=== PATIENT | male | born 1940 | race Caucasian/White ===

== ENCOUNTER 2016-12-15 16:25 | Emergency (ER) | payer BC ==
[~2016-12-15] VITALS: Ht 177.8 cm; Wt 95.1 kg
[~2016-12-15 16:25] MED LIST: CILO50TA9 PO; DYZ; OXYC-57 PO; PRLSR20 PO; TRAM-10 PO
[2016-12-15 16:32] VITALS: TEMP 37.7; Ht 177.8 cm; Wt 95.1 kg
--- NOTE | 2016-12-15 17:50 | EMERGENCY ROOM VISIT NOTE ---
History Report prepared by Debra: Halle Ewing Under the Supervision of: Dr. Liam Baxter M.D. First contact with patient: 17:28 Chief Complaint: UNABLE TO VOID Stated Complaint: URINARY PROBLEMS, FEVER, Nursing Triage Summary: Pt states unable to void, pain with urination, fever. Sx began yesterday, worse today. Denies previous problems with retention. History of Present Illness The patient is a 76 year old male who presents to the Emergency Room with complaints of worsening urinary symptoms for the past 2 days. The patient reports dysuria. He feels like he is unable to empty his bladder. He denies hematuria. Yesterday the patient developed a fever and was unable to void at all. He feels more tired than usual. The patient denies nausea, vomiting, diarrhea, abdominal pain, and back pain. He denies any personal history of UTIs or prostate problems. He called his PCP and was advised to come to the ED for further evaluation. Source of History: patient Onset: 2 days ago Position: other (bladder) Timing: worsening Modifying Factors (Worsening): urination Associated Symptoms: + fatigue, + fevers, No abdominal pain, No back pain, No diarrhea, No nausea, No vomiting Review of Systems See HPI for pertinent positives & negatives. A total of 10 systems reviewed and were otherwise negative. Past Medical & Surgical Medical Problems: (1) Athscl Heart Disease Of [place] Coronary Artery W/O Ang Pctrs (2) Athscl Heart Disease Of [place] Coronary Artery W/O Ang Pctrs (3) Emphysema, unspecified (4) Hypertension Family History Non-pertinent due to advanced age. Social History Smoking Status: Former Smoker Marital Status: Housing Status: lives with significant other Occupation Status: retired Current/Historical Medications Scheduled Acetaminophen (Tylenol), 2 TAB PO TID Amlodipine (Norvasc), 5 MG PO DAILY Atenolol (Tenormin), 25 MG PO BID Atorvastatin (Lipitor), 80 MG PO DAILY Cilostazol (Pletal), 100 MG PO DAILY Metformin HCl (Metformin HCl), 500 MG PO BIDM Nitroglycerin (Nitrostat), 0.4 MG SL DIRECTED Omeprazole (Prilosec), 20 MG PO DAILY Sulfa/Trimethoprim (Bactrim Ds 800MG/160MG), 1 TAB PO BID Tamsulosin Hcl (Flomax), 0.4 MG PO HS Tramadol Hcl (Tramadol Hcl Er), 200 MG PO DAILY Miscellaneous Medications Clopidogrel Bisulfate (Plavix), 1 TAB PO Isosorbide Mononitrate Ext Rel (Imdur Ext Rel), 1 TAB PO Triamterene/Hctz (Dyazide 37.5MG/25MG *) Allergies Coded Allergies: No Known Allergies (Verified , 12/15/16) Physical Exam Vital Signs Date Time Temp Pulse Resp B/P Pulse Ox O2 Delivery O2 Flow Rate FiO2 12/15/16 19:18 76 16 125/65 94 Room Air 12/15/16 18:55 94 Room Air 12/15/16 16:32 37.7 96 18 159/95 92 Room Air Physical Exam GENERAL: Patient is a healthy-appearing well-nourished 76 year old male. HEAD: Normocephalic atraumatic EYES: Ocular movements intact pupils equal and react to light OROPHARYNX mucous membranes are moist no exudates present no erythema or edema present NECK: Supple no nuchal rigidity CHEST: Good equal expansion LUNGS: Clear and equal to auscultation CARDIAC: Normal S1 and S2 ABDOMEN: Soft nontender no guarding BACK: No CVA tenderness EXTREMITIES: No pain upon palpation normal muscle strength in all groups no clubbing cyanosis or edema NEURO: Patient is following commands is answering questions appropriately. Alert and oriented x3 Cranial Nerves 2-12 grossly intact Medical Decision & Procedures ER Provider Diagnostic Interpretation: Radiology results as stated below per my review and radiologist interpretation: RENAL ULTRASOUND HISTORY: Right-sided abdominal pain. COMPARISON: Abdomen and pelvis CTA 09/17/2010. FINDINGS: Right kidney: 10.7 cm. No hydronephrosis. Normal corticomedullary differentiation. Mild cortical thinning. Left kidney: 11.3 cm. No hydronephrosis. Normal corticomedullary differentiation. Mild cortical thinning. Bladder: The bladder is decompressed by Verdin catheter. IMPRESSION: The bladder is decompressed by Verdin catheter. Otherwise, normal renal ultrasound for age. Electronically signed by: Mio Brand M.D. 12/15/2016 7:29 PM Dictated Date/Time: 12/15/2016 7:27 PM Laboratory Results 12/15/16 18:05 Red Blood Count 3.73, Mean Corpuscular Volume 94.4, Mean Corpuscular Hemoglobin 32.4, Mean Corpuscular Hemoglobin Concent 34.4, Mean Platelet Volume 10.5, Neutrophils (%) (Auto) 87.3, Lymphocytes (%) (Auto) 4.7, Monocytes (%) (Auto) 7.5, Eosinophils (%) (Auto) 0.1, Basophils (%) (Auto) 0.1, Neutrophils # (Auto) 13.58, Lymphocytes # (Auto) 0.73, Monocytes # (Auto) 1.17, Eosinophils # (Auto) 0.01, Basophils # (Auto) 0.02 12/15/16 18:05 Test 12/15/16 17:45 12/15/16 18:05 Urine Color YELLOW Urine Appearance CLEAR (CLEAR) Urine pH 5.5 (4.5-7.5) Urine Specific [place] 1.018 (1.000-1.030) Urine Protein TRACE (NEG) Urine Glucose (UA) NEG (NEG) Urine Ketones NEG (NEG) Urine Occult Blood TRACE (NEG) Urine Nitrite NEG (NEG) Urine Bilirubin NEG (NEG) Urine Urobilinogen NEG (NEG) Urine Leukocyte Esterase MODERATE (NEG) Urine WBC (Auto) 10-30 /hpf (0-5) Urine RBC (Auto) 0-4 /hpf (0-4) Urine Hyaline Casts (Auto) 5-10 /lpf (0-5) Urine Epithelial Cells (Auto) 0-5 /lpf (0-5) Urine Bacteria (Auto) 3+ (NEG) White Blood Count 15.55 K/uL (4.8-10.8) Red Blood Count 3.73 M/uL (4.7-6.1) Hemoglobin 12.1 g/dL (14.0-18.0) Hematocrit 35.2 % (42-52) Mean Corpuscular Volume 94.4 fL (80-100) Mean Corpuscular Hemoglobin 32.4 pg (25-34) Mean Corpuscular Hemoglobin Concent 34.4 g/dl (32-36) Platelet Count 190 K/uL (130-400) Mean Platelet Volume 10.5 fL (7.4-10.4) Neutrophils (%) (Auto) 87.3 % Lymphocytes (%) (Auto) 4.7 % Monocytes (%) (Auto) 7.5 % Eosinophils (%) (Auto) 0.1 % Basophils (%) (Auto) 0.1 % Neutrophils # (Auto) 13.58 K/uL (1.4-6.5) Lymphocytes # (Auto) 0.73 K/uL (1.2-3.4) Monocytes # (Auto) 1.17 K/uL (0.11-0.59) Eosinophils # (Auto) 0.01 K/uL (0-0.5) Basophils # (Auto) 0.02 K/uL (0-0.2) RDW Standard Deviation 47.1 fL (36.4-46.3) RDW Coefficient of Variation 13.6 % (11.5-14.5) Immature Granulocyte % (Auto) 0.3 % Immature Granulocyte # (Auto) 0.04 K/uL (0.00-0.02) Anion Gap 11.0 mmol/L (3-11) Est Creatinine Clear Calc Drug Dose 77.0 ml/min Estimated GFR () 91.5 Estimated GFR (Non- 78.9 BUN/Creatinine Ratio 18.3 (10-20) Calcium Level 8.1 mg/dl (8.5-10.1) Total Bilirubin 0.7 mg/dl (0.2-1) Direct Bilirubin 0.1 mg/dl (0-0.2) Aspartate Amino Transf (AST/SGOT) 16 U/L (15-37) Alanine Aminotransferase (ALT/SGPT) 22 U/L (12-78) Alkaline Phosphatase 64 U/L (45-117) Total Creatine Kinase 99 U/L (39-308) Creatine Kinase MB 0.7 ng/ml (0.5-3.6) Creatine Kinase MB Ratio 0.7 (0-3.0) Troponin I < 0.015 ng/ml (0-0.045) Total Protein 7.1 gm/dl (6.4-8.2) Albumin 3.4 gm/dl (3.4-5.0) Labs reviewed by ED physician. Medications Administered Medications (Trade) Dose Ordered Sig/Magdi Route Start Time Stop Time Status Last Admin Dose Admin Sodium Chloride (Nss 1000ml) 1,000 ml @ 999 mls/hr Q1H1M STAT IV 12/15/16 17:54 12/15/16 18:54 DC 12/15/16 18:37 999 MLS/HR Ketorolac Tromethamine (Toradol Inj) 30 mg NOW STAT IV 12/15/16 17:54 12/15/16 17:57 DC 12/15/16 18:38 30 MG Ceftriaxone Sodium (Rocephin Inj) 1 gm NOW STAT IV 12/15/16 17:54 12/15/16 17:57 DC 12/15/16 18:40 1 GM Trimethoprim/ Sulfamethoxazole (Septra Ds 800/ 160MG Tab) 1 tab NOW STAT PO 12/15/16 17:54 12/15/16 17:57 DC 12/15/16 18:38 1 TAB Tamsulosin HCl (Flomax Cap) 0.4 mg NOW ONCE PO 12/15/16 18:00 12/15/16 18:02 DC 12/15/16 18:38 0.4 MG Acetaminophen (Tylenol Tab) 1,000 mg NOW STAT PO 12/15/16 19:24 12/15/16 19:25 DC 12/15/16 19:47 1,000 MG ECG Indication: weakness Rate (beats per minute): 83 Rhythm: normal sinus Findings: no acute ischemic change, no ectopy Comparison ECG Date: no prior available ED Course 1728: Past medical records reviewed. The patient was evaluated in room C4. A complete history and physical examination was performed. 1754: Trimethoprim/Sulfamethoxazole 1 tab PO, Rocephin 1 gm IV, Toradol 30 mg IV , NSS 1000 ml @ 999 mls/hr IV 1800: Flomax 0.4 mg PO 4: Tylenol 1000 mg PO 1930: I reassessed the patient at this time. He is feeling better and resting comfortably. I discussed the results and treatment plan with the patient. I answered all pertaining questions that he had. He expressed understanding and verbalized agreement. The patient will be discharged home. Medical Decision Differential diagnosis: Etiologies such as renal colic, appendicitis, diverticulitis, mesenteric ischemia, aortic pathology, infections, inflammatory bowel disease, PUD, biliary pathology, UTI, as well as others were entertained. This is a 76-year-old male who presents emergency department complaining of chills and fevers along with urinary retention. Based on the patient's complaint a bladder scan was performed after Verdin catheter was inserted. The patient does have a large amount of white blood cells in his urine and does appear to have a urinary tract infection. An IV was established, the patient given normal saline bolus started on Rocephin, Bactrim as well as Flomax. He was also given Toradol and Tylenol for his symptoms. Repeat examination revealed improvement patient's symptoms. I strongly recommended that the patient be admitted to the hospital however he is adamantly refusing and wishes to go home. I strongly cautioned him to return if his weakness returns or his fevers or out of control. I will place him on a 28 day course of Bactrim for prostatitis. I stressed the need for follow-up with urology to have the Verdin removed. Patient was in agreement with the treatment plan. Impression Primary Impression: Urinary tract infection Scribe Attestation The scribe's documentation has been prepared under my direction and personally reviewed by me in its entirety. I confirm that the note above accurately reflects all work, treatment, procedures, and medical decision making performed by me. Departure Information Dispostion Home / Self-Care Prescriptions Tamsulosin Hcl (FLOMAX) 0.4 Mg Cap 0.4 MG PO HS for 14 Days, #14 CAP Prov: Liam Baxter MD 12/15/16 Sulfa/Trimethoprim (Bactrim Ds 800MG/160MG) Tab 1 TAB PO BID for 28 Days, #56 TAB Prov: Liam Baxter MD 12/15/16 Referrals Jae Hills M.D. (PCP) Jasson Colón M.D. Forms HOME CARE DOCUMENTATION FORM, IMPORTANT VISIT INFORMATION, WORK / SCHOOL INSTRUCTIONS Patient Instructions My [facility], Prostatitis Bacterial Additional Instructions Follow up with DR Colón's office this week Take 600 mg Ibuprofen every 6 hours Take 1000 mg TYlenol every 6 hours Culture results are usually available in approx 48 hours You have been examined and treated today on an emergency basis only. This is not a substitute for, or an effort to provide, complete comprehensive medical care. It is impossible to recognize and treat all injuries or illnesses in a single emergency department visit. It is therefore important that you follow up closely with Dr Hills. Call as soon as possible for an appointment. Thank you for your time and consideration. I look forward to speaking with you again soon. Please don't hesitate to call us if you have any questions. Problem Qualifiers Primary Impression: Urinary tract infection Urinary tract infection type: acute cystitis Hematuria presence: without hematuria Qualified Codes: N30.00 - Acute cystitis without hematuria
[2016-12-15] MEDS ORDERED: SODIUM CHLORIDE 0.9% 1000ML 1,000 ML IV STA (17:54)
[2016-12-15] MEDS ORDERED: SULFAMETHOXAZOLE/TRIMETHOPRIM DS 800/160MG TAB PO STA (17:54)
[2016-12-15] MEDS ORDERED: CEFTRIAXONE SOD INJ 1 GM ADDVIAL IV STA (17:54)
[2016-12-15] MEDS ORDERED: KETOROLAC TROMETHAMINE 30 MG/ML VIAL IV STA (17:54)
[2016-12-15] MEDS ORDERED: TAMSULOSIN HCL 0.4 MG CAP PO ONE (18:00)
[2016-12-15 18:24] LABS: URINE APPEARANCE CLEAR (CLEAR); URINE BILIRUBIN NEG (NEG); URINE COLOR YELLOW; URINE EPITHELIAL CELL AUTO 0-5 /lpf (0-5); URINE NITRITE NEG (NEG); URINE PH 5.5 (4.5-7.5); URINE SPECIFIC GRAVITY 1.018 (1.000-1.030); UROBILINOGEN NEG (NEG); ZZURINE CULT IF INDIC CATH YES
[2016-12-15 18:36] LABS: BASO % 0.1 %; BASO ABS # 0.02 K/uL (0-0.2); COMPLETE YES; EOS % 0.1 %; HEMATOCRIT 35.2 % (42-52); IG% 0.3 %; LYMPH % 4.7 %; LYMPH ABS # 0.73 K/uL (1.2-3.4); MEAN CELL VOLUME 94.4 fL (80-100); MEAN CORPUSCULAR HEMOGLOBIN 32.4 pg (25-34); MEAN CORPUSCULAR HGB CONC 34.4 g/dl (32-36); MEAN PLATELET VOLUME 10.5 fL (7.4-10.4); MONO % 7.5 %; NEUT % 87.3 %; PLATELET COUNT 190 K/uL (130-400); RED BLOOD COUNT 3.73 M/uL (4.7-6.1); WHITE BLOOD COUNT 15.55 K/uL (4.8-10.8)
[2016-12-15 18:36] LABS: MANUAL MICROSCOPIC REQUIRED? NO; REVIEW REQ? NO
[2016-12-15 18:55] VITALS: O2SAT 94
[2016-12-15 19:12] LABS: ALT/SGPT 22 U/L (12-78); AST/SGOT 16 U/L (15-37); BLOOD UREA NITROGEN 17 mg/dl (7-18); BUN/CREATININE RATIO 18.3 (10-20); CALCIUM 8.1 mg/dl (8.5-10.1); CARBON DIOXIDE 25 mmol/L (21-32); CHLORIDE 99 mmol/L (98-107); CREATININE 0.93 mg/dl (0.60-1.40); GLUCOSE 117 mg/dl (70-99); POTASSIUM 3.6 mmol/L (3.5-5.1); SODIUM 135 mmol/L (136-145)
[2016-12-15 19:18] VITALS: BP 125/65; PULSE 76; O2SAT 94
[2016-12-15 19:18] LABS: ALKALINE PHOSPHATASE 64 U/L (45-117); CKMB/CK RATIO 0.7 (0-3.0)
[2016-12-15] MEDS ORDERED: ACETAMINOPHEN 500 MG TAB PO STA (19:24)
--- NOTE | 2016-12-15 19:31 | DIAGNOSTIC IMAGING REPORT ---
RENAL ULTRASOUND HISTORY: Right-sided abdominal pain. COMPARISON: Abdomen and pelvis CTA 09/17/2010. FINDINGS: Right kidney: 10.7 cm. No hydronephrosis. Normal corticomedullary differentiation. Mild cortical thinning. Left kidney: 11.3 cm. No hydronephrosis. Normal corticomedullary differentiation. Mild cortical thinning. Bladder: The bladder is decompressed by Verdin catheter. IMPRESSION: The bladder is decompressed by Verdin catheter. Otherwise, normal renal ultrasound for age. Electronically signed by: Mio Brand M.D. 12/15/2016 7:29 PM Dictated Date/Time: 12/15/2016 7:27 PM
[2016-12-15] MEDS ORDERED: SULF800T23 PO (19:39)
[2016-12-15] MEDS ORDERED: TAMS0.4C38 PO (19:39)
--- NOTE | 2016-12-17 13:49 | Pharmacy Progress Note ---
ED Pharmacist Culture FollowUp Date of Service: Dec 17, 2016. Patient was sent home with a prescription for Bactrim, which should cover the Morganella morganii growing from the patient's urine culture.
[2017-04-29] MEDS ORDERED: AMLO-110 PO (11:21)
[2017-04-29] MEDS ORDERED: ATEN-173 PO (11:21)
[2017-04-29] MEDS ORDERED: PLAVIX75 PO (12:37)
[2017-04-29] MEDS ORDERED: ATOR-26 PO (12:37)
[2017-04-29] MEDS ORDERED: ISOS30TA35 PO (12:37)
[2017-04-29] MEDS ORDERED: GLC500 PO (12:44)
[2017-04-29] MEDS ORDERED: NTRGSLP4 SL (12:44)
[2017-04-29] MEDS ORDERED: ACET-1256 PO (12:44)
== END 2016-12-15 19:48 | disposition home or self-care (01) ==
LOC: C.EDB 16:27 → C.EDC 19:48
DX: N30.00 Acute cystitis without hematuria (principal); I10 Essential (primary) hypertension; I25.10 Atherosclerotic heart disease of native coronary artery without angina pectoris; J43.9 Emphysema, unspecified; Z87.891 Personal history of nicotine dependence; Z79.899 Other long term (current) drug therapy

== ENCOUNTER 2017-03-06 19:36 | Inpatient (IN) | payer BC, OTHER ==
[~2017-03-06] VITALS: Ht 177.8 cm; Wt 92.5 kg
[~2017-03-06 19:36] MED LIST changes: -OXYC-57 PO; -TRAM-10 PO
[2017-03-06] MEDS ORDERED: ONDANSETRON INJ 2 MG/ML 2 ML VIAL IV STA (19:51)
[2017-03-06] MEDS ORDERED: MoRPHine SULFATE 4 MG/ML 1 ML CARP\\VIAL IV STA (19:51)
[2017-03-06 20:15] LABS: BASO % 0.2 %; BASO ABS # 0.03 K/uL (0-0.2); COMPLETE YES; EOS % 0.4 %; HEMATOCRIT 40.9 % (42-52); IG% 0.3 %; LYMPH % 5.9 %; LYMPH ABS # 0.92 K/uL (1.2-3.4); MEAN CELL VOLUME 92.3 fL (80-100); MEAN CORPUSCULAR HEMOGLOBIN 32.1 pg (25-34); MEAN CORPUSCULAR HGB CONC 34.7 g/dl (32-36); MEAN PLATELET VOLUME 10.6 fL (7.4-10.4); MONO % 5.4 %; NEUT % 87.8 %; PLATELET COUNT 246 K/uL (130-400); RED BLOOD COUNT 4.43 M/uL (4.7-6.1); WHITE BLOOD COUNT 15.61 K/uL (4.8-10.8)
[2017-03-06] MEDS ORDERED: OPTIRAY 320 IV PRN (20:15)
[2017-03-06 20:32] LABS: BUN/CREATININE RATIO 14.8 (10-20); CREATININE 0.95 mg/dl (0.60-1.40)
[2017-03-06] MEDS ORDERED: TRIATAB3 PO (20:33)
--- NOTE | 2017-03-06 21:21 | DIAGNOSTIC IMAGING REPORT ---
ABDOMEN AND PELVIS CT WITH IV CONTRAST CT DOSE: 537.92 mGy.cm HISTORY: Generalized abdominal pain and vomiting. eval for obstruction TECHNIQUE: Multiaxial CT images of the abdomen and pelvis were performed following the use of intravenous contrast. COMPARISON STUDY: Abdomen and pelvis CTA 09/17/2010. FINDINGS: A 3 mm nodule within the right upper lobe on image 2. Groundglass densities within the lung bases posteriorly may be due to mild dependent change. No pneumoperitoneum. No pneumatosis. Bilateral L5 spondylolysis with associated spondylolisthesis. Coronary artery calcifications. Extensive calcified plaque within the aorta and iliac arteries. No change in the severe stenosis at the right proximal common iliac artery. 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 The largest on the right measures 2.4 cm. Mild aneurysmal dilatation of the abdominal aorta measuring 3.2 cm. 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 There may also be occlusion of the left common femoral artery. The prostate gland is mildly enlarged. The bladder is mildly distended. Colonic diverticulosis. The adrenal glands and kidneys are unremarkable. A 2.7 cm exophytic hypodense lesion within the spleen. This may represent a cyst. Multiple scattered hypodense lesions within the liver. The majorities are subcentimeter in size and too small to characterize. Dominant lesion within the inferior to the right hepatic lobe measures 1.8 cm. This is slightly increased in size from the 2009 study. These lesions are indeterminate but favor cysts. No retroperitoneal lymphadenopathy. Hypodense and bulbous appearance to the pancreatic tail which is concerning for a pancreatic tail mass. Small amount of ascites. Multiple scattered omental nodules consistent with peritoneal carcinomatosis. Dominant nodule within the right side of the omentum measures 2.7 cm. Soft tissue nodularity surrounding the bulbous pancreatic tail suggestive of metastatic disease. This abuts the greater curvature of the stomach. This appears to be narrowing of the distal splenic vein at the suspected pancreatic mass. Cluster of small bowel loops within the right lower quadrant on image 303. This results in the transition point of the small bowel obstruction. Multiple dilated mid to distal small bowel which are fluid-filled. These measure up to 3.8 cm in diameter. IMPRESSION: 1. Small bowel obstruction with the transition point at the mid ileum within the right lower quadrant. 2. Peritoneal carcinomatosis as described above. This likely accounts for the small bowel obstruction. 3. Bulbous appearance of the pancreatic tail which measures 2.8 cm in thickness. This is highly suspicious for a pancreatic mass. There is surrounding soft tissue nodularity consistent with spread of metastatic disease/peritoneal carcinomatosis. There is also narrowing of the distal splenic vein at this location. 4. No change in the chronic multifocal arterial disease as described above. Electronically signed by: Mio Brand M.D. 03/06/2017 9:19 PM Dictated Date/Time: 03/06/2017 9:04 PM
[2017-03-06] MEDS ORDERED: MoRPHine SULFATE 4 MG/ML 1 ML CARP\\VIAL IV PRN (22:30)
[2017-03-06] MEDS ORDERED: GLUCOSE 40% GEL 15 GM TUBE PO PRN (22:30)
[2017-03-06] MEDS ORDERED: GLUCAGON FOR INJ 1 MG VIAL SQ PRN (22:30)
[2017-03-06] MEDS ORDERED: DEXTROSE 50% 50 ML SYR IV PRN (22:30)
[2017-03-06] MEDS ORDERED: ACETAMINOPHEN IV 100 ML IV PRN (22:30)
[2017-03-06] MEDS ORDERED: NITROGLYCERIN 0.4 MG SL PER TAB CHARGE SL SCH (22:30)
[2017-03-06] MEDS ORDERED: ONDANSETRON INJ 2 MG/ML 2 ML VIAL IV PRN (22:30)
[2017-03-06] MEDS ORDERED: MoRPHine SULFATE 2 MG/ML CARP IV PRN (22:30)
[2017-03-06] MEDS ORDERED: GLUCOSE 10 TABS/TUBE PO PRN (22:30)
--- NOTE | 2017-03-06 22:36 | EMERGENCY ROOM VISIT NOTE ---
History Report prepared by Debra: Taryn Serrano Under the Supervision of: Dr. Deven Garcia M.D. First contact with patient: 19:45 Chief Complaint: ABDOMINAL PAIN Stated Complaint: BELLY PAIN,VOMITING History of Present Illness The patient is a 77 year old male who presents to the Emergency Room with complaints of worsening abdominal pain that started 8 hours ago, around 1200. The patient states that he is also experiencing nausea and vomiting. He states that he is also very "gassy." The patient tried to relieve his symptoms with Pepto Bismol, but he was unable to keep it down. The patient's adds that the patient's abdomen appears to be bigger than it usually is. The patient states that he is urinating normally and his last bowel movement, which was earlier today, was normal beside being somewhat darker than usual. The patient had a hernia repair surgery done years ago, but otherwise denies any abdominal surgeries. The patient still has his gallbladder and appendix. Source of History: patient, spouse/significant other () Onset: 8 hours ago, around 1200 Position: abdomen Quality: other (abdominal pain) Timing: worsening Associated Symptoms: + nausea, + vomiting Note: "gassy" Review of Systems See HPI for pertinent positives & negatives. A total of 10 systems reviewed and were otherwise negative. 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 (2) Athscl Heart Disease Of [place] Coronary Artery W/O Ang Pctrs (3) Carcinoma of tail of pancreas (4) Emphysema, unspecified (5) Hypertension (6) Peritoneal carcinomatosis Family History Heart disease Stroke Social History Smoking Status: Never Smoker Marital Status: Housing Status: lives with significant other Occupation Status: retired Current/Historical Medications Scheduled Acetaminophen (Tylenol), 2 TAB PO TID Amlodipine (Norvasc), 5 MG PO DAILY Aspirin (Aspir-81), 1 TAB PO DAILY Atenolol (Tenormin), 25 MG PO BID Atorvastatin (Lipitor), 80 MG PO DAILY Cilostazol (Cilostazol), 1 TAB PO DAILY Metformin HCl (Metformin HCl), 500 MG PO BIDM Nitroglycerin (Nitrostat), 0.4 MG SL DIRECTED Tramadol Hcl (Tramadol Hcl Er), 200 MG PO DAILY Triamterene/Hctz (Triamterene/Hctz 37.5-25MG), 1 TAB PO Q2D Miscellaneous Medications Clopidogrel Bisulfate (Plavix), 1 TAB PO Isosorbide Mononitrate Ext Rel (Imdur Ext Rel), 1 TAB PO Allergies Coded Allergies: No Known Allergies (Verified , 03/06/17) Physical Exam Vital Signs Date Time Temp Pulse Resp B/P Pulse Ox O2 Delivery O2 Flow Rate FiO2 03/06/17 21:45 80 16 147/94 97 Room Air 03/06/17 19:42 36.7 102 20 143/83 95 Room Air Physical Exam Constitutional: Vital signs reviewed. Eyes: Pupils are equal round reactive to light. Conjunctiva are noninjected. ENT: Pharynx is clear without erythema or exudate. Mucous membranes are moist. Neck supple without meningeal signs. Respiratory: Clear to auscultation bilaterally. Breath sounds are equal bilaterally. Cardiovascular: Regular rate and rhythm. No rubs or gallops. GI: Soft, slightly distended with lower abdominal tenderness. No guarding. Bowel sounds are present. Musculoskeletal: No peripheral edema. No lower extremity tenderness. Integumentary: No cyanosis. Neurological: The patient is awake and alert. No focal deficits. Psychiatric: Normal affect. Medical Decision & Procedures ER Provider Diagnostic Interpretation: CT results as stated below per my review and radiologist interpretation. ABDOMEN AND PELVIS CT WITH IV CONTRAST IMPRESSION: 1. Small bowel obstruction with the transition point at the mid ileum within the right lower quadrant. 2. Peritoneal carcinomatosis as described above. This likely accounts for the small bowel obstruction. 3. Bulbous appearance of the pancreatic tail which measures 2.8 cm in thickness. This is highly suspicious for a pancreatic mass. There is surrounding soft tissue nodularity consistent with spread of metastatic disease/peritoneal carcinomatosis. There is also narrowing of the distal splenic vein at this location. 4. No change in the chronic multifocal arterial disease as described above. Electronically signed by: Mio Brand M.D. 03/06/2017 9:19 PM Dictated Date/Time: 03/06/2017 9:04 PM Laboratory Results 03/06/17 20:00 Red Blood Count 4.43, Mean Corpuscular Volume 92.3, Mean Corpuscular Hemoglobin 32.1, Mean Corpuscular Hemoglobin Concent 34.7, Mean Platelet Volume 10.6, Neutrophils (%) (Auto) 87.8, Lymphocytes (%) (Auto) 5.9, Monocytes (%) (Auto) 5.4, Eosinophils (%) (Auto) 0.4, Basophils (%) (Auto) 0.2, Neutrophils # (Auto) 13.71, Lymphocytes # (Auto) 0.92, Monocytes # (Auto) 0.85, Eosinophils # (Auto) 0.06, Basophils # (Auto) 0.03 03/06/17 20:00 Test 03/06/17 20:00 White Blood Count 15.61 K/uL (4.8-10.8) Red Blood Count 4.43 M/uL (4.7-6.1) Hemoglobin 14.2 g/dL (14.0-18.0) Hematocrit 40.9 % (42-52) Mean Corpuscular Volume 92.3 fL (80-100) Mean Corpuscular Hemoglobin 32.1 pg (25-34) Mean Corpuscular Hemoglobin Concent 34.7 g/dl (32-36) Platelet Count 246 K/uL (130-400) Mean Platelet Volume 10.6 fL (7.4-10.4) Neutrophils (%) (Auto) 87.8 % Lymphocytes (%) (Auto) 5.9 % Monocytes (%) (Auto) 5.4 % Eosinophils (%) (Auto) 0.4 % Basophils (%) (Auto) 0.2 % Neutrophils # (Auto) 13.71 K/uL (1.4-6.5) Lymphocytes # (Auto) 0.92 K/uL (1.2-3.4) Monocytes # (Auto) 0.85 K/uL (0.11-0.59) Eosinophils # (Auto) 0.06 K/uL (0-0.5) Basophils # (Auto) 0.03 K/uL (0-0.2) RDW Standard Deviation 49.7 fL (36.4-46.3) RDW Coefficient of Variation 14.7 % (11.5-14.5) Immature Granulocyte % (Auto) 0.3 % Immature Granulocyte # (Auto) 0.04 K/uL (0.00-0.02) Anion Gap 10.0 mmol/L (3-11) Est Creatinine Clear Calc Drug Dose 73.1 ml/min Estimated GFR () 88.5 Estimated GFR (Non- 76.4 BUN/Creatinine Ratio 14.8 (10-20) Calcium Level 9.0 mg/dl (8.5-10.1) Total Bilirubin 0.5 mg/dl (0.2-1) Direct Bilirubin 0.1 mg/dl (0-0.2) Aspartate Amino Transf (AST/SGOT) 20 U/L (15-37) Alanine Aminotransferase (ALT/SGPT) 19 U/L (12-78) Alkaline Phosphatase 74 U/L (45-117) Total Protein 8.0 gm/dl (6.4-8.2) Albumin 4.0 gm/dl (3.4-5.0) Lipase 226 U/L (73-393) Laboratory results as reviewed by me. Medications Administered Medications (Trade) Dose Ordered Sig/Magdi Route Start Time Stop Time Status Last Admin Dose Admin Morphine Sulfate (MoRPHine SULFATE INJ) 4 mg ONE STAT IV 03/06/17 19:51 03/06/17 19:53 DC 03/06/17 20:12 4 MG Ondansetron HCl (Zofran Inj) 4 mg NOW STAT IV 03/06/17 19:51 03/06/17 19:53 DC 03/06/17 20:12 4 MG ED Course 1946: The patient was evaluated in room C10. A complete history and physical exam was performed. 1950: Ordered Zofran Inj 4 mg IV, Morphine Sulfate 4 mg IV 2124: Upon reevaluation, the patient appeared to be resting comfortably. I discussed tonight's findings with him. He verbalized agreement of the treatment plan. The patient will be evaluated for further management. 2129: I spoke with Dr. Rodney of General Surgery. We discussed the patient and his results. She is in agreement with the plan to admit the patient to medicine. She has agreed to consult. 2139: I spoke with Dr. Moran of [facility]. We discussed the patient and his results. The patient will be further evaluated by him. Medical Decision This is a 77-year-old male who presents with abdominal pain and vomiting. Differential diagnosis includes bowel obstruction, partial bowel obstruction, abdominal mass, appendicitis, mesenteric ischemia, colitis. I did perform a limited focused review of portions of the patient's old chart on the electronic medical record. The patient has had no recent pertinent visits to this hospital. I did evaluate the patient as noted above. IV access was established. I did treat the patient with IV morphine and Zofran. I did order and review the patient's blood work as noted in the electronic medical record. His white blood cell count is over 15,000. I did order a CT of the abdomen and pelvis. I did review the images myself as well as the radiology report as described above. He has a small bowel obstruction secondary to peritoneal carcinomatosis. He also has a pancreatic mass. I did discuss the test results with the patient and his . An NG tube was ordered. I did discuss the case with Dr. Rodney of surgery. I did discuss case with Dr. Melara for hospitalization. Consults Time Called: 2128 Consulting Physician: Dr. Rodney - General Surgery Returned Call: [address] Rodney of General Surgery. We discussed the patient and his results. She is in agreement with the plan to admit the patient to medicine. She has agreed to consult. Additional Consults: Time Called: 2128 Consulted Physician: Dr. Moran - [facility] [place] Returned Call: 2139 Additional Comments: I spoke with Dr. Moran of [facility]. We discussed the patient and his results. The patient will be further evaluated by him. Impression Primary Impression: Small bowel obstruction Additional Impressions: Peritoneal carcinomatosis Pancreatic mass Scribe Attestation The scribe's documentation has been prepared under my direct and personally reviewed by me in its entirety. I confirm that the note above accurately reflects all work, treatment, procedures, and medical decision making performed by me. Departure Information Dispostion Being Evaluated By Hospitalist Referrals Jae Hills M.D. (PCP) Patient Instructions My [facility] Problem Qualifiers
[2017-03-06] MEDS ORDERED: LORAZEPAM 2 MG/ML 1 ML VIAL IV STA (22:48)
--- NOTE | 2017-03-06 23:31 | History and Physical ---
History & Physical Date & Time of Service: Mar 06, 2017 at 23:31 Chief Complaint: Belly Pain,Vomiting Primary Care Physician: Jae Hills M.D. History of Present Illness Source: patient, spouse The patient is a 77-year-old male who presents to the emergency department with worsening abdominal pain that began about 8 hours prior to arrival. He has had intermittent issues with nausea and vomiting and being very gassy since almost a year ago. He has undergone an endoscopy by Dr. Hernández from gastroenterology, and was treated for Helicobacter pylori. He has not had any recent travel, sick exposures, change in his usual routine, or change in solid or liquid intake. He also reports frequent issues with loose stools after eating. Past Medical/Surgical History Medical Problems: (1) Emphysema, unspecified Status: Chronic (2) Hypertension Status: Chronic Family History Heart disease Stroke Social History Smoking Status: Never Smoker Smokeless Tobacco Use: No Alcohol Use: none Drug Use: none Marital Status: Housing status: lives with family Occupational Status: retired Immunizations History of Influenza Vaccine: Yes Influenza Vaccine Date: Aug 03, 2008 History of Tetanus Vaccine?: Yes History of Pneumococcal: Unknown History of Hepatitis B Vaccine: No Multi-Drug Resistant Organisms History of MDRO: No Allergies Coded Allergies: No Known Allergies (Verified , 03/06/17) Home Medications Scheduled Acetaminophen (Tylenol), 2 TAB PO TID Amlodipine (Norvasc), 5 MG PO DAILY Aspirin (Aspir-81), 1 TAB PO DAILY Atenolol (Tenormin), 25 MG PO BID Atorvastatin (Lipitor), 80 MG PO DAILY Cilostazol (Cilostazol), 1 TAB PO DAILY Metformin HCl (Metformin HCl), 500 MG PO BIDM Nitroglycerin (Nitrostat), 0.4 MG SL DIRECTED Tramadol Hcl (Tramadol Hcl Er), 200 MG PO DAILY Triamterene/Hctz (Triamterene/Hctz 37.5-25MG), 1 TAB PO Q2D Miscellaneous Medications Clopidogrel Bisulfate (Plavix), 1 TAB PO Isosorbide Mononitrate Ext Rel (Imdur Ext Rel), 1 TAB PO Review of Systems The patient denies chest pain, palpitations, shortness of breath, cough, lower extremity swelling, vision change, hearing change, sore throat, fevers, chills, sweats, blood in urine or stool, dysuria, urinary frequency or urgency, lightheadedness, dizziness, headache, memory loss, rash, abnormal bruising or bleeding, imbalance, focal weakness, numbness or tingling in arms or legs, arthralgias or myalgias, back or neck pain, night sweats, or allergy symptoms. The review of systems is otherwise negative other than for that already noted above, and at least 10 systems have been reviewed. Physical Exam Vital Signs Date Time Temp Pulse Resp B/P Pulse Ox O2 Delivery O2 Flow Rate FiO2 03/06/17 21:45 80 16 147/94 97 Room Air 03/06/17 19:42 36.7 102 20 143/83 95 Room Air The patient is awake, well-developed and adequately nourished, alert and oriented 3, normocephalic and atraumatic, lying in bed and in no acute distress. HEENT--PERRL, EOMI, mucous membranes and oropharynx dry. Neck--supple, no JVD or bruits, thyroid normal, trachea midline, no adenopathy. Heart--normal S1 and S2, no extra beats, no murmurs, rubs or gallops. Lungs--clear bilaterally with good air movement, no respiratory distress, no accessory muscle use. Abdomen--normal bowel sounds and soft, generally tender, mildly distended, no hernias or masses, no organomegaly. Extremities--no cyanosis, clubbing or edema. There are good distal pulses b/l. Dermatologic--normal skin turgor, normal color, warm and dry, no abnormal lymph nodes, no rash. Neurologic--cranial nerves II through XII grossly intact, motor and sensory examination normal. Rheumatologic--normal range of motion, nontender, muscles and joints. Psychiatric--normal affect. Diagnostics Laboratory Results Results Past 24 Hours Test 03/06/17 20:00 Range/Units White Blood Count 15.61 4.8-10.8 K/uL Red Blood Count 4.43 4.7-6.1 M/uL Hemoglobin 14.2 14.0-18.0 g/dL Hematocrit 40.9 42-52 % Mean Corpuscular Volume 92.3 80-100 fL Mean Corpuscular Hemoglobin 32.1 25-34 pg Mean Corpuscular Hemoglobin Concent 34.7 32-36 g/dl Platelet Count 246 130-400 K/uL Mean Platelet Volume 10.6 7.4-10.4 fL Neutrophils (%) (Auto) 87.8 % Lymphocytes (%) (Auto) 5.9 % Monocytes (%) (Auto) 5.4 % Eosinophils (%) (Auto) 0.4 % Basophils (%) (Auto) 0.2 % Neutrophils # (Auto) 13.71 1.4-6.5 K/uL Lymphocytes # (Auto) 0.92 1.2-3.4 K/uL Monocytes # (Auto) 0.85 0.11-0.59 K/uL Eosinophils # (Auto) 0.06 0-0.5 K/uL Basophils # (Auto) 0.03 0-0.2 K/uL RDW Standard Deviation 49.7 36.4-46.3 fL RDW Coefficient of Variation 14.7 11.5-14.5 % Immature Granulocyte % (Auto) 0.3 % Immature Granulocyte # (Auto) 0.04 0.00-0.02 K/uL Sodium Level 139 136-145 mmol/L Potassium Level 4.0 3.5-5.1 mmol/L Chloride Level 101 98-107 mmol/L Carbon Dioxide Level 28 21-32 mmol/L Anion Gap 10.0 3-11 mmol/L Blood Urea Nitrogen 14 7-18 mg/dl Creatinine 0.95 0.60-1.40 mg/dl Est Creatinine Clear Calc Drug Dose 73.1 ml/min Estimated GFR () 88.5 Estimated GFR (Non- 76.4 BUN/Creatinine Ratio 14.8 10-20 Random Glucose 136 70-99 mg/dl Calcium Level 9.0 8.5-10.1 mg/dl Total Bilirubin 0.5 0.2-1 mg/dl Direct Bilirubin 0.1 0-0.2 mg/dl Aspartate Amino Transf (AST/SGOT) 20 15-37 U/L Alanine Aminotransferase (ALT/SGPT) 19 12-78 U/L Alkaline Phosphatase 74 45-117 U/L Total Protein 8.0 6.4-8.2 gm/dl Albumin 4.0 3.4-5.0 gm/dl Lipase 226 73-393 U/L Diagnostic Radiology Patient Name: USMAN HERNANDEZ Unit Number: [id number] Dictated: 03/06/172103 Transcribed: 03/06/172103 [facility] Printed Date/Time: [~ rep prt dt]/[~ rep prt tm] [~ rep ct labl] - [~ rep ct ivnm] [facility] [place] [address] Dictated: 03/06/172103 Transcribed: 03/06/172103 [facility] Printed Date/Time: [~ rep prt dt]/[~ rep prt tm] [~ rep ct labl] - [~ rep ct ivnm] [~ rep ct add3]] ABDOMEN AND PELVIS CT WITH IV CONTRAST CT DOSE: 537.92 mGy.cm HISTORY: Generalized abdominal pain and vomiting. eval for obstruction TECHNIQUE: Multiaxial CT images of the abdomen and pelvis were performed following the use of intravenous contrast. COMPARISON STUDY: Abdomen and pelvis CTA 09/17/2010. FINDINGS: A 3 mm nodule within the right upper lobe on image 2. Groundglass densities within the lung bases posteriorly may be due to mild dependent change. No pneumoperitoneum. No pneumatosis. Bilateral L5 spondylolysis with associated spondylolisthesis. Coronary artery calcifications. Extensive calcified plaque within the aorta and iliac arteries. No change in the severe stenosis at the right proximal common iliac artery. 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 The largest on the right measures 2.4 cm. Mild aneurysmal dilatation of the abdominal aorta measuring 3.2 cm. 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 There may also be occlusion of the left common femoral artery. The prostate gland is mildly enlarged. The bladder is mildly distended. Colonic diverticulosis. The adrenal glands and kidneys are unremarkable. A 2.7 cm exophytic hypodense lesion within the spleen. This may represent a cyst. Multiple scattered hypodense lesions within the liver. The majorities are subcentimeter in size and too small to characterize. Dominant lesion within the inferior to the right hepatic lobe measures 1.8 cm. This is slightly increased in size from the 2009 study. These lesions are indeterminate but favor cysts. No retroperitoneal lymphadenopathy. Hypodense and bulbous appearance to the pancreatic tail which is concerning for a pancreatic tail mass. Small amount of ascites. Multiple scattered omental nodules consistent with peritoneal carcinomatosis. Dominant nodule within the right side of the omentum measures 2.7 cm. Soft tissue nodularity surrounding the bulbous pancreatic tail suggestive of metastatic disease. This abuts the greater curvature of the stomach. This appears to be narrowing of the distal splenic vein at the suspected pancreatic mass. Cluster of small bowel loops within the right lower quadrant on image 303. This results in the transition point of the small bowel obstruction. Multiple dilated mid to distal small bowel which are fluid-filled. These measure up to 3.8 cm in diameter. IMPRESSION: 1. Small bowel obstruction with the transition point at the mid ileum within the right lower quadrant. 2. Peritoneal carcinomatosis as described above. This likely accounts for the small bowel obstruction. 3. Bulbous appearance of the pancreatic tail which measures 2.8 cm in thickness. This is highly suspicious for a pancreatic mass. There is surrounding soft tissue nodularity consistent with spread of metastatic disease/peritoneal carcinomatosis. There is also narrowing of the distal splenic vein at this location. 4. No change in the chronic multifocal arterial disease as described above. Electronically signed by: Mio Brand M.D. 03/06/2017 9:19 PM Dictated Date/Time: 03/06/2017 9:04 PM The status of this report is Signed. Draft = Not yet reviewed or approved by Radiologist. Signed = Reviewed and approved by Radiologist. <AttendingPhy></AttendingPhy> <FamilyPhy>Jae Hills M.D.</FamilyPhy> < PrimaryPhy>Jae Hills M.D.</PrimaryPhy> <UnitNumber>[id number]</UnitNumber> <VisitNumber>[id number]</VisitNumber> <PatientName>USMAN HERNANDEZ</ PatientName> <DateOfBirth>1940</DateOfBirth> <Location>[facility]</Location> < ServiceDate>03/06/17</ServiceDate> <MNE>ESINDI</MNE> <OrderingPhy>Deven Garcia MD</OrderingPhy> <OrderingPhyMNE>f rep ord dr rodrigez</OrderingPhyMNE> < DictatingPhyMNE>f rep dict dr rodrigez</DictatingPhyMNE> <CCListMNE>f rep ct mne</ CCListMNE> <AdmittingPhyMNE>f pt admit dr rodrigez</AdmittingPhyMNE> <AttendingPhyMNE >f pt attend dr rodrigez</AttendingPhyMNE> <ConsultingPhyMNE>f pt consult dr rodrigez</ConsultingPhyMNE> <FamilyPhyMNE>f pt fam dr rodrigez</FamilyPhyMNE> <OtherPhyMNE>f pt other dr rodrigez</OtherPhyMNE> < PrimaryPhyMNE>f pt prim care dr rdorigez</PrimaryPhyMNE> <ReferringPhyMNE>f pt referring dr rodrigez</ReferringPhyMNE> Impression Assessment and Plan Pancreatic tail mass/peritoneal carcinomatosis/small bowel obstruction--patient will be admitted to the medical surgical floor and kept nothing by mouth status. NG tube to low intermittent suction is being placed by the emergency department. We'll order an MRCP to further assess, along with a CT of the chest with contrast. We'll consult oncologist Dr. Gabe Sapp. Depending upon his progress, a surgical consult may be made, but the patient and his have expressed a desire to go to [facility] if surgery is required. 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 on Nitropaste 1 inch to the anterior chest wall every 6 hours, and hydralazine 10 mg IV every 4 hours when necessary systolic blood pressure greater than 150. Place on normal saline with KCl 20 mEq at 100 ML's per hour. Diabetes mellitus--hold metformin 500 mg by mouth twice a day with meals, and place on Accu-Cheks before meals and at bedtime/4 times a day with NovoLog coverage per sliding scale. Hypercholesterolemia--hold atorvastatin 80 mg by mouth daily. BPH with mild bladder distention--monitored closely while on IV fluids. Level of Care Med/Surg Advanced Directives Existing Advance Directive: No Existing Living Will: No Existing Power of Roll Press Operator: No Resuscitation Status FULL RESUSCITATION VTE Prophylaxis VTE Risk Assessment Done? Y/N: Yes Risk Level: Moderate Given or contraindicated: SCD's Social Service Consult None Apply
[2017-03-06] MEDS ORDERED: CANNULA ONE ×2 (23:49)
[2017-03-07] VITALS (7 sets, daily range): BP systolic 112–160; BP diastolic 64–81; PULSE 55–90; TEMP 36.5–37; O2SAT 90–94; BMI 30.5; BMI 28.8
[2017-03-07] MEDS ORDERED: LORAZEPAM 2 MG/ML 1 ML VIAL ONE (01:37)
[2017-03-07] MEDS: NITROGLYCERIN OINT 2% 1GM PACKET EXT SCH ×4 (04:46→22:16)
[2017-03-07] MEDS: NSS + 20MEQ KCL 1000ML 1,000 ML IV SCH ×3 (04:47→22:18)
[2017-03-07 07:33] LABS: BASO % 0.2 %; BASO ABS # 0.02 K/uL (0-0.2); COMPLETE YES; EOS % 1.1 %; HEMATOCRIT 34.6 % (42-52); IG% 0.2 %; LYMPH % 11.9 %; LYMPH ABS # 1.22 K/uL (1.2-3.4); MEAN CELL VOLUME 93.5 fL (80-100); MEAN CORPUSCULAR HEMOGLOBIN 31.4 pg (25-34); MEAN CORPUSCULAR HGB CONC 33.5 g/dl (32-36); MEAN PLATELET VOLUME 10.7 fL (7.4-10.4); MONO % 6.5 %; NEUT % 80.1 %; PLATELET COUNT 201 K/uL (130-400); WHITE BLOOD COUNT 10.25 K/uL (4.8-10.8)
[2017-03-07 07:38] LABS: INR 1.1 (0.9-1.1); PROTHROMBIN TIME (PATIENT) 11.4 SECONDS (9.0-12.0)
--- NOTE | 2017-03-07 07:57 | DIAGNOSTIC IMAGING REPORT ---
MRCP CLINICAL HISTORY: Pancreatic carcinoma. Peritoneal carcinomatosis. Abnormal liver enzymes. COMPARISON STUDY: CT scan dated 03/06/2017 FINDINGS: A breath-hold MRCP was performed. There are dilated small bowel loops consistent with a small bowel obstruction. There is ascites. There is an 11 mm T2 bright hepatic lesion representing a cyst. There is a 2.6 cm T2 bright splenic mass, likely cystic. There is a 10 mm cystic lesion within the pancreatic neck. The pancreatic tail appears bulbous. There is infiltration the fat surrounding the pancreatic tail. There is no pancreatic ductal dilatation. The common bile duct is of normal caliber. There are no gallbladder filling defects. IMPRESSION: 1. Dilated small bowel loops, consistent with a small bowel obstruction 2. No evidence of pancreatic or biliary ductal dilatation 3. Ascites 4. T2 bright hepatic and splenic lesions, likely represent cysts 5. 10 mm cystic lesion within the pancreatic neck 6. Bulbous pancreatic tail. This could represent a mass. 7. Infiltration of the fat surrounding the pancreatic tail. 8. Omental nodularity Electronically signed by: Cristobal Angeles M.D. 03/07/2017 7:55 AM Dictated Date/Time: 03/07/2017 7:50 AM
[2017-03-07 08:00] LABS: ALT/SGPT 19 U/L (12-78); BLOOD UREA NITROGEN 12 mg/dl (7-18); BUN/CREATININE RATIO 13.6 (10-20); CARBON DIOXIDE 28 mmol/L (21-32); CHLORIDE 105 mmol/L (98-107); CREATININE 0.86 mg/dl (0.60-1.40); GLUCOSE 116 mg/dl (70-99); POTASSIUM 4.1 mmol/L (3.5-5.1); SODIUM 140 mmol/L (136-145)
[2017-03-07] MEDS ORDERED: ISOSORBIDE MONONITRATE 30 MG TABCR PO SCH (08:00)
[2017-03-07 08:09] LABS: ALKALINE PHOSPHATASE 60 U/L (45-117); AST/SGOT 14 U/L (15-37)
[2017-03-07] MEDS: INSULIN ASPART 100 UNITS/ML 3 ML PEN SC SCH ×4 (08:53→21:00)
[2017-03-07] MEDS: PANTOprazole INJ 40 MG in SYRINGE 0 ML IV SCH (10:23)
--- NOTE | 2017-03-07 13:24 | Oncology Consultation ---
Oncology/Heme Consultation Date of Consultation: Mar 07, 2017. Attending Physician: Byron Garnett D.O. 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 Dye is a 77 year old man with a history of CAD. He has had various GI complaints, including intermittent nausea and diarrhea, for much of the last year. He was seen by GI about 6 months ago and was found to have H. pylori, for which he was treated. He presented yesterday with acute onset abdominal pain and intractable nausea and vomiting. A CT of his abdomen/pelvis revealed a bowel obstruction and evidence of peritoneal carcinomatosis with a suspicious fullness in the tail of the pancreas. A subsequent MRCP did not further characterize this pancreatic tail lesion. He's lost about 10 lb over the last few months and has noticed a modest decline in his energy and appetite, but overall remains a fairly robust man. He goes to the gym multiple times per week and is totally independent. He is passing gas now, but has not had a bowel movement. Past Medical/Surgical History Medical Problems: (1) Finger pain, left Status: Acute (2) Pancreatic mass Status: Acute (3) Small bowel obstruction Status: Acute (4) Urinary tract infection Status: Acute Family History Heart disease Stroke grandson with testicular cancer Grandfather with some kind of cancer, unclear what type Social History Smoking Status: Former Smoker (Quit 15 years ago) Smokeless Tobacco Use: No Alcohol Use: none Drug Use: none Marital Status: Housing Status: lives with significant other Occupation Status: retired Allergies Coded Allergies: No Known Allergies (Verified , 03/06/17) Home Medications Scheduled Acetaminophen (Tylenol), 2 TAB PO TID Amlodipine (Norvasc), 5 MG PO DAILY Aspirin (Aspir-81), 1 TAB PO DAILY Atenolol (Tenormin), 25 MG PO BID Atorvastatin (Lipitor), 80 MG PO DAILY Cilostazol (Cilostazol), 1 TAB PO DAILY Metformin HCl (Metformin HCl), 500 MG PO BIDM Nitroglycerin (Nitrostat), 0.4 MG SL DIRECTED Tramadol Hcl (Tramadol Hcl Er), 200 MG PO DAILY Triamterene/Hctz (Triamterene/Hctz 37.5-25MG), 1 TAB PO Q2D Miscellaneous Medications Clopidogrel Bisulfate (Plavix), 1 TAB PO Isosorbide Mononitrate Ext Rel (Imdur Ext Rel), 1 TAB PO Current Inpatient Medications Current Inpatient Medications Medications (Trade) Dose Ordered Sig/Magdi Route Start Time Stop Time Status Last Admin Dose Admin Ioversol (Optiray 320) 100 ml UD PRN IV 03/06/17 20:15 03/10/17 20:14 Ondansetron HCl (Zofran Inj) 4 mg Q6H PRN IV 03/06/17 22:30 04/05/17 22:29 03/06/17 23:36 4 MG Insulin Aspart (novoLOG ASPART) SLIDING SCALE If C... ACHS SC 03/07/17 06:30 04/06/17 06:59 Glucose (Glucose 40% Gel) UD PRN PO 03/06/17 22:30 04/05/17 22:29 Glucose (Glucose Chew Tab) 1 tabs UD PRN PO 03/06/17 22:30 04/05/17 22:29 Dextrose (Dextrose 50% 50ML Syringe) 50 ml UD PRN IV 03/06/17 22:30 04/05/17 22:29 Glucagon 1 mg 1 mg UD PRN SQ 03/06/17 22:30 04/05/17 22:29 Potassium Chloride/Sodium Chloride 1,000 ml @ 100 mls/hr Q10H IV 03/07/17 03:00 04/06/17 02:59 03/07/17 13:09 100 MLS/HR Pantoprazole Sodium 40 mg/ Syringe 10 ml @ 5 mls/min DAILY@11 IV 03/07/17 11:00 04/06/17 10:59 03/07/17 10:23 5 MLS/MIN Acetaminophen (Ofirmev Iv) 100 ml @ 400 mls/hr Q8H PRN IV 03/06/17 22:30 04/05/17 22:29 Morphine Sulfate (MoRPHine SULFATE INJ) 2 mg Q2H PRN IV 03/06/17 22:30 03/20/17 22:29 Morphine Sulfate (MoRPHine SULFATE INJ) 4 mg Q2H PRN IV 03/06/17 22:30 03/20/17 22:29 Nitroglycerin (Nitrostat Tab) 0.4 mg UD SL 03/06/17 22:30 04/05/17 22:29 Nitroglycerin (Nitroglycerin 2% Oint) 1 inch Q6H EXT 03/07/17 04:00 04/06/17 03:59 03/07/17 10:27 1 INCH Hydralazine HCl (HydrALAZINE INJ) 10 mg Q4H PRN IV. 03/07/17 02:45 04/06/17 02:44 Review of Systems Constitutional: + fatigue, + weakness, + weight loss, No chills, No fever Eyes: No worsening of vision ENT: No trouble swallowing Respiratory: No cough, No shortness of breath Cardiovascular: No chest pain, No edema Abdomen: + constipation, + nausea, + pain, + vomiting Musculoskeletal: No joint pain, No muscle pain Genitourinary - Male: No dysuria Neurologic: No numbness/tingling, No weakness Hematologic / Lymphatic: No abnormal bleeding/bruising, No swollen lymph nodes Integumentary: No rash Physical Exam Date Time Temp Pulse Resp B/P Pulse Ox O2 Delivery O2 Flow Rate FiO2 03/07/17 12:47 37.0 66 16 147/74 90 03/07/17 08:30 Room Air 03/07/17 08:19 37.0 85 16 121/74 90 03/07/17 03:41 36.5 90 18 160/81 94 Room Air 03/07/17 03:32 36.5 90 18 160/81 03/07/17 01:48 81 16 146/78 98 03/07/17 00:38 84 20 138/82 97 Room Air 03/06/17 21:45 80 16 147/94 97 Room Air 03/06/17 19:42 36.7 102 20 143/83 95 Room Air General Appearance: WD/WN, no apparent distress Eyes: EOMI, sclerae normal (anicteric) ENT: + pertinent finding (NGT to suction with gastric contents in canister, non -bloody, non-bilious) Respiratory/Chest: lungs clear, no respiratory distress Cardiovascular: regular rate, rhythm, no murmur Abdomen/GI: non tender, soft, + abnormal bowel sounds (hypoactive), + distended (mildly) Extremities/Musculoskelatal: no pedal edema Neurologic/Psych: no motor/sensory deficits, alert, oriented x 3 Skin: no rash Lymphatic: no adenopathy Laboratory Results Last 24 Hours Test 03/06/17 20:00 03/07/17 07:16 03/07/17 08:07 03/07/17 11:42 White Blood Count 15.61 K/uL 10.25 K/uL Red Blood Count 4.43 M/uL 3.70 M/uL Hemoglobin 14.2 g/dL 11.6 g/dL Hematocrit 40.9 % 34.6 % Mean Corpuscular Volume 92.3 fL 93.5 fL Mean Corpuscular Hemoglobin 32.1 pg 31.4 pg Mean Corpuscular Hemoglobin Concent 34.7 g/dl 33.5 g/dl Platelet Count 246 K/uL 201 K/uL Mean Platelet Volume 10.6 fL 10.7 fL Neutrophils (%) (Auto) 87.8 % 80.1 % Lymphocytes (%) (Auto) 5.9 % 11.9 % Monocytes (%) (Auto) 5.4 % 6.5 % Eosinophils (%) (Auto) 0.4 % 1.1 % Basophils (%) (Auto) 0.2 % 0.2 % Neutrophils # (Auto) 13.71 K/uL 8.21 K/uL Lymphocytes # (Auto) 0.92 K/uL 1.22 K/uL Monocytes # (Auto) 0.85 K/uL 0.67 K/uL Eosinophils # (Auto) 0.06 K/uL 0.11 K/uL Basophils # (Auto) 0.03 K/uL 0.02 K/uL RDW Standard Deviation 49.7 fL 51.9 fL RDW Coefficient of Variation 14.7 % 15.1 % Immature Granulocyte % (Auto) 0.3 % 0.2 % Immature Granulocyte # (Auto) 0.04 K/uL 0.02 K/uL Sodium Level 139 mmol/L 140 mmol/L Potassium Level 4.0 mmol/L 4.1 mmol/L Chloride Level 101 mmol/L 105 mmol/L Carbon Dioxide Level 28 mmol/L 28 mmol/L Anion Gap 10.0 mmol/L 7.0 mmol/L Blood Urea Nitrogen 14 mg/dl 12 mg/dl Creatinine 0.95 mg/dl 0.86 mg/dl Est Creatinine Clear Calc Drug Dose 73.1 ml/min 80.3 ml/min Estimated GFR () 88.5 96.3 Estimated GFR (Non- 76.4 83.1 BUN/Creatinine Ratio 14.8 13.6 Random Glucose 136 mg/dl 116 mg/dl Calcium Level 9.0 mg/dl 8.0 mg/dl Total Bilirubin 0.5 mg/dl 0.5 mg/dl Direct Bilirubin 0.1 mg/dl < 0.1 mg/dl Aspartate Amino Transf (AST/SGOT) 20 U/L 14 U/L Alanine Aminotransferase (ALT/SGPT) 19 U/L 19 U/L Alkaline Phosphatase 74 U/L 60 U/L Total Protein 8.0 gm/dl 6.4 gm/dl Albumin 4.0 gm/dl 3.1 gm/dl Lipase 226 U/L Prothrombin Time 11.4 SECONDS Prothromb Time International Ratio 1.1 Activated Partial Thromboplast Time 25.9 SECONDS Partial Thromboplastin Ratio 1.0 Magnesium Level 2.0 mg/dl Bedside Glucose 113 mg/dl 110 mg/dl Test 03/07/17 12:45 Assessment & Plan Mr. Dye is an otherwise healthy gentleman who presents with a small bowel obstruction that appears to be related to peritoneal carcinomatosis. His CT and MRI both reveal a suspicious lesion in the tail of his pancreas, though they could not characterize it further. He will need an EUS with FNA (if feasible) for diagnosis, though I suspect he has a metastatic pancreatic cancer. I would check CEA and CA 19-9; while they are not diagnostic of a specific cancer, they might help provide supporting information. Otherwise, I would continue supportive care for his bowel obstruction. He does not have significant pain. I will continue to follow until we can establish a diagnosis and will see him in clinic to discuss treatment once he is ready for discharge.
--- NOTE | 2017-03-07 13:30 | Progress Note ---
Subjective Date of Service: Mar 07, 2017. Subjective Pt evaluation today including: conversation w/ patient, physical exam, chart review, lab review, review of studies, review of inpatient medication list Pt resting comfortably in bed No abd pain NGT placed No additional concerns Problem List Medical Problems: (1) Finger pain, left Status: Acute (2) Pancreatic mass Status: Acute (3) Small bowel obstruction Status: Acute (4) Urinary tract infection Status: Acute Review of Systems Constitutional: No chills, No fever Respiratory: No cough, No dyspnea on exertion, No shortness of breath, No sputum, No wheezing Cardiac: No chest pain, No orthopnea Abdomen: No nausea, No pain, No vomiting Musculoskeletal: No joint pain, No muscle pain Male : No dysuria, No urinary frequency Objective Vital Signs Date Time Temp Pulse Resp B/P Pulse Ox O2 Delivery O2 Flow Rate FiO2 03/07/17 12:47 37.0 66 16 147/74 90 03/07/17 08:30 Room Air 03/07/17 08:19 37.0 85 16 121/74 90 03/07/17 03:41 36.5 90 18 160/81 94 Room Air 03/07/17 03:32 36.5 90 18 160/81 03/07/17 01:48 81 16 146/78 98 03/07/17 00:38 84 20 138/82 97 Room Air 03/06/17 21:45 80 16 147/94 97 Room Air 03/06/17 19:42 36.7 102 20 143/83 95 Room Air Physical Exam General Appearance: WD/WN, no apparent distress Neck: supple, no adenopathy Respiratory/Chest: lungs clear, normal breath sounds Cardiovascular: no edema, no gallop Abdomen: normal bowel sounds, soft Neurologic/Psychiatric: alert, normal mood/affect Laboratory Results Last 24 Hours Test 03/06/17 20:00 03/07/17 07:16 03/07/17 08:07 03/07/17 11:42 White Blood Count 15.61 K/uL 10.25 K/uL Red Blood Count 4.43 M/uL 3.70 M/uL Hemoglobin 14.2 g/dL 11.6 g/dL Hematocrit 40.9 % 34.6 % Mean Corpuscular Volume 92.3 fL 93.5 fL Mean Corpuscular Hemoglobin 32.1 pg 31.4 pg Mean Corpuscular Hemoglobin Concent 34.7 g/dl 33.5 g/dl Platelet Count 246 K/uL 201 K/uL Mean Platelet Volume 10.6 fL 10.7 fL Neutrophils (%) (Auto) 87.8 % 80.1 % Lymphocytes (%) (Auto) 5.9 % 11.9 % Monocytes (%) (Auto) 5.4 % 6.5 % Eosinophils (%) (Auto) 0.4 % 1.1 % Basophils (%) (Auto) 0.2 % 0.2 % Neutrophils # (Auto) 13.71 K/uL 8.21 K/uL Lymphocytes # (Auto) 0.92 K/uL 1.22 K/uL Monocytes # (Auto) 0.85 K/uL 0.67 K/uL Eosinophils # (Auto) 0.06 K/uL 0.11 K/uL Basophils # (Auto) 0.03 K/uL 0.02 K/uL RDW Standard Deviation 49.7 fL 51.9 fL RDW Coefficient of Variation 14.7 % 15.1 % Immature Granulocyte % (Auto) 0.3 % 0.2 % Immature Granulocyte # (Auto) 0.04 K/uL 0.02 K/uL Sodium Level 139 mmol/L 140 mmol/L Potassium Level 4.0 mmol/L 4.1 mmol/L Chloride Level 101 mmol/L 105 mmol/L Carbon Dioxide Level 28 mmol/L 28 mmol/L Anion Gap 10.0 mmol/L 7.0 mmol/L Blood Urea Nitrogen 14 mg/dl 12 mg/dl Creatinine 0.95 mg/dl 0.86 mg/dl Est Creatinine Clear Calc Drug Dose 73.1 ml/min 80.3 ml/min Estimated GFR () 88.5 96.3 Estimated GFR (Non- 76.4 83.1 BUN/Creatinine Ratio 14.8 13.6 Random Glucose 136 mg/dl 116 mg/dl Calcium Level 9.0 mg/dl 8.0 mg/dl Total Bilirubin 0.5 mg/dl 0.5 mg/dl Direct Bilirubin 0.1 mg/dl < 0.1 mg/dl Aspartate Amino Transf (AST/SGOT) 20 U/L 14 U/L Alanine Aminotransferase (ALT/SGPT) 19 U/L 19 U/L Alkaline Phosphatase 74 U/L 60 U/L Total Protein 8.0 gm/dl 6.4 gm/dl Albumin 4.0 gm/dl 3.1 gm/dl Lipase 226 U/L Prothrombin Time 11.4 SECONDS Prothromb Time International Ratio 1.1 Activated Partial Thromboplast Time 25.9 SECONDS Partial Thromboplastin Ratio 1.0 Magnesium Level 2.0 mg/dl Bedside Glucose 113 mg/dl 110 mg/dl Test 03/07/17 12:45 Assessment and Plan Pancreatic tail mass/peritoneal carcinomatosis/small bowel obstruction--patient will be admitted to the medical surgical floor and kept nothing by mouth status. NG tube to low intermittent suction. We'll order an MRCP to further assess, along with a CT of the chest with contrast. We'll consult oncologist Dr. Gabe Sapp. Also consulted GI for likely EUS. Ordered CA 19-9 and CEA for suspicious pancreatic mass. 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 on Nitropaste 1 inch to the anterior chest wall every 6 hours, and hydralazine 10 mg IV every 4 hours when necessary systolic blood pressure greater than 150. Place on normal saline with KCl 20 mEq at 100 ML's per hour. Diabetes mellitus--hold metformin 500 mg by mouth twice a day with meals, and place on Accu-Cheks before meals and at bedtime/4 times a day with NovoLog coverage per sliding scale. Hypercholesterolemia--hold atorvastatin 80 mg by mouth daily. BPH with mild bladder distention--monitored closely while on IV fluids.
--- NOTE | 2017-03-07 19:06 | Medical Consult ---
Consultation Note Date of Service Mar 07, 2017. Consultation Note Progress Note Subjective Pt evaluation today including: conversation w/ patient, conversation w/ family (son, ), physical exam, chart review ([facility] EMR no GI reports, [facility] EMR EGD 08/21/15 EGD BI antoamty mild gastritis postiive for H.pylori treated per patient) Assessment and Plan GI consult dicatated job: [id number] SBO--clinically improved with 300 ml output NG from MN to now at 1849. Continue NG today and if limited output overnight can clamp tube. On the other hand, if worsens needs surgery consult. peritoneal carcinomatosis--metastatic disease from abdominal process either pancreas or otherwise. --CEA normal, CA 19-9 pending pancreas lesion--10 mm cyst in neck but probable mass in tail---Will speak with Dr Arora on Thursday regarding scheduling EUS provided the SBO resolves anemia--black stool as outpt but on peptobismol--no BMs yet sicne admit, follow <Electronically signed by Marcello Sullivan M.D.> Signed: 03/07/17 0972 Signed: The status of this report is Signed * If report status is Draft, the document has not been finalized by the responsible provider. Addendum: 03/07/17 1900 Addendum: Marcello Sullivan M.D. on 03/07/17 @ 19:00 Addendum Section He denies abdominal pain at present Above noted entered into a previous encounter indvertently do copied to this note.
[2017-03-08] VITALS (10 sets, daily range): BP systolic 140–184; BP diastolic 66–88; PULSE 56–91; TEMP 36.4–37; O2SAT 90–95; BMI 28.8
[2017-03-08] MEDS: NITROGLYCERIN OINT 2% 1GM PACKET EXT SCH ×4 (05:11→22:17)
[2017-03-08 06:10] LABS: BASO % 0.3 %; BASO ABS # 0.03 K/uL (0-0.2); COMPLETE YES; EOS % 2.3 %; HEMATOCRIT 35.2 % (42-52); IG% 0.1 %; LYMPH % 10.2 %; LYMPH ABS # 0.96 K/uL (1.2-3.4); MEAN CELL VOLUME 93.9 fL (80-100); MEAN CORPUSCULAR HEMOGLOBIN 31.2 pg (25-34); MEAN CORPUSCULAR HGB CONC 33.2 g/dl (32-36); MEAN PLATELET VOLUME 10.6 fL (7.4-10.4); MONO % 6.4 %; NEUT % 80.7 %; PLATELET COUNT 173 K/uL (130-400); RED BLOOD COUNT 3.75 M/uL (4.7-6.1); WHITE BLOOD COUNT 9.43 K/uL (4.8-10.8)
[2017-03-08 06:36] LABS: INR 1.1 (0.9-1.1); PARTIAL THROMBOPLASTIN RATIO 1.1
[2017-03-08 07:20] LABS: BUN/CREATININE RATIO 14.8 (10-20); CALCIUM 8.2 mg/dl (8.5-10.1); CREATININE 0.89 mg/dl (0.60-1.40); MAGNESIUM 2.1 mg/dl (1.8-2.4)
[2017-03-08 07:23] LABS: ALB/GLOB RATIO 0.9 (0.9-2)
[2017-03-08] MEDS: INSULIN ASPART 100 UNITS/ML 3 ML PEN SC SCH ×4 (08:17→21:00)
[2017-03-08] MEDS: NSS + 20MEQ KCL 1000ML 1,000 ML IV SCH ×2 (08:36→18:44)
[2017-03-08] MEDS: PANTOprazole INJ 40 MG in SYRINGE 0 ML IV SCH (11:16)
--- NOTE | 2017-03-08 12:27 | Hematology/Oncology Prog Note ---
Hematology/Onc Progress Note Date of Service Mar 08, 2017. Diagnoses Pancreatic mass with possible peritoneal carcinomatosis Small bowel obstruction Medications Medications Administered Medications (Trade) Dose Ordered Sig/Magdi Route Start Time Stop Time Status Last Admin Dose Admin Morphine Sulfate (MoRPHine SULFATE INJ) 4 mg ONE STAT IV 03/06/17 19:51 03/06/17 19:53 DC 03/06/17 20:12 4 MG Ondansetron HCl (Zofran Inj) 4 mg NOW STAT IV 03/06/17 19:51 03/06/17 19:53 DC 03/06/17 20:12 4 MG Ondansetron HCl 4 mg 4 mg Q6H PRN IV 03/06/17 22:30 04/05/17 22:29 03/06/17 23:36 4 MG Potassium Chloride/Sodium Chloride 1,000 ml @ 100 mls/hr Q10H IV 03/07/17 03:00 04/06/17 02:59 03/08/17 08:36 100 MLS/HR Pantoprazole Sodium/Syringe (Protonix Inj/ Syringe) 10 ml @ 5 mls/min DAILY@11 IV 03/07/17 11:00 04/06/17 10:59 03/08/17 11:16 5 MLS/MIN Atenolol (Tenormin Tab) 25 mg BID PO 03/07/17 08:00 03/07/17 09:00 DC 03/07/17 08:52 25 MG Isosorbide Mononitrate (Imdur Ext Rel Tab) 30 mg DAILY PO 03/07/17 08:00 03/07/17 09:00 DC 03/07/17 08:52 30 MG Lorazepam (Ativan Inj) 0.5 mg NOW STAT IV 03/06/17 22:48 03/06/17 22:56 DC 03/07/17 01:34 0.5 MG Nitroglycerin (Nitroglycerin 2% Oint) 1 inch Q6H EXT 03/07/17 04:00 04/06/17 03:59 03/08/17 11:19 1 INCH Subjective Mr. Dye is feeling better. He is more comfortable-looking and is sitting up. The plan is to clamp his NGT today and give him a trial of clears. He met with GI, who will plan an EGD/EUS provided his bowel obstruction resolves. He has no pain and no other new complaints. Review of Systems: Constitutional: No fever Eyes: No worsening of vision Respiratory: No cough, No shortness of breath Cardiovascular: No chest pain Abdomen: + constipation, No nausea, No pain, No vomiting Musculoskeletal: No joint pain, No muscle pain Neurologic: No numbness/tingling, No weakness Heme: No abnormal bleeding/bruising Vital Signs Vital Signs Past 12 Hours Date Time Temp Pulse Resp B/P Pulse Ox O2 Delivery O2 Flow Rate FiO2 03/08/17 12:00 36.5 67 16 95 03/08/17 11:20 184/86 03/08/17 08:40 Room Air 03/08/17 07:02 36.4 61 18 156/76 93 Room Air 03/08/17 04:02 36.5 68 20 165/78 91 Room Air 03/08/17 01:12 Room Air Physical Exam Constitutional: General Apperance: heathly-appearing Level of Distress: NAD Psychiatric: Mental Status: active & alert Orientation: oriented except where noted Lungs: Respiratory Effort: no dyspnea Auscuitation: CTA except as noted Cardiovascular: Heart Auscultation: RRR, no murmurs Abdomen: Inspection & Palpation: soft, no tenderness, guarding & rebound, distended Extremities: no edema Laboratory Last 24 Hours Test 03/07/17 14:06 03/07/17 16:42 03/07/17 20:31 03/08/17 05:49 Carcinoembryonic Antigen 1.6 ng/ml Bedside Glucose 108 mg/dl 97 mg/dl White Blood Count 9.43 K/uL Red Blood Count 3.75 M/uL Hemoglobin 11.7 g/dL Hematocrit 35.2 % Mean Corpuscular Volume 93.9 fL Mean Corpuscular Hemoglobin 31.2 pg Mean Corpuscular Hemoglobin Concent 33.2 g/dl Platelet Count 173 K/uL Mean Platelet Volume 10.6 fL Neutrophils (%) (Auto) 80.7 % Lymphocytes (%) (Auto) 10.2 % Monocytes (%) (Auto) 6.4 % Eosinophils (%) (Auto) 2.3 % Basophils (%) (Auto) 0.3 % Neutrophils # (Auto) 7.61 K/uL Lymphocytes # (Auto) 0.96 K/uL Monocytes # (Auto) 0.60 K/uL Eosinophils # (Auto) 0.22 K/uL Basophils # (Auto) 0.03 K/uL RDW Standard Deviation 51.7 fL RDW Coefficient of Variation 15.1 % Immature Granulocyte % (Auto) 0.1 % Immature Granulocyte # (Auto) 0.01 K/uL Prothrombin Time 12.0 SECONDS Prothromb Time International Ratio 1.1 Activated Partial Thromboplast Time 28.9 SECONDS Partial Thromboplastin Ratio 1.1 Sodium Level 144 mmol/L Potassium Level 4.0 mmol/L Chloride Level 106 mmol/L Carbon Dioxide Level 29 mmol/L Anion Gap 9.0 mmol/L Blood Urea Nitrogen 13 mg/dl Creatinine 0.89 mg/dl Est Creatinine Clear Calc Drug Dose 77.6 ml/min Estimated GFR () 94.9 Estimated GFR (Non- 81.9 BUN/Creatinine Ratio 14.8 Random Glucose 96 mg/dl Calcium Level 8.2 mg/dl Magnesium Level 2.1 mg/dl Total Bilirubin 0.6 mg/dl Direct Bilirubin 0.1 mg/dl Aspartate Amino Transf (AST/SGOT) 16 U/L Alanine Aminotransferase (ALT/SGPT) 18 U/L Alkaline Phosphatase 61 U/L Total Protein 6.7 gm/dl Albumin 3.1 gm/dl Globulin 3.6 gm/dl Albumin/Globulin Ratio 0.9 Test 03/08/17 07:51 03/08/17 11:38 Bedside Glucose 92 mg/dl 96 mg/dl Assessment & Plan Mr. Dye is slowly recovering from his bowel obstruction. His pain and nausea are gone and he looks much more comfortable. He will have a trial of clamping his NGT followed by slow advance of his diet. If he can tolerate removing his NGT, the plan will be for his EGD/EUS next week. We will continue to follow along for now, in case he may need a different diagnostic approach.
--- NOTE | 2017-03-08 12:29 | Progress Note ---
Subjective Date of Service: Mar 08, 2017. Subjective Pt evaluation today including: conversation w/ patient, conversation w/ family , physical exam, chart review, lab review, review of studies, review of inpatient medication list Resting comfortably in bed denies any nausea or vomiting no abd pain tolerating NGT Problem List Medical Problems: (1) Finger pain, left Status: Acute (2) Pancreatic mass Status: Acute (3) Small bowel obstruction Status: Acute (4) Urinary tract infection Status: Acute Review of Systems Constitutional: No chills, No fever Respiratory: No cough, No dyspnea on exertion, No shortness of breath, No sputum, No wheezing Cardiac: No chest pain, No orthopnea Abdomen: No diarrhea, No nausea, No pain, No vomiting Musculoskeletal: No joint pain, No muscle pain Male : No dysuria, No urinary frequency Objective Vital Signs Date Time Temp Pulse Resp B/P Pulse Ox O2 Delivery O2 Flow Rate FiO2 03/08/17 12:00 36.5 67 16 95 03/08/17 11:20 184/86 03/08/17 08:40 Room Air 03/08/17 07:02 36.4 61 18 156/76 93 Room Air 03/08/17 04:02 36.5 68 20 165/78 91 Room Air 03/08/17 01:12 Room Air 03/07/17 22:50 36.7 62 18 127/70 91 Room Air 03/07/17 16:45 36.6 55 16 112/64 94 03/07/17 16:25 123/65 03/07/17 16:00 Room Air 03/07/17 12:47 37.0 66 16 147/74 90 Physical Exam General Appearance: WD/WN, no apparent distress Neck: supple, no adenopathy Respiratory/Chest: lungs clear, normal breath sounds, no respiratory distress Cardiovascular: no edema, no gallop Abdomen: non tender, soft Neurologic/Psychiatric: alert, oriented x 3 Laboratory Results Last 24 Hours Test 03/07/17 14:06 03/07/17 16:42 03/07/17 20:31 03/08/17 05:49 Carcinoembryonic Antigen 1.6 ng/ml Bedside Glucose 108 mg/dl 97 mg/dl White Blood Count 9.43 K/uL Red Blood Count 3.75 M/uL Hemoglobin 11.7 g/dL Hematocrit 35.2 % Mean Corpuscular Volume 93.9 fL Mean Corpuscular Hemoglobin 31.2 pg Mean Corpuscular Hemoglobin Concent 33.2 g/dl Platelet Count 173 K/uL Mean Platelet Volume 10.6 fL Neutrophils (%) (Auto) 80.7 % Lymphocytes (%) (Auto) 10.2 % Monocytes (%) (Auto) 6.4 % Eosinophils (%) (Auto) 2.3 % Basophils (%) (Auto) 0.3 % Neutrophils # (Auto) 7.61 K/uL Lymphocytes # (Auto) 0.96 K/uL Monocytes # (Auto) 0.60 K/uL Eosinophils # (Auto) 0.22 K/uL Basophils # (Auto) 0.03 K/uL RDW Standard Deviation 51.7 fL RDW Coefficient of Variation 15.1 % Immature Granulocyte % (Auto) 0.1 % Immature Granulocyte # (Auto) 0.01 K/uL Prothrombin Time 12.0 SECONDS Prothromb Time International Ratio 1.1 Activated Partial Thromboplast Time 28.9 SECONDS Partial Thromboplastin Ratio 1.1 Sodium Level 144 mmol/L Potassium Level 4.0 mmol/L Chloride Level 106 mmol/L Carbon Dioxide Level 29 mmol/L Anion Gap 9.0 mmol/L Blood Urea Nitrogen 13 mg/dl Creatinine 0.89 mg/dl Est Creatinine Clear Calc Drug Dose 77.6 ml/min Estimated GFR () 94.9 Estimated GFR (Non- 81.9 BUN/Creatinine Ratio 14.8 Random Glucose 96 mg/dl Calcium Level 8.2 mg/dl Magnesium Level 2.1 mg/dl Total Bilirubin 0.6 mg/dl Direct Bilirubin 0.1 mg/dl Aspartate Amino Transf (AST/SGOT) 16 U/L Alanine Aminotransferase (ALT/SGPT) 18 U/L Alkaline Phosphatase 61 U/L Total Protein 6.7 gm/dl Albumin 3.1 gm/dl Globulin 3.6 gm/dl Albumin/Globulin Ratio 0.9 Test 03/08/17 07:51 03/08/17 11:38 Bedside Glucose 92 mg/dl 96 mg/dl Assessment and Plan Pancreatic tail mass/peritoneal carcinomatosis/small bowel obstruction--patient was admitted to the medical surgical floor and kept nothing by mouth status. NG tube to low intermittent suction. MRCP determined dilated small bowel loops, consistent with a small bowel obstruction, no evidence of pancreatic or biliary ductal dilatation, 10 mm cystic lesion within the pancreatic neck. No worsening pain leukocytosis or fevers. GI consulted for possible EUS, CEA neg and CA 19-9 pending. 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 on Nitropaste 1 inch to the anterior chest wall every 6 hours, and hydralazine 10 mg IV every 4 hours when necessary systolic blood pressure greater than 150. Place on normal saline with KCl 20 mEq at 100 ML's per hour. Diabetes mellitus--hold metformin 500 mg by mouth twice a day with meals, and place on Accu-Cheks before meals and at bedtime/4 times a day with NovoLog coverage per sliding scale. Hypercholesterolemia--hold atorvastatin 80 mg by mouth daily. BPH with mild bladder distention--monitored closely while on IV fluids. Pt is FULL CODE
--- NOTE | 2017-03-08 13:24 | Gastroenterology Progress Note ---
Progress Note Date of Service: Mar 08, 2017 Subjective Pt evaluation today including: conversation w/ patient, conversation w/ family (), physical exam, chart review, lab review, review of studies, review of inpatient medication list CC f/u SBO, pancreas mass HPI Per nurse about 200 ml NG output from 0600 to now at 1321. Pt is less distended, no abd pain. Does not feel like he passed gas today and no BM.. Review of Systems Respiratory: No shortness of breath Cardiac: No chest pain Medications Current Inpatient Medications Medications (Trade) Dose Ordered Sig/Magdi Route Start Time Stop Time Status Last Admin Dose Admin Ioversol (Optiray 320) 100 ml UD PRN IV 03/06/17 20:15 03/10/17 20:14 Ondansetron HCl (Zofran Inj) 4 mg Q6H PRN IV 03/06/17 22:30 04/05/17 22:29 03/06/17 23:36 4 MG Insulin Aspart (novoLOG ASPART) SLIDING SCALE If C... ACHS SC 03/07/17 06:30 04/06/17 06:59 Glucose (Glucose 40% Gel) UD PRN PO 03/06/17 22:30 04/05/17 22:29 Glucose (Glucose Chew Tab) 1 tabs UD PRN PO 03/06/17 22:30 04/05/17 22:29 Dextrose (Dextrose 50% 50ML Syringe) 50 ml UD PRN IV 03/06/17 22:30 04/05/17 22:29 Glucagon 1 mg 1 mg UD PRN SQ 03/06/17 22:30 04/05/17 22:29 Potassium Chloride/Sodium Chloride 1,000 ml @ 100 mls/hr Q10H IV 03/07/17 03:00 04/06/17 02:59 03/08/17 08:36 100 MLS/HR Pantoprazole Sodium 40 mg/ Syringe 10 ml @ 5 mls/min DAILY@11 IV 03/07/17 11:00 04/06/17 10:59 03/08/17 11:16 5 MLS/MIN Acetaminophen (Ofirmev Iv) 100 ml @ 400 mls/hr Q8H PRN IV 03/06/17 22:30 04/05/17 22:29 Morphine Sulfate (MoRPHine SULFATE INJ) 2 mg Q2H PRN IV 03/06/17 22:30 03/20/17 22:29 Morphine Sulfate (MoRPHine SULFATE INJ) 4 mg Q2H PRN IV 03/06/17 22:30 03/20/17 22:29 Nitroglycerin (Nitrostat Tab) 0.4 mg UD SL 03/06/17 22:30 04/05/17 22:29 Nitroglycerin (Nitroglycerin 2% Oint) 1 inch Q6H EXT 03/07/17 04:00 04/06/17 03:59 03/08/17 11:19 1 INCH Hydralazine HCl (HydrALAZINE INJ) 10 mg Q4H PRN IV. 03/07/17 02:45 04/06/17 02:44 Objective Vital Signs Date Time Temp Pulse Resp B/P Pulse Ox O2 Delivery O2 Flow Rate FiO2 03/08/17 12:00 36.5 67 16 95 03/08/17 11:20 184/86 03/08/17 08:40 Room Air 03/08/17 07:02 36.4 61 18 156/76 93 Room Air 03/08/17 04:02 36.5 68 20 165/78 91 Room Air 03/08/17 01:12 Room Air 03/07/17 22:50 36.7 62 18 127/70 91 Room Air 03/07/17 16:45 36.6 55 16 112/64 94 03/07/17 16:25 123/65 03/07/17 16:00 Room Air Physical Exam General Appearance: WD/WN, no apparent distress Respiratory/Chest: lungs clear, no respiratory distress Cardiovascular: no murmur Abdomen: normal bowel sounds, non tender, soft, no organomegaly, + pertinent finding (not distended) Neurologic/Psych: normal mood/affect, oriented x 3 Laboratory Results Last 24 Hours Test 03/07/17 14:06 03/07/17 16:42 03/07/17 20:31 03/08/17 05:49 Carcinoembryonic Antigen 1.6 ng/ml Bedside Glucose 108 mg/dl 97 mg/dl White Blood Count 9.43 K/uL Red Blood Count 3.75 M/uL Hemoglobin 11.7 g/dL Hematocrit 35.2 % Mean Corpuscular Volume 93.9 fL Mean Corpuscular Hemoglobin 31.2 pg Mean Corpuscular Hemoglobin Concent 33.2 g/dl Platelet Count 173 K/uL Mean Platelet Volume 10.6 fL Neutrophils (%) (Auto) 80.7 % Lymphocytes (%) (Auto) 10.2 % Monocytes (%) (Auto) 6.4 % Eosinophils (%) (Auto) 2.3 % Basophils (%) (Auto) 0.3 % Neutrophils # (Auto) 7.61 K/uL Lymphocytes # (Auto) 0.96 K/uL Monocytes # (Auto) 0.60 K/uL Eosinophils # (Auto) 0.22 K/uL Basophils # (Auto) 0.03 K/uL RDW Standard Deviation 51.7 fL RDW Coefficient of Variation 15.1 % Immature Granulocyte % (Auto) 0.1 % Immature Granulocyte # (Auto) 0.01 K/uL Prothrombin Time 12.0 SECONDS Prothromb Time International Ratio 1.1 Activated Partial Thromboplast Time 28.9 SECONDS Partial Thromboplastin Ratio 1.1 Sodium Level 144 mmol/L Potassium Level 4.0 mmol/L Chloride Level 106 mmol/L Carbon Dioxide Level 29 mmol/L Anion Gap 9.0 mmol/L Blood Urea Nitrogen 13 mg/dl Creatinine 0.89 mg/dl Est Creatinine Clear Calc Drug Dose 77.6 ml/min Estimated GFR () 94.9 Estimated GFR (Non- 81.9 BUN/Creatinine Ratio 14.8 Random Glucose 96 mg/dl Calcium Level 8.2 mg/dl Magnesium Level 2.1 mg/dl Total Bilirubin 0.6 mg/dl Direct Bilirubin 0.1 mg/dl Aspartate Amino Transf (AST/SGOT) 16 U/L Alanine Aminotransferase (ALT/SGPT) 18 U/L Alkaline Phosphatase 61 U/L Total Protein 6.7 gm/dl Albumin 3.1 gm/dl Globulin 3.6 gm/dl Albumin/Globulin Ratio 0.9 Test 03/08/17 07:51 03/08/17 11:38 Bedside Glucose 92 mg/dl 96 mg/dl Assessment and Plan SBO--limited output this am and not distended. 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 --CEA normal, CA 19-9 pending pancreas lesion--10 mm cyst in neck but probable mass in tail---Will speak with Dr Arora tomorrow regarding scheduling EUS provided the SBO resolves anemia--black stool as outpt but on peptobismol--no BMs yet sicne admit, stable
[2017-03-09] VITALS (7 sets, daily range): BP systolic 140–171; BP diastolic 76–92; PULSE 58–84; TEMP 36.4–36.6; O2SAT 92–96; BMI 28.7
[2017-03-09] MEDS: NSS + 20MEQ KCL 1000ML 1,000 ML IV SCH ×3 (04:50→23:47)
[2017-03-09] MEDS: NITROGLYCERIN OINT 2% 1GM PACKET EXT SCH ×4 (04:50→21:39)
--- NOTE | 2017-03-09 06:01 | GASTROINTESTINAL CONSULTATION ---
DATE OF CONSULTATION: 03/07/2017 REASON FOR CONSULTATION: Pancreas mass. CHIEF COMPLAINT: The patient has abdominal pain, nausea and vomiting. HISTORY OF PRESENT ILLNESS: The patient stated that he had nausea and vomiting, maybe for 6 months and had an EGD to work that up; however, in reviewing the old [facility] records, he had an EGD 08/21/[address] Hernández for nausea, showed him to be Billroth I anastomosis anatomy, some mild gastritis, positive for H. pylori. The patient stated that after H. pylori, he had improvement of his nausea and vomiting but maybe about once a month would have it. No abdominal pain. The patient does state he gets intermittent diarrhea. The patient had abrupt onset of abdominal pain pretty severe with nausea and vomiting about 8 hours prior to coming to the Emergency Room. A CAT scan of the abdomen showed a right upper lobe nodule, a lot of vascular disease with aneurysm, enlarged prostate, splenic cyst, indeterminate liver lesions and pancreas tail mass. Also with small bowel obstruction. The patient had an MRCP showing small bowel obstruction, normal bile duct, some ascites, pancreas tail mass, 10 mm cyst in the pancreas neck and omental studding. There was some omental studding also in the abdomen and pelvic CT scan. The patient has not had any bowel movements yet since admission. No dysphagia. Maybe up to 8-pound weight loss over several months. No fever. Nausea and vomiting has improved, but he is on NG suction. The NG, according to nurse since then has put out about 300 mL. He is passing lot of gas today. The patient had some dark stool prior to admission but was on Pepto-Bismol also, no bloody and no red blood. PAST MEDICAL HISTORY: ALLERGIES: None. MEDICATIONS ON ADMISSION: Tylenol, Norvasc, Plavix, Imdur, Tenormin, Lipitor, cilostazol, metformin, Nitrostat, tramadol, triamterene/hydrochlorothiazide. PROBLEMS AND SURGERY: COPD, coronary artery disease, hypertension. FAMILY HISTORY: Coronary artery disease. SOCIAL HISTORY: Tobacco: Never. REVIEW OF SYSTEMS: Ten systems reviewed and negative. PHYSICAL EXAMINATION: GENERAL: Male, appears stated age, in no acute distress. VITAL SIGNS: Most recent vital signs in the chart, temp 36.8, pulse 63, respirations 20, BP 181/86, O2 saturation 93% on room air. EYES: Conjunctivae and lids normal. ENT: Oropharynx clear. NECK: Without obvious mass or thyroid enlargement. RESPIRATORY: Normal effort, clear to anterior auscultation. CARDIOVASCULAR: Without obvious murmur. EXTREMITIES: Without edema. ABDOMEN: Positive bowel sounds, mildly distended and tympanitic, but not tense and per patient's , it is less distended today. RECTAL: Not done. LYMPH: No obvious neck or groin nodes. MUSCULOSKELETAL: Digits and nails normal. SKIN: Without obvious rash or induration. NEUROLOGIC: Cranial nerves intact. Sensation intact. PSYCHIATRIC: Recent and remote memory good. Insight and judgment good. DATA: CT scan and MRCP as above. PT, PTT were okay. CMP: Glucose 116, otherwise okay. CEA was normal. CA19-9 is pending. Hemoglobin on admission 14.1, normal today at 11.6. IMPRESSION AND PLAN: 1. Small bowel obstruction. Clinically improved. Continue NG suction. I limited output overnight, can clamp the tube. If worsens, needs a surgery consult. The etiology is not clear, could be adhesions, could be from the omental studding. 3. 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 4. Pancreas lesion. There is a 10 mm cyst in the neck but probable mass in the tail. I will speak with Dr. Arora who does EUS in our group, regarding scheduling that, provided the small bowel obstruction resolves. 5. Anemia, black stools as outpt The patient had been on Pepto-Bismol which could explain that. No bowel movement yet since admission. We will follow this. [facility]
--- NOTE | 2017-03-09 07:22 | DIAGNOSTIC IMAGING REPORT ---
CT OF THE CHEST WITH IV CONTRAST CLINICAL HISTORY: PANCREATIC CANCER, PERITONEAL CARCINOMATOSIS STAGING PROCEDURE COMPARISON STUDY: 01/04/2016 TECHNIQUE: Following the IV administration of 72 mL of Optiray-320, CT of the thorax was performed from the thoracic inlet to the lung bases. Images are reviewed in the axial, sagittal, and coronal planes. IV contrast was administered without complication. CT DOSE: 449.94 mGy.cm FINDINGS: Thyroid: Imaged portions of the thyroid gland are normal in appearance. Thoracic aorta: The thoracic aorta is normal in course and caliber, noting standard 3-vessel arch anatomy. No aneurysm or dissection is seen. There are extensive atheromatous calcifications present. Pulmonary vasculature: The pulmonary trunk is normal in caliber. There are no central filling defects identified to suggest pulmonary embolus. Note that this examination was not protocoled for the evaluation of pulmonary emboli. There is a 4 mm right upper lobe pulmonary nodule unchanged from the preceding study. There is a 4 mm right middle lobe nodule, unchanged the prior study. There is a 3 mm pleural-based right lower lobe pulmonary nodule, unchanged from the prior study. HEART: The heart is mildly enlarged. There are coronary artery calcifications present. Lungs and pleural spaces: There is pulmonary emphysema. There is no focal pulmonary consolidation. There are bibasal airspace opacities likely atelectatic. There is mild lower lobe bronchiectasis. Mediastinum: There is no mediastinal lymphadenopathy. Marivel: Clear. Axilla: Clear. Upper abdomen: There is ascites with a serrated appearance of the hepatic serosal surface. There is a 13 mm hypodensity within the right lobe of the liver. There is a 25 mm left adrenal nodule. There is a bulbous appearance of the pancreatic tail, possibly representing a mass. There is infiltration of the surrounding fat. Skeletal structures: There are no lytic or blastic osseous lesions. IMPRESSION: 1. No evidence of pathologic adenopathy 2. Stable subcentimeter pulmonary nodules 3. Emphysema with bibasilar atelectasis and mild bibasilar bronchiectasis 4. Ascites. Possible pancreatic tail mass. Infiltration of the fat surrounding the pancreatic tail with mesenteric nodularity 5. Enlarging 25 mm hypodense splenic lesion Electronically signed by: Cristobal Angeles M.D. 03/07/2017 6:42 AM Dictated Date/Time: 03/07/2017 6:34 AM
[2017-03-09 07:53] LABS: BASO % 0.1 %; BASO ABS # 0.01 K/uL (0-0.2); COMPLETE YES; EOS % 2.4 %; HEMATOCRIT 33.2 % (42-52); IG% 0.1 %; LYMPH % 11.7 %; LYMPH ABS # 0.84 K/uL (1.2-3.4); MEAN CELL VOLUME 94.1 fL (80-100); MEAN CORPUSCULAR HEMOGLOBIN 31.4 pg (25-34); MEAN CORPUSCULAR HGB CONC 33.4 g/dl (32-36); MONO % 8.2 %; NEUT % 77.5 %; PLATELET COUNT 146 K/uL (130-400); RED BLOOD COUNT 3.53 M/uL (4.7-6.1); WHITE BLOOD COUNT 7.18 K/uL (4.8-10.8)
[2017-03-09 08:03] LABS: INR 1.1 (0.9-1.1); PARTIAL THROMBOPLASTIN RATIO 1.1
[2017-03-09 08:21] LABS: BUN/CREATININE RATIO 13.2 (10-20); CALCIUM 7.8 mg/dl (8.5-10.1); CREATININE 0.74 mg/dl (0.60-1.40); MAGNESIUM 2.1 mg/dl (1.8-2.4)
[2017-03-09 08:24] LABS: ALB/GLOB RATIO 0.8 (0.9-2)
[2017-03-09] MEDS: INSULIN ASPART 100 UNITS/ML 3 ML PEN SC SCH ×4 (09:56→21:00)
[2017-03-09] MEDS: PANTOprazole INJ 40 MG in SYRINGE 0 ML IV SCH (09:58)
--- NOTE | 2017-03-09 10:14 | Hematology/Oncology Prog Note ---
Hematology/Onc Progress Note Date of Service Mar 09, 2017. 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 Medications Medications Administered Medications (Trade) Dose Ordered Sig/Magdi Route Start Time Stop Time Status Last Admin Dose Admin Morphine Sulfate (MoRPHine SULFATE INJ) 4 mg ONE STAT IV 03/06/17 19:51 03/06/17 19:53 DC 03/06/17 20:12 4 MG Ondansetron HCl (Zofran Inj) 4 mg NOW STAT IV 03/06/17 19:51 03/06/17 19:53 DC 03/06/17 20:12 4 MG Ondansetron HCl 4 mg 4 mg Q6H PRN IV 03/06/17 22:30 04/05/17 22:29 03/06/17 23:36 4 MG Potassium Chloride/Sodium Chloride 1,000 ml @ 100 mls/hr Q10H IV 03/07/17 03:00 04/06/17 02:59 03/09/17 04:50 100 MLS/HR Pantoprazole Sodium/Syringe (Protonix Inj/ Syringe) 10 ml @ 5 mls/min DAILY@11 IV 03/07/17 11:00 04/06/17 10:59 03/09/17 09:58 5 MLS/MIN Atenolol (Tenormin Tab) 25 mg BID PO 03/07/17 08:00 03/07/17 09:00 DC 03/07/17 08:52 25 MG Isosorbide Mononitrate (Imdur Ext Rel Tab) 30 mg DAILY PO 03/07/17 08:00 03/07/17 09:00 DC 03/07/17 08:52 30 MG Lorazepam (Ativan Inj) 0.5 mg NOW STAT IV 03/06/17 22:48 03/06/17 22:56 DC 03/07/17 01:34 0.5 MG Nitroglycerin (Nitroglycerin 2% Oint) 1 inch Q6H EXT 03/07/17 04:00 04/06/17 03:59 03/09/17 09:58 1 INCH Subjective Seems to be doing well. He states he is taking liquids without any problem. He is also having flatus Review of Systems: Constitutional: Negative for night sweats, or fever Eyes: Negative for event change of vision ENT: Negative for epistaxis, nasal discharge, sore throat, or deafness Cardiovascular: Negative for chest pain, palpitations, dizziness, diaphoresis Respiratory: Negative for new shortness of breath,hemoptysis, or purulent cough Gastrointestinal: Negative for diarrhea, hematemesis, melena, nausea, vomiting , or dyspepsia Integumentary (skin): Negative for rash or jaundice discoloration Genitourinary: Negative for urinary frequency, hematuria, or dysuria Neurological: Negative for weakness, seizure activity, headache, or dizziness Lymphatic/Hematologic: Negative for petechiae, bleeding or new adenopathy Musculoskeletal: Negative for new joint or back pain Allergic/Immunologic: Negative for unusual rash or pruritis. Vital Signs Vital Signs Past 12 Hours Date Time Temp Pulse Resp B/P Pulse Ox O2 Delivery O2 Flow Rate FiO2 03/09/17 09:59 36.6 66 20 157/83 92 Room Air 03/09/17 04:51 64 155/76 03/09/17 04:18 36.4 60 16 140/76 92 Room Air 03/09/17 00:00 93 Room Air 03/08/17 23:14 36.7 57 20 144/69 94 Room Air 03/08/17 22:15 36.4 56 16 140/66 93 Room Air Physical Exam Constitutional: vitals are stable. Eyes: Eyes are MARGE EOMI without conjuctival erythema or icterus. ENT: External examination was negative for masses. Neck: Negative for masses or palpable thyromegaly Respiratory: Lung sounds were generally clear bilaterally Cardiovascular: Heart was RRR without significant murmur, gallops aoe rubs Gastrointestinal: No palpable hepatic or splenomegaly. The abdomen was soft with normal bowel sounds. Lymphatic system: there was no palpable peripheral lymphadenopathy Musculoskeletal System: The musculoskeletal system seemed concordant with age. Skin: The skin was negative for jaundice. Neurologic exam: The exam was negative for any focal findings. Deep tendon reflexes were equal and symmetrical. Psychiatric exam: Was essentially negative with normal mood and effect. Extremities: Negative for significant edema Constitutional: General Apperance: heathly-appearing Level of Distress: NAD Psychiatric: Mental Status: active & alert Orientation: oriented except where noted Lungs: Respiratory Effort: no dyspnea Auscuitation: CTA except as noted Cardiovascular: Heart Auscultation: RRR, no murmurs Abdomen: Inspection & Palpation: soft, no tenderness, guarding & rebound, distended Extremities: no edema Laboratory Last 24 Hours Test 4/9/17 11:38 03/08/17 17:19 03/08/17 20:29 03/09/17 07:07 Bedside Glucose 96 mg/dl 92 mg/dl 99 mg/dl White Blood Count 7.18 K/uL Red Blood Count 3.53 M/uL Hemoglobin 11.1 g/dL Hematocrit 33.2 % Mean Corpuscular Volume 94.1 fL Mean Corpuscular Hemoglobin 31.4 pg Mean Corpuscular Hemoglobin Concent 33.4 g/dl Platelet Count 146 K/uL Mean Platelet Volume 11.0 fL Neutrophils (%) (Auto) 77.5 % Lymphocytes (%) (Auto) 11.7 % Monocytes (%) (Auto) 8.2 % Eosinophils (%) (Auto) 2.4 % Basophils (%) (Auto) 0.1 % Neutrophils # (Auto) 5.56 K/uL Lymphocytes # (Auto) 0.84 K/uL Monocytes # (Auto) 0.59 K/uL Eosinophils # (Auto) 0.17 K/uL Basophils # (Auto) 0.01 K/uL RDW Standard Deviation 50.8 fL RDW Coefficient of Variation 14.9 % Immature Granulocyte % (Auto) 0.1 % Immature Granulocyte # (Auto) 0.01 K/uL Prothrombin Time 12.0 SECONDS Prothromb Time International Ratio 1.1 Activated Partial Thromboplast Time 28.0 SECONDS Partial Thromboplastin Ratio 1.1 Sodium Level 141 mmol/L Potassium Level 4.0 mmol/L Chloride Level 106 mmol/L Carbon Dioxide Level 28 mmol/L Anion Gap 7.0 mmol/L Blood Urea Nitrogen 10 mg/dl Creatinine 0.74 mg/dl Est Creatinine Clear Calc Drug Dose 93.2 ml/min Estimated GFR () 102.4 Estimated GFR (Non- 88.3 BUN/Creatinine Ratio 13.2 Random Glucose 92 mg/dl Calcium Level 7.8 mg/dl Magnesium Level 2.1 mg/dl Total Bilirubin 0.6 mg/dl Direct Bilirubin 0.1 mg/dl Aspartate Amino Transf (AST/SGOT) 14 U/L Alanine Aminotransferase (ALT/SGPT) 15 U/L Alkaline Phosphatase 58 U/L Total Protein 6.2 gm/dl Albumin 2.8 gm/dl Globulin 3.4 gm/dl Albumin/Globulin Ratio 0.8 Test 03/09/17 08:07 Bedside Glucose 102 mg/dl Assessment & Plan His abdomen is soft. Bowel sounds are actually very quiet. EUS is being planned. We will await diagnostic procedure. He appears quite comfortable.
--- NOTE | 2017-03-09 13:16 | Progress Note ---
Subjective Date of Service: Mar 09, 2017. Subjective Pt evaluation today including: conversation w/ patient, physical exam, chart review, lab review, review of studies, review of inpatient medication list Pt resting comfortably in bed NGT removed No abd pain, fevers, nausea or diarrhea NPO for tentative procedure Problem List Medical Problems: (1) Finger pain, left Status: Acute (2) Pancreatic mass Status: Acute (3) Small bowel obstruction Status: Acute (4) Urinary tract infection Status: Acute Review of Systems Constitutional: No chills, No fever Respiratory: No cough, No dyspnea on exertion, No shortness of breath, No sputum, No wheezing Cardiac: No chest pain, No orthopnea Abdomen: No constipation, No diarrhea, No nausea, No pain, No vomiting Musculoskeletal: No joint pain, No muscle pain Male : No dysuria, No urinary frequency Neurologic: No memory loss, No paralysis Objective Vital Signs Date Time Temp Pulse Resp B/P Pulse Ox O2 Delivery O2 Flow Rate FiO2 03/09/17 11:36 36.6 58 18 164/85 93 Room Air 03/09/17 09:59 36.6 66 20 157/83 92 Room Air 03/09/17 04:51 64 155/76 03/09/17 04:18 36.4 60 16 140/76 92 Room Air 03/09/17 00:00 93 Room Air 03/08/17 23:14 36.7 57 20 144/69 94 Room Air 03/08/17 22:15 36.4 56 16 140/66 93 Room Air 03/08/17 20:00 93 Room Air 03/08/17 19:09 36.7 91 18 157/77 90 03/08/17 17:29 37.0 68 18 179/88 93 177/87 03/08/17 16:00 Room Air 03/08/17 13:39 60 164/77 Physical Exam General Appearance: WD/WN, no apparent distress Neck: supple, no adenopathy Respiratory/Chest: lungs clear, normal breath sounds Cardiovascular: no edema, no gallop Abdomen: non tender, soft Neurologic/Psychiatric: alert, oriented x 3 Laboratory Results Last 24 Hours Test 03/08/17 17:19 03/08/17 20:29 03/09/17 07:07 03/09/17 08:07 Bedside Glucose 92 mg/dl 99 mg/dl 102 mg/dl White Blood Count 7.18 K/uL Red Blood Count 3.53 M/uL Hemoglobin 11.1 g/dL Hematocrit 33.2 % Mean Corpuscular Volume 94.1 fL Mean Corpuscular Hemoglobin 31.4 pg Mean Corpuscular Hemoglobin Concent 33.4 g/dl Platelet Count 146 K/uL Mean Platelet Volume 11.0 fL Neutrophils (%) (Auto) 77.5 % Lymphocytes (%) (Auto) 11.7 % Monocytes (%) (Auto) 8.2 % Eosinophils (%) (Auto) 2.4 % Basophils (%) (Auto) 0.1 % Neutrophils # (Auto) 5.56 K/uL Lymphocytes # (Auto) 0.84 K/uL Monocytes # (Auto) 0.59 K/uL Eosinophils # (Auto) 0.17 K/uL Basophils # (Auto) 0.01 K/uL RDW Standard Deviation 50.8 fL RDW Coefficient of Variation 14.9 % Immature Granulocyte % (Auto) 0.1 % Immature Granulocyte # (Auto) 0.01 K/uL Prothrombin Time 12.0 SECONDS Prothromb Time International Ratio 1.1 Activated Partial Thromboplast Time 28.0 SECONDS Partial Thromboplastin Ratio 1.1 Sodium Level 141 mmol/L Potassium Level 4.0 mmol/L Chloride Level 106 mmol/L Carbon Dioxide Level 28 mmol/L Anion Gap 7.0 mmol/L Blood Urea Nitrogen 10 mg/dl Creatinine 0.74 mg/dl Est Creatinine Clear Calc Drug Dose 93.2 ml/min Estimated GFR () 102.4 Estimated GFR (Non- 88.3 BUN/Creatinine Ratio 13.2 Random Glucose 92 mg/dl Calcium Level 7.8 mg/dl Magnesium Level 2.1 mg/dl Total Bilirubin 0.6 mg/dl Direct Bilirubin 0.1 mg/dl Aspartate Amino Transf (AST/SGOT) 14 U/L Alanine Aminotransferase (ALT/SGPT) 15 U/L Alkaline Phosphatase 58 U/L Total Protein 6.2 gm/dl Albumin 2.8 gm/dl Globulin 3.4 gm/dl Albumin/Globulin Ratio 0.8 Test 03/09/17 11:37 Bedside Glucose 103 mg/dl Assessment and Plan Pancreatic tail mass/peritoneal carcinomatosis/small bowel obstruction--patient was admitted to the medical surgical floor and kept nothing by mouth status. NG tube to low intermittent suction and then DCed on 03/08. MRCP determined dilated small bowel loops, consistent with a small bowel obstruction, no evidence of pancreatic or biliary ductal dilatation, 10 mm cystic lesion within the pancreatic neck. No worsening pain leukocytosis or fevers. GI consulted for possible EUS, CEA neg and CA 19-9 pending. 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 on Nitropaste 1 inch to the anterior chest wall every 6 hours, and hydralazine 10 mg IV every 4 hours when necessary systolic blood pressure greater than 150. Place on normal saline with KCl 20 mEq at 100 ML's per hour. Diabetes mellitus--hold metformin 500 mg by mouth twice a day with meals, and place on Accu-Cheks before meals and at bedtime/4 times a day with NovoLog coverage per sliding scale. Hypercholesterolemia--hold atorvastatin 80 mg by mouth daily. BPH with mild bladder distention--monitored closely while on IV fluids. Pt is FULL CODE
--- NOTE | 2017-03-09 16:06 | DIAGNOSTIC IMAGING REPORT ---
KUB CLINICAL HISTORY: Follow-up small bowel obstruction. FINDINGS: 3 AP supine abdominal radiographs are correlated with abdominal CT dated 03/06/2017. There is no clear radiographic evidence of bowel obstruction. There is mild gaseous distention of the small bowel and colon. No evidence of intraperitoneal free air is seen on these supine images. Numerous phleboliths are noted in the pelvis. The skeletal structures are osteopenic. There is moderate to advanced lumbosacral spondylosis and scoliosis. The bony pelvis is intact as visualized. IMPRESSION: There is no clear radiographic evidence of bowel obstruction. Clinical correlation will be required. Electronically signed by: Jon Rios M.D. 03/09/2017 4:04 PM Dictated Date/Time: 03/09/2017 4:02 PM
--- NOTE | 2017-03-09 16:20 | PROGRESS NOTE ---
DATE: 03/09/2017 SUBJECTIVE: The patient is tolerating clear liquids and had a bowel movement today. The nasogastric tube is out and the small bowel obstruction appears to be improving. He does have a mass in the pancreas and possible omental studding on imaging studies. He is scheduled for an endoscopic ultrasound with a possible biopsy on Thursday, the at 2:[address] Arora. We will advance his diet to full liquids today and see how he tolerates those. If he tolerates that, he may be able to advance to a low fiber diet on Thursday and then be n.p.o. after midnight for his procedure on Thursday.
[2017-03-09] MEDS: HydrALAZINE HCL 20 MG/ML VIAL IV. PRN (23:47)
[2017-03-10] VITALS (11 sets, daily range): BP systolic 132–195; BP diastolic 64–97; PULSE 65–98; TEMP 36.5–36.8; O2SAT 93–96; BMI 28.9
[2017-03-10] MEDS: NITROGLYCERIN OINT 2% 1GM PACKET EXT SCH ×4 (04:27→22:18)
[2017-03-10] MEDS: HydrALAZINE HCL 20 MG/ML VIAL IV. PRN ×2 (08:10→16:03)
[2017-03-10] MEDS: INSULIN ASPART 100 UNITS/ML 3 ML PEN SC SCH ×4 (08:49→21:00)
[2017-03-10] MEDS: NSS + 20MEQ KCL 1000ML 1,000 ML IV SCH ×2 (09:48→20:04)
[2017-03-10] MEDS: PANTOprazole INJ 40 MG in SYRINGE 0 ML IV SCH (09:54)
--- NOTE | 2017-03-10 10:55 | Hematology/Oncology Prog Note ---
Hematology/Onc Progress Note Date of Service Mar 10, 2017. 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 ACHS SC 03/07/17 06:30 04/06/17 06:59 03/10/17 08:49 6 UNITS Potassium Chloride/Sodium Chloride 1,000 ml @ 100 mls/hr Q10H IV 03/07/17 03:00 04/06/17 02:59 03/10/17 09:48 100 MLS/HR Pantoprazole Sodium/Syringe (Protonix Inj/ Syringe) 10 ml @ 5 mls/min DAILY@11 IV 03/07/17 11:00 04/06/17 10:59 03/10/17 09:54 5 MLS/MIN Atenolol (Tenormin Tab) 25 mg BID PO 03/07/17 08:00 03/07/17 09:00 DC 03/07/17 08:52 25 MG Isosorbide Mononitrate (Imdur Ext Rel Tab) 30 mg DAILY PO 03/07/17 08:00 03/07/17 09:00 DC 03/07/17 08:52 30 MG Lorazepam (Ativan Inj) 0.5 mg NOW STAT IV 03/06/17 22:48 03/06/17 22:56 DC 03/07/17 01:34 0.5 MG Nitroglycerin (Nitroglycerin 2% Oint) 1 inch Q6H EXT 03/07/17 04:00 04/06/17 03:59 03/10/17 09:51 1 INCH Hydralazine HCl (HydrALAZINE INJ) 10 mg Q4H PRN IV. 03/07/17 02:45 04/06/17 02:44 03/10/17 08:10 10 MG Subjective Seems to be doing well. He appears quite comfortable. Review of Systems: Constitutional: Negative for night sweats, or fever Eyes: Negative for event change of vision ENT: Negative for epistaxis, nasal discharge, sore throat, or deafness Cardiovascular: Negative for chest pain, palpitations, dizziness, diaphoresis Respiratory: Negative for new shortness of breath,hemoptysis, or purulent cough Gastrointestinal: Negative for diarrhea, hematemesis, melena, nausea, vomiting , or dyspepsia Integumentary (skin): Negative for rash or jaundice discoloration Genitourinary: Negative for urinary frequency, hematuria, or dysuria Neurological: Negative for weakness, seizure activity, headache, or dizziness Lymphatic/Hematologic: Negative for petechiae, bleeding or new adenopathy Musculoskeletal: Negative for new joint or back pain Allergic/Immunologic: Negative for unusual rash or pruritis. Vital Signs Vital Signs Past 12 Hours Date Time Temp Pulse Resp B/P Pulse Ox O2 Delivery O2 Flow Rate FiO2 03/10/17 09:50 74 135/67 03/10/17 08:05 Room Air 03/10/17 07:57 36.8 66 18 161/74 93 Room Air 03/10/17 04:32 66 143/73 03/10/17 04:10 36.6 68 18 160/77 94 Room Air 03/10/17 00:32 65 132/64 03/10/17 00:01 36.5 73 18 195/97 93 Room Air 03/10/17 00:00 Room Air Physical Exam Constitutional: vitals are stable. Eyes: Eyes are MARGE EOMI without conjuctival erythema or icterus. ENT: External examination was negative for masses. Neck: Negative for masses or palpable thyromegaly Respiratory: Lung sounds were generally clear bilaterally Cardiovascular: Heart was RRR without significant murmur, gallops aoe rubs Gastrointestinal: No palpable hepatic or splenomegaly. The abdomen was soft with normal to slightly increased bowel sounds. Lymphatic system: there was no palpable peripheral lymphadenopathy Musculoskeletal System: The musculoskeletal system seemed concordant with age. Skin: The skin was negative for jaundice. Neurologic exam: The exam was negative for any focal findings. Deep tendon reflexes were equal and symmetrical. Psychiatric exam: Was essentially negative with normal mood and effect. Extremities: Negative for edema or erythema Constitutional: General Apperance: heathly-appearing Level of Distress: NAD Psychiatric: Mental Status: active & alert Orientation: oriented except where noted Lungs: Respiratory Effort: no dyspnea Auscuitation: CTA except as noted Cardiovascular: Heart Auscultation: RRR, no murmurs Abdomen: Inspection & Palpation: soft, no tenderness, guarding & rebound, distended Extremities: no edema Laboratory Last 24 Hours Test 03/09/17 11:37 03/09/17 16:44 03/09/17 20:01 03/10/17 08:01 Bedside Glucose 103 mg/dl 95 mg/dl 120 mg/dl 107 mg/dl Assessment & Plan His abdomen is soft. EUS and hopeful biopsy planned for tomorrow. I suspect discharge will occur soon after that provided that he is able to take orally . He will have a follow-up in our clinic shortly afterwards.
--- NOTE | 2017-03-10 14:56 | Anesthesiology Progress Note ---
Pre-OP Anesthesia Assessment Date of Note Mar 10, 2017. Notes 77y old male. Presents with worsening abdominal pain x3 days ago. Found to have pancreatic tail mass with SBO and peritoneal carcinomatosis. SBO now clinically resolved. History of DE (1994), CAD, HTN, DM 2, anemia, former smoker quit 25yrs ago. Consented for GETA with MD Arora EUS with biopsy. Accepts risks and questions answered. and daughters at BS. Pt stable and in no distress playing game with children in room.
[2017-03-10] MEDS ORDERED: AMLODIPINE BESYLATE 5 MG TAB PO ONE (18:18)
[2017-03-10] MEDS ORDERED: ATORVASTATIN 40 MG TAB PO ONE (18:18)
--- NOTE | 2017-03-10 18:49 | Hospitalist Progress Note ---
Hospitalist Progress Note Date of Service Mar 10, 2017. (Jon Guerrier PA-C) Subjective Pt evaluation today including: conversation w/ patient, conversation w/ family , physical exam, chart review, lab review, review of studies This is a 77-year-old male that presented with small bowel obstruction found to have incidental finding of pancreatic mass of 2.8 cm on the tail of pancreas with question of metastasis to the omentum. Patient had NG tube placed for decompression. Patient subsequently has had NG tube removed and currently is tolerating a full liquid diet without difficulty. He has no further abdominal pain, nausea, vomiting, diarrhea. He did have a bowel movement earlier today with absence of floating stool. He had no hematochezia or melena. No tenesmus with defecation. He denies fever or chills. He has no acute pain. He has no acute complaints other than irritation of the right eye with limited drainage Constitutional: No chills, No fever, No sweats Eyes: + redness (a right eye with no discharge), No diplopia ENT: No hearing loss, No sore throat, No tinnitus, No unusual epistaxis Respiratory: No cough, No shortness of breath, No sputum, No wheezing Cardiovascular: No chest pain Abdomen: No GI bleeding, No diarrhea, No nausea, No vomiting Male : No hematuria Neurologic: No numbness/tingling, No vertigo Psychiatric: No depression symptoms Skin: No rash All Other Systems: Reviewed and Negative (Jon Guerrier PA-C) Medications Current Inpatient Medications Medications (Trade) Dose Ordered Sig/Magdi Route Start Time Stop Time Status Last Admin Dose Admin Ioversol (Optiray 320) 100 ml UD PRN IV 03/06/17 20:15 03/10/17 20:14 Ondansetron HCl (Zofran Inj) 4 mg Q6H PRN IV 03/06/17 22:30 04/05/17 22:29 03/06/17 23:36 4 MG Insulin Aspart (novoLOG ASPART) SLIDING SCALE If C... ACHS SC 03/07/17 06:30 04/06/17 06:59 03/10/17 18:03 6 UNITS Glucose (Glucose 40% Gel) UD PRN PO 03/06/17 22:30 04/05/17 22:29 Glucose (Glucose Chew Tab) 1 tabs UD PRN PO 03/06/17 22:30 04/05/17 22:29 Dextrose (Dextrose 50% 50ML Syringe) 50 ml UD PRN IV 03/06/17 22:30 04/05/17 22:29 Glucagon 1 mg 1 mg UD PRN SQ 03/06/17 22:30 04/05/17 22:29 Potassium Chloride/Sodium Chloride 1,000 ml @ 100 mls/hr Q10H IV 03/07/17 03:00 04/06/17 02:59 03/10/17 09:48 100 MLS/HR Pantoprazole Sodium 40 mg/ Syringe 10 ml @ 5 mls/min DAILY@11 IV 03/07/17 11:00 04/06/17 10:59 03/10/17 09:54 5 MLS/MIN Acetaminophen (Ofirmev Iv) 100 ml @ 400 mls/hr Q8H PRN IV 03/06/17 22:30 04/05/17 22:29 Morphine Sulfate (MoRPHine SULFATE INJ) 2 mg Q2H PRN IV 03/06/17 22:30 03/20/17 22:29 Morphine Sulfate (MoRPHine SULFATE INJ) 4 mg Q2H PRN IV 03/06/17 22:30 03/20/17 22:29 Nitroglycerin (Nitrostat Tab) 0.4 mg UD SL 03/06/17 22:30 04/05/17 22:29 Nitroglycerin (Nitroglycerin 2% Oint) 1 inch Q6H EXT 03/07/17 04:00 04/06/17 03:59 03/10/17 16:02 1 INCH Hydralazine HCl (HydrALAZINE INJ) 10 mg Q4H PRN IV. 03/07/17 02:45 04/06/17 02:44 03/10/17 16:03 10 MG Amlodipine Besylate (Norvasc Tab) 5 mg DAILY PO 03/11/17 08:00 04/10/17 07:59 Atorvastatin Calcium (Lipitor Tab) 80 mg DAILY PO 03/11/17 08:00 04/10/17 07:59 (Jon Guerrier PA-C) Objective Vital Signs Date Time Temp Pulse Resp B/P Pulse Ox O2 Delivery O2 Flow Rate FiO2 03/10/17 15:49 36.5 82 20 191/92 96 03/10/17 13:45 145/79 03/10/17 11:39 36.7 79 20 169/84 95 Room Air 03/10/17 09:50 74 135/67 03/10/17 08:05 Room Air 03/10/17 07:57 36.8 66 18 161/74 93 Room Air 03/10/17 04:32 66 143/73 03/10/17 04:10 36.6 68 18 160/77 94 Room Air 03/10/17 00:32 65 132/64 03/10/17 00:01 36.5 73 18 195/97 93 Room Air 03/10/17 00:00 Room Air 03/09/17 20:46 36.4 84 18 171/80 95 Room Air 03/09/17 20:00 Room Air (Jon Guerrier PA-C) Physical Exam Notes: GENERAL : No acute distress EYES: No icterus, gaze conjugate NOSE: No evidence of epistaxis MOUTH: No lesions or candidiasis NECK: Supple LUNGS: CTA B/L, no wheezes, rales or rhonchi HEART: Regular, rate controlled ABDOMEN: Soft, NT, ND, BS Present. No rebound tenderness or guarding EXTREMITIES: No LE edema, pedal pulses intact NEURO: A&OX3 (Jon Guerrier PA-C) Laboratory Results Last 24 Hours Test 03/09/17 20:01 03/10/17 08:01 03/10/17 11:50 03/10/17 16:55 Bedside Glucose 120 mg/dl 107 mg/dl 99 mg/dl 102 mg/dl (Jon Guerrier PA-C) Diagnostic Results KUB CLINICAL HISTORY: Follow-up small bowel obstruction. FINDINGS: 3 AP supine abdominal radiographs are correlated with abdominal CT dated 03/06/2017. There is no clear radiographic evidence of bowel obstruction. There is mild gaseous distention of the small bowel and colon. No evidence of intraperitoneal free air is seen on these supine images. Numerous phleboliths are noted in the pelvis. The skeletal structures are osteopenic. There is moderate to advanced lumbosacral spondylosis and scoliosis. The bony pelvis is intact as visualized. IMPRESSION: There is no clear radiographic evidence of bowel obstruction. Clinical correlation will be required. Electronically signed by: Jon Rios M.D. 03/09/2017 4:04 PM Dictated Date/Time: 03/09/2017 4:02 PM ABDOMEN AND PELVIS CT WITH IV CONTRAST CT DOSE: 537.92 mGy.cm HISTORY: Generalized abdominal pain and vomiting. eval for obstruction TECHNIQUE: Multiaxial CT images of the abdomen and pelvis were performed following the use of intravenous contrast. COMPARISON STUDY: Abdomen and pelvis CTA 09/17/2010. FINDINGS: A 3 mm nodule within the right upper lobe on image 2. Groundglass densities within the lung bases posteriorly may be due to mild dependent change. No pneumoperitoneum. No pneumatosis. Bilateral L5 spondylolysis with associated spondylolisthesis. Coronary artery calcifications. Extensive calcified plaque within the aorta and iliac arteries. No change in the severe stenosis at the right proximal common iliac artery. 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 The largest on the right measures 2.4 cm. Mild aneurysmal dilatation of the abdominal aorta measuring 3.2 cm. 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 There may also be occlusion of the left common femoral artery. The prostate gland is mildly enlarged. The bladder is mildly distended. Colonic diverticulosis. The adrenal glands and kidneys are unremarkable. A 2.7 cm exophytic hypodense lesion within the spleen. This may represent a cyst. Multiple scattered hypodense lesions within the liver. The majorities are subcentimeter in size and too small to characterize. Dominant lesion within the inferior to the right hepatic lobe measures 1.8 cm. This is slightly increased in size from the 2009 study. These lesions are indeterminate but favor cysts. No retroperitoneal lymphadenopathy. Hypodense and bulbous appearance to the pancreatic tail which is concerning for a pancreatic tail mass. Small amount of ascites. Multiple scattered omental nodules consistent with peritoneal carcinomatosis. Dominant nodule within the right side of the omentum measures 2.7 cm. Soft tissue nodularity surrounding the bulbous pancreatic tail suggestive of metastatic disease. This abuts the greater curvature of the stomach. This appears to be narrowing of the distal splenic vein at the suspected pancreatic mass. Cluster of small bowel loops within the right lower quadrant on image 303. This results in the transition point of the small bowel obstruction. Multiple dilated mid to distal small bowel which are fluid-filled. These measure up to 3.8 cm in diameter. IMPRESSION: 1. Small bowel obstruction with the transition point at the mid ileum within the right lower quadrant. 2. Peritoneal carcinomatosis as described above. This likely accounts for the small bowel obstruction. 3. Bulbous appearance of the pancreatic tail which measures 2.8 cm in thickness. This is highly suspicious for a pancreatic mass. There is surrounding soft tissue nodularity consistent with spread of metastatic disease/peritoneal carcinomatosis. There is also narrowing of the distal splenic vein at this location. 4. No change in the chronic multifocal arterial disease as described above. Electronically signed by: Mio Brand M.D. 03/06/2017 9:19 PM Dictated Date/Time: 03/06/2017 9:04 PM MRCP CLINICAL HISTORY: Pancreatic carcinoma. Peritoneal carcinomatosis. Abnormal liver enzymes. COMPARISON STUDY: CT scan dated 03/06/2017 FINDINGS: A breath-hold MRCP was performed. There are dilated small bowel loops consistent with a small bowel obstruction. There is ascites. There is an 11 mm T2 bright hepatic lesion representing a cyst. There is a 2.6 cm T2 bright splenic mass, likely cystic. There is a 10 mm cystic lesion within the pancreatic neck. The pancreatic tail appears bulbous. There is infiltration the fat surrounding the pancreatic tail. There is no pancreatic ductal dilatation. The common bile duct is of normal caliber. There are no gallbladder filling defects. IMPRESSION: 1. Dilated small bowel loops, consistent with a small bowel obstruction 2. No evidence of pancreatic or biliary ductal dilatation 3. Ascites 4. T2 bright hepatic and splenic lesions, likely represent cysts 5. 10 mm cystic lesion within the pancreatic neck 6. Bulbous pancreatic tail. This could represent a mass. 7. Infiltration of the fat surrounding the pancreatic tail. 8. Omental nodularity Electronically signed by: Cristobal Angeles M.D. 03/07/2017 7:55 AM Dictated Date/Time: 03/07/2017 7:50 AM (Jon Guerrier PA-C) Assessment and Plan SMALL BOWEL OBSTRUCTION Status post removal of NG tube MRCP with dilated small bowel loops ET abdomen and pelvis with demonstrated transition point for small bowel obstruction Now tolerating full liquid diet PANCREATIC MASS 2.5 cm area of concern of the tail of the pancreas Question of omental studding/metastasis Scheduled for EUS with Dr. Arora 03/11/17 at 1400 Lipase normal No evidence of pancreatic or biliary ductal dilatation 10 mm cystic lesion within the pancreatic neck No fever or leukocytosis CEA negative CA 199 pending PERIPHERAL ARTERIAL DISEASE Patient reports history of vasculopathy with significant collateral circulation to lower extremities and to cardiac vessels Imaging with bilateral common iliac artery aneurysms/occluded right common femoral artery and possibly left Currently holding clopidogrel for invasive procedures Restart clopidogrel per GI and oncology No claudication or other complaints HYPERTENSION Home medications held Currently has Nitropaste on the left upper chest wall Hydralazine 10 mg IV when necessary systolic blood pressure is 150 Follow electrolytes DIABETES MELLITUS TYPE 2 Metformin held Continue BSG's before meals at bedtime Sliding scale insulin with NovoLog HISTORY OF BPH Continue to follow urine output No abdominal distention or discomfort CAD Continue Norvasc and atorvastatin Atenolol held Restart beta becca as tolerated DVT PROPHYLAXIS History of peripheral arterial disease Clopidogrel held for pending invasive procedure Continue ULISES chakraborty and SCDs Patient discussed with Dr. Joseph. Please refer to her addendum for further recommendations Continued [facility] stay due to: other (EUS scheduled tomorrow for pancreatic mass. NPO until this morning) Discharge planning: home (Jon Guerrier PA-C) History Physician Gift [employer] Clerk Supervision Note: I interviewed and examined the patient. Discussed with DERRICK Guerrier and agree with findings and plan as documented in the note. Any exceptions or clarifications are listed here: Patient has no complaints, no abdominal pain, he tolerated a low fiber diet today. He is passing stool and gas and there is no blood. No nausea or vomiting. His blood pressure is quite elevated as his home BP meds have been held. Vitals reviewed No acute distress, jovial, alert awake oriented 3 Regular rate and rhythm, no murmurs gallops rubs Lungs clear to auscultation bilaterally, breathing unlabored Abdomen positive bowel sounds, soft, nontender, nondistended Extremities no edema 77-year-old male with history of CAD, PAD, GERD, here with small bowel obstruction and new finding of possible metastatic pancreatic cancer with omental and peritoneal carcinomatosis. -Nothing by mouth after midnight for EUS tomorrow -Okay to restart all home by mouth blood pressure medications including atenolol 25 mg by mouth twice a day, amlodipine 5 mg by mouth daily, except will hold his Dyazide. Restart home atorvastatin -Likely discharge to home tomorrow after EUS with biopsy if procedure goes well and no complications -He will need oncology follow-up within 1 week Documented By: Bronwyn Joseph (Bronwyn Joseph MD)
--- NOTE | 2017-03-10 19:07 | Gastroenterology Progress Note ---
Progress Note Date of Service: Mar 10, 2017 Subjective Pt evaluation today including: conversation w/ patient, conversation w/ family , physical exam, chart review, lab review, review of studies, review of inpatient medication list CC f/u SBO HPI Pt states moved bowels yesterday and some today. Pt states green in color. No abd pain. Had solid diet for supper and did well. KUB 03/09/17 no evidence of bowel obstruction. Review of Systems Respiratory: No shortness of breath Cardiac: No chest pain Medications Current Inpatient Medications Medications (Trade) Dose Ordered Sig/Magdi Route Start Time Stop Time Status Last Admin Dose Admin Ioversol (Optiray 320) 100 ml UD PRN IV 03/06/17 20:15 03/10/17 20:14 Ondansetron HCl (Zofran Inj) 4 mg Q6H PRN IV 03/06/17 22:30 04/05/17 22:29 03/06/17 23:36 4 MG Insulin Aspart (novoLOG ASPART) SLIDING SCALE If C... ACHS SC 03/07/17 06:30 04/06/17 06:59 03/10/17 18:03 6 UNITS Glucose (Glucose 40% Gel) UD PRN PO 03/06/17 22:30 04/05/17 22:29 Glucose (Glucose Chew Tab) 1 tabs UD PRN PO 03/06/17 22:30 04/05/17 22:29 Dextrose (Dextrose 50% 50ML Syringe) 50 ml UD PRN IV 03/06/17 22:30 04/05/17 22:29 Glucagon 1 mg 1 mg UD PRN SQ 03/06/17 22:30 04/05/17 22:29 Potassium Chloride/Sodium Chloride 1,000 ml @ 100 mls/hr Q10H IV 03/07/17 03:00 04/06/17 02:59 03/10/17 09:48 100 MLS/HR Pantoprazole Sodium 40 mg/ Syringe 10 ml @ 5 mls/min DAILY@11 IV 03/07/17 11:00 04/06/17 10:59 03/10/17 09:54 5 MLS/MIN Acetaminophen (Ofirmev Iv) 100 ml @ 400 mls/hr Q8H PRN IV 03/06/17 22:30 04/05/17 22:29 Morphine Sulfate (MoRPHine SULFATE INJ) 2 mg Q2H PRN IV 03/06/17 22:30 03/20/17 22:29 Morphine Sulfate (MoRPHine SULFATE INJ) 4 mg Q2H PRN IV 03/06/17 22:30 03/20/17 22:29 Nitroglycerin (Nitrostat Tab) 0.4 mg UD SL 03/06/17 22:30 04/05/17 22:29 Nitroglycerin (Nitroglycerin 2% Oint) 1 inch Q6H EXT 03/07/17 04:00 04/06/17 03:59 03/10/17 16:02 1 INCH Hydralazine HCl (HydrALAZINE INJ) 10 mg Q4H PRN IV. 03/07/17 02:45 04/06/17 02:44 03/10/17 16:03 10 MG Amlodipine Besylate (Norvasc Tab) 5 mg DAILY PO 03/11/17 08:00 04/10/17 07:59 Atorvastatin Calcium (Lipitor Tab) 80 mg DAILY PO 03/11/17 08:00 04/10/17 07:59 Objective Vital Signs Date Time Temp Pulse Resp B/P Pulse Ox O2 Delivery O2 Flow Rate FiO2 03/10/17 15:49 36.5 82 20 191/92 96 03/10/17 13:45 145/79 03/10/17 11:39 36.7 79 20 169/84 95 Room Air 03/10/17 09:50 74 135/67 03/10/17 08:05 Room Air 03/10/17 07:57 36.8 66 18 161/74 93 Room Air 03/10/17 04:32 66 143/73 03/10/17 04:10 36.6 68 18 160/77 94 Room Air 03/10/17 00:32 65 132/64 03/10/17 00:01 36.5 73 18 195/97 93 Room Air 03/10/17 00:00 Room Air 03/09/17 20:46 36.4 84 18 171/80 95 Room Air 03/09/17 20:00 Room Air Physical Exam General Appearance: WD/WN, no apparent distress Respiratory/Chest: lungs clear, no respiratory distress Cardiovascular: regular rate, rhythm Abdomen: normal bowel sounds, non tender, soft Laboratory Results Last 24 Hours Test 03/09/17 20:01 03/10/17 08:01 03/10/17 11:50 03/10/17 16:55 Bedside Glucose 120 mg/dl 107 mg/dl 99 mg/dl 102 mg/dl Assessment and Plan SBO--resolved, peritoneal carcinomatosis--metastatic disease from abdominal process either pancreas or otherwise. --CEA normal, CA 19-9 pending pancreas lesion--10 mm cyst in neck but probable mass in tail---EUS tomorrow by Dr Arora and if no complications could be DCed tomorrow also. anemia--black stool as oupt but green as inpt so likely from Peptobismol--no CBC done today
[2017-03-11] VITALS (11 sets, daily range): BP systolic 131–187; BP diastolic 54–86; PULSE 54–81; TEMP 36.3–36.8; O2SAT 91–98
[2017-03-11] MEDS: NITROGLYCERIN OINT 2% 1GM PACKET EXT SCH ×4 (04:00→22:14)
[2017-03-11] MEDS: NSS + 20MEQ KCL 1000ML 1,000 ML IV SCH ×2 (05:41→17:48)
[2017-03-11 06:24] LABS: BASO % 0.3 %; BASO ABS # 0.02 K/uL (0-0.2); COMPLETE YES; EOS % 3.5 %; HEMATOCRIT 32.4 % (42-52); IG% 0.3 %; LYMPH % 11.6 %; LYMPH ABS # 0.88 K/uL (1.2-3.4); MEAN CELL VOLUME 93.9 fL (80-100); MEAN CORPUSCULAR HEMOGLOBIN 30.7 pg (25-34); MEAN CORPUSCULAR HGB CONC 32.7 g/dl (32-36); MEAN PLATELET VOLUME 10.6 fL (7.4-10.4); MONO % 9.3 %; PLATELET COUNT 175 K/uL (130-400); RED BLOOD COUNT 3.45 M/uL (4.7-6.1); WHITE BLOOD COUNT 7.61 K/uL (4.8-10.8)
[2017-03-11 06:41] LABS: BUN/CREATININE RATIO 9.9 (10-20); CALCIUM 8.2 mg/dl (8.5-10.1); CREATININE 0.8 mg/dl (0.60-1.40); POTASSIUM 4.1 mmol/L (3.5-5.1)
[2017-03-11 06:44] LABS: ALB/GLOB RATIO 0.9 (0.9-2)
[2017-03-11] MEDS ORDERED: NURSING DECISION MEDICATION ORDER SCH (07:15)
[2017-03-11] MEDS: INSULIN ASPART 100 UNITS/ML 3 ML PEN SC SCH ×3 (07:30→18:11)
[2017-03-11] MEDS: ATORVASTATIN 40 MG TAB PO SCH (08:40)
[2017-03-11] MEDS: AMLODIPINE BESYLATE 5 MG TAB PO SCH (08:41)
[2017-03-11] MEDS ORDERED: HYDROmorphone INJ 1 MG/ML SYR IV PRN ×2 (09:00→15:00)
[2017-03-11] MEDS ORDERED: MEPERIDINE HCL 25 MG/ML CARP IV PRN ×2 (09:00→15:00)
[2017-03-11] MEDS ORDERED: ATROPINE SULFATE 0.1 MG/ML 5ML SYR IV PRN ×2 (09:00→15:00)
[2017-03-11] MEDS ORDERED: LABETALOL HCL IV 5 MG/ML 20ML IV PRN ×2 (09:00→15:00)
[2017-03-11] MEDS ORDERED: ONDANSETRON INJ 2 MG/ML 2 ML VIAL IV PRN ×2 (09:00→15:00)
[2017-03-11] MEDS ORDERED: FENTANYL CITRATE INJ 50 MCG/1 ML 2 ML VIAL IV PRN ×2 (09:00→15:00)
[2017-03-11] MEDS ORDERED: EpHEDrine SULFATE INJ 50 MG/ML AMP IV PRN ×2 (09:00→15:00)
[2017-03-11] MEDS: PANTOprazole INJ 40 MG in SYRINGE 0 ML IV SCH (09:45)
[2017-03-11] MEDS ORDERED: MIDAZOLAM HCL 1 MG/ML 2ML VIAL ONE (14:30)
[2017-03-11] MEDS ORDERED: FENTANYL CITRATE INJ 50 MCG/1 ML 2 ML VIAL ONE ×2 (14:30→16:22)
--- NOTE | 2017-03-11 14:42 | History & Physical Bridge Note ---
H&P Re-Evaluation Bridge Note: I have examined the patient, reviewed the History & Physical and in the interval since the performance of the History & Physical I have noted the following changes of clinical significance: No changes EUS for FNA AAO x3 Nl s1s2 Lungs CTA Abd soft NT/ND + BS - CCE consent obtained/ risks benefits/alternatives d/w pt pt agreed to proceed 3% risk of pancreatitis discussed with pt noted
[2017-03-11] MEDS ORDERED: PROPOFOL IV EMULSION 10 MG/ML 20 ML VIAL IV ONE (15:21)
[2017-03-11] MEDS ORDERED: DEXAMETHASONE SOD INJ 4 MG/ML VIAL ONE (15:21)
[2017-03-11] MEDS ORDERED: NEOSTIGMINE METHYLSULFATE 5 MG/5 ML SYR ONE (15:21)
[2017-03-11] MEDS ORDERED: GLYCOPYRROLATE INJ 0.2 MG/ML VIAL ONE (15:21)
[2017-03-11] MEDS ORDERED: ONDANSETRON INJ 2 MG/ML 2 ML VIAL ONE (15:21)
[2017-03-11] MEDS ORDERED: LIDOCAINE HCL 2% 2 ML VIAL (20MG/ML) ONE (15:21)
[2017-03-11] MEDS ORDERED: ROCURONIUM BROMIDE 10 MG/ML 5 ML VIAL ONE (15:21)
--- NOTE | 2017-03-11 16:48 | GI REPORT ---
Procedure Date: 03/11/2017 2:41 PM Procedure: Upper EUS Indications: Suspected mass in pancreas on CT scan Medicines: Propofol per Anesthesia Complications: No immediate complications. Estimated blood loss: Minimal. Estimated Blood Loss: Estimated blood loss was minimal. Procedure: Pre-Anesthesia Assessment: - Prior to the procedure, a History and Physical was performed, and patient medications and allergies were reviewed. The patient's tolerance of previous anesthesia was also reviewed. The risks and benefits of the procedure and the sedation options and risks were discussed with the patient. All questions were answered, and informed consent was obtained. Prior Anticoagulants: The patient has taken no previous anticoagulant or antiplatelet agents. ASA Grade Assessment: III - A patient with severe systemic disease. After reviewing the risks and benefits, the patient was deemed in satisfactory condition to undergo the procedure. After obtaining informed consent, the endoscope was passed under direct vision. Throughout the procedure, the patient's blood pressure, pulse, and oxygen saturations were monitored continuously. The Endosonoscope was introduced through the mouth, and advanced to the second part of duodenum. The upper EUS was accomplished without difficulty. The patient tolerated the procedure well. Findings: Endoscopic Finding : The examined esophagus was normal. The entire examined stomach was normal. The examined duodenum was normal. The entire examined stomach was normal. Patulous pylorus Endosonographic Finding : The esophagus, stomach and duodenum and adjacent structures were visualized endosonographically. There was no sign of significant endosonographic abnormality in the esophagus. No pathologic lymphadenopathy was identified. There was no sign of significant endosonographic abnormality in the duodenal bulb and in the second portion of the duodenum. No pathologic lymphadenopathy was identified. There was no sign of significant endosonographic abnormality in the visualized portion of the liver. Homogeneous parenchyma, no focal pathology and no pathologic lymphadenopathy were identified. Pancreatic parenchymal abnormalities were noted in the pancreatic body and in the pancreatic tail. These consisted of hyperechoic foci and hypoechoic foci. Fine needle aspiration for cytology was performed. Color Doppler imaging was utilized prior to needle puncture to confirm a lack of significant vascular structures within the needle path. Five passes were made with the 22 gauge needle using a transgastric approach. Some passes were made with a stylet. A threading machine setter was present to evaluate the adequacy of the specimen. The cellularity of the specimen was adequate. Final cytology results are pending. Endosonographic imaging in the main pancreatic duct showed no abnormalities. One abnormal lymph node was visualized in the alesha hepatis region. It measured 8 mm in maximal cross-sectional diameter. The node was round, hypoechoic and had well defined margins. Fine needle aspiration for cytology was performed. Color Doppler imaging was utilized prior to needle puncture to confirm a lack of significant vascular structures within the needle path. Two passes were made with the 22 gauge needle using a transduodenal approach. A stylet was used. A threading machine setter was present to evaluate the adequacy of the specimen. The cellularity of the specimen was adequate. Final cytology results are pending. Impression: - Normal esophagus. - Normal stomach. - Normal examined duodenum. - There was no sign of significant pathology in the esophagus. - Normal stomach. - There was no sign of significant pathology in the duodenal bulb and in the second portion of the duodenum. - There was no evidence of significant pathology in the visualized portion of the liver. - Pancreatic parenchymal abnormalities consisting of hyperechoic foci and hypoechoic foci were noted in the pancreatic body and in the pancreatic tail. Fine needle aspiration performed. - One abnormal lymph node was visualized in the alesha hepatis region. Fine needle aspiration performed. Recommendation: - Return patient to [facility] for [facility] care. - Clear liquid diet today. - Await cytology results. MD Ren Perez MD 03/11/2017 4:47:12 PM This report has been signed electronically. Note Initiated On: 03/11/2017 2:41 PM I attest to the content of the Intraoperative Record and orders documented therein, exceptions below
--- NOTE | 2017-03-11 17:06 | Anesthesiology Progress Note ---
Anesthesia Post Op Note Date & Time Mar 11, 2017 at 17:06 Vital Signs Pain Intensity: 0 Vital Signs Past 12 Hours Date Time Temp Pulse Resp B/P Pulse Ox O2 Delivery O2 Flow Rate FiO2 03/11/17 17:00 36.1 53 12 180/83 95 Nasal Cannula 2 03/11/17 16:50 56 12 192/85 98 Mask 10 03/11/17 16:40 59 12 185/87 98 Mask 10 03/11/17 16:32 36.2 66 16 187/92 95 Mask 10 03/11/17 13:58 36.7 66 20 168/84 96 Room Air 03/11/17 11:26 36.7 63 18 161/80 95 03/11/17 10:24 81 18 146/79 98 Room Air 03/11/17 08:40 Room Air 03/11/17 08:00 36.7 64 20 145/72 95 Notes Mental Status: alert / awake / arousable, participated in evaluation Pt Amnestic to Procedure: Yes Nausea / Vomiting: adequately controlled Pain: adequately controlled Airway Patency, RR, SpO2: stable & adequate BP & HR: stable & adequate Hydration State: stable & adequate Anesthetic Complications: no major complications apparent
[2017-03-11] MEDS: HydrALAZINE HCL 20 MG/ML VIAL IV. PRN (18:05)
--- NOTE | 2017-03-11 19:59 | Hospitalist Progress Note ---
Hospitalist Progress Note Date of Service Mar 11, 2017. Subjective Pt evaluation today including: conversation w/ patient, conversation w/ family patient with no complaints Objective Vital Signs Date Time Temp Pulse Resp B/P Pulse Ox O2 Delivery O2 Flow Rate FiO2 03/11/17 19:10 36.3 79 18 154/71 91 Room Air 03/11/17 18:35 36.4 80 20 138/64 93 Room Air 03/11/17 17:59 36.3 54 18 184/80 93 Room Air 03/11/17 17:44 36.8 55 18 187/82 94 Room Air 03/11/17 17:30 Room Air 03/11/17 17:15 52 17 182/76 94 Nasal Cannula 2 03/11/17 17:00 36.1 53 12 180/83 95 Nasal Cannula 2 03/11/17 16:50 56 12 192/85 98 Mask 10 03/11/17 16:40 59 12 185/87 98 Mask 10 03/11/17 16:32 36.2 66 16 187/92 95 Mask 10 03/11/17 13:58 36.7 66 20 168/84 96 Room Air 03/11/17 11:26 36.7 63 18 161/80 95 03/11/17 10:24 81 18 146/79 98 Room Air 03/11/17 08:40 Room Air 03/11/17 08:00 36.7 64 20 145/72 95 03/11/17 02:40 36.7 76 20 157/86 95 Room Air 03/11/17 00:50 94 Room Air 03/11/17 00:04 36.6 67 20 148/73 94 Room Air 03/10/17 20:27 36.6 98 20 169/91 93 Room Air Physical Exam General Appearance: WD/WN, no apparent distress ENT: hearing grossly normal Neck: supple Respiratory/Chest: lungs clear Cardiovascular: regular rate, rhythm, no edema Abdomen: normal bowel sounds Laboratory Results Last 24 Hours Test 03/10/17 21:22 03/11/17 05:59 03/11/17 07:50 03/11/17 11:40 Bedside Glucose 88 mg/dl 91 mg/dl 91 mg/dl White Blood Count 7.61 K/uL Red Blood Count 3.45 M/uL Hemoglobin 10.6 g/dL Hematocrit 32.4 % Mean Corpuscular Volume 93.9 fL Mean Corpuscular Hemoglobin 30.7 pg Mean Corpuscular Hemoglobin Concent 32.7 g/dl Platelet Count 175 K/uL Mean Platelet Volume 10.6 fL Neutrophils (%) (Auto) 75.0 % Lymphocytes (%) (Auto) 11.6 % Monocytes (%) (Auto) 9.3 % Eosinophils (%) (Auto) 3.5 % Basophils (%) (Auto) 0.3 % Neutrophils # (Auto) 5.71 K/uL Lymphocytes # (Auto) 0.88 K/uL Monocytes # (Auto) 0.71 K/uL Eosinophils # (Auto) 0.27 K/uL Basophils # (Auto) 0.02 K/uL RDW Standard Deviation 50.9 fL RDW Coefficient of Variation 14.8 % Immature Granulocyte % (Auto) 0.3 % Immature Granulocyte # (Auto) 0.02 K/uL Sodium Level 141 mmol/L Potassium Level 4.1 mmol/L Chloride Level 108 mmol/L Carbon Dioxide Level 27 mmol/L Anion Gap 6.0 mmol/L Blood Urea Nitrogen 8 mg/dl Creatinine 0.80 mg/dl Est Creatinine Clear Calc Drug Dose 87.1 ml/min Estimated GFR () 99.2 Estimated GFR (Non- 85.6 BUN/Creatinine Ratio 9.9 Random Glucose 95 mg/dl Calcium Level 8.2 mg/dl Total Bilirubin 0.5 mg/dl Aspartate Amino Transf (AST/SGOT) 13 U/L Alanine Aminotransferase (ALT/SGPT) 16 U/L Alkaline Phosphatase 60 U/L Total Protein 6.3 gm/dl Albumin 2.9 gm/dl Globulin 3.4 gm/dl Albumin/Globulin Ratio 0.9 Test 03/11/17 16:44 Bedside Glucose 91 mg/dl Assessment and Plan (1) Pancreatic mass Assessment & Plan: awaiting bx results follow up as outpatient (2) Peritoneal carcinomatosis Assessment & Plan: poor prognosis (3) Hypertension Discharge planning: home
[2017-03-12 00:24] VITALS: BP 129/56; PULSE 58; TEMP 36.7; O2SAT 95
[2017-03-12] MEDS: INSULIN ASPART 100 UNITS/ML 3 ML PEN SC SCH (01:44)
[2017-03-12] MEDS: NSS + 20MEQ KCL 1000ML 1,000 ML IV SCH (03:44)
[2017-03-12] MEDS: NITROGLYCERIN OINT 2% 1GM PACKET EXT SCH ×2 (03:46→10:01)
[2017-03-12 04:43] VITALS: BP 135/54; PULSE 55; TEMP 36.8; O2SAT 95
[2017-03-12 06:27] VITALS: Ht 177.8 cm; Wt 92.5 kg
[2017-03-12] MEDS ORDERED: NURSING DECISION MEDICATION ORDER SCH (07:15)
[2017-03-12 07:33] VITALS: BP 127/55; PULSE 53; TEMP 36.8; O2SAT 94
[2017-03-12] MEDS: AMLODIPINE BESYLATE 5 MG TAB PO SCH (08:12)
[2017-03-12] MEDS: ATORVASTATIN 40 MG TAB PO SCH (08:12)
--- NOTE | 2017-03-12 08:28 | Gastroenterology Progress Note ---
Progress Note Date of Service: Mar 12, 2017 Subjective Pt evaluation today including: conversation w/ patient, physical exam, chart review, lab review, review of studies, review of inpatient medication list cc f/u pancreeas lesion, SBO HPI NO abd pain. Had EUS yesterday no defined mass in pancreas but FNA of pancreas in slightly abnl area done as well as of lymph node in alesha hepatis. States he moved bowels yesterday. Review of Systems Respiratory: No shortness of breath Cardiac: No chest pain Medications Current Inpatient Medications Medications (Trade) Dose Ordered Sig/Magdi Route Start Time Stop Time Status Last Admin Dose Admin Ondansetron HCl (Zofran Inj) 4 mg Q6H PRN IV 03/06/17 22:30 04/05/17 22:29 03/06/17 23:36 4 MG Glucose (Glucose 40% Gel) UD PRN PO 03/06/17 22:30 04/05/17 22:29 Glucose (Glucose Chew Tab) 1 tabs UD PRN PO 03/06/17 22:30 04/05/17 22:29 Dextrose (Dextrose 50% 50ML Syringe) 50 ml UD PRN IV 03/06/17 22:30 04/05/17 22:29 Glucagon 1 mg 1 mg UD PRN SQ 03/06/17 22:30 04/05/17 22:29 Potassium Chloride/Sodium Chloride 1,000 ml @ 100 mls/hr Q10H IV 03/07/17 03:00 04/06/17 02:59 03/12/17 03:44 100 MLS/HR Pantoprazole Sodium 40 mg/ Syringe 10 ml @ 5 mls/min DAILY@11 IV 03/07/17 11:00 04/06/17 10:59 03/11/17 09:45 5 MLS/MIN Acetaminophen (Ofirmev Iv) 100 ml @ 400 mls/hr Q8H PRN IV 03/06/17 22:30 04/05/17 22:29 Morphine Sulfate (MoRPHine SULFATE INJ) 2 mg Q2H PRN IV 03/06/17 22:30 03/20/17 22:29 Morphine Sulfate (MoRPHine SULFATE INJ) 4 mg Q2H PRN IV 03/06/17 22:30 03/20/17 22:29 Nitroglycerin (Nitrostat Tab) 0.4 mg UD SL 03/06/17 22:30 04/05/17 22:29 Nitroglycerin (Nitroglycerin 2% Oint) 1 inch Q6H EXT 03/07/17 04:00 04/06/17 03:59 03/12/17 03:46 1 INCH Hydralazine HCl (HydrALAZINE INJ) 10 mg Q4H PRN IV. 03/07/17 02:45 04/06/17 02:44 03/11/17 18:05 10 MG Amlodipine Besylate (Norvasc Tab) 5 mg DAILY PO 03/11/17 08:00 04/10/17 07:59 03/12/17 08:12 5 MG Atorvastatin Calcium (Lipitor Tab) 80 mg DAILY PO 03/11/17 08:00 04/10/17 07:59 03/12/17 08:12 80 MG Atenolol (Tenormin Tab) 25 mg BID PO 03/11/17 20:00 04/10/17 19:59 03/12/17 08:12 25 MG Insulin Aspart (novoLOG ASPART) SLIDING SCALE If C... ACHS SC 03/12/17 11:00 04/11/17 10:59 Objective Vital Signs Date Time Temp Pulse Resp B/P Pulse Ox O2 Delivery O2 Flow Rate FiO2 03/12/17 07:33 36.8 53 18 127/55 94 03/12/17 04:43 36.8 55 18 135/54 95 Room Air 03/12/17 00:24 36.7 58 18 129/56 95 Room Air 03/12/17 00:00 Room Air 03/11/17 20:23 36.6 62 18 131/54 93 Room Air 03/11/17 19:10 36.3 79 18 154/71 91 Room Air 03/11/17 18:35 36.4 80 20 138/64 93 Room Air 03/11/17 17:59 36.3 54 18 184/80 93 Room Air 03/11/17 17:44 36.8 55 18 187/82 94 Room Air 03/11/17 17:30 Room Air 03/11/17 17:15 52 17 182/76 94 Nasal Cannula 2 03/11/17 17:00 36.1 53 12 180/83 95 Nasal Cannula 2 03/11/17 16:50 56 12 192/85 98 Mask 10 03/11/17 16:40 59 12 185/87 98 Mask 10 03/11/17 16:32 36.2 66 16 187/92 95 Mask 10 03/11/17 13:58 36.7 66 20 168/84 96 Room Air 03/11/17 11:26 36.7 63 18 161/80 95 03/11/17 10:24 81 18 146/79 98 Room Air 03/11/17 08:40 Room Air Physical Exam General Appearance: WD/WN, no apparent distress Respiratory/Chest: lungs clear, no respiratory distress Cardiovascular: regular rate, rhythm Abdomen: normal bowel sounds, non tender, soft, no organomegaly Laboratory Results Last 24 Hours Test 03/11/17 11:40 03/11/17 16:44 03/11/17 21:05 03/12/17 07:55 Bedside Glucose 91 mg/dl 91 mg/dl 181 mg/dl 92 mg/dl Assessment and Plan SBO--resolved, peritoneal carcinomatosis--metastatic disease from abdominal process either pancreas or otherwise. --CEA normal, CA 19-9 45 only mildly elevated pancreas lesion--10 mm cyst in neck but probable mass in tail---EUS no defined mass but FNA of pancreas and alesha hepatis node pending Could be DCed today from GI standpoint with f/u by oncology. If cytology negative from EUS recommend laparsocopy with biopsy of omental studding.
--- NOTE | 2017-03-12 09:40 | Hematology/Oncology Prog Note ---
Hematology/Onc Progress Note Date of Service Mar 12, 2017. 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 ACHS SC 03/07/17 06:30 03/11/17 07:20 DC 03/10/17 18:03 6 UNITS Potassium Chloride/Sodium Chloride 1,000 ml @ 100 mls/hr Q10H IV 03/07/17 03:00 04/06/17 02:59 03/12/17 03:44 100 MLS/HR Pantoprazole Sodium/Syringe (Protonix Inj/ Syringe) 10 ml @ 5 mls/min DAILY@11 IV 03/07/17 11:00 04/06/17 10:59 03/11/17 09:45 5 MLS/MIN Atenolol (Tenormin Tab) 25 mg BID PO 03/07/17 08:00 03/07/17 09:00 DC 03/07/17 08:52 25 MG Isosorbide Mononitrate (Imdur Ext Rel Tab) 30 mg DAILY PO 03/07/17 08:00 03/07/17 09:00 DC 03/07/17 08:52 30 MG Lorazepam (Ativan Inj) 0.5 mg NOW STAT IV 03/06/17 22:48 03/06/17 22:56 DC 03/07/17 01:34 0.5 MG Nitroglycerin (Nitroglycerin 2% Oint) 1 inch Q6H EXT 03/07/17 04:00 04/06/17 03:59 03/12/17 03:46 1 INCH Hydralazine HCl (HydrALAZINE INJ) 10 mg Q4H PRN IV. 03/07/17 02:45 04/06/17 02:44 03/11/17 18:05 10 MG Amlodipine Besylate (Norvasc Tab) 5 mg DAILY PO 03/11/17 08:00 04/10/17 07:59 03/12/17 08:12 5 MG Atorvastatin Calcium (Lipitor Tab) 80 mg DAILY PO 03/11/17 08:00 04/10/17 07:59 03/12/17 08:12 80 MG Amlodipine Besylate (Norvasc Tab) 5 mg 1818 ONCE PO 03/10/17 18:18 03/10/17 18:25 DC 03/10/17 20:57 5 MG Atorvastatin Calcium (Lipitor Tab) 80 mg 1818 ONCE PO 03/10/17 18:18 03/10/17 18:25 DC 03/10/17 20:57 80 MG Atenolol (Tenormin Tab) 25 mg BID PO 03/11/17 20:00 04/10/17 19:59 03/12/17 08:12 25 MG Atenolol (Tenormin Tab) 25 mg 0000 ONCE PO 03/11/17 00:00 03/11/17 00:13 DC 03/11/17 00:23 25 MG Insulin Aspart (novoLOG ASPART) SLIDING SCALE If C... Q6 SC 03/11/17 07:30 03/12/17 07:19 DC 03/11/17 18:11 5 UNITS Subjective He had his endoscopy procedures just today. He is eating breakfast this morning and looks quite comfortable. He really doesn't offer any new complaints Review of Systems: Constitutional: Negative for night sweats, or fever Eyes: Negative for event change of vision ENT: Negative for epistaxis, nasal discharge, sore throat, or deafness Cardiovascular: Negative for chest pain, palpitations, dizziness, diaphoresis Respiratory: Negative for new shortness of breath,hemoptysis, or purulent cough Gastrointestinal: Negative for diarrhea, hematemesis, melena, nausea, vomiting , or dyspepsia Integumentary (skin): Negative for rash or jaundice discoloration Genitourinary: Negative for urinary frequency, hematuria, or dysuria Neurological: Negative for weakness, seizure activity, headache, or dizziness Lymphatic/Hematologic: Negative for petechiae, bleeding or new adenopathy Musculoskeletal: Negative for new joint or back pain Allergic/Immunologic: Negative for unusual rash or pruritis. Vital Signs Vital Signs Past 12 Hours Date Time Temp Pulse Resp B/P Pulse Ox O2 Delivery O2 Flow Rate FiO2 03/12/17 07:33 36.8 53 18 127/55 94 03/12/17 04:43 36.8 55 18 135/54 95 Room Air 03/12/17 00:24 36.7 58 18 129/56 95 Room Air 03/12/17 00:00 Room Air Physical Exam Constitutional: vitals are stable. Eyes: Eyes are MARGE EOMI without conjuctival erythema or icterus. ENT: External examination was negative for masses. Neck: Negative for masses or palpable thyromegaly Respiratory: Lung sounds were generally clear bilaterally Cardiovascular: Heart was RRR without significant murmur, gallops aoe rubs Gastrointestinal: No palpable hepatic or splenomegaly. The abdomen was soft with normal bowel sounds. Lymphatic system: there was no palpable peripheral lymphadenopathy Musculoskeletal System: The musculoskeletal system seemed concordant with age. Skin: The skin was negative for jaundice. Neurologic exam: The exam was negative for any focal findings. Deep tendon reflexes were equal and symmetrical. Psychiatric exam: Was essentially negative with normal mood and effect. Extremities: Negative for edema Constitutional: General Apperance: heathly-appearing Level of Distress: NAD Psychiatric: Mental Status: active & alert Orientation: oriented except where noted Lungs: Respiratory Effort: no dyspnea Auscuitation: CTA except as noted Cardiovascular: Heart Auscultation: RRR, no murmurs Abdomen: Inspection & Palpation: soft, no tenderness, guarding & rebound, distended Extremities: no edema Laboratory Last 24 Hours Test 03/11/17 11:40 03/11/17 16:44 03/11/17 21:05 03/12/17 07:55 Bedside Glucose 91 mg/dl 91 mg/dl 181 mg/dl 92 mg/dl Assessment & Plan His abdomen is soft. I suspect discharge will occur later this today. We will arrange for a follow-up in our clinic to occur early next week. We will sign off for now but please don't hesitate to reconsult us if necessary.
[2017-03-12] MEDS: PANTOprazole INJ 40 MG in SYRINGE 0 ML IV SCH (10:01)
[2017-03-12 10:05] VITALS: BP 125/74; PULSE 72
--- NOTE | 2017-03-12 10:37 | Anesthesiology Progress Note ---
Anesthesia Post Op Note Date & Time Mar 12, 2017 at 10:36 Vital Signs Pain Intensity: 0.0 Vital Signs Past 12 Hours Date Time Temp Pulse Resp B/P Pulse Ox O2 Delivery O2 Flow Rate FiO2 03/12/17 10:05 72 125/74 03/12/17 08:00 Room Air 03/12/17 07:33 36.8 53 18 127/55 94 03/12/17 04:43 36.8 55 18 135/54 95 Room Air 03/12/17 00:24 36.7 58 18 129/56 95 Room Air 03/12/17 00:00 Room Air Notes Mental Status: alert / awake / arousable, participated in evaluation Pt Amnestic to Procedure: Yes Nausea / Vomiting: adequately controlled Pain: adequately controlled Airway Patency, RR, SpO2: stable & adequate BP & HR: stable & adequate Hydration State: stable & adequate Anesthetic Complications: no major complications apparent
[2017-03-12] MEDS ORDERED: INSULIN ASPART 100 UNITS/ML 3 ML PEN SC SCH (11:00)
--- NOTE | 2017-03-12 11:09 | Discharge Instructions ---
Discharge Instructions Date of Service Mar 12, 2017. Admission Reason for Admission: Carcinoma Of Tail Of Pancreas, Discharge Discharge Diagnosis / Problem: Small bowel obstruction Discharge Goals Goal(s): Improve disease control Activity Recommendations Activity Limitations: per Instructions/Follow-up section . Current Hospital Diet Patient's current hospital diet: Diabetes Type 2 Diet Discharge Diet Recommended Diet: AHA Diet (Heart Healthy), Diabetes Type 1 Diet Procedures Procedures Performed: Endoscopic Ultrasonography with Fine Needle Aspiration Pancreas Pending Studies Studies pending at discharge: yes (biopsy results from eus of pancrease) List of pending studies: Pathology results of EUS Medical Emergencies . Who to Call and When: Medical Emergencies: If at any time you feel your situation is an emergency, please call 911 immediately. . Non-Emergent Contact Non-Emergency issues call your: Primary Care Provider . Past History Medical & Surgical History: (1) Pancreatic mass (2) Peritoneal carcinomatosis (3) Hypertension . "Provider Documentation" section prepared by Marcello Bradley. VTE Core Measure Inpt VTE Proph given/why not?: SCD's
[2017-03-12 11:47] VITALS: BP 125/74; PULSE 72; TEMP 36.8; O2SAT 94
--- NOTE | 2017-03-22 19:52 | DISCHARGE SUMMARY ---
Please see dictated H and P for full details of his presentation. HISTORY OF PRESENT ILLNESS: The patient is a 77-year-old who presented with worsening abdominal pain, 8 hours prior to arrival with nausea and vomiting. He had a white count of 15.[address] of the abdomen and pelvis showed small mild obstruction with transition point at the mid ileum in the right lower quadrant, peritoneal carcinomatosis which likely accounts for his small mild obstruction, volvulus appearance to the pancreatic tail which measures 2.8 cm in thickness highly suspicious for pancreatic mass and the patient was seen by gastroenterology. Dr. Marcello Sullivan saw him and recommended an endoscopic ultrasound to obtain tissue samples. The patient was seen by Dr. Gabe Sapp for hematology-oncology. He recommended an endoscopic ultrasound with fine needle aspiration for diagnosis, they suspected metastatic pancreatic cancer, recommended checking tumor markers, supportive care for his bowel obstruction. His symptoms of nausea and vomiting resolved and he underwent his upper endoscopic ultrasound with biopsy results taken. He tolerated this procedure without complications on 03/11/2017. He also had CT of the chest showed no evidence of pathologically adenopathy, stable sub centimeter pulmonary nodule, emphysema and bibasilar atelectasis, ascites, possible pancreatic tail mass, infiltration of the fat surrounding the pancreatic tail with mesentery nodularity, enlarging 25 mm hypodense splenic lesion. The patient was able to tolerate oral intake and was discharged to home in stable condition on 03/12/2017. DISCHARGE DIAGNOSES: 1. Small bowel obstruction. 2. Pancreatic mass status post biopsy. 3. Pulmonary nodules. 4. Tumor markers CA 19-9 and CEA levels are pending at the time of dictation. He will follow up with gastroenterology for the results of his biopsy and his primary care doctor in 1 week. Time spent reviewing the chart, discussion with the patient on the day of discharge was 31 minutes.
[2017-04-29] MEDS ORDERED: ATEN-173 PO (11:21)
[2017-04-29] MEDS ORDERED: AMLO-110 PO (11:21)
[2017-04-29] MEDS ORDERED: PLAVIX75 PO (12:37)
[2017-04-29] MEDS ORDERED: ATOR-26 PO (12:37)
[2017-04-29] MEDS ORDERED: ISOS30TA35 PO (12:37)
[2017-04-29] MEDS ORDERED: NTRGSLP4 SL (12:44)
[2017-04-29] MEDS ORDERED: GLC500 PO (12:44)
[2017-04-29] MEDS ORDERED: ACET-1256 PO (12:44)
[2017-09-10] MEDS ORDERED: DIPH25CA5 PO (15:09)
== END 2017-03-12 12:15 | disposition home or self-care (01) | DRG 389 ==
LOC: ENRESERVTM → ENRESERVDT → C.EDB 19:37 → C.4E 22:26
PROVIDERS: ADMIT Hospitalist; ATTEND Family Medicine
PROC: 0FBG4ZX Excision of Pancreas, Percutaneous Endoscopic Approach, Diagnostic (ICD-10-PCS; principal; 2017-03-11 14:00)
DX: K56.60 Unspecified intestinal obstruction (principal); C78.6 Secondary malignant neoplasm of retroperitoneum and peritoneum; R18.8 Other ascites; C78.89 Secondary malignant neoplasm of other digestive organs; M43.16 Spondylolisthesis, lumbar region; I10 Essential (primary) hypertension; I25.10 Atherosclerotic heart disease of native coronary artery without angina pectoris; I73.9 Peripheral vascular disease, unspecified; N40.0 Benign prostatic hyperplasia without lower urinary tract symptoms; E78.00 Pure hypercholesterolemia, unspecified; E11.9 Type 2 diabetes mellitus without complications; Z87.891 Personal history of nicotine dependence; Z82.3 Family history of stroke; Z80.43 Family history of malignant neoplasm of testis; Z82.49 Family history of ischemic heart disease and other diseases of the circulatory system; D64.9 Anemia, unspecified; K21.9 Gastro-esophageal reflux disease without esophagitis; M41.87 Other forms of scoliosis, lumbosacral region; K57.30 Diverticulosis of large intestine without perforation or abscess without bleeding; I71.4 Abdominal aortic aneurysm, without rupture

== ENCOUNTER → 2017-03-20 | Outpatient (CLI) | payer BC ==
[~2017-03-20] MED LIST changes: +ACET-1256 PO; +AMLO-110 PO; +AMOX875T PO; +ASPI-232 PO; +ATEN-173 PO; +ATOR-26 PO; -CILO50TA9 PO; +CZR25 PO; +DIPH25CA5 PO; -DYZ; +EPGI40M INJ; +FLM4 PO; +FURO-85 PO; +FURO40TA3 PO; +GLC500 PO; +ISOS30TA35 PO; +LORA-741 PO; +LOSA1TAB PO; +LSX40 PO; +METO50TA7 PO; +NTRGSLP4 SL; +ONDA4TAB46 PO; +ONDA8TAB62 SL; +PANT40TA PO; +PLAVIX75 PO; +PLT100 PO; +POTA20TA16 PO; +PRD20 PO; +PRED20TA PO; -PRLSR20 PO; +PROC25SU RE; +SPR25 PO; +TPRSR50 PO; +TRAM1TAB PO; +TRIA37.5 PO; +TUMS PO
[2017-03-20 14:54] LABS: BASO % 0.3 %; BASO ABS # 0.03 K/uL (0-0.2); COMPLETE YES; EOS % 2.4 %; HEMATOCRIT 33.3 % (42-52); IG% 0.3 %; LYMPH ABS # 1.23 K/uL (1.2-3.4); MEAN CELL VOLUME 95.1 fL (80-100); MEAN CORPUSCULAR HEMOGLOBIN 30.6 pg (25-34); MEAN CORPUSCULAR HGB CONC 32.1 g/dl (32-36); MEAN PLATELET VOLUME 10.5 fL (7.4-10.4); MONO % 5.8 %; NEUT % 78.2 %; PLATELET COUNT 268 K/uL (130-400); WHITE BLOOD COUNT 9.44 K/uL (4.8-10.8)
[2017-03-20 15:08] LABS: INR 1.1 (0.9-1.1); PARTIAL THROMBOPLASTIN RATIO 1.1; PROTHROMBIN TIME (PATIENT) 11.4 SECONDS (9.0-12.0)
== END | disposition home or self-care (01) ==
LOC: C.LAB 12:45
PROVIDERS: ATTEND Internal Medicine Hematology & Oncology
DX: D64.9 Anemia, unspecified (principal); R19.09 Other intra-abdominal and pelvic swelling, mass and lump

== ENCOUNTER 2017-03-23 08:57 | Day surgery (SDC) | payer BC ==
[~2017-03-23] VITALS: Ht 177.8 cm; Wt 90.0 kg
[2017-03-23 09:38] VITALS: PULSE 63; TEMP 36.7; Ht 177.8 cm; Wt 90.0 kg
[2017-03-23 13:37] VITALS: BP 140/64; PULSE 58; TEMP 36.8; O2SAT 96
--- NOTE | 2017-03-23 13:43 | DIAGNOSTIC IMAGING REPORT ---
CT GUIDED FNA HISTORY: Peritoneal mass. PROCEDURE: Written informed consent was obtained. The patient was placed supine on the CT table. Preliminary imaging was performed to determine a safe needle entry site. Initial pass with a 22-gauge needle was inferior to the lesion. Therefore, the patient was repositioned and a second pass with a 25-gauge needle was placed into the right upper quadrant peritoneal nodule. A fine-needle aspiration was performed. A 22-gauge needle was also placed within the lesion and a second fine-needle aspiration was performed. Specimens were given to the on-site pathologist who determined adequate tissue for diagnosis. Post procedure imaging shows no immediate complications. The patient was transported to the [facility] in stable condition. IMPRESSION: Successful CT guided fine-needle aspiration of a right upper quadrant peritoneal nodule with specimens sent to pathology. Electronically signed by: Mio Brand M.D. 03/23/2017 1:41 PM Dictated Date/Time: 03/23/2017 1:38 PM
--- NOTE | 2017-03-23 13:44 | Discharge Instructions ---
Discharge Instructions Procedure Procedure Date: Mar 23, 2017. Reason for visit: Peritoneal Mass/Nodule. Discharge Discharge Date: Mar 23, 2017. Discharge Diagnosis: same Instructions Activity Recommendations: No limitations Return to School/Work: no limitations Recommended Home Diet: Resume Previous Diet Provider Instructions: ACTIVITY RECOMMENDATIONS: * Rest today. * Resume regular activity in one day. MEDICATIONS: * May take Tylenol or Ibuprofen as needed for pain. DIET: * Resume previous diet. SPECIAL CARE INSTRUCTIONS: Call your doctor if: * Temperature above 101 degrees F. * Pain not relieved by pain medicine ordered. * Increased drainage or redness from incision. * Notify your doctor with any questions or concerns. Call your doctor or go to the nearest Emergency Department if you experience: * Increased chest pain or shortness of breath. FOLLOW UP VISIT: Follow-up with Referring Physician as scheduled. Allergies Coded Allergies: No Known Allergies (Verified , 03/23/17) Aundrea Thorne Recommendations: Call your doctor if: * Temperature above 101 degrees * Pain not relieved by pain medicine ordered * There is increased drainage or redness from any incision * You have any unanswered questions or concerns. Your Doctors Instructions noted above were prepared by provider Mio Brand. Patient Signature Section: Patient Instructions Signature Page Jasson Dye Patient (or Guardian) Signature/Date: I have read and understand the instructions given to me by my caregivers. Caregiver/RN/Doctor Signature/Date: The above-named patient and/or guardian has received patient instructions on this date. + Original Patient Signature Page (only) stays with chart. Please make copy for patient.
[2017-03-23 13:51] VITALS: BP 157/78; PULSE 61; O2SAT 94
[2017-03-23 14:11] VITALS: BP 137/59; PULSE 64; TEMP 36.6; O2SAT 94
[2017-04-29] MEDS ORDERED: AMLO-110 PO (11:21)
[2017-04-29] MEDS ORDERED: ATEN-173 PO (11:21)
[2017-04-29] MEDS ORDERED: ISOS30TA35 PO (12:37)
[2017-04-29] MEDS ORDERED: ATOR-26 PO (12:37)
[2017-04-29] MEDS ORDERED: PLAVIX75 PO (12:37)
[2017-04-29] MEDS ORDERED: NTRGSLP4 SL (12:44)
[2017-04-29] MEDS ORDERED: ACET-1256 PO (12:44)
[2017-04-29] MEDS ORDERED: GLC500 PO (12:44)
[2017-09-10] MEDS ORDERED: DIPH25CA5 PO (15:09)
== END 2017-03-23 14:17 | disposition home or self-care (01) ==
LOC: C.ACU 08:57
PROVIDERS: ATTEND Internal Medicine Hematology & Oncology
DX: C78.6 Secondary malignant neoplasm of retroperitoneum and peritoneum (principal); C80.1 Malignant (primary) neoplasm, unspecified

== ENCOUNTER 2017-04-29 17:14 | Inpatient (IN) | payer BC, OTHER ==
[~2017-04-29] VITALS: Ht 177.8 cm; Wt 85.7 kg
[~2017-04-29 17:14] MED LIST changes: -AMOX875T PO; -ASPI-232 PO; -CZR25 PO; -DIPH25CA5 PO; -EPGI40M INJ; -FLM4 PO; -FURO-85 PO; -FURO40TA3 PO; -LORA-741 PO; -LOSA1TAB PO; -LSX40 PO; -METO50TA7 PO; -ONDA4TAB46 PO; -ONDA8TAB62 SL; -PANT40TA PO; -PLT100 PO; -POTA20TA16 PO; -PRD20 PO; -PRED20TA PO; -PROC25SU RE; -SPR25 PO; -TPRSR50 PO; -TRAM1TAB PO; -TRIA37.5 PO; -TUMS PO
[2017-04-29] MEDS ORDERED: TRAM1TAB PO (17:28)
[2017-04-29 18:16] LABS: HEMATOCRIT 33.9 % (42-52); MEAN CORPUSCULAR HEMOGLOBIN 28.9 pg (25-34); MEAN CORPUSCULAR HGB CONC 32.4 g/dl (32-36); MEAN PLATELET VOLUME 9.7 fL (7.4-10.4); PLATELET COUNT 227 K/uL (130-400); RED BLOOD COUNT 3.81 M/uL (4.7-6.1); WHITE BLOOD COUNT 6.43 K/uL (4.8-10.8)
[2017-04-29] MEDS ORDERED: OPTIRAY 320 IV PRN (18:30)
[2017-04-29] MEDS ORDERED: PROC25SU RE (18:31)
[2017-04-29 18:38] LABS: BUN/CREATININE RATIO 10.3 (10-20); CREATININE 0.86 mg/dl (0.60-1.40); POTASSIUM 2.9 mmol/L (3.5-5.1)
[2017-04-29 18:54] LABS: COMPLETE YES; EOSINOPHIL % 0.9 %; LARGE PLATELETS 1+; LYMPH ABS # 0.67 K/uL (1.2-3.4); LYMPHOCYTE % 10.4 %; META ABS # 0.06 K/uL (0-0); METAMYELOCYTE % 0.9 %; NEUTROPHILS % 70.4 %; POLYCHROMASIA 1+
--- NOTE | 2017-04-29 19:24 | DIAGNOSTIC IMAGING REPORT ---
CT ABD/PELVIS IV CONTRAST ONLY CLINICAL HISTORY: Pancreatic cancer, periumbilical pain. Nausea, vomiting, diarrhea. History of recent small bowel obstruction. COMPARISON STUDY: 03/06/2017 TECHNIQUE: Following the IV administration of 117 mL of Optiray-320, CT scan of the abdomen and pelvis was performed from the lung bases to the proximal femurs. Images are reviewed in the axial, sagittal, and coronal planes. IV contrast was administered without complication. CT DOSE: 566.26 mGy.cm FINDINGS: Lower chest: Atheromatous changes are present within the descending thoracic aorta. There is pulmonary emphysema present. There are dependent atelectatic changes present. Liver: There is hepatic steatosis. There is mild perihepatic fluid present. There are stable hypodense hepatic lesions the largest of which is located within the right lobe inferiorly measuring 18 mm. These approach water attenuation and may represent cysts. Gallbladder: Unremarkable. Spleen: There is a stable 26 mm splenic hypodensity, possibly representing a cyst. Pancreas: There is enlargement of the pancreatic tail suspicious for a mass. This measures 33 mm and remains unchanged. Adrenal glands: Unremarkable. Kidneys: There is symmetric renal cortical enhancement. The kidneys are normal in size without hydronephrosis. Bowel: There are multiple fluid-filled small bowel loops with areas of minor small bowel wall thickening. The degree of dilatation has diminished when compared the prior study. A discrete transition zone is not visualized. The findings could indicate either an ileus, low-grade bowel obstruction, or the sequela of prior bowel obstruction. Peritoneum: There is a small amount of fluid marginating the liver as well as in the left paracolic gutter. There is interval enlargement of the right anterior abdominal peritoneal nodule currently measuring 37 mm. Multiple additional peritoneal nodules are visualized. The findings are viewed as suspicious for progressive abdominal carcinomatosis. Vasculature: There are advanced atheromatous changes present. 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 There is possible occlusion of the common femoral arteries Adenopathy: None. Pelvic viscera: The bladder, and pelvic viscera are unremarkable. Skeletal structures: There is bilateral L5 spondylolysis. There is grade 1-2 spondylolisthesis of L5 on S1. IMPRESSION: 1. Progressive peritoneal carcinomatosis 2. 33 mm pancreatic tail mass 3. No evidence of free intraperitoneal air 4. Interval decrease in the dilated fluid-filled small bowel loops. 5. Advanced chronic multifocal arterial disease. 6. Minimal ascites Electronically signed by: Cristobal Angeles M.D. 04/29/2017 7:22 PM Dictated Date/Time: 04/29/2017 7:12 PM
[2017-04-29] MEDS ORDERED: SODIUM CHLORIDE 0.9% 1000ML 2,000 ML IV STA (20:01)
[2017-04-29 20:02] LABS: MAGNESIUM 1.7 mg/dl (1.8-2.4)
[2017-04-29] MEDS ORDERED: POTASSIUM CHLORIDE 10 MEQ / 100ML WTR IV STA (20:03)
[2017-04-29] MEDS: POTASSIUM CHLORIDE 10 MEQ / 100ML WTR IV SCH ×3 (20:13→22:38)
[2017-04-29] MEDS ORDERED: POTASSIUM ACETATE INJ 10 MEQ in SODIUM CHLORIDE 0.9% 100ML 100 ML IV SCH (20:15)
[2017-04-29] MEDS ORDERED: PLT100 PO (20:33)
[2017-04-29] MEDS ORDERED: ASPI-232 PO (20:33)
[2017-04-29] MEDS ORDERED: MAGNESIUM SULFATE 1GM / D5W 1 GM in PREMIXED IN D5W 100 ML IV STA (21:18)
[2017-04-29] MEDS ORDERED: MAGNESIUM SULFATE 1GM / D5W 1 GM BAG ONE (21:26)
[2017-04-29] MEDS ORDERED: NITROGLYCERIN 0.4 MG SL PER TAB CHARGE SL PRN (21:30)
[2017-04-29] MEDS ORDERED: ACETAMINOPHEN 325 MG TAB PO PRN (21:30)
[2017-04-29] MEDS ORDERED: ONDANSETRON INJ 2 MG/ML 2 ML VIAL IV PRN (21:30)
[2017-04-29] MEDS ORDERED: POLYETHYLENE (MIRALAX) 17 GM PACK PO PRN (21:30)
[2017-04-29] MEDS ORDERED: ZOLPIDEM TARTRATE 5 MG TAB PO PRN (21:30)
[2017-04-29] MEDS ORDERED: ONDANSETRON INJ 2 MG/ML 2 ML VIAL ONE (21:31)
[2017-04-29 21:56] VITALS: O2SAT 94
[2017-04-29 23:01] VITALS: BP 132/72; PULSE 68; TEMP 36.8; BMI 27.0
--- NOTE | 2017-04-29 23:17 | EMERGENCY ROOM VISIT NOTE ---
History Report prepared by Debra: Ciera Hitchcock Under the Supervision of: Dr. Jluis Vaz D.O. First contact with patient: 17:44 Chief Complaint: ABDOMINAL PAIN Stated Complaint: BELLY PAIN HX OF PANCREATIC CA Nursing Triage Summary: Pt. reports nausea, vomiting and diarrhea for a few days and increasing weakness. He has pancreatic cancer and is receiving chemotherapy but did not have a treatment this week. States he was referred here by his doctor to be worked up for a possible obstruction. History of Present Illness The patient is a 77 year old male who presents to the Emergency Room with complaints of intermittent abdominal pain beginning yesterday. The patient states that he has pancreatic cancer and is being treated with chemotherapy. He reports that he has had 3 infusion and his last infusion was just over 1 week ago. He notes that usually after infusions he does not feel well shortly after but it resolves after a few days. After this infusion he states that he has had diarrhea and vomiting long after the infusion. He complains of vomiting that started 3 days ago and diarrhea that is now resolved. The patient notes that 2 nights ago he spent the night in the bathroom, unable to stop vomiting and having diarrhea. He states that he has a history of umbilical hernia and small bowel obstruction that he did not have surgery for. He reports that his symptoms today are not as severe as his previous bowel obstruction. He notes that he still has his gallbladder and appendix. The patient denies any fever and recent antibiotic use. Source of History: patient Onset: yesterday Position: abdomen Timing: constant Associated Symptoms: + nausea, + vomiting, No fevers Review of Systems See HPI for pertinent positives & negatives. A total of 10 systems reviewed and were otherwise negative. Past Medical & Surgical Medical Problems: (1) Athscl Heart Disease Of [place] Coronary Artery W/O Ang Pctrs (2) Athscl Heart Disease Of [place] Coronary Artery W/O Ang Pctrs (3) Carcinoma of tail of pancreas (4) Emphysema, unspecified (5) Hypertension (6) Peritoneal carcinomatosis Family History Heart disease Stroke Social History Smoking Status: Former Smoker Drug Use: none Marital Status: Housing Status: lives with significant other Occupation Status: retired Current/Historical Medications Scheduled Acetaminophen (Tylenol), 2 TAB PO TID Amlodipine (Norvasc), 5 MG PO DAILY Aspirin (Aspir-81), 1 TAB PO DAILY Atenolol (Tenormin), 25 MG PO BID Atorvastatin (Lipitor), 80 MG PO DAILY Cilostazol (Cilostazol), 1 TAB PO DAILY Metformin HCl (Metformin HCl), 500 MG PO BIDM Nitroglycerin (Nitrostat), 0.4 MG SL DIRECTED Prochlorperazine (Prochlorperazine), 25 MG RE PRN UD Tramadol Hcl (Tramadol Hcl Er), 200 MG PO DAILY Miscellaneous Medications Clopidogrel Bisulfate (Plavix), 1 TAB PO Isosorbide Mononitrate Ext Rel (Imdur Ext Rel), 1 TAB PO Allergies Coded Allergies: No Known Allergies (Verified , 03/23/17) Physical Exam Vital Signs Date Time Temp Pulse Resp B/P Pulse Ox O2 Delivery O2 Flow Rate FiO2 04/29/17 20:31 77 04/29/17 20:09 83 18 135/59 94 Room Air 04/29/17 18:52 84 16 129/79 94 Room Air 04/29/17 17:27 37.2 106 18 126/79 95 Room Air Physical Exam GENERAL: alert, sitting up in bed, disheveled, chronically ill appearing EYE EXAM: normal conjunctiva OROPHARYNX: no exudate, no erythema, lips, buccal mucosa, and tongue normal and mucous membranes are moist NECK: supple, no nuchal rigidity, no adenopathy, non-tender LUNGS: Clear to auscultation. Normal chest wall mechanics HEART: no murmurs, S1 normal and S2 normal ABDOMEN: abdomen soft, tender to palpation in the infraumbilical region, normo- active bowel sounds, no masses, no rebound or guarding. BACK: Back is symmetrical on inspection and there is no deformity, no midline tenderness, no CVA tenderness. SKIN: no rashes and no bruising UPPER EXTREMITIES: upper extremities are grossly normal. LOWER EXTREMITIES: No pitting edema. NEURO EXAM: Normal sensorium, cranial nerves II-XII grossly intact, normal speech, no gross weakness of arms, no gross weakness of legs. Medical Decision & Procedures ER Provider Diagnostic Interpretation: Radiology results as stated below per my review and the radiologist's interpretation: CT ABD/PELVIS IV CONTRAST ONLY FINDINGS: Lower chest: Atheromatous changes are present within the descending thoracic aorta. There is pulmonary emphysema present. There are dependent atelectatic changes present. Liver: There is hepatic steatosis. There is mild perihepatic fluid present. There are stable hypodense hepatic lesions the largest of which is located within the right lobe inferiorly measuring 18 mm. These approach water attenuation and may represent cysts. Gallbladder: Unremarkable. Spleen: There is a stable 26 mm splenic hypodensity, possibly representing a cyst. Pancreas: There is enlargement of the pancreatic tail suspicious for a mass. This measures 33 mm and remains unchanged. Adrenal glands: Unremarkable. Kidneys: There is symmetric renal cortical enhancement. The kidneys are normal in size without hydronephrosis. Bowel: There are multiple fluid-filled small bowel loops with areas of minor small bowel wall thickening. The degree of dilatation has diminished when compared the prior study. A discrete transition zone is not visualized. The findings could indicate either an ileus, low-grade bowel obstruction, or the sequela of prior bowel obstruction. Peritoneum: There is a small amount of fluid marginating the liver as well as in the left paracolic gutter. There is interval enlargement of the right anterior abdominal peritoneal nodule currently measuring 37 mm. Multiple additional peritoneal nodules are visualized. The findings are viewed as suspicious for progressive abdominal carcinomatosis. Vasculature: There are advanced atheromatous changes present. 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 There is possible occlusion of the common femoral arteries Adenopathy: None. Pelvic viscera: The bladder, and pelvic viscera are unremarkable. Skeletal structures: There is bilateral L5 spondylolysis. There is grade 1-2 spondylolisthesis of L5 on S1. IMPRESSION: 1. Progressive peritoneal carcinomatosis 2. 33 mm pancreatic tail mass 3. No evidence of free intraperitoneal air 4. Interval decrease in the dilated fluid-filled small bowel loops. 5. Advanced chronic multifocal arterial disease. 6. Minimal ascites Electronically signed by: Cristobal Angeles M.D. 04/29/2017 7:22 PM Dictated Date/Time: 04/29/2017 7:12 PM Laboratory Results 04/29/17 18:05 Red Blood Count 3.81, Mean Corpuscular Volume 89.0, Mean Corpuscular Hemoglobin 28.9, Mean Corpuscular Hemoglobin Concent 32.4, Mean Platelet Volume 9.7 04/29/17 18:05 Test 04/29/17 18:05 White Blood Count 6.43 K/uL (4.8-10.8) Red Blood Count 3.81 M/uL (4.7-6.1) Hemoglobin 11.0 g/dL (14.0-18.0) Hematocrit 33.9 % (42-52) Mean Corpuscular Volume 89.0 fL (80-100) Mean Corpuscular Hemoglobin 28.9 pg (25-34) Mean Corpuscular Hemoglobin Concent 32.4 g/dl (32-36) Platelet Count 227 K/uL (130-400) Mean Platelet Volume 9.7 fL (7.4-10.4) RDW Standard Deviation 48.1 fL (36.4-46.3) RDW Coefficient of Variation 15.0 % (11.5-14.5) Neutrophils % (Manual) 70.4 % Lymphocytes % (Manual) 10.4 % Monocytes % (Manual) 17.4 % Eosinophils % (Manual) 0.9 % Metamyelocytes % 0.9 % Neutrophils # (Manual) 4.53 K/uL (1.4-6.5) Total Absolute Neutrophils 4.53 K/uL (1.4-6.5) Lymphocytes # (Manual) 0.67 K/uL (1.2-3.4) Total Absolute Lymphocytes 0.67 K/uL (1.2-3.4) Monocytes # (Manual) 1.12 K/uL (0.11-0.59) Eosinophils # (Manual) 0.06 K/uL (0-0.5) Metamyelocytes # 0.06 K/uL (0-0) Large Platelets 1+ Polychromasia 1+ Anion Gap 9.0 mmol/L (3-11) Est Creatinine Clear Calc Drug Dose 73.1 ml/min Estimated GFR () 96.3 Estimated GFR (Non- 83.1 BUN/Creatinine Ratio 10.3 (10-20) Calcium Level 8.0 mg/dl (8.5-10.1) Phosphorus Level 3.2 mg/dl (2.5-4.9) Magnesium Level 1.7 mg/dl (1.8-2.4) Total Bilirubin 0.5 mg/dl (0.2-1) Direct Bilirubin 0.1 mg/dl (0-0.2) Aspartate Amino Transf (AST/SGOT) 19 U/L (15-37) Alanine Aminotransferase (ALT/SGPT) 41 U/L (12-78) Alkaline Phosphatase 69 U/L (45-117) Total Protein 6.9 gm/dl (6.4-8.2) Albumin 3.0 gm/dl (3.4-5.0) Lipase 86 U/L (73-393) Laboratory results per my review. Medications Administered Medications (Trade) Dose Ordered Sig/Magdi Route Start Time Stop Time Status Last Admin Dose Admin Sodium Chloride (Nss 1000ml) 2,000 ml @ 999 mls/hr Q2H1M STAT IV 04/29/17 20:01 04/29/17 22:01 04/29/17 20:18 999 MLS/HR Potassium Chloride (Kcl 10 Meq / Wtr) 10 meq Q1H IV 04/29/17 20:15 04/29/17 22:16 04/29/17 20:13 10 MEQ ED Course ED COURSE: Vital signs were reviewed and showed tachycardia The patients medical record was reviewed The above diagnostic studies were performed and reviewed. ED treatments and interventions as stated above. 1743: The patient was evaluated in room A10. A complete history and physical examination was performed. 2001: Sodium Chloride 2000 ml @ 999 mls/hr IV. 2015: Potassium Chloride 10meq protocol IV 3 doses. 2000: I reviewed the patient's case with Dr. Vergara - [facility] resident. He will evaluate the patient for further management. 2022: Upon reevaluation, the patient is doing well.I discussed my findings with the patient and he understands and agrees with the treatment plan. Based on the patients age, coexisting illnesses, exam and lab findings the decision to treat as an inpatient was made. The patient remained stable while under my care. The patient will be evaluated for further management. Medical Decision Differential diagnoses includes but is not limited to gastritis, peptic ulcer disease, GERD, gallbladder disease, pancreatitis, small bowel obstruction, acute coronary syndrome, pericarditis, ischemic bowel, irritable bowel disease, irritable bowel syndrome, appendicitis, diverticulitis, malignancy, hernia, urinary tract infection, torsion, perforation, trauma, infectious. Medication Reconciliation: I attest that I have personally reviewed the patient' s current medication list. Patient is a 77-year-old male with a history of pancreatic cancer who presents the ER with persistent nausea vomiting diarrhea. Last chemotherapy was 10 days ago. He does complain of abdominal pain. Previously admitted for small bowel obstruction. CBC is unremarkable. Potassium was 2.9. LFTs along with bilirubin and lipase is normal. Potassium was repleted IV. He is given 2 L normal saline. He is given IV Zofran. CT of his abdomen pelvis shows a questionable early small bowel obstruction versus a resolving small bowel obstruction versus ileus. With his poor oral intake, chemotherapy and CT I felt it was reasonable to observe him overnight. I did discuss case with internal medicine. Consults Time Called: 1955 Consulting Physician: Dr. Jai BROWN Returned Call: 2000 I reviewed the patient's case with Dr. Vergara - [facility] resident. Dr. Vergara will evaluate the patient for further management. Impression Primary Impression: Vomiting Additional Impressions: Diarrhea Hypokalemia ? SBO Scribe Attestation The scribe's documentation has been prepared under my direction and personally reviewed by me in its entirety. I confirm that the note above accurately reflects all work, treatment, procedures, and medical decision making performed by me. Departure Information Dispostion Being Evaluated By Hospitalist Referrals Jae Hills M.D. (PCP) Patient Instructions My [facility] Problem Qualifiers Primary Impression: Vomiting Vomiting type: unspecified Vomiting Intractability: unspecified Nausea presence: with nausea Qualified Codes: R11.2 - Nausea with vomiting, unspecified Additional Impressions: Diarrhea Diarrhea type: unspecified type Qualified Codes: R19.7 - Diarrhea, unspecified
[2017-04-30 00:03] VITALS: BP 132/72; PULSE 68; TEMP 36.8; BMI 27.0
--- NOTE | 2017-04-30 00:42 | History and Physical ---
History & Physical Date & Time of Service: Apr 30, 2017 at 00:25 Chief Complaint: Hypokalemia, Intractable Vomiting Primary Care Physician: Jae Hills M.D. 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 The last dose of chemo (round 3) the patient had was approx a week and a half ago. The patient started to suffer from intermittent diffuse abdominal pain starting yesterday. It is a dull/ sharp nature and can be ranked up to a 6/10. With the pain there is diarrhea and N&V accompanying it. He has been unable to eat properly over the last 24 hours. They did try compazine with minimal relief. He does have a history of SBO in February 2017 which was when he was originally diagnosed with the pancreatic cancer so after discussing with their PCP they decided to come in for evaluation. Fortunately the CT actually revealed ongoing improvement in the SBO. As the patient has had intractable N&V, hypokalemia and inability to tolerate orals it was decided the patient would be admitted for further evaluation. Aside from the pancreatic cancer the patient has a history of CAD, PAD, DM and hypercholesterolemia. Past Medical/Surgical History Medical Problems: (1) Emphysema, unspecified Status: Chronic (2) Hypertension Status: Chronic Family History Heart disease Stroke Social History Smoking Status: Former Smoker Smokeless Tobacco Use: No Alcohol Use: occasionally Drug Use: none Marital Status: Housing status: lives with family Occupational Status: retired Immunizations History of Influenza Vaccine: Yes Influenza Vaccine Date: Aug 03, 2008 History of Tetanus Vaccine?: Yes History of Pneumococcal: Unknown History of Hepatitis B Vaccine: No Multi-Drug Resistant Organisms History of MDRO: No Allergies Coded Allergies: No Known Allergies (Verified , 03/23/17) Home Medications Scheduled Acetaminophen (Tylenol), 2 TAB PO TID Amlodipine (Norvasc), 5 MG PO DAILY Aspirin (Aspir-81), 1 TAB PO DAILY Atenolol (Tenormin), 25 MG PO BID Atorvastatin (Lipitor), 80 MG PO DAILY Cilostazol (Cilostazol), 1 TAB PO DAILY Metformin HCl (Metformin HCl), 500 MG PO BIDM Nitroglycerin (Nitrostat), 0.4 MG SL DIRECTED Prochlorperazine (Prochlorperazine), 25 MG RE PRN UD Tramadol Hcl (Tramadol Hcl Er), 200 MG PO DAILY Scheduled PRN Ondansetron Odt (Zofran Odt), 8 MG SL Q6H PRN for Nausea Miscellaneous Medications Clopidogrel Bisulfate (Plavix), 1 TAB PO Isosorbide Mononitrate Ext Rel (Imdur Ext Rel), 1 TAB PO Review of Systems Constitutional: No fever, No chills Physical Exam Vital Signs Date Time Temp Pulse Resp B/P Pulse Ox O2 Delivery O2 Flow Rate FiO2 04/29/17 23:01 36.8 68 18 132/72 04/29/17 21:56 74 18 124/55 94 04/29/17 20:31 77 04/29/17 20:09 83 18 135/59 94 Room Air 04/29/17 18:52 84 16 129/79 94 Room Air 04/29/17 17:27 37.2 106 18 126/79 95 Room Air General Appearance: no apparent distress Head: normocephalic, atraumatic Eyes: normal inspection ENT: normal ENT inspection Neck: supple Respiratory/Chest: normal breath sounds, no respiratory distress, no accessory muscle use Cardiovascular: regular rate, rhythm, no murmur Abdomen/GI: normal bowel sounds, non tender, soft, + distended Back: normal inspection Extremities/Musculoskelatal: no calf tenderness, no pedal edema Neurologic/Psych: alert, normal mood/affect, oriented x 3 Skin: normal color, warm/dry, no rash Lymphatic: no adenopathy Diagnostics Laboratory Results Results Past 24 Hours Test 04/29/17 18:05 Range/Units White Blood Count 6.43 4.8-10.8 K/uL Red Blood Count 3.81 4.7-6.1 M/uL Hemoglobin 11.0 14.0-18.0 g/dL Hematocrit 33.9 42-52 % Mean Corpuscular Volume 89.0 80-100 fL Mean Corpuscular Hemoglobin 28.9 25-34 pg Mean Corpuscular Hemoglobin Concent 32.4 32-36 g/dl Platelet Count 227 130-400 K/uL Mean Platelet Volume 9.7 7.4-10.4 fL RDW Standard Deviation 48.1 36.4-46.3 fL RDW Coefficient of Variation 15.0 11.5-14.5 % Neutrophils % (Manual) 70.4 % Lymphocytes % (Manual) 10.4 % Monocytes % (Manual) 17.4 % Eosinophils % (Manual) 0.9 % Metamyelocytes % 0.9 % Neutrophils # (Manual) 4.53 1.4-6.5 K/uL Total Absolute Neutrophils 4.53 1.4-6.5 K/uL Lymphocytes # (Manual) 0.67 1.2-3.4 K/uL Total Absolute Lymphocytes 0.67 1.2-3.4 K/uL Monocytes # (Manual) 1.12 0.11-0.59 K/uL Eosinophils # (Manual) 0.06 0-0.5 K/uL Metamyelocytes # 0.06 0-0 K/uL Large Platelets 1+ Polychromasia 1+ Sodium Level 139 136-145 mmol/L Potassium Level 2.9 3.5-5.1 mmol/L Chloride Level 104 98-107 mmol/L Carbon Dioxide Level 26 21-32 mmol/L Anion Gap 9.0 3-11 mmol/L Blood Urea Nitrogen 9 7-18 mg/dl Creatinine 0.86 0.60-1.40 mg/dl Est Creatinine Clear Calc Drug Dose 73.1 ml/min Estimated GFR () 96.3 Estimated GFR (Non- 83.1 BUN/Creatinine Ratio 10.3 10-20 Random Glucose 129 70-99 mg/dl Calcium Level 8.0 8.5-10.1 mg/dl Phosphorus Level 3.2 2.5-4.9 mg/dl Magnesium Level 1.7 1.8-2.4 mg/dl Total Bilirubin 0.5 0.2-1 mg/dl Direct Bilirubin 0.1 0-0.2 mg/dl Aspartate Amino Transf (AST/SGOT) 19 15-37 U/L Alanine Aminotransferase (ALT/SGPT) 41 12-78 U/L Alkaline Phosphatase 69 45-117 U/L Total Protein 6.9 6.4-8.2 gm/dl Albumin 3.0 3.4-5.0 gm/dl Lipase 86 73-393 U/L Diagnostic Radiology CT ABD/PELVIS IV CONTRAST ONLY CLINICAL HISTORY: Pancreatic cancer, periumbilical pain. Nausea, vomiting, diarrhea. History of recent small bowel obstruction. COMPARISON STUDY: 03/06/2017 TECHNIQUE: Following the IV administration of 117 mL of Optiray-320, CT scan of the abdomen and pelvis was performed from the lung bases to the proximal femurs. Images are reviewed in the axial, sagittal, and coronal planes. IV contrast was administered without complication. CT DOSE: 566.26 mGy.cm FINDINGS: Lower chest: Atheromatous changes are present within the descending thoracic aorta. There is pulmonary emphysema present. There are dependent atelectatic changes present. Liver: There is hepatic steatosis. There is mild perihepatic fluid present. There are stable hypodense hepatic lesions the largest of which is located within the right lobe inferiorly measuring 18 mm. These approach water attenuation and may represent cysts. Gallbladder: Unremarkable. Spleen: There is a stable 26 mm splenic hypodensity, possibly representing a cyst. Pancreas: There is enlargement of the pancreatic tail suspicious for a mass. This measures 33 mm and remains unchanged. Adrenal glands: Unremarkable. Kidneys: There is symmetric renal cortical enhancement. The kidneys are normal in size without hydronephrosis. Bowel: There are multiple fluid-filled small bowel loops with areas of minor small bowel wall thickening. The degree of dilatation has diminished when compared the prior study. A discrete transition zone is not visualized. The findings could indicate either an ileus, low-grade bowel obstruction, or the sequela of prior bowel obstruction. Peritoneum: There is a small amount of fluid marginating the liver as well as in the left paracolic gutter. There is interval enlargement of the right anterior abdominal peritoneal nodule currently measuring 37 mm. Multiple additional peritoneal nodules are visualized. The findings are viewed as suspicious for progressive abdominal carcinomatosis. Vasculature: There are advanced atheromatous changes present. 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 There is possible occlusion of the common femoral arteries Adenopathy: None. Pelvic viscera: The bladder, and pelvic viscera are unremarkable. Skeletal structures: There is bilateral L5 spondylolysis. There is grade 1-2 spondylolisthesis of L5 on S1. IMPRESSION: 1. Progressive peritoneal carcinomatosis 2. 33 mm pancreatic tail mass 3. No evidence of free intraperitoneal air 4. Interval decrease in the dilated fluid-filled small bowel loops. 5. Advanced chronic multifocal arterial disease. 6. Minimal ascites Impression Assessment and Plan This is a 77 yo m with carcinoma of the pancreatic tail, peritoneal carcinomatosis and intractable N&V/ abdominal pain after finishing his third round of chemo Hypokalemia/ Hypomagnesemia secondary to N&V and diarrhea - replete K and Mg accordingly - received supplementation in ED so recheck in am - Zofran for nausea - C diff was ordered - NSS @ 100cc/h - advance diet as tolerated Cancer of the pancreatic tail with peritoneal carcinomatosis - hem onc consult CAD - continue asa, plavix, atenolol hyperlipidemia - continue atorvastatin PAD - cilostazol is unavailable while in hospital so will hold DMII - meformin held and insulin ISS started DVT prophylaxis Lovenox considering malignancy Level of Care Med/Surg VTE Prophylaxis VTE Risk Assessment Done? Y/N: Yes Risk Level: Moderate Given or contraindicated: Enoxaparin (Lovenox)SQ Social Service Consult Cancer Patient Under [place] Note Total Time: Critical Care 30 - 74 minutes Additional Copies To Jae Hills M.D. Assessment and Plan Attending Addendum: I have physically seen and examined this patient, have directed their medical care, have supervised the medical residents activities, and agree with the H&P as noted above, with the following changes: NONE
[2017-04-30] MEDS ORDERED: SODIUM CHLORIDE 0.9% 1000ML 1,000 ML IV SCH (00:45)
[2017-04-30 04:24] VITALS: BP 159/64; PULSE 74; TEMP 37.2; O2SAT 96
[2017-04-30 05:54] LABS: HEMATOCRIT 30.5 % (42-52); MEAN CELL VOLUME 89.7 fL (80-100); MEAN CORPUSCULAR HEMOGLOBIN 29.7 pg (25-34); MEAN CORPUSCULAR HGB CONC 33.1 g/dl (32-36); MEAN PLATELET VOLUME 9.8 fL (7.4-10.4); PLATELET COUNT 164 K/uL (130-400); WHITE BLOOD COUNT 5.57 K/uL (4.8-10.8)
[2017-04-30 06:10] LABS: INR 1.2 (0.9-1.1); PROTHROMBIN TIME (PATIENT) 12.9 SECONDS (9.0-12.0)
[2017-04-30 06:27] VITALS: Ht 177.8 cm; Wt 85.7 kg
[2017-04-30 06:33] LABS: BUN/CREATININE RATIO 13.2 (10-20); CALCIUM 7.2 mg/dl (8.5-10.1); CREATININE 0.63 mg/dl (0.60-1.40); POTASSIUM 3.2 mmol/L (3.5-5.1)
[2017-04-30 06:57] LABS: ALB/GLOB RATIO 0.8 (0.9-2); PHOSPHORUS 2.8 mg/dl (2.5-4.9)
[2017-04-30] MEDS ORDERED: INSULIN ASPART 100 UNITS/ML 3 ML PEN SC SCH (07:00)
[2017-04-30] MEDS: POTASSIUM CHLR 10 MEQ / WTR 10 MEQ in PREMIXED WATER 100 ML IV SCH ×4 (07:43→10:47)
[2017-04-30 07:48] VITALS: BP 124/57; PULSE 72; TEMP 37; O2SAT 92
[2017-04-30] MEDS ORDERED: CLOPIDOGREL BISULFATE 75 MG TAB PO SCH (08:00)
[2017-04-30] MEDS ORDERED: TRAMADOL HCL 200 MG PO SCH (08:00)
[2017-04-30] MEDS ORDERED: ATORVASTATIN 40 MG TAB PO SCH (08:00)
[2017-04-30] MEDS ORDERED: ENOXAPARIN 40 MG/0.4 ML SYR SQ SCH (08:00)
[2017-04-30] MEDS ORDERED: ISOSORBIDE MONONITRATE 30 MG TABCR PO SCH (08:00)
[2017-04-30] MEDS ORDERED: AMLODIPINE BESYLATE 5 MG TAB PO SCH (08:00)
[2017-04-30] MEDS ORDERED: CILOSTAZOL 100 MG TAB PO SCH (08:00)
[2017-04-30] MEDS ORDERED: ASPIRIN 81 MG ECTAB PO SCH (08:00)
--- NOTE | 2017-04-30 09:02 | ONCOLOGY CONSULTATION ---
DATE OF CONSULTATION: 04/30/2017 DATE OF CONSULTATION: 04/30/2017. REASON FOR CONSULTATION: A 77-year-old gentleman with metastatic pancreatic cancer, intractable vomiting and hypokalemia. HISTORY OF PRESENT ILLNESS: Mr. Dye is a very pleasant 77-year-old gentleman well known to [facility], currently under the care of Dr. Fantasma Jalloh for metastatic pancreatic cancer. Mr. Dye was diagnosed earlier this spring with metastatic pancreatic cancer manifested by a 2.[address] guided biopsy of the peritoneal lesion was confirmed to be metastatic disease. He was recommended and received his first cycle of Abraxane and gemcitabine starting in early March and completed cycle #1 on the . The patient also suffered small-bowel obstruction earlier in the course of his disease, specifically February of 2017. Over the past week or so developed intractable nausea to the point where he was unable to eat much. He was utilizing both Zofran and Compazine to no avail. Apparently Mr. Dye called the office late yesterday afternoon and was advised to go to the Emergency Room. CT scan of the abdomen and pelvis performed showed resolving small-bowel obstruction; however confirmed progressive peritoneal carcinomatosis. He was admitted to the oncology floor and has been provided IV hydration, antiemetics and supplemental potassium. Clinically, doing much better this morning. I suspect his nausea is due in part to chemotherapeutic effect. PAST MEDICAL HISTORY: Significant for metastatic pancreatic cancer, emphysema and hypertension. MEDICATIONS: Prior to admission include Norvasc 5 mg p.o. every day, aspirin 81 mg p.o. daily, atenolol 25 mg p.o. b.i.d., atorvastatin 80 mg p.o. every day, cilostazol 1 tablet p.o. every day, metformin 500 mg p.o. b.i.d., nitroglycerin 0.4 mg subQ p.r.n., tramadol 200 mg p.o. every day, Compazine 25 mg p.o. q. 6 p.r.n. and Zofran p.r.n. ALLERGIES: No known drug allergies. FAMILY HISTORY: Positive for heart disease and stroke. SOCIAL HISTORY: The patient is , lives with his family, retired. He is a reformed smoker. Occasional social alcohol use. REVIEW OF SYSTEMS: As per HPI most notably for intractable nausea and vomiting and occasional diarrhea: GENERAL: He denies fevers, chills or sweats. He has been mildly anorexic, but this is not readily losing weight. SKIN: No rashes or lesions. No history of dermatoses. HEAD, EYES, EARS, NOSE, AND THROAT: Negative for headaches, lightheadedness or dizziness. No sinus symptoms, sore throat or dysphagia. LYMPH: No history of lymphoproliferative disease. CARDIAC: Positive history of coronary artery disease. No current angina or palpitations. PULMONARY: Positive history of emphysema. He is not short of breath, dyspneic or orthopneic. GASTROINTESTINAL: As per HPI. GENITOURINARY: Negative for prostate disease. No hematuria, dysuria, urinary incontinence. PSYCHIATRIC: Negative for anxiety, depression or psychoses. ENDOCRINE: Positive for type 2 diabetes mellitus. NEUROLOGIC: Negative for seizure, stroke, or migraine headache. HEMATOLOGIC: Positive for normocytic normochromic anemia. PHYSICAL EXAMINATION: GENERAL: A very pleasant 77-year-old gentleman lying supine in bed in no acute distress. VITAL SIGNS: Temperature 37, pulse 72, respirations 20, blood pressure 124/57. SKIN: Warm, dry, noncyanotic without petechia, rash or ecchymosis. HEAD, EYES, EARS, NOSE, AND THROAT: Atraumatic, normocephalic. EYES: PERRLA, EOMI. Sclerae nonicteric. Nares patent without rhinorrhea or discharge. Throat is clear. Tongue midline. Mucous membranes are moist. No buccal lesions or ulcerations. NECK: Supple without JVD. LYMPH: No cervical, supraclavicular, axillary palpable nodes. HEART: Regular rate and rhythm. No clicks, rubs, murmurs or gallops. LUNGS: Clear to auscultation bilaterally. ABDOMEN: Soft, nontender, nondistended. Bowel sounds are hypoactive. No rigidity or guarding. No palpable hepatosplenomegaly. EXTREMITIES: Musculoskeletal strength and pulses are equal. No clubbing, cyanosis or edema. NEUROLOGICALLY: He is awake, alert and oriented x3. Cranial nerves II-XII are intact. LABORATORY DATA: WBC count 5570, hemoglobin 10.1, platelet count 164,000. Sodium 142, potassium 3.2, chloride 108, carbon dioxide 25, BUN 8, creatinine 0.63. Albumin decreased 2.5. IMPRESSION: 1. Intractable nausea and vomiting attributable to chemotherapeutic effect. 2. Metastatic pancreatic cancer. 3. Hypokalemia. 4. Diarrhea, again attributable to chemotherapeutic effect. PLAN: Mr. Dye is a very pleasant 77-year-old gentleman well known to [facility], currently under the care of Fantasma Jalloh D.O. for metastatic pancreatic cancer. Mr. Dye recently received his first cycle of weekly Abraxane and gemcitabine. Last dose was administered on 04/20/2017. Over the past several days developed intractable nausea in which he admits utilizing Zofran and Compazine as directed. Unfortunately, got to the point where nausea was no longer controlled and he called the office for assistance. He was advised to come to the Emergency Room and was admitted with intractable nausea. Clinically, he is doing much better after receiving IV hydration and antiemetics. He received his breakfast tray today and will see how well he tolerates it. He is due to begin his next cycle of chemotherapy I believe on 05/04/2017. Agree with current management and see no reason why he cannot be discharged within the next 24 hours as long as he tolerates diet. I have nothing further to add at this juncture. I will advise Dr. Jalloh of the patient's admission and progress. Thank you for assisting us in the care of this very pleasant patient.
[2017-04-30] MEDS ORDERED: NURSING VERBAL MED ORDER ONE (10:15)
[2017-04-30] MEDS ORDERED: ONDA8TAB62 SL (10:30)
--- NOTE | 2017-04-30 10:35 | Discharge Instructions ---
Discharge Instructions Date of Service Apr 30, 2017. Admission Reason for Admission: Hypokalemia, Intractable Vomiting Discharge Discharge Diagnosis / Problem: Post-Chemotharapy, Nausea/Vomiting Discharge Goals Goal(s): Decrease discomfort Activity Recommendations Activity Limitations: resume your previous activity . Instructions / Follow-Up Instructions / Follow-Up You were admitted for nausea and vomiting after chemotherapy. You were treated with IV fluids and anti-nausea medications. Your potassium with slightly low on admission but we repleted your potassium levels by the time you were discharged. You were able to tolerate a diet, you had no difficulty being up and out of bed and you were feeling much better so we felt we could discharge you back home We have not made any medications changes. We have added Zofran that dissolves under the tongue for nausea. We will help you make arrangements to follow-up with Dr. Jalloh to discuss your plan forward with chemotherapy. If your symptoms fail to improve, acutely worsen, please seek medical attention immediately by either calling your primary care provider or going to your nearest emergency department. Otherwise, please see your primary care provider in 3-5 days to ensure that your symptoms continue to improve. It was a pleasure being involved in your care and we wish you all the best. Current Hospital Diet Patient's current hospital diet: AHA Diet (Heart Healthy), Low Sodium Diet (2gm Na), Diabetes Type 2 Diet Discharge Diet Recommended Diet: Diabetes Type 2 Diet Pending Studies Studies pending at discharge: no Medical Emergencies . Who to Call and When: Medical Emergencies: If at any time you feel your situation is an emergency, please call 911 immediately. . Non-Emergent Contact Non-Emergency issues call your: Primary Care Provider, Oncologist Call Non-Emergent contact if: you have a fever, your pain is not controlled, your pain is worsening . . "Provider Documentation" section prepared by Prudencio Isabel. . VTE Core Measure Inpt VTE Proph given/why not?: Enoxaparin (Lovenox)SQ
[2017-04-30 11:01] VITALS: BP 103/62; PULSE 77; TEMP 37.1; O2SAT 93
[2017-04-30 13:45] LABS: BUN/CREATININE RATIO 13.8 (10-20); CREATININE 0.76 mg/dl (0.60-1.40); POTASSIUM 3.6 mmol/L (3.5-5.1)
[2017-04-30 14:52] VITALS: BP 103/62; PULSE 77; TEMP 37.1; O2SAT 93
[2017-04-30 14:58] LABS: CALCIUM 7.6 mg/dl (8.5-10.1)
--- NOTE | 2017-04-30 17:56 | Discharge Summary ---
Discharge Summary Date of Service Apr 30, 2017. (Prudencio Isabel MD) Discharge Summary Admission Date: April 29, 2017 at 21:23 Discharge Date: Apr 30, 2017 Discharge Disposition: Home Principal Diagnosis: Nausea/Vomiting Problems/Secondary Diagnoses: Pancreatic Carcinomatosis Immunizations: Have You Had Influenza Vaccine: Yes Influenza Vaccine Date: Aug 03, 2008 History of Tetanus Vaccine?: Yes History of Pneumococcal: Unknown History of Hepatitis B Vaccine: No Procedures: CT ABD/PELVIS IV CONTRAST ONLY CLINICAL HISTORY: Pancreatic cancer, periumbilical pain. Nausea, vomiting, diarrhea. History of recent small bowel obstruction. COMPARISON STUDY: 03/06/2017 TECHNIQUE: Following the IV administration of 117 mL of Optiray-320, CT scan of the abdomen and pelvis was performed from the lung bases to the proximal femurs. Images are reviewed in the axial, sagittal, and coronal planes. IV contrast was administered without complication. CT DOSE: 566.26 mGy.cm FINDINGS: Lower chest: Atheromatous changes are present within the descending thoracic aorta. There is pulmonary emphysema present. There are dependent atelectatic changes present. Liver: There is hepatic steatosis. There is mild perihepatic fluid present. There are stable hypodense hepatic lesions the largest of which is located within the right lobe inferiorly measuring 18 mm. These approach water attenuation and may represent cysts. Gallbladder: Unremarkable. Spleen: There is a stable 26 mm splenic hypodensity, possibly representing a cyst. Pancreas: There is enlargement of the pancreatic tail suspicious for a mass. This measures 33 mm and remains unchanged. Adrenal glands: Unremarkable. Kidneys: There is symmetric renal cortical enhancement. The kidneys are normal in size without hydronephrosis. Bowel: There are multiple fluid-filled small bowel loops with areas of minor small bowel wall thickening. The degree of dilatation has diminished when compared the prior study. A discrete transition zone is not visualized. The findings could indicate either an ileus, low-grade bowel obstruction, or the sequela of prior bowel obstruction. Peritoneum: There is a small amount of fluid marginating the liver as well as in the left paracolic gutter. There is interval enlargement of the right anterior abdominal peritoneal nodule currently measuring 37 mm. Multiple additional peritoneal nodules are visualized. The findings are viewed as suspicious for progressive abdominal carcinomatosis. Vasculature: There are advanced atheromatous changes present. 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 There is possible occlusion of the common femoral arteries Adenopathy: None. Pelvic viscera: The bladder, and pelvic viscera are unremarkable. Skeletal structures: There is bilateral L5 spondylolysis. There is grade 1-2 spondylolisthesis of L5 on S1. IMPRESSION: 1. Progressive peritoneal carcinomatosis 2. 33 mm pancreatic tail mass 3. No evidence of free intraperitoneal air 4. Interval decrease in the dilated fluid-filled small bowel loops. 5. Advanced chronic multifocal arterial disease. 6. Minimal ascites Electronically signed by: Cristobal Angeles M.D. 04/29/2017 7:22 PM Dictated Date/Time: 04/29/2017 7:12 PM (Prudencio Isabel MD) Medication Reconciliation New Medications: Ondansetron Odt (Zofran Odt) 8 Mg Soltab 8 MG SL Q6H PRN for Nausea for 30 Days, #120 TAB Continued Medications: Acetaminophen (Tylenol) 500 Mg Tab 2 TAB PO TID for 2 Days, #20 TAB 3 Refills Amlodipine (Norvasc) 5 Mg Tab 5 MG PO DAILY, 0 Refills Aspirin (Aspir-81) 81 Mg Tab 1 TAB PO DAILY, TAB Atenolol (Tenormin) 25 Mg Tab 25 MG PO BID Atorvastatin (Lipitor) 80 Mg Tab 80 MG PO DAILY, TAB Cilostazol (Cilostazol) 100 Mg Tab 1 TAB PO DAILY, #60 Clopidogrel Bisulfate (Plavix) 75 Mg Tab 1 TAB PO for 90 Days, #90 TAB 1 Refill TAKES EVERY OTHER DAY Isosorbide Mononitrate Ext Rel (Imdur Ext Rel) 30 Mg Tabcr 1 TAB PO, TAB every other day Metformin HCl (Metformin HCl) 500 Mg Tab 500 MG PO BIDM Nitroglycerin (Nitrostat) 0.4 Mg/1 Tab Subl 0.4 MG SL DIRECTED Prochlorperazine (Prochlorperazine) 25 Mg Sup 25 MG RE PRN UD, #30 Tramadol Hcl (Tramadol Hcl Er) 200 Mg Tab 200 MG PO DAILY, #90 Discharge Exam A 10 point review of systems was negative unless in the hospital course Physical Exam: General Appearance: WD/WN, no apparent distress Eyes: normal inspection, EOMI ENT: hearing grossly normal, pharynx normal Neck: supple, no adenopathy, no JVD Respiratory/Chest: lungs clear, no respiratory distress Cardiovascular: regular rate, rhythm, no gallop, no murmur Abdomen / GI: normal bowel sounds, non tender, soft Extremities: no calf tenderness, no pedal edema Neurologic/Psychiatric: alert, normal mood/affect, oriented x 3 Skin: normal color, warm/dry, no rash Lymphatic: no adenopathy (Prudencio Isabel MD) Review of Systems: Constitutional: No fever Respiratory: No shortness of breath Cardiovascular: No chest pain Abdomen: No pain, No nausea, No vomiting Physical Exam: General Appearance: no apparent distress Respiratory/Chest: lungs clear, no respiratory distress Cardiovascular: regular rate, rhythm Abdomen / GI: normal bowel sounds, non tender, soft Neurologic/Psychiatric: alert, oriented x 3 Skin: warm/dry (Ewa Briones M.D.) Hospital Course Pleasant 77 year old male with pancreatic carcinomatosis who present with delayed post-chemotherapy related nausea and vomiting. He had his most recent course of chemotherapy 10 days prior to admission. He was treated with IV rehydration and supportive anti-nausea medications. He was hypokalemic on arrival at 2.9 but was discharged at 3.6 after being repleted with IV KCl. At the time of discharge, the patient was tolerating PO and was ambulating without difficulty. He was discharged with Zofran ODT at his request. The patient was discharged in stable condition. Total Time Spent: Less than 30 minutes This includes examination of the patient, discharge planning, medication reconciliation, and communication with other providers. (Prudencio Isabel MD) I have reviewed the medical record and performed a history and physical examination of this patient today. I have discussed the case with Dr Isabel. The above note reflects my findings, conclusions, and recommendations. Total Time Spent: Greater than 30 minutes (35) (Ewa Briones M.D.) Discharge Instructions Please refer to the electronic Patient Visit Report (Discharge Instructions) for additional information. (Prudencio Isabel MD) Follow-Up PCP in 1 week Oncology follow-up with Dr. Jalloh (Prudencio Isabel MD) Additional Copies To Fantasma Jalloh D.O.; Jae Hills M.D.
[2017-09-10] MEDS ORDERED: DIPH25CA5 PO (15:09)
== END 2017-04-30 15:15 | disposition home or self-care (01) | DRG 392 ==
LOC: ENRESERVDT → ENRESERVTM → C.EDB 17:15 → UNDOADMIN 21:23 → C.4E 21:23 → CMPBEDREQ 22:23
PROVIDERS: ADMIT Hospitalist; ATTEND Family Medicine
DX: R11.2 Nausea with vomiting, unspecified (principal); C25.2 Malignant neoplasm of tail of pancreas; C78.6 Secondary malignant neoplasm of retroperitoneum and peritoneum; R19.7 Diarrhea, unspecified; T45.1X5A Adverse effect of antineoplastic and immunosuppressive drugs, initial encounter; E87.6 Hypokalemia; E83.41 Hypermagnesemia; I73.9 Peripheral vascular disease, unspecified; I25.10 Atherosclerotic heart disease of native coronary artery without angina pectoris; J43.9 Emphysema, unspecified; I10 Essential (primary) hypertension; E78.00 Pure hypercholesterolemia, unspecified; E11.9 Type 2 diabetes mellitus without complications; Z87.891 Personal history of nicotine dependence; Z79.82 Long term (current) use of aspirin; Z79.84 Long term (current) use of oral hypoglycemic drugs; Z79.891 Long term (current) use of opiate analgesic; Z79.899 Other long term (current) drug therapy; Z79.02 Long term (current) use of antithrombotics/antiplatelets

== ENCOUNTER → 2017-06-10 | Outpatient (CLI) | payer BC ==
[~2017-06-10] MED LIST changes: +AMOX875T PO; +ASPI-232 PO; +BND25 PO; +CZR25 PO; +EPGI40M INJ; +FLM4 PO; +FURO-85 PO; +FURO40TA3 PO; +LORA-741 PO; +LOSA1TAB PO; +LSX40 PO; +METO50TA7 PO; +ONDA4TAB46 PO; +PANT40TA PO; +PLT100 PO; +POTA20TA16 PO; +PRD20 PO; +PRED20TA PO; +PROC25SU RE; +SPR25 PO; +TPRSR50 PO; +TRAM1TAB PO; +TRIA37.5 PO; +TUMS PO
--- NOTE | 2017-06-10 14:56 | DIAGNOSTIC IMAGING REPORT ---
(CHEST) THORAX WITHOUT CT DOSE: 1224.32 mGycm HISTORY: 77-year-old male with history of a cancer presents for a follow-up exam. TECHNIQUE: Multiaxial CT images of the chest were performed without contrast. COMPARISON: CT abdomen and pelvis of same day, CT chest 03/06/2017, CTA 12/29/2013. FINDINGS: No focal thyroid nodule seen. No pathologic adenopathy of the chest identified. Extensive coronary arterial calcifications are seen in a three-vessel distribution. Additionally, there is extensive atherosclerosis of the thoracic aorta. Moderate upper lobe predominant centrilobular emphysema is seen with hyperinflation. There is mild subsegmental bibasilar atelectasis and/or pleural parenchymal scarring. 4 mm noncalcified pulmonary nodule is present within the right lower lobe with additional somewhat linear 4 mm pleural-based nodule of the right lower lobe suggesting area of adjacent pleural parenchymal scarring. This nodule was not definitively seen on comparison. 4 mm noncalcified pulmonary nodule seen within the medial basal segment right middle lobe, both of these are unchanged from 12/29/2013 compatible with benign etiology. No additional suspicious pulmonary nodules are identified. Low attenuating lesions are again seen within the spleen measuring up to 2.8 cm. Additionally, low attenuating lesions are seen scattered throughout the hepatic parenchyma. There is persistent stranding surrounding the bulbous pancreatic tail. No suspicious lytic or blastic bony lesions are seen. IMPRESSION: 1. No acute cardiopulmonary process. No evidence of metastatic disease or pathologic-appearing adenopathy within the chest. 2. A few scattered noncalcified pulmonary nodules of the chest are seen, stable dating back to 12/29/2013. No new or suspicious pulmonary nodules are identified. 3. Moderate upper lobe predominant centrilobular emphysema. 4. Please see CT abdomen and pelvis study of same day for further discussion of the abdominal findings. Electronically signed by: Renaldo Busby M.D. 06/10/2017 2:55 PM Dictated Date/Time: 06/10/2017 2:45 PM
--- NOTE | 2017-06-10 14:58 | DIAGNOSTIC IMAGING REPORT ---
CT SCAN OF THE ABDOMEN AND PELVIS WITHOUT IV CONTRAST CLINICAL HISTORY: Pancreatic cancer. COMPARISON STUDY: Abdominal CT dated 04/29/2017. TECHNIQUE: CT scan of the abdomen and pelvis is performed from the lung bases to the proximal femora. Images are reviewed in the axial, sagittal, and coronal planes. IV contrast was not administered for this examination as per the referring clinician. Note that the examination is significantly suboptimal without IV contrast. Oral contrast was utilized. Automated dose control exposure was utilized. FINDINGS: Lung bases: The heart is top normal in size and there is a small pericardial effusion. The coronary arteries are densely calcified. A tiny hiatal hernia is observed. Emphysema is noted at the lung bases. There is bibasilar scarring versus atelectasis. A calcified granuloma is seen in the right lower lobe. No airspace consolidation or pleural effusion is seen. Liver: The unenhanced liver is normal in size, contour, and attenuation. There is no intrahepatic biliary ductal dilatation. 1.7 cm cyst is again seen in the right hepatic lobe. Additional subcentimeter hepatic hypodensities also likely represent cysts but are too small for definitive characterization. These have not significantly changed from 04/29/2017. Gallbladder: Unremarkable. Spleen: Normal in size and attenuation. A 2.6 cm cyst is unchanged. Pancreas: The unenhanced pancreas is atrophic. The pancreatic tail lesion is not well-visualized on this unenhanced examination. Adrenal glands: Unremarkable. Kidneys: The unenhanced kidneys demonstrate cortical atrophy and are without hydronephrosis. There are no renal calculi identified. There is no evidence of contour deforming renal mass lesion. Abdominal vasculature: There is advanced atherosclerotic calcification and ectasia of the abdominal aorta. 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 Bowel: Mildly distended loops of bowel in the pelvis are similar to previous. These measure up to 3.3 cm in diameter. Enteric contrast reaches the cecum, and there is no evidence of bowel obstruction. There is moderate colonic fecal retention. The appendix is not identified. Peritoneum: There is trace perisplenic fluid. No intraperitoneal free air is seen. Again seen are peritoneal implants consistent with carcinomatosis. This appears improved from 04/29/2017. Implants in the right upper quadrant measures up to 2.4 cm (previously measured 3.7 cm). Additional foci of nodularity in the left upper quadrant have also decreased in size and are barely perceptible. Lymphadenopathy: None. Pelvic viscera: The prostate gland is enlarged and heterogeneous, measuring 5 cm in transverse diameter. The bladder wall is thickened and trabeculated, likely related to chronic outlet obstruction. Skeletal structures: The skeletal structures are osteopenic. There are bilateral pars defects at L5 with 1.4 cm of anterolisthesis at L5-S1. Moderate to advanced lumbosacral spondylosis is observed. No lytic or blastic lesions are seen. IMPRESSION: 1. Suboptimal examination without IV contrast. 2. Overall positive response to treatment. There has been a significant decrease in size of peritoneal lesions when compared to the 04/29/2017 examination. 3. The patient's pancreatic tail lesion is not well-visualized on this unenhanced examination. 4. Trace perisplenic fluid is identified. 5. There are mildly distended loops of small bowel with no evidence of obstruction. Enteric contrast reaches the cecum. This may represent ileus or possibly dysmotility secondary to peritoneal carcinomatosis. 6. Emphysema and advanced atherosclerotic disease. 7. Additional findings as discussed above. Electronically signed by: Jon Rios M.D. 06/10/2017 2:56 PM Dictated Date/Time: 06/10/2017 2:44 PM
== END | disposition home or self-care (01) ==
LOC: C.CTS 12:02
PROVIDERS: ATTEND Internal Medicine Hematology & Oncology
DX: C25.9 Malignant neoplasm of pancreas, unspecified (principal); J43.2 Centrilobular emphysema; I70.90 Unspecified atherosclerosis; R91.8 Other nonspecific abnormal finding of lung field

== ENCOUNTER 2017-06-22 19:59 | Emergency (ER) | payer BC ==
[~2017-06-22] VITALS: Ht 152.4 cm; Wt 85.3 kg
[~2017-06-22 19:59] MED LIST changes: -AMOX875T PO; -BND25 PO; -CZR25 PO; -EPGI40M INJ; -FLM4 PO; -FURO-85 PO; -FURO40TA3 PO; -LORA-741 PO; -LOSA1TAB PO; -LSX40 PO; -METO50TA7 PO; -ONDA4TAB46 PO; -PANT40TA PO; -POTA20TA16 PO; -PRD20 PO; -PRED20TA PO; -SPR25 PO; -TPRSR50 PO; -TRIA37.5 PO; -TUMS PO
[2017-06-22 20:04] VITALS: TEMP 36.7; Ht 152.4 cm; Wt 85.3 kg
[2017-06-22] MEDS ORDERED: TRIA37.5 PO (20:12)
[2017-06-22] MEDS ORDERED: LIDOCAINE/EPINEPHRINE 1% 20 ML VIAL INFIL ONE (20:30)
--- NOTE | 2017-06-22 20:58 | DIAGNOSTIC IMAGING REPORT ---
CT SCAN OF THE BRAIN WITHOUT IV CONTRAST CLINICAL HISTORY: Head injury. COMPARISON STUDY: No priors. TECHNIQUE: Unenhanced axial CT scan of the brain is performed from the vertex to the skull base. CT DOSE: 729.78 mGycm FINDINGS: Brain parenchyma: There are age-related involutional changes noting minimal subcortical and periventricular microangiopathic change. There is no hemorrhage, mass effect, or evidence of acute territorial ischemia by CT criteria. Nascimento-white matter is preserved. No extra-axial fluid collection is seen. Ventricles, sulci, cisterns: Prominent secondary to involutional change. Intracranial vasculature: There is atherosclerotic calcification of the cavernous carotid and vertebral arteries. Calvarium: The skeletal structures are osteopenic. No depressed calvarial fracture is seen. Sinuses and mastoids: Trace mucosal thickening is seen in the right maxillary antrum. The remaining visualized paranasal sinuses are clear. The mastoid air cells are well pneumatized. Orbits: The bony orbits are grossly intact. There are bilateral ocular lens implants. Soft tissues: There is a high right posterior parietal scalp contusion. Soft tissue calcification is present in both ears. IMPRESSION: 1. There is no hemorrhage, mass effect, or evidence of acute territorial ischemia by CT criteria. 2. Right posterior parietal scalp injury. No depressed calvarial fracture is seen. Electronically signed by: Jon Rios M.D. 06/22/2017 8:56 PM Dictated Date/Time: 06/22/2017 8:53 PM
[2017-06-22 21:07] LABS: BASO % 0.1 %; BASO ABS # 0.01 K/uL (0-0.2); EOS % 1.8 %; HEMATOCRIT 26.2 % (42-52); IG% 0.9 %; LYMPH % 7.3 %; LYMPH ABS # 0.49 K/uL (1.2-3.4); MEAN CELL VOLUME 92.9 fL (80-100); MEAN CORPUSCULAR HEMOGLOBIN 28.7 pg (25-34); MEAN CORPUSCULAR HGB CONC 30.9 g/dl (32-36); MONO % 11.1 %; NEUT % 78.8 %; PLATELET COUNT 153 K/uL (130-400); RED BLOOD COUNT 2.82 M/uL (4.7-6.1); WHITE BLOOD COUNT 6.69 K/uL (4.8-10.8)
[2017-06-22 21:15] LABS: INR 1.1 (0.9-1.1); PARTIAL THROMBOPLASTIN RATIO 1.1; PROTHROMBIN TIME (PATIENT) 11.9 SECONDS (9.0-12.0)
[2017-06-22 21:23] LABS: CALCIUM 8.3 mg/dl (8.5-10.1); CREATININE 0.81 mg/dl (0.60-1.40)
[2017-06-22 21:28] LABS: ANISOCYTOSIS PRESENT; COMPLETE YES; POLYCHROMASIA 1+
--- NOTE | 2017-06-22 21:56 | EMERGENCY ROOM VISIT NOTE ---
ED Visit Note First contact with patient: 20:08 This Patient was discussed with the physician Commercial Account Officer, Naynaa Castillo PA-C. The pertinent historical and physical exam findings were confirmed. I agree with the studies ordered and with the interpretations of these studies. I agree with the disposition and care plan.
--- NOTE | 2017-06-22 22:03 | EMERGENCY ROOM VISIT NOTE ---
History First contact with patient: 20:08 Chief Complaint: LACERATION/CUT (SUT/DERMABOND) Stated Complaint: FALL, HEAD LAC Nursing Triage Summary: "bent over to picl up some joao and fell backward, hit my head on door" denies LOC. 4 inch lac right occiput, bleeding controlled. denies h/a. pupils unequal- normal for pt History of Present Illness The patient is a 77 year old male who presents to the Emergency Room with complaints of a fall and head injury. 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 He denies loss of consciousness. He denies headache, nausea, vomiting, numbness/weakness, blurred vision or slurred speech. The patient has pancreatic cancer and is currently receiving chemotherapy. He states that he is frequently dizzy/lightheaded and this is not abnormal for him, as his blood counts are usually low. His tetanus shot is up-to-date. Review of Systems A complete 10 point review of systems was reviewed with the patient with pertinent positives and negatives as per history of present illness. All else were negative. Past Medical/Surgical History Medical Problems: (1) Athscl Heart Disease Of [place] Coronary Artery W/O Ang Pctrs (2) Athscl Heart Disease Of [place] Coronary Artery W/O Ang Pctrs (3) Carcinoma of tail of pancreas (4) Emphysema, unspecified (5) Hypertension (6) Hypokalemia (7) Intractable vomiting (8) Peritoneal carcinomatosis Family History Heart disease Stroke Social History Smoking Status: Former Smoker Drug Use: none Marital Status: Housing Status: lives with significant other Occupation Status: retired Current/Historical Medications Scheduled Acetaminophen (Tylenol), 2 TAB PO TID Amlodipine (Norvasc), 5 MG PO DAILY Aspirin (Aspir-81), 1 TAB PO DAILY Atenolol (Tenormin), 25 MG PO BID Atorvastatin (Lipitor), 80 MG PO DAILY Cilostazol (Cilostazol), 1 TAB PO DAILY Metformin HCl (Metformin HCl), 500 MG PO BIDM Nitroglycerin (Nitrostat), 0.4 MG SL DIRECTED Prochlorperazine (Prochlorperazine), 25 MG RE PRN UD Tramadol Hcl (Tramadol Hcl Er), 200 MG PO DAILY Triamterene/Hctz (Dyazide 37.5MG/25MG), 1 TAB PO Q2D Miscellaneous Medications Clopidogrel Bisulfate (Plavix), 1 TAB PO Isosorbide Mononitrate Ext Rel (Imdur Ext Rel), 1 TAB PO Physical Exam Vital Signs Date Time Temp Pulse Resp B/P (MAP) Pulse Ox O2 Delivery O2 Flow Rate FiO2 06/22/17 22:28 74 16 132/75 92 Room Air 06/22/17 20:04 36.7 76 20 152/82 95 Room Air Physical Exam VITALS: Vitals are noted on the nurse's note and reviewed by myself. Vital signs stable. GENERAL: This is a 69-year-old male, in no acute distress, nondiaphoretic, well- developed well-nourished. SKIN: There is a 9 cm laceration to the posterior aspect of the scalp. HEAD: Normocephalic atraumatic. EARS: External auditory canals clear, tympanic membranes pearly harris without erythema or effusion bilaterally. No hemotympanum. EYES: Right pupil is slightly smaller than the left pupil. Both are reactive to light and accommodation. Conjunctivae without injection, sclerae without icterus. Extraocular movements intact. MOUTH: Mucous membranes moist. NECK: Supple without nuchal rigidity. Cervical spine is nontender. HEART: Regular rate and rhythm without murmurs gallops or rubs. LUNGS: Clear to auscultation bilaterally without wheezes, rales or rhonchi. MUSCULOSKELETAL: Full range of motion, strength 5/5 throughout. NEURO: Patient was alert and oriented to person place and time. Normal sensation to light and sharp touch. No focal neurological deficits. Medical Decision & Procedures ER Provider Diagnostic Interpretation: CT SCAN OF THE BRAIN WITHOUT IV CONTRAST IMPRESSION: 1. There is no hemorrhage, mass effect, or evidence of acute territorial ischemia by CT criteria. 2. Right posterior parietal scalp injury. No depressed calvarial fracture is seen. Laboratory Results 06/22/17 21:00 Red Blood Count 2.82, Mean Corpuscular Volume 92.9, Mean Corpuscular Hemoglobin 28.7, Mean Corpuscular Hemoglobin Concent 30.9, Mean Platelet Volume 10.0, Neutrophils (%) (Auto) 78.8, Lymphocytes (%) (Auto) 7.3, Monocytes (%) (Auto) 11.1, Eosinophils (%) (Auto) 1.8, Basophils (%) (Auto) 0.1, Neutrophils # (Auto ) 5.27, Lymphocytes # (Auto) 0.49, Monocytes # (Auto) 0.74, Eosinophils # (Auto ) 0.12, Basophils # (Auto) 0.01 06/22/17 21:00 Test 06/22/17 21:00 White Blood Count 6.69 K/uL (4.8-10.8) Red Blood Count 2.82 M/uL (4.7-6.1) Hemoglobin 8.1 g/dL (14.0-18.0) Hematocrit 26.2 % (42-52) Mean Corpuscular Volume 92.9 fL (80-100) Mean Corpuscular Hemoglobin 28.7 pg (25-34) Mean Corpuscular Hemoglobin Concent 30.9 g/dl (32-36) Platelet Count 153 K/uL (130-400) Mean Platelet Volume 10.0 fL (7.4-10.4) Neutrophils (%) (Auto) 78.8 % Lymphocytes (%) (Auto) 7.3 % Monocytes (%) (Auto) 11.1 % Eosinophils (%) (Auto) 1.8 % Basophils (%) (Auto) 0.1 % Neutrophils # (Auto) 5.27 K/uL (1.4-6.5) Lymphocytes # (Auto) 0.49 K/uL (1.2-3.4) Monocytes # (Auto) 0.74 K/uL (0.11-0.59) Eosinophils # (Auto) 0.12 K/uL (0-0.5) Basophils # (Auto) 0.01 K/uL (0-0.2) RDW Standard Deviation 68.9 fL (36.4-46.3) RDW Coefficient of Variation 21.4 % (11.5-14.5) Immature Granulocyte % (Auto) 0.9 % Immature Granulocyte # (Auto) 0.06 K/uL (0.00-0.02) Nucleated RBC Absolute Count (auto) 0.03 K/uL (0-0) Nucleated Red Blood Cells % 0.4 % Polychromasia 1+ Anisocytosis PRESENT Prothrombin Time 11.9 SECONDS (9.0-12.0) Prothromb Time International Ratio 1.1 (0.9-1.1) Activated Partial Thromboplast Time 28.9 SECONDS (21.0-31.0) Partial Thromboplastin Ratio 1.1 Anion Gap 8.0 mmol/L (3-11) Est Creatinine Clear Calc Drug Dose 68.2 ml/min Estimated GFR () 98.7 Estimated GFR (Non- 85.1 BUN/Creatinine Ratio 20.0 (10-20) Calcium Level 8.3 mg/dl (8.5-10.1) Procedure Verbal consent was obtained to perform the procedure. Using sterile technique the wound was cleaned with Betadine. The area was sterilely draped. 6 ml of 1 % buffered lidocaine with epinephrine was used to anesthetize the patient's scalp. Once the patient was numb, the wound was copiously irrigated under pressure with sterile saline. The wound was explored and there were no deep structures present. The laceration was repaired using 12 joelle with the wound edges being well approximated. The patient tolerated the procedure well. The bleeding stopped. The area was cleaned with sterile saline and dressed with bacitracin ointment and a bandage. Medical Decision Differential diagnosis includes scalp laceration, calvarial fracture, intracranial bleed, concussion, among others. The patient is a 77-year-old male who presents today via BLS for evaluation of a head injury. CT of the head showed no intracranial bleeds or skull fractures. Hemoglobin was found to be 8.1 which is slightly decreased from previous, but consistent with patient's current chemotherapy. He was instructed to follow-up with Dr. Jalloh. Scalp laceration repair was performed as noted above. The patient was independently evaluated by Dr. Win, ED attending physician, who agreed with my assessment and treatment plan. Based on the patient's presentation and work up, I feel the patient is stable for outpatient treatment. The patient was educated to return to the emergency department for any worsening of their current condition or new/concerning symptoms. He will follow up with his PCP and oncologist. Medication Reconcilliation Current Medication List: was personally reviewed by me Blood Pressure Screening Patient's blood pressure: Normal blood pressure Impression Primary Impression: Laceration of scalp Departure Information Dispostion Home / Self-Care Condition GOOD Referrals Jae Hills M.D. (PCP) Balaban, Edward P., D.O. Patient Instructions [facility] Additional Instructions You have received 12 joelle on your head. These joelle are NOT dissolvable and WILL need to be removed by a health care provider in 10-12 days. You can return to the Emergency Department or contact your Primary Care Provider to have these joelle removed. Proper wound care is essential for adequate wound healing and infection prevention. You can shower and clean the wound with soap and water. Do not scour over the wound, pat dry with a towel. Do not submerse the wound until the joelle have been removed. You can use an antibiotic ointment with a dressing over the wound for the next 3-4 days. After this time you may leave the wound dry and open to the air. If crust develops over the wound you can use a Q-tip to apply a 1:1 peroxide:water solution to clean the wound. Look for signs of infection of the wound including: increased pain, swelling, foul discharge, streaking, or increased temperature. If any of these are noticed you should return to the Emergency Department for further assessment and treatment. As with any laceration you may have received nerve damage to the surrounding tissues. This damage may or may not be permanent. For pain control, you can use the following [id number] medicines (if >12 yo): - Regular strength (325mg/tab) Tylenol (acetaminophen) 2 tabs every 4-6 hours as needed. Do not exceed 12 tablets in a 24 hour period. Avoid taking more than 4 grams (4000 mg) of Tylenol per day. This includes any other sources of acetaminophen you may take on a regular basis. Follow-up with your primary care provider and Dr. Jalloh. Call them tomorrow to let them know you were in the emergency department. Return to the emergency department if your symptoms worsen despite treatment course outlined above. Problem Qualifiers Primary Impression: Laceration of scalp Encounter type: initial encounter Qualified Codes: S01.01XA - Laceration without foreign body of scalp, initial encounter
[2017-06-22 22:28] VITALS: BP 132/75; PULSE 74; O2SAT 92
== END 2017-06-22 22:30 | disposition home or self-care (01) ==
LOC: EDBD 19:59 → C.EDA 19:59
DX: S01.01XA Laceration without foreign body of scalp, initial encounter (principal); W19.XXXA Unspecified fall, initial encounter; W22.09XA Striking against other stationary object, initial encounter; C25.2 Malignant neoplasm of tail of pancreas; J43.9 Emphysema, unspecified; I10 Essential (primary) hypertension; C78.6 Secondary malignant neoplasm of retroperitoneum and peritoneum; Z82.3 Family history of stroke; Z87.891 Personal history of nicotine dependence; Z79.82 Long term (current) use of aspirin; Z79.899 Other long term (current) drug therapy

== ENCOUNTER 2017-07-02 15:12 | Emergency (ER) | payer BC ==
[~2017-07-02] VITALS: Ht 177.8 cm; Wt 85.8 kg
[~2017-07-02 15:12] MED LIST changes: +TRIA37.5 PO
[2017-07-02 15:14] VITALS: BP 118/68; PULSE 87; TEMP 36.7; O2SAT 91; Ht 177.8 cm; Wt 85.8 kg
[2017-07-02] MEDS ORDERED: EPGI40M INJ (15:20)
--- NOTE | 2017-07-02 15:31 | EMERGENCY ROOM VISIT NOTE ---
ED Visit Note First contact with patient: 15:17 CHIEF COMPLAINT: Staple removal HISTORY OF PRESENT ILLNESS: This 77 patient returns to the ED today for removal of sutures that were placed about 10 days ago. There has been no swelling, redness, or drainage from the wound. The patient feels like the laceration is healing well. REVIEW OF SYSTEMS: A 6 system review of systems was completed with positives and pertinent negatives listed in the HPI. PMH: Unchanged from previous visit. ALLERGIES: NKDA PHYSICAL EXAM: Vital Signs: Reviewed Nurse's notes, vital signs stable. GENERAL : White male, in no acute distress. SKIN: There is a sutured wound on the posterior scalp with no signs of infection. There is no erythema, swelling, or tenderness. EMERGENCY DEPARTMENT COURSE: 12 joelle were removed without any difficulty and there was no separation of the wound edges. The patient was discharged home in good condition. Problem List Medical Problems: (1) Emphysema, unspecified Status: Chronic (2) Hypertension Status: Chronic Current/Historical Medications Scheduled Acetaminophen (Tylenol), 2 TAB PO TID Amlodipine (Norvasc), 5 MG PO DAILY Aspirin (Aspir-81), 1 TAB PO DAILY Atenolol (Tenormin), 25 MG PO BID Atorvastatin (Lipitor), 80 MG PO DAILY Cilostazol (Cilostazol), 1 TAB PO DAILY Epoetin Mariano (Procrit), 1 DOSE INJ UD Metformin HCl (Metformin HCl), 500 MG PO BIDM Nitroglycerin (Nitrostat), 0.4 MG SL DIRECTED Prochlorperazine (Prochlorperazine), 25 MG RE PRN UD Tramadol Hcl (Tramadol Hcl Er), 200 MG PO DAILY Triamterene/Hctz (Dyazide 37.5MG/25MG), 1 TAB PO Q2D Miscellaneous Medications Clopidogrel Bisulfate (Plavix), 1 TAB PO Isosorbide Mononitrate Ext Rel (Imdur Ext Rel), 1 TAB PO Allergies Coded Allergies: No Known Allergies (Verified , 07/02/17) Vital Signs Date Time Temp Pulse Resp B/P (MAP) Pulse Ox O2 Delivery O2 Flow Rate FiO2 07/02/17 15:14 36.7 87 18 118/68 91 Room Air Departure Information Impression Primary Impression: Encounter for removal of joelle Dispostion Home / Self-Care Condition GOOD Referrals Jae Hills M.D. (PCP) Forms HOME CARE DOCUMENTATION FORM, IMPORTANT VISIT INFORMATION Patient Instructions [facility], ED Scar Tips to Minimize Additional Instructions Gently wash off any remaining debris and return to activity as normal.
== END 2017-07-02 15:31 | disposition home or self-care (01) ==
LOC: C.EDB 15:15 → C.EDD 15:31
DX: Z48.02 Encounter for removal of sutures (principal); I10 Essential (primary) hypertension; J43.9 Emphysema, unspecified; Z79.82 Long term (current) use of aspirin; Z79.84 Long term (current) use of oral hypoglycemic drugs; Z79.899 Other long term (current) drug therapy

== ENCOUNTER 2017-07-13 14:15 | Inpatient (IN) | payer BC, OTHER ==
[~2017-07-13] VITALS: Ht 177.8 cm; Wt 85.5 kg
[~2017-07-13 14:15] MED LIST changes: -AMOX875T PO; -BND25 PO; -CZR25 PO; -FLM4 PO; -FURO-85 PO; -FURO40TA3 PO; -LORA-741 PO; -LOSA1TAB PO; -LSX40 PO; -METO50TA7 PO; -ONDA4TAB46 PO; -OPTIRAY 320 IV PRN; -PANT40TA PO; -POTA20TA16 PO; -PRD20 PO; -PRED20TA PO; -SPR25 PO; -TPRSR50 PO; -TUMS PO
[2017-07-13 15:58] VITALS: BP 135/68; PULSE 70; TEMP 36.9; O2SAT 91
[2017-07-13 16:00] VITALS: BP 135/68; PULSE 70; TEMP 36.9; O2SAT 91; Ht 177.8 cm; Wt 85.5 kg
[2017-07-13] MEDS ORDERED: NITROGLYCERIN 0.4 MG SL PER TAB CHARGE SL PRN (16:30)
[2017-07-13] MEDS ORDERED: ACETAMINOPHEN 325 MG TAB PO PRN (16:30)
[2017-07-13] MEDS ORDERED: ONDANSETRON INJ 2 MG/ML 2 ML VIAL IV PRN (16:30)
--- NOTE | 2017-07-13 16:48 | DIAGNOSTIC IMAGING REPORT ---
CHEST ONE VIEW PORTABLE HISTORY: increasing shortness of breath COMPARISON: Chest CTA 07/13/2017. Chest 12/15/2012. FINDINGS: No pneumothorax. Patchy right lung airspace opacities and a small right pleural effusion persist. There or a few small patchy airspace opacities within the left lung base. The heart is stable in size. IMPRESSION: No change in the bilateral airspace opacities, right greater than left, and a small right pleural effusion. Electronically signed by: Mio Brand M.D. 07/13/2017 4:47 PM Dictated Date/Time: 07/13/2017 4:45 PM
[2017-07-13 16:57] LABS: BASO % 0.2 %; BASO ABS # 0.01 K/uL (0-0.2); EOS % 0.2 %; HEMATOCRIT 26.7 % (42-52); IG% 0.6 %; LYMPH % 15.3 %; LYMPH ABS # 0.83 K/uL (1.2-3.4); MEAN CELL VOLUME 93.7 fL (80-100); MEAN CORPUSCULAR HEMOGLOBIN 29.1 pg (25-34); MEAN PLATELET VOLUME 10.2 fL (7.4-10.4); MONO % 11.9 %; NEUT % 71.8 %; PLATELET COUNT 159 K/uL (130-400); RED BLOOD COUNT 2.85 M/uL (4.7-6.1); WHITE BLOOD COUNT 5.44 K/uL (4.8-10.8)
[2017-07-13 17:01] LABS: MEAN CORPUSCULAR HGB CONC 31.1 g/dl (32-36)
[2017-07-13] MEDS ORDERED: FUROSEMIDE 40 MG/4 ML VIAL IV STA (17:10)
[2017-07-13 17:28] LABS: ALB/GLOB RATIO 0.5 (0.9-2); BUN/CREATININE RATIO 26.4 (10-20); CALCIUM 7.9 mg/dl (8.5-10.1); CREATININE 0.58 mg/dl (0.60-1.40); MAGNESIUM 2.2 mg/dl (1.8-2.4); POTASSIUM 4.1 mmol/L (3.5-5.1)
[2017-07-13 17:30] LABS: COMPLETE YES; ECHINOCYTES 1+; GIANT PLATELETS 1+; OVALOCYTES 1+; POLYCHROMASIA 1+; TEAR DROP CELLS 1+
[2017-07-13] MEDS ORDERED: FUROSEMIDE INJ 40 MG in SYRINGE 0 ML IV ONE (17:30)
--- NOTE | 2017-07-13 17:30 | Medical Student: [facility] ---
Med Student History & Physical Date & Time of Service: Jul 13, 2017 at 17:25 Chief Complaint: New Onset Chf Primary Care Physician: Jae Hills M.D. History of Present Illness Source: patient, hospital records Jasson Dye is a 77 male, with pancreatic cancer currently undergoing chemotherapy treatment x 2-3 months, with PMHx of HTN and CAD (AZ 25 years ago) , who was a direct admit from Dr. Jalloh his pill packer/oncologist. Patient presented for his third round of chemotherapy today complaining of shortness of breath for the past 3 days, worsening today. Patient did not receive chemotherapy treatment today, but instead had a CT scan of chest and was directly admitted to [facility]. Patient reports symptoms started while lying in bed 3 nights ago, denies being woken up from sleep secondary to shortness of breath , but notes trouble falling asleep secondary to shortness of breath. Starting 2 days ago, he states shortness of breath with exertion during the day, noting a pulse oxygenation reading of 78% at home. Patient denies using oxygen at home. He states associated symptoms of dry cough for 3 days and bilateral leg swelling "for a while," which has been worsening over the last 3 days. 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 He notes with increased swelling of his legs, his balance has been worse, as well as some cramping pain in his lower legs with exertion. He also reports symptoms of constipation and fatigue from his chemotherapy treatment. Of noteworthy recent history, patient had a unwitnessed ground level fall 2 weeks ago, when he was leaning over to pick something up and fell backwards hitting his head. He denies loss of consciousness. His found him on the ground, called EMS; he was seen at [facility] and had a negative CT scan of his head. He denies chest pain, palpitations, any pain, nausea/vomiting/diarrhea, fever/ chills, night sweats, any HENT symptoms, and rash. Past Medical/Surgical History Medical Problems: - Pancreatic cancer, currently undergoing chemotherapy treatment x 2-3 months, unknown regime. 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 - HTN - CAD, with AZ x25 years, no stents/surgery - Peripheral artery disease Surgical History: - Cataract surgery (bilateral) ~2014 - Abdominal hernia repair ~2014 - Knee replacement (~2012, ~2010) Family History Mother lived to 100, no medical problems known Father of stroke 2 grandfathers: 1 had heart disease, 1 had cancer No known chronic medical conditions in siblings or 4 children. 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[employer]) Immunizations History of Influenza Vaccine: Yes Influenza Vaccine Date: Aug 03, 2008 History of Tetanus Vaccine?: Yes History of Pneumococcal: Unknown History of Hepatitis B Vaccine: No Allergies Coded Allergies: No Known Allergies (Verified , 07/02/17) Medications Acetaminophen (Tylenol), 2 TAB PO TID Amlodipine (Norvasc), 5 MG PO DAILY Aspirin (Aspir-81), 1 TAB PO DAILY Atenolol (Tenormin), 25 MG PO BID Atorvastatin (Lipitor), 80 MG PO DAILY Cilostazol (Cilostazol), 1 TAB PO DAILY Clopidogrel Bisulfate (Plavix), 1 TAB PO Epoetin Mariano (Procrit), 1 DOSE INJ UD Isosorbide Mononitrate Ext Rel (Imdur Ext Rel), 1 TAB PO Metformin HCl (Metformin HCl), 500 MG PO BIDM Nitroglycerin (Nitrostat), 0.4 MG SL DIRECTED Prochlorperazine (Prochlorperazine), 25 MG RE PRN UD Tramadol Hcl (Tramadol Hcl Er), 200 MG PO DAILY Triamterene/Hctz (Dyazide 37.5MG/25MG), 1 TAB PO Q2D Review of Systems Constitutional: No fever, No chills, No sweats, No fatigue Eyes: No worsening of vision, No eye pain, No redness ENT: No hearing loss, No nasal symptoms, No sore throat Respiratory: + cough (dry), + shortness of breath, + dyspnea on exertion, + dyspnea at rest, No sputum, No hemoptysis Cardiovascular: + edema, + claudication, No chest pain, No orthopnea, No palpitations Abdomen: + constipation, No pain, No nausea, No vomiting, No diarrhea Musculoskeletal: + swelling, + problem reported (right foot drop for last few months), No joint pain, No muscle pain Genitourinary - Male: No hematuria, No dysuria, No urinary frequency, No urinary urgency Neurologic: + numbness/tingling (hands, lower extremities/feet), + balance problems, No memory loss, No paralysis, No vertigo Psychiatric: + anxiety Endocrine: + fatigue, No excessive urination Hematologic / Lymphatic: No abnormal bleeding/bruising, No night sweats Integumentary: No rash, No itch Physical Exam Vital Signs (24 Hours) Date Time Temp Pulse Resp B/P (MAP) Pulse Ox O2 Delivery O2 Flow Rate FiO2 07/13/17 16:00 36.9 70 20 135/68 91 Nasal Cannula 4.0 07/13/17 15:58 36.9 70 20 135/68 (90) 91 Nasal Cannula 4.0 General Appearance: WD/WN, no apparent distress Head: normocephalic, atraumatic Eyes: PERRL, EOMI, sclerae normal, + pertinent finding (right pupil smaller than left (patient states he was told this "recently" by another medical professional)) ENT: normal ENT inspection, hearing grossly normal Neck: supple, no adenopathy Respiratory/Chest: chest non-tender, + decreased breath sounds, + crackles ( bilateral up to mid-thorax) Cardiovascular: regular rate, rhythm, no murmur, normal peripheral pulses, + pertinent finding (3+ pitting edema) Abdomen/GI: normal bowel sounds, non tender, soft Back: normal inspection, no muscle spasm, normal range of motion Extremities/Musculoskelatal: normal inspection, no calf tenderness, normal range of motion, + pedal edema, + swelling Neurologic/Psych: alert, normal mood/affect, oriented x 3, + pertinent finding (right pupil is smaller than left, both are round and reactive to light, decreased sensation of lower extremities below knees bilaterally) Skin: normal color, warm/dry, no rash Lymphatic: no adenopathy Diagnostics Laboratory Results Results Past 24 Hours Test 07/13/17 16:32 07/13/17 16:42 Range/Units White Blood Count 5.44 4.8-10.8 K/uL Red Blood Count 2.85 4.7-6.1 M/uL Hemoglobin 8.3 14.0-18.0 g/dL Hematocrit 26.7 42-52 % Mean Corpuscular Volume 93.7 80-100 fL Mean Corpuscular Hemoglobin 29.1 25-34 pg Mean Corpuscular Hemoglobin Concent 31.1 32-36 g/dl Platelet Count 159 130-400 K/uL Mean Platelet Volume 10.2 7.4-10.4 fL Neutrophils (%) (Auto) 71.8 % Lymphocytes (%) (Auto) 15.3 % Monocytes (%) (Auto) 11.9 % Eosinophils (%) (Auto) 0.2 % Basophils (%) (Auto) 0.2 % Neutrophils # (Auto) 3.91 1.4-6.5 K/uL Lymphocytes # (Auto) 0.83 1.2-3.4 K/uL Monocytes # (Auto) 0.65 0.11-0.59 K/uL Eosinophils # (Auto) 0.01 0-0.5 K/uL Basophils # (Auto) 0.01 0-0.2 K/uL RDW Standard Deviation 75.2 36.4-46.3 fL RDW Coefficient of Variation 22.9 11.5-14.5 % Immature Granulocyte % (Auto) 0.6 % Immature Granulocyte # (Auto) 0.03 0.00-0.02 K/uL Nucleated RBC Absolute Count (auto) 0.02 0-0 K/uL Nucleated Red Blood Cells % 0.4 % Diagnostic Radiology CHEST ONE VIEW PORTABLE HISTORY: increasing shortness of breath COMPARISON: Chest CTA 07/13/2017. Chest 12/15/2012. FINDINGS: No pneumothorax. Patchy right lung airspace opacities and a small right pleural effusion persist. There or a few small patchy airspace opacities within the left lung base. The heart is stable in size. IMPRESSION: No change in the bilateral airspace opacities, right greater than left, and a small right pleural effusion. EKG Sinus rhythm with occasional , and consecutive Premature ventricular complexes ST & T wave abnormality, consider lateral ischemia Abnormal ECG When compared with ECG of 15-DEC-2016 18:04, Premature ventricular complexes are now Present T wave inversion now evident in Anterolateral leads Confirmed by JAVI BALLARD MD ([id number]) on 07/13/2017 5:53:46 PM Impression Assessment and Plan Jasson Dye is an 77 yo male currently treated for prostate cancer, who was directly admitted today from Dr. Jalloh's office complaining of shortness of breath worsening for 3 days. Patient has associated symptoms of bilateral pitting edema to knees and dry cough. Patient was admitted to telemetry, with working diagnosis of heart failure. Differential diagnosis included heart failure, pulmonary embolism, COPD, pulmonary edema, and acute AZ. Heart failure, acute - CXR findings:No change in the bilateral airspace opacities, right greater than left, and a small right pleural effusion. - EKG findings: Sinus rhythm with occasional , and consecutive Premature ventricular complexes, ST & T wave abnormality, consider lateral ischemia, Abnormal ECG, When compared with ECG of 15-DEC-2016 18:04, Premature ventricular complexes are now Present, T wave inversion now evident in Anterolateral leads. - Consult cardiology (Patient followed by Dr. Greco) - Start Furosemide (40 mg/Syringe) for edema/fluid on lungs - Oxygen treatment (4.0L nasal canula) - Continue home medications of Tenormin (Atenolol) 25 Mg Tab 25 Mg PO BID and Lipitor (Atorvastatin Calcium) 80 Mg Tab 80 Mg PO DAILY - Start spironolactone and ACEi - Echocardiogram to look for structural abnormalities of the heart, see if patient is candidate for ICD - Monitor I&Os, pulse oximetry, and daily weights while in-patient - CBC with differential, magnesium, CMP, troponin for underlying heart muscle/ rhythm problem or infection. - EKG PRN if chest pain symptom occurs Pancreatic cancer - Consult Dr. Jalloh, verify chemotherapy medication regime - Continue home medications (Prochlorperazine 25 Mg Sup 25 Mg RE PRN UD, Tramadol Hcl Er (Tramadol Hcl) 200 Mg Tab 200 Mg PO DAILY, Procrit (Epoetin Mariano ) 40,000 Units Inj 1 Dose INJ UD) CAD, chronic - Continue home medications (Metformin HCl 500 Mg Tab 500 Mg PO BID, Lipitor ( Atorvastatin Calcium) 80 Mg Tab 80 Mg PO DAILY, Aspir-81 (Aspirin) 81 Mg Tab 1 Tab PO DAILY, Nitrostat (Nitroglycerin) 0.4 Mg/1 Tab Subl 0.4 Mg SL DIRECTED , Norvasc (Amlodipine Besylate) 5 Mg Tab 5 Mg PO DAILY, Plavix (Clopidogrel Bisulfate) 75 Mg Tab 1 Tab PO 90 Days TAKES EVERY OTHER DAY, Tenormin (Atenolol ) 25 Mg Tab 25 Mg PO BID, Imdur Ext Rel (Isosorbide Mononitrate) 30 Mg Tabcr 1 Tab PO every other day) Peripheral artery disease, chronic - Continue home medications (Cilostazol 100 Mg Tab 1 Tab PO DAILY) HTN, chronic - Monitor BPs while in-patient (/) - Continue home medications (Dyazide 37.5MG/25MG (Triamterene/HCTZ) Cap 1 Tab PO Q2D) DVT prophylaxis - Heparin (5000 units SQ Q8 hours), Brayan chakraborty, and SCDs Level of Care Telemetry Advanced Directives Existing Living Will: Yes Existing Power of Jewelry Setter: Yes Resuscitation Status DO NOT RESUSCITATE DVT Prophylaxis unfractionated heparin SQ
--- NOTE | 2017-07-13 18:16 | History and Physical ---
History & Physical Date & Time of Service: Jul 13, 2017 at 18:15 Chief Complaint: New Onset Chf Primary Care Physician: Jae Hills M.D. History of Present Illness Source: patient Mr. Dye is a 77 year old male, with pancreatic cancer currently undergoing chemotherapy (gemcitabine/Abraxane) treatment for 2-3 months who presents as a direct admission from oncology with hypoxia and increasing shortness of breath. Plan was third cycle of chemotherapy today but he was noted to be hypoxic in oncology clinic. He notes slowly increasing shortness of breath, dry cough and leg edema for the past 3 days. There was no sudden event when this started and he denies any chest pain, nausea, syncope or presyncope. He also notes claudication and is under Dr Gallagher for this. It has been getting worse while on chemotherapy no no sudden worsening in the past 3 days. Past Medical/Surgical History Medical Problems: (1) Emphysema, unspecified (2) Hypertension (3) Metastatic pancreatic cancer (4) Type 2 diabetes (5) BPH - currently off medications, secondary to previous prostatitis (6) Carotid artery disease - 60-69% stenosis of left ICA (7) Coronary artery disease - s/p NSTEMI 25 years previously (8) Dyslipidemia (9) Peripheral artery disease (10) Chronic anemia Family History Heart disease Stroke Social History Smoking Status: Former Smoker (Smoked 30 years 2ppd, quit 15 years ago) Smokeless Tobacco Use: No Alcohol Use: socially (1 mixed drink (1 shot of vodka) every/every other day) Drug Use: none Marital Status: Housing status: lives with family 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[employer]) Immunizations History of Influenza Vaccine: Yes Influenza Vaccine Date: Aug 03, 2008 History of Tetanus Vaccine?: Yes History of Pneumococcal: Unknown History of Hepatitis B Vaccine: No Multi-Drug Resistant Organisms History of MDRO: No Allergies Coded Allergies: No Known Allergies (Verified , 07/02/17) Home Medications Scheduled Acetaminophen (Tylenol), 2 TAB PO TID Amlodipine (Norvasc), 5 MG PO DAILY Aspirin (Aspir-81), 1 TAB PO DAILY Atenolol (Tenormin), 25 MG PO BID Atorvastatin (Lipitor), 80 MG PO DAILY Cilostazol (Cilostazol), 1 TAB PO DAILY Epoetin Mariano (Procrit), 1 DOSE INJ UD Metformin HCl (Metformin HCl), 500 MG PO BIDM Nitroglycerin (Nitrostat), 0.4 MG SL DIRECTED Prochlorperazine (Prochlorperazine), 25 MG RE PRN UD Tramadol Hcl (Tramadol Hcl Er), 200 MG PO DAILY Triamterene/Hctz (Dyazide 37.5MG/25MG), 1 TAB PO Q2D Miscellaneous Medications Clopidogrel Bisulfate (Plavix), 1 TAB PO Isosorbide Mononitrate Ext Rel (Imdur Ext Rel), 1 TAB PO Review of Systems Constitutional: No fever, No chills Respiratory: + cough, + shortness of breath, + dyspnea on exertion, + dyspnea at rest, No sputum, No wheezing Cardiovascular: + orthopnea, + PND, + edema, + claudication, No chest pain, No palpitations Abdomen: + constipation, No pain, No nausea, No vomiting, No diarrhea, No GI bleeding Musculoskeletal: No joint pain, No muscle pain Genitourinary - Male: No hematuria, No dysuria, No urinary frequency, No urinary urgency Endocrine: + fatigue Hematologic / Lymphatic: No abnormal bleeding/bruising Integumentary: No rash, No itch Physical Exam Vital Signs Date Time Temp Pulse Resp B/P (MAP) Pulse Ox O2 Delivery O2 Flow Rate FiO2 07/13/17 16:00 36.9 70 20 135/68 91 Nasal Cannula 4.0 07/13/17 15:58 36.9 70 20 135/68 (90) 91 Nasal Cannula 4.0 General Appearance: WD/WN, no apparent distress Head: normocephalic, atraumatic Eyes: EOMI, + pertinent finding (constricted left pupil) Neck: supple, no JVD, trachea midline Respiratory/Chest: no respiratory distress, no accessory muscle use, + crackles (fine crackles up to mid zone) Cardiovascular: regular rate, rhythm (quiet HS), no murmur Abdomen/GI: normal bowel sounds, non tender, soft Extremities/Musculoskelatal: no calf tenderness, normal capillary refill, + pedal edema (3+ up to knees, equal b/l) Neurologic/Psych: alert, oriented x 3, + abnormal produce runner II-XII (no facial droop, no diplopia, EOMI, pupils unequal as above but b/l reactive to light), + motor weakness (right sided foot drop, non acute), + sensory deficit (peripheral neuropathy up to knees b/l) Skin: normal color, warm/dry, no rash Diagnostics Laboratory Results Results Past 24 Hours Test 07/13/17 16:32 07/13/17 16:42 Range/Units White Blood Count 5.44 4.8-10.8 K/uL Red Blood Count 2.85 4.7-6.1 M/uL Hemoglobin 8.3 14.0-18.0 g/dL Hematocrit 26.7 42-52 % Mean Corpuscular Volume 93.7 80-100 fL Mean Corpuscular Hemoglobin 29.1 25-34 pg Mean Corpuscular Hemoglobin Concent 31.1 32-36 g/dl Platelet Count 159 130-400 K/uL Mean Platelet Volume 10.2 7.4-10.4 fL Neutrophils (%) (Auto) 71.8 % Lymphocytes (%) (Auto) 15.3 % Monocytes (%) (Auto) 11.9 % Eosinophils (%) (Auto) 0.2 % Basophils (%) (Auto) 0.2 % Neutrophils # (Auto) 3.91 1.4-6.5 K/uL Lymphocytes # (Auto) 0.83 1.2-3.4 K/uL Monocytes # (Auto) 0.65 0.11-0.59 K/uL Eosinophils # (Auto) 0.01 0-0.5 K/uL Basophils # (Auto) 0.01 0-0.2 K/uL RDW Standard Deviation 75.2 36.4-46.3 fL RDW Coefficient of Variation 22.9 11.5-14.5 % Immature Granulocyte % (Auto) 0.6 % Immature Granulocyte # (Auto) 0.03 0.00-0.02 K/uL Nucleated RBC Absolute Count (auto) 0.02 0-0 K/uL Nucleated Red Blood Cells % 0.4 % Giant Platelets 1+ Polychromasia 1+ Tear Drop Cells 1+ Ovalocytes 1+ Echinocytes 1+ Sodium Level 134 136-145 mmol/L Potassium Level 4.1 3.5-5.1 mmol/L Chloride Level 99 98-107 mmol/L Carbon Dioxide Level 29 21-32 mmol/L Anion Gap 6.0 3-11 mmol/L Blood Urea Nitrogen 15 7-18 mg/dl Creatinine 0.58 0.60-1.40 mg/dl Est Creatinine Clear Calc Drug Dose 117.2 ml/min Estimated GFR () 113.2 Estimated GFR (Non- 97.7 BUN/Creatinine Ratio 26.4 10-20 Random Glucose 95 70-99 mg/dl Calcium Level 7.9 8.5-10.1 mg/dl Magnesium Level 2.2 1.8-2.4 mg/dl Total Bilirubin 0.4 0.2-1 mg/dl Aspartate Amino Transf (AST/SGOT) 9 15-37 U/L Alanine Aminotransferase (ALT/SGPT) 14 12-78 U/L Alkaline Phosphatase 58 45-117 U/L Troponin I 0.040 0-0.045 ng/ml Total Protein 5.7 6.4-8.2 gm/dl Albumin 2.0 3.4-5.0 gm/dl Globulin 3.7 2.5-4.0 gm/dl Albumin/Globulin Ratio 0.5 0.9-2 Diagnostic Radiology CHEST ONE VIEW PORTABLE HISTORY: increasing shortness of breath COMPARISON: Chest CTA 07/13/2017. Chest 12/15/2012. FINDINGS: No pneumothorax. Patchy right lung airspace opacities and a small right pleural effusion persist. There or a few small patchy airspace opacities within the left lung base. The heart is stable in size. IMPRESSION: No change in the bilateral airspace opacities, right greater than left, and a small right pleural effusion. Electronically signed by: Mio Brand M.D. 07/13/2017 4:47 PM Dictated Date/Time: 07/13/2017 4:45 PM (CHEST FOR PE) ANGIO WITH CLINICAL HISTORY: 77 years-old Male presenting with R/O PE PER MANUELA NIXON AT DR. SALINAS'S OFFICE (). TECHNIQUE: Multidetector CT angiography of the chest was performed after administration of intravenous contrast. 3-D volumetric and maximum intensity projection (MIP) images were subsequently reconstructed for review. IV contrast: 117 mL of Optiray 320. A dose lowering technique was used consistent with the principles of ALARA (as low as reasonably achievable). COMPARISON: 06/10/2017. CT DOSE (mGy.cm): The estimated cumulative dose is 456.04 mGy.cm. 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 Pulmonary vasculature: The study is adequate for assessment of the pulmonary vascular tree. No filling defect within the pulmonary arteries to suggest embolus. Main pulmonary artery not enlarged. No flattening of the interventricular septum. No intracardiac filling defect. Remaining chest: On soft tissue windows, normal thyroid and thoracic inlet. Subcentimeter prominent mediastinal lymph nodes in the precarinal region measuring up to 8 mm in short axis, possibly reactive. Calcified and noncalcified atherosclerotic plaque along the aortic arch prominently involving the proximal descending aorta and origin of the left subclavian artery. Mild multichamber enlargement of the heart. Coronary artery calcification. Aortic valve calcification. Interval development of a moderate right pleural effusion and trace left pleural effusion. Upper abdomen normal. On lung windows, interval development of diffuse nodular and groundglass predominantly peribronchovascular consolidation in the right lung and to a lesser extent in the left lower lobe. Underlying emphysema is evident. Fluid noted within the major fissure. Airways patent. On bone windows, degenerative changes of the thoracic spine. IMPRESSION: 1. Diffuse nodular groundglass peribronchial vascular consolidation primarily involving the right lung and to a lesser extent the left lower lobe. This is most concerning for multifocal pneumonia. Moderate right and trace left parapneumonic effusions. 2. Underlying emphysema. 3. No evidence of pulmonary embolus. Electronically signed by: Jae Escobar M.D. 07/13/2017 1:15 PM Dictated Date/Time: 07/13/2017 1:07 PM EKG Sinus rhythm with Premature ventricular complexes ST & T wave abnormality, consider lateral ischemia When compared with ECG of 15-DEC-2016 18:04, T wave inversion now evident in Anterolateral leads Impression Assessment and Plan 77 year old with metastatic pancreatic ca. admission for hypoxia Abnormal EKG - no current chest pain, slow progressively worse shortness of breath goes against acute NSTEMI - TWI new in lateral leads from November, initial troponin negative - already on ASA, plavix, statin and BB - current symptoms present for the past 3 days therefore will hold on heparin drip - nitro s/l for chest pain and repeat EKG - consult cardiology + echo - NPO except meds after midnight for possible need for cardiac cath Hypoxic respiratory failure - secondary to pulmonary edema below - O2 sats maintain above 92%, emphysema also noted on CT chest - no PE on CT chest done prior to admission Pulmonary and peripheral edema with orthopnea and PND - heart/liver/renal failure vs. chemotherapy induced (gemcitabine side effect of edema, abraxane side effect of exacerbating myocardial dysfunction) vs. hypoalbuminemia from pancreatic ca. - LFTs and BMP pending (Cr previously normal) - echocardiogram and consult cardiology given he is under Dr Greco for his coronary artery diseas. - Rx with lasix 40 mg IV now, reassess in morning - I&Os, daily weight Coronary/carotid artery disease - s/p NSTEMI 25 years ago - ASA, Plavix - BB, not on ACEi - continue statin Peripheral artery disease - worsening claudication - appears to be subacute issue. Outpatient follow up as required - follows with Dr Gallagher - continue cilostazol, ASA, Plavix, atorvastatin Right sided foot drop and unequal pupils - peripheral neuropathy vs. central process. Normal tone. - CT head to rule out hemorrhagic stroke. He thinks these symptoms have been present for longer than when he underwent a CT head back in [facility] for a fall although on the ER exam at that time no focal neurological deficit was noted. T2DM - diet T2DM, heart healthy, low sodium - hold metformin - insulin sliding scale Hypertension - hold amlodipine, triamterene/HCZT as possibly will start ACEi/entresto in morning pending echo and cardiology consult - continue atenolol VTE prophylaxis - heparin [address] head Code - DNR as per the patient wishes. Disposition - admit to telemetry. If responds well to Lasix consider step down tomorrow. Level of Care Telemetry Advanced Directives Existing Living Will: Yes Existing Power of Aircraft Charter Dispatcher: Yes Resuscitation Status DO NOT RESUSCITATE VTE Prophylaxis VTE Risk Assessment Done? Y/N: Yes Risk Level: Moderate Given or contraindicated: Unfractionated heparin SQ Note Resident Physician Supervision Note: I interviewed and examined the patient on the date of admission, 07/13/17, shortly after the patient was seen by Dr. Hernandez and the medical student I discussed the history, physical exam findings, and treatment plan with Dr. Hernandez and agree with findings and plan as documented in the note. Documented By: Gurdeep Adamson Additional Copies To Jae Hills M.D. Resident Tracking Resident Involvement: Resident Care Provided Care Provided: Adult [facility]
[2017-07-13 19:52] VITALS: BP 131/56; PULSE 85; TEMP 36.4; O2SAT 94
[2017-07-13 20:05] VITALS: O2SAT 94
[2017-07-13 20:09] VITALS: O2SAT 94
[2017-07-13] MEDS: HEPARIN SOD 5000 UNIT/0.5 ML CARP SQ SCH (20:35)
[2017-07-13] MEDS: ZOLPIDEM TARTRATE 5 MG TAB PO PRN (21:27)
[2017-07-13] MEDS ORDERED: GLUCOSE 10 TABS/TUBE PO PRN (21:30)
[2017-07-13] MEDS ORDERED: GLUCOSE 40% GEL 15 GM TUBE PO PRN (21:30)
[2017-07-13] MEDS ORDERED: GLUCAGON FOR INJ 1 MG VIAL SQ PRN (21:30)
[2017-07-13] MEDS ORDERED: DEXTROSE 50% 50 ML SYR IV PRN (21:30)
--- NOTE | 2017-07-13 22:34 | DIAGNOSTIC IMAGING REPORT ---
CT HEAD WITHOUT CONTRAST (CT) CLINICAL HISTORY: ] Constricted pupil. Right-sided foot drop. Possible stroke. COMPARISON STUDY: 06/22/2017 TECHNIQUE: Axial CT of the brain is performed from the vertex to the skull base. IV contrast was not administered for this examination. A dose lowering technique was utilized adhering to the principles of ALARA. CT DOSE: 614.27 mGy.cm FINDINGS: No intra or extra-axial mass lesions are visualized. There is no CT evidence of acute cortical infarction. There is no evidence of midline shift. There is no acute hemorrhage. No calvarial fractures are visualized. There are minor white matter hypodensities likely on a small vessel basis. There is no evidence of pathologic ventricular dilatation. There is no evidence of acute sinusitis IMPRESSION: No acute intracranial findings Electronically signed by: Cristobal Angeles M.D. 07/13/2017 10:33 PM Dictated Date/Time: 07/13/2017 10:31 PM
[2017-07-14] VITALS (9 sets, daily range): BP systolic 108–128; BP diastolic 47–72; PULSE 73–88; TEMP 36.7–37.3; O2SAT 90–94
[2017-07-14 01:39] LABS: URINE APPEARANCE CLEAR (CLEAR); URINE BILIRUBIN NEG (NEG); URINE COLOR YELLOW; URINE EPITHELIAL CELL AUTO 0-5 /lpf (0-5); URINE NITRITE NEG (NEG); URINE SPECIFIC GRAVITY 1.024 (1.000-1.030); UROBILINOGEN NEG (NEG)
[2017-07-14 01:47] LABS: REVIEW REQ? NO
[2017-07-14 01:48] LABS: MANUAL MICROSCOPIC REQUIRED? NO
[2017-07-14] MEDS: INSULIN ASPART 100 UNITS/ML 3 ML PEN SC SCH ×5 (06:00→21:06)
[2017-07-14 06:34] LABS: BASO % 0.1 %; BASO ABS # 0.01 K/uL (0-0.2); EOS % 0.7 %; HEMATOCRIT 27.2 % (42-52); IG% 0.4 %; LYMPH % 8.4 %; MEAN CELL VOLUME 94.4 fL (80-100); MEAN CORPUSCULAR HEMOGLOBIN 28.8 pg (25-34); MEAN CORPUSCULAR HGB CONC 30.5 g/dl (32-36); MEAN PLATELET VOLUME 10.4 fL (7.4-10.4); MONO % 13.6 %; NEUT % 76.8 %; PLATELET COUNT 171 K/uL (130-400); RED BLOOD COUNT 2.88 M/uL (4.7-6.1); WHITE BLOOD COUNT 7.11 K/uL (4.8-10.8)
[2017-07-14 06:56] LABS: ESTIMATED AVERAGE GLUCOSE 126 mg/dl; HA1C FLAG Normal (Normal)
[2017-07-14 07:18] LABS: BUN/CREATININE RATIO 20.3 (10-20); CALCIUM 7.9 mg/dl (8.5-10.1); CREATININE 0.71 mg/dl (0.60-1.40); POTASSIUM 3.5 mmol/L (3.5-5.1)
[2017-07-14 07:56] LABS: ANISOCYTOSIS PRESENT; COMPLETE YES; HYPERSEGMENTED POLYS 1+; POIKILOCYTOSIS PRESENT; POLYCHROMASIA 1+
--- NOTE | 2017-07-14 08:56 | Oncology Consultation ---
Oncology/Heme Consultation Date of Consultation: Jul 14, 2017. Attending Physician: Gurdeep Adamson D.O. Reason for Consultation: Metastatic pancreatic cancer Shortness of breath History of Present Illness Mr. Dye is a 77 year old man with metastatic pancreatic cancer. He has been receiving palliative chemotherapy with Gemcitabine and Abraxane. He presented for the final dose of his fourth cycle yesterday but was found to be increasingly short of breath. That shortness of breath was associated with a dry cough and pedal edema, but no fevers or purulent sputum. A CTA revealed diffuse nodular groundglass peribronchial vascular consolidation primarily involving the right lung and to a lesser extent the left lower lobe, most concerning for multifocal pneumonia. Also noted were bilateral effusions. An EKG also revealed lateral T-wave inversions that are new, though serial troponins so far have been normal. He was given IV Lasix yesterday and has so far put out nearly 3L of urine. Today, his breathing is more comfortable and he feels better. Past Medical/Surgical History Medical Problems: (1) Diarrhea Status: Acute (2) Encounter for removal of joelle Status: Acute (3) Finger pain, left Status: Acute (4) Pancreatic mass Status: Acute (5) Small bowel obstruction Status: Acute (6) Urinary tract infection Status: Acute (7) Vomiting Status: Acute Family History Heart disease Stroke Social History Smoking Status: Former Smoker (Smoked 30 years 2ppd, quit 15 years ago) Smokeless Tobacco Use: No Alcohol Use: socially (1 mixed drink (1 shot of vodka) every/every other day) Drug Use: none Marital Status: Housing Status: lives with significant other 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[employer]) Allergies Coded Allergies: No Known Allergies (Verified , 07/02/17) Home Medications Scheduled Acetaminophen (Tylenol), 2 TAB PO TID Amlodipine (Norvasc), 5 MG PO DAILY Aspirin (Aspir-81), 1 TAB PO DAILY Atenolol (Tenormin), 25 MG PO BID Atorvastatin (Lipitor), 80 MG PO DAILY Cilostazol (Cilostazol), 1 TAB PO DAILY Epoetin Mariano (Procrit), 1 DOSE INJ UD Metformin HCl (Metformin HCl), 500 MG PO BIDM Nitroglycerin (Nitrostat), 0.4 MG SL DIRECTED Prochlorperazine (Prochlorperazine), 25 MG RE PRN UD Tramadol Hcl (Tramadol Hcl Er), 200 MG PO DAILY Triamterene/Hctz (Dyazide 37.5MG/25MG), 1 TAB PO Q2D Miscellaneous Medications Clopidogrel Bisulfate (Plavix), 1 TAB PO Isosorbide Mononitrate Ext Rel (Imdur Ext Rel), 1 TAB PO Current Inpatient Medications Current Inpatient Medications Medications (Trade) Dose Ordered Sig/Magdi Route Start Time Stop Time Status Last Admin Dose Admin Heparin Sodium (Porcine) (Heparin Sq 5000 Unit/0.5ml) 5,000 unit Q8 SQ 07/13/17 22:00 08/12/17 21:59 Future Hold 07/13/17 20:35 5,000 UNIT Acetaminophen (Tylenol Tab) 650 mg Q4H PRN PO 07/13/17 16:30 08/12/17 16:29 Ondansetron HCl (Zofran Inj) 4 mg Q6H PRN IV 07/13/17 16:30 08/12/17 16:29 Nitroglycerin (Nitrostat Tab) 0.4 mg UD PRN SL 07/13/17 16:30 08/12/17 16:29 Aspirin (Ecotrin Tab) 81 mg DAILY PO 07/14/17 09:00 08/13/17 08:59 Atenolol (Tenormin Tab) 25 mg BID PO 07/13/17 21:00 08/12/17 20:59 07/13/17 20:29 25 MG Atorvastatin Calcium (Lipitor Tab) 80 mg DAILY PO 07/14/17 09:00 08/13/17 08:59 Cilostazol (Pletal Tab) 100 mg DAILY PO 07/14/17 09:00 08/13/17 08:59 Clopidogrel Bisulfate (plAVix TAB) 75 mg DAILY PO 07/14/17 09:00 08/13/17 08:59 Isosorbide Mononitrate (Imdur Ext Rel Tab) 30 mg DAILY PO 07/14/17 09:00 08/13/17 08:59 Zolpidem Tartrate (Ambien Tab) 5 mg HS PRN PO 07/13/17 21:15 08/12/17 21:14 07/13/17 21:27 5 MG Insulin Aspart (novoLOG ASPART) SLIDING SCALE If C... Q6 SC 07/14/17 00:00 08/13/17 00:00 Glucose (Glucose 40% Gel) 15-30 GRAMS 15 GRAMS... UD PRN PO 07/13/17 21:30 08/12/17 21:29 Glucose (Glucose Chew Tab) 4-8 Tablets 4 Tabl... UD PRN PO 07/13/17 21:30 08/12/17 21:29 Dextrose (Dextrose 50% 50ML Syringe) 25-50ML OF 50% DW IV FOR... UD PRN IV 07/13/17 21:30 08/12/17 21:29 Glucagon (Glucagon Inj) 1 mg UD PRN SQ 07/13/17 21:30 08/12/17 21:29 Review of Systems Constitutional: + fatigue, No fever, No chills ENT: No nasal symptoms, No sore throat Respiratory: + cough (non-productive), + shortness of breath (improved), No hemoptysis Cardiovascular: + edema, No chest pain Abdomen: No pain, No nausea Genitourinary - Male: No hematuria, No dysuria Neurologic: + numbness/tingling (ongoing peripheral neuropathy) Hematologic / Lymphatic: No abnormal bleeding/bruising Integumentary: No rash Physical Exam Date Time Temp Pulse Resp B/P (MAP) Pulse Ox O2 Delivery O2 Flow Rate FiO2 07/14/17 07:40 37.3 75 20 128/72 (90) 94 Nasal Cannula 2.0 07/14/17 04:00 36.8 73 20 125/68 (87) 92 2.0 07/14/17 04:00 Nasal Cannula 2.5 07/14/17 00:18 36.7 73 20 124/70 (88) 91 2.0 07/14/17 00:00 Nasal Cannula 2.5 07/13/17 20:09 94 Nasal Cannula 2.5 07/13/17 20:05 94 Nasal Cannula 2.5 07/13/17 19:52 36.4 85 20 131/56 (81) 94 Nasal Cannula 2.5 07/13/17 16:00 36.9 70 20 135/68 91 Nasal Cannula 4.0 07/13/17 15:58 36.9 70 20 135/68 (90) 91 Nasal Cannula 4.0 General Appearance: no apparent distress, + pertinent finding (chronically ill- appearing) Eyes: EOMI, sclerae normal ENT: pharynx normal Respiratory/Chest: + rales (bilaterally in lower gaming) Cardiovascular: regular rate, rhythm Abdomen/GI: non tender, soft Extremities/Musculoskelatal: no pedal edema Neurologic/Psych: alert, oriented x 3 Skin: warm/dry, no rash Laboratory Results Last 24 Hours Test 07/13/17 16:42 07/13/17 19:00 07/14/17 00:07 07/14/17 06:23 White Blood Count 5.44 K/uL 7.11 K/uL Red Blood Count 2.85 M/uL 2.88 M/uL Hemoglobin 8.3 g/dL 8.3 g/dL Hematocrit 26.7 % 27.2 % Mean Corpuscular Volume 93.7 fL 94.4 fL Mean Corpuscular Hemoglobin 29.1 pg 28.8 pg Mean Corpuscular Hemoglobin Concent 31.1 g/dl 30.5 g/dl Platelet Count 159 K/uL 171 K/uL Mean Platelet Volume 10.2 fL 10.4 fL Neutrophils (%) (Auto) 71.8 % 76.8 % Lymphocytes (%) (Auto) 15.3 % 8.4 % Monocytes (%) (Auto) 11.9 % 13.6 % Eosinophils (%) (Auto) 0.2 % 0.7 % Basophils (%) (Auto) 0.2 % 0.1 % Neutrophils # (Auto) 3.91 K/uL 5.45 K/uL Lymphocytes # (Auto) 0.83 K/uL 0.60 K/uL Monocytes # (Auto) 0.65 K/uL 0.97 K/uL Eosinophils # (Auto) 0.01 K/uL 0.05 K/uL Basophils # (Auto) 0.01 K/uL 0.01 K/uL RDW Standard Deviation 75.2 fL 76.8 fL RDW Coefficient of Variation 22.9 % 23.2 % Immature Granulocyte % (Auto) 0.6 % 0.4 % Immature Granulocyte # (Auto) 0.03 K/uL 0.03 K/uL Nucleated RBC Absolute Count (auto) 0.02 K/uL Nucleated Red Blood Cells % 0.4 % Giant Platelets 1+ Polychromasia 1+ 1+ Tear Drop Cells 1+ Ovalocytes 1+ Echinocytes 1+ Sodium Level 134 mmol/L 139 mmol/L Potassium Level 4.1 mmol/L 3.5 mmol/L Chloride Level 99 mmol/L 101 mmol/L Carbon Dioxide Level 29 mmol/L 32 mmol/L Anion Gap 6.0 mmol/L 6.0 mmol/L Blood Urea Nitrogen 15 mg/dl 14 mg/dl Creatinine 0.58 mg/dl 0.71 mg/dl Est Creatinine Clear Calc Drug Dose 117.2 ml/min 88.5 ml/min Estimated GFR () 113.2 104.2 Estimated GFR (Non- 97.7 89.9 BUN/Creatinine Ratio 26.4 20.3 Random Glucose 95 mg/dl 91 mg/dl Calcium Level 7.9 mg/dl 7.9 mg/dl Magnesium Level 2.2 mg/dl Total Bilirubin 0.4 mg/dl Aspartate Amino Transf (AST/SGOT) 9 U/L Alanine Aminotransferase (ALT/SGPT) 14 U/L Alkaline Phosphatase 58 U/L Troponin I 0.040 ng/ml 0.032 ng/ml Total Protein 5.7 gm/dl Albumin 2.0 gm/dl Globulin 3.7 gm/dl Albumin/Globulin Ratio 0.5 Urine Color YELLOW Urine Appearance CLEAR Urine pH 7.0 Urine Specific [place] 1.024 Urine Protein NEG Urine Glucose (UA) NEG Urine Ketones NEG Urine Occult Blood NEG Urine Nitrite NEG Urine Bilirubin NEG Urine Urobilinogen NEG Urine Leukocyte Esterase NEG Urine WBC (Auto) 0 /hpf Urine RBC (Auto) 0-4 /hpf Urine Hyaline Casts (Auto) 0 /lpf Urine Epithelial Cells (Auto) 0-5 /lpf Urine Bacteria (Auto) NEG Bedside Glucose 96 mg/dl Hypersegmented Polys 1+ Poikilocytosis PRESENT Anisocytosis PRESENT Estimated Average Glucose 126 mg/dl Hemoglobin A1c 6.0 % Assessment & Plan Mr. Dye presented yesterday with acute-onset shortness of breath and edema. His CT revealed findings consistent with pulmonary edema versus inflammation versus infectious consolidation. Given his response to diuresis, I suspect his symptoms were related to volume overload. Gemcitabine can cause edema uncommonly , but he also has a cardiac history and I agree that a cardiology consultation is marc, particularly with his new EKG changes. Gemcitabine can also rarely (1-2 % of cases) cause an inflammatory pneumonitis, particularly when administered along with Taxanes (like Abraxane). If he does not continue to improve, we could consider a course of empiric high-dose steroids. We will put his treatment on hold for now until his acute issues are resolved.
[2017-07-14] MEDS ORDERED: AMLODIPINE BESYLATE 5 MG TAB PO SCH (09:00)
[2017-07-14] MEDS: CILOSTAZOL 100 MG TAB PO SCH (09:03)
[2017-07-14] MEDS: ATORVASTATIN 40 MG TAB PO SCH (09:04)
[2017-07-14] MEDS: CLOPIDOGREL BISULFATE 75 MG TAB PO SCH (09:04)
[2017-07-14] MEDS: ASPIRIN 81 MG ECTAB PO SCH (09:05)
[2017-07-14] MEDS: ISOSORBIDE MONONITRATE 30 MG TABCR PO SCH (09:05)
--- NOTE | 2017-07-14 09:51 | Clinical Documentation Query ---
CLINICAL DOCUMENTATION QUERY 77 year old male, with pancreatic cancer currently undergoing chemotherapy (gemcitabine/Abraxane) treatment for 2-3 months who presents as a direct admission from oncology with hypoxia and increasing shortness of breath. Query #1/2 In your clinical opinion is this patient being managed for: ( ) Acute diastolic (preserved EF) CHF (X) Acute systolic (reduced EF) CHF ( ) Other explanation of clinical findings (Please Explain) ( ) Unable to determine (Please Define) ( ) Need to Discuss ( ) Not Agree Awaiting echocardiogram. Clinically suspect fluid overload secondary to malignancy and side effects of chemotherapy. The medical record reflects the following clinical findings, treatment, and risk factors. Clinical Indicators: As above. PE reveals fine crackles detention up lung gaming. CXR shows patchy right lung airspace opacities and a small right pleural effusion persist. There or a few small patchy airspace opacities within the left lung base. Echo from 05/23/04 showed normal biventricular systolic function, EF 60-65%, mild RV dilatation and Mild mitral annular calcifications. 2.8L of urine output since admission and administration of diuretic. Oncology stating, "Given his response to diuresis, I suspect his symptoms were related to volume overload. " Treatment: IV Lasix, daily weights, O/I's, Echo, Cardiology consult, Risk Factors: Age, Chemotherapy, CAD, HTN, Query #2/2 The medical record states this patient as presenting hypoxic respiratory failure. Respiratory failure is being targeted by RAC audit for denial purposes. The RAC are stating lack of clinical evidence and or treatment as the reason for the denial. This patient required 4L of O2 via NC to maintain sats. The patient has no documentation of tachycardia, tachypnea, respiratory distress, or inability of to speak full sentences. Please provide more clinical evidence of respiratory failure or capture of this diagnosis may be lost or denied. In your clinical opinion is this patient being managed for: Volume overload without hypoxic respiratory failure ( ) Hypoxic respiratory failure evidenced by (please provide) (X) Hypoxia ( ) Ruled out Please clarify and document your clinical opinion in the progress notes and discharge summary. Terms such as "probable", "suspected", "likely", "questionable", "possible", or "still to be ruled out" are acceptable. IF IN AGREEMENT, YOU MUST DOCUMENT ABOVE DIAGNOSTIC STATEMENT IN DAILY PROGRESS NOTES AND DISCHARGE SUMMARY. This document is not part of the patient's record. Thank You, Alonso Stephenson, MANUELA [phone]
--- NOTE | 2017-07-14 10:27 | Medical Student: [facility] ---
Med Student Progress Note Date of Service Jul 14, 2017. Subjective Pt evaluation today including: conversation w/ patient, physical exam Pain: patient denies PO Intake: was NPO since midnight for echo, continue normal diet after echo Voiding: no voiding problems Jasson Dye is a 77 yo male, currently treated for pancreatic cancer, who was directly admitted yesterday for shortness of breath, cough, and bilateral lower extremity edema. He states he is feeling well now and has no complaints. He specifically denies any pain, chest pain, shortness of breath, and cough. He denies any balance problems, feeling lightheaded, and vertigo when sitting up in bed with feet dangling, but notes he has not ambulated for the last day. Patient was NPO since midnight for his troponin, and wants to know when he can have breakfast. Review of Systems Constitutional: No fever, No chills, No sweats, No fatigue Eyes: No worsening of vision, No eye pain, No redness ENT: No hearing loss, No nasal symptoms, No sore throat Respiratory: No cough, No wheezing, No shortness of breath (but has not ambulated) Cardiac: + edema (bilateral legs), No chest pain, No claudication Abdomen: No pain, No nausea, No vomiting, No diarrhea, No constipation Musculoskeletal: No joint pain, No muscle pain Male : + urinary frequency (increased from Lasix treatment), No dysuria, No incontinence Neurologic: No memory loss, No numbness/tingling (at baseline), No vertigo, No balance problems Heme: No swollen lymph nodes, No night sweats Endo: No fatigue, No excessive thirst Skin: No rash, No itch, No new/changing skin lesions Objective Vital Signs Date Time Temp Pulse Resp B/P (MAP) Pulse Ox O2 Delivery O2 Flow Rate FiO2 07/14/17 07:40 37.3 75 20 128/72 (90) 94 Nasal Cannula 2.0 07/14/17 04:00 36.8 73 20 125/68 (87) 92 2.0 07/14/17 04:00 Nasal Cannula 2.5 07/14/17 00:18 36.7 73 20 124/70 (88) 91 2.0 07/14/17 00:00 Nasal Cannula 2.5 07/13/17 20:09 94 Nasal Cannula 2.5 07/13/17 20:05 94 Nasal Cannula 2.5 07/13/17 19:52 36.4 85 20 131/56 (81) 94 Nasal Cannula 2.5 07/13/17 16:00 36.9 70 20 135/68 91 Nasal Cannula 4.0 07/13/17 15:58 36.9 70 20 135/68 (90) 91 Nasal Cannula 4.0 Physical Exam General Appearance: WD/WN, no apparent distress Eyes: bilateral eyes normal inspection, bilateral eyes PERRL ENT: normal ENT inspection, hearing grossly normal, pharynx normal, + pertinent finding (dry lips) Neck: supple, no adenopathy Respiratory/Chest: chest non-tender, normal breath sounds, no respiratory distress, no accessory muscle use, + crackles (improved since yesterday, few crackles only at bases noted) Cardiovascular: regular rate, rhythm, no murmur, + pertinent finding ( bilateral lower leg edema) Abdomen: normal bowel sounds, non tender, soft Extremities: normal range of motion, non-tender, normal inspection, no calf tenderness (caudication at baseline), + pedal edema (2+ pitting edema, improving since yesterday, noted only 3/4 way up shins from up to knees yesterday) Neurologic/Psychiatric: alert, normal mood/affect, oriented x 3, + pertinent finding (right foot drop and peripheral neuropathy (secondary to chemotherapy) at baseline) Skin: normal color, warm/dry, no rash Lymphatic: no adenopathy Laboratory Results Last 24 Hours Test 07/13/17 16:42 07/13/17 19:00 07/14/17 00:07 07/14/17 06:23 White Blood Count 5.44 K/uL 7.11 K/uL Red Blood Count 2.85 M/uL 2.88 M/uL Hemoglobin 8.3 g/dL 8.3 g/dL Hematocrit 26.7 % 27.2 % Mean Corpuscular Volume 93.7 fL 94.4 fL Mean Corpuscular Hemoglobin 29.1 pg 28.8 pg Mean Corpuscular Hemoglobin Concent 31.1 g/dl 30.5 g/dl Platelet Count 159 K/uL 171 K/uL Mean Platelet Volume 10.2 fL 10.4 fL Neutrophils (%) (Auto) 71.8 % 76.8 % Lymphocytes (%) (Auto) 15.3 % 8.4 % Monocytes (%) (Auto) 11.9 % 13.6 % Eosinophils (%) (Auto) 0.2 % 0.7 % Basophils (%) (Auto) 0.2 % 0.1 % Neutrophils # (Auto) 3.91 K/uL 5.45 K/uL Lymphocytes # (Auto) 0.83 K/uL 0.60 K/uL Monocytes # (Auto) 0.65 K/uL 0.97 K/uL Eosinophils # (Auto) 0.01 K/uL 0.05 K/uL Basophils # (Auto) 0.01 K/uL 0.01 K/uL RDW Standard Deviation 75.2 fL 76.8 fL RDW Coefficient of Variation 22.9 % 23.2 % Immature Granulocyte % (Auto) 0.6 % 0.4 % Immature Granulocyte # (Auto) 0.03 K/uL 0.03 K/uL Nucleated RBC Absolute Count (auto) 0.02 K/uL Nucleated Red Blood Cells % 0.4 % Giant Platelets 1+ Polychromasia 1+ 1+ Tear Drop Cells 1+ Ovalocytes 1+ Echinocytes 1+ Sodium Level 134 mmol/L 139 mmol/L Potassium Level 4.1 mmol/L 3.5 mmol/L Chloride Level 99 mmol/L 101 mmol/L Carbon Dioxide Level 29 mmol/L 32 mmol/L Anion Gap 6.0 mmol/L 6.0 mmol/L Blood Urea Nitrogen 15 mg/dl 14 mg/dl Creatinine 0.58 mg/dl 0.71 mg/dl Est Creatinine Clear Calc Drug Dose 117.2 ml/min 88.5 ml/min Estimated GFR () 113.2 104.2 Estimated GFR (Non- 97.7 89.9 BUN/Creatinine Ratio 26.4 20.3 Random Glucose 95 mg/dl 91 mg/dl Calcium Level 7.9 mg/dl 7.9 mg/dl Magnesium Level 2.2 mg/dl Total Bilirubin 0.4 mg/dl Aspartate Amino Transf (AST/SGOT) 9 U/L Alanine Aminotransferase (ALT/SGPT) 14 U/L Alkaline Phosphatase 58 U/L Troponin I 0.040 ng/ml 0.032 ng/ml Total Protein 5.7 gm/dl Albumin 2.0 gm/dl Globulin 3.7 gm/dl Albumin/Globulin Ratio 0.5 Urine Color YELLOW Urine Appearance CLEAR Urine pH 7.0 Urine Specific [place] 1.024 Urine Protein NEG Urine Glucose (UA) NEG Urine Ketones NEG Urine Occult Blood NEG Urine Nitrite NEG Urine Bilirubin NEG Urine Urobilinogen NEG Urine Leukocyte Esterase NEG Urine WBC (Auto) 0 /hpf Urine RBC (Auto) 0-4 /hpf Urine Hyaline Casts (Auto) 0 /lpf Urine Epithelial Cells (Auto) 0-5 /lpf Urine Bacteria (Auto) NEG Bedside Glucose 96 mg/dl Hypersegmented Polys 1+ Poikilocytosis PRESENT Anisocytosis PRESENT Estimated Average Glucose 126 mg/dl Hemoglobin A1c 6.0 % Test 07/14/17 10:15 Medications Medications Administered Medications (Trade) Dose Ordered Sig/Magdi Route Start Time Stop Time Status Last Admin Dose Admin Heparin Sodium (Porcine) (Heparin Sq 5000 Unit/0.5ml) 5,000 unit Q8 SQ 07/13/17 22:00 08/12/17 21:59 Future Hold 07/13/17 20:35 5,000 UNIT Aspirin (Ecotrin Tab) 81 mg DAILY PO 07/14/17 09:00 08/13/17 08:59 07/14/17 09:05 81 MG Atenolol (Tenormin Tab) 25 mg BID PO 07/13/17 21:00 08/12/17 20:59 07/14/17 09:04 25 MG Atorvastatin Calcium (Lipitor Tab) 80 mg DAILY PO 07/14/17 09:00 08/13/17 08:59 07/14/17 09:04 80 MG Cilostazol (Pletal Tab) 100 mg DAILY PO 07/14/17 09:00 08/13/17 08:59 07/14/17 09:03 100 MG Clopidogrel Bisulfate (plAVix TAB) 75 mg DAILY PO 07/14/17 09:00 08/13/17 08:59 07/14/17 09:04 75 MG Isosorbide Mononitrate (Imdur Ext Rel Tab) 30 mg DAILY PO 07/14/17 09:00 08/13/17 08:59 07/14/17 09:05 30 MG Furosemide 40 mg/ Syringe 4 ml @ 4 mls/min NOW ONCE IV 07/13/17 17:30 07/13/17 17:31 DC 07/13/17 17:29 4 MLS/MIN Zolpidem Tartrate (Ambien Tab) 5 mg HS PRN PO 07/13/17 21:15 08/12/17 21:14 07/13/17 21:27 5 MG Insulin Aspart (novoLOG ASPART) SLIDING SCALE If C... Q6 SC 07/14/17 00:00 08/13/17 00:00 07/14/17 13:00 4 UNITS Assessment and Plan Assessment and Plan: Jasson Dye is an 77 yo male currently treated for prostate cancer, who was directly admitted yesterday from Dr. Jalloh's office complaining of shortness of breath worsening for 3 days. Patient has associated symptoms of bilateral pitting edema to knees and dry cough. Patient was admitted to telemetry, with working diagnosis of heart failure. With Lasix treatment patient has improved, with increased breath sounds, crackles only heard at bases today instead of long-term up lung gaimng. Pedal edema has improved (3+ to 2+, was to knees and now 3/4th way to knees). Echocardiogram showed 35% EF, cardiology consult added spironolactone, metoprolol and KCl to patient's medication list. Heart failure, acute - CXR findings:No change in the bilateral airspace opacities, right greater than left, and a small right pleural effusion. - EKG findings: Sinus rhythm with occasional , and consecutive Premature ventricular complexes, ST & T wave abnormality, consider lateral ischemia, Abnormal ECG, When compared with ECG of 15-DEC-2016 18:04, Premature ventricular complexes are now Present, T wave inversion now evident in Anterolateral leads. - Consult cardiology (Patient followed by Dr. Greco). Dr. Schofield consulted and started patient on Spironolactone, Metoprolol, and KCl - Prescribe 25 mg Spironolactone (Aldactone Tab), 25 mg Metoprolol Succinate ( Toprol Xl Tab), and 40 mg Potassium Chloride (Klor-Con M10) - 07/13: Furosemide (40 mg/Syringe) for edema/fluid on lungs. 07/14: Patient tolerated furosemide well, urinary output to 2500mL since admission, continue today with 20 mg IV of furosemide. - Oxygen treatment (4.0L nasal canula) - Echocardiogram pertinent findings: "The left ventricle is normal in size. There is no thrombus. There is mild concentric left ventricular hypertrophy. Left ventricular systolic function is moderately reduced. A full diastolic examination was done with clinical findings of Class I diastolic dysfunction. Ejection Fraction = 35-40%. There is apical akinesis. There is moderate inferior wall hypokinesis. There is moderate posterior wall hypokinesis." - Monitor I&Os, pulse oximetry, and daily weights while in-patient - CBC with differential, magnesium, CMP, troponin, BNP, urine culture for underlying heart muscle/rhythm problem or infection. 07/14 results: RBC's 2.88, Hgb 8.3, Hct 27.2, elevated monocytes at 0.97, decreased lymphocytes 0.60, troponin 0.032, BNP 5311, urine negative) - Discontinue home medications of Tenormin (Atenolol) 25 Mg Tab 25 Mg PO BID - Continue home medications of Lipitor (Atorvastatin Calcium) 80 Mg Tab 80 Mg PO DAILY - EKG PRN if chest pain symptom occurs Pancreatic cancer - Consult Dr. Jalloh, verify chemotherapy medication regime - Continue home medications (Prochlorperazine 25 Mg Sup 25 Mg RE PRN UD, Tramadol Hcl Er (Tramadol Hcl) 200 Mg Tab 200 Mg PO DAILY, Procrit (Epoetin Mariano ) 40,000 Units Inj 1 Dose INJ UD) CAD, chronic - Discontinue home medication of Norvasc (Amlodipine Besylate) 5 Mg Tab 5 Mg PO DAILY, Tenormin (Atenolol) 25 Mg Tab 25 Mg PO BID - Continue home medications (Metformin HCl 500 Mg Tab 500 Mg PO BID, Lipitor ( Atorvastatin Calcium) 80 Mg Tab 80 Mg PO DAILY, Aspir-81 (Aspirin) 81 Mg Tab 1 Tab PO DAILY, Nitrostat (Nitroglycerin) 0.4 Mg/1 Tab Subl 0.4 Mg SL DIRECTED , Plavix (Clopidogrel Bisulfate) 75 Mg Tab 1 Tab PO 90 Days TAKES EVERY OTHER DAY, Imdur Ext Rel (Isosorbide Mononitrate) 30 Mg Tabcr 1 Tab PO every other day ) - Monitor hemoglobin A1c (6.0) and dietary consult Peripheral artery disease, chronic - Continue home medications (Cilostazol 100 Mg Tab 1 Tab PO DAILY) HTN, chronic - Monitor BPs while in-patient (136/68) - Discontinue home medication (Dyazide 37.5MG/25MG (Triamterene/HCTZ) Cap 1 Tab PO Q2D) DVT prophylaxis - Heparin (5000 units SQ Q8 hours), Brayan hose, and SCDs
--- NOTE | 2017-07-14 10:57 | ECHOCARDIOGRAM REPORT ---
*NOTICE TO RECEIVING LIBERTARIAN AGENCY This information is strictly Confidential and protected under [place] law. [place] law prohibits you from making any further disclosure of this information unless further disclosure is expressly permitted by the written consent of the person to whom it pertains or is authorized by law. A general authorization for the release of medical or other information is not sufficient for this purpose. Hospital accepts no responsibility if the information is made available to any other person, INCLUDING THE PATIENT. Interpretation Summary * Name: USMAN HERNANDEZ Study Date: 07/14/2017 06:48 AM BP: 125/68 mmHg * Patient Location: .[facility]\S\N282\S\2 HR: 77 * : 1940 (M/d/yyyy) Gender: Male Height: 70 in * Age: 77 yrs Ethnicity: CA Weight: 193 lb * Ordering Physician: Tobias Hernandez * Referring Physician: Fantasma Jalloh D.O. * Performed By: Annette Stallworth RDCS * * Reason For Study: CHF * BSA: 2.1 m2 * Moderate left ventricular systolic dysfunction. * Anteroseptal and apical akinesis. * Inferior,posterior,lateral hypokinesis. * Mild concentric left ventricular hypertrophy. * Left ventricular diastolic dysfunction. * Mild left atrial dilatation. * Mild mitral regurgitation. * Trace pulmonic and tricuspid regurgitation. * Normal estimated right ventricular systolic pressure. * Normal estimated central venous pressure. * Possible patent foramen ovale. * -- Conclusions -- * Aortic valve sclerosis mild, without significant aortic valvular stenosis. Procedure Details * A complete two-dimensional transthoracic echocardiogram was performed (2D, M-mode, Doppler and color flow Doppler). Left Ventricle * The left ventricle is normal in size. * There is no thrombus. * There is mild concentric left ventricular hypertrophy. * Left ventricular systolic function is moderately reduced. * A full diastolic examination was done with clinical findings of Class I diastolic dysfunction. * Ejection Fraction = 35-40%. * There is apical akinesis. * There is moderate inferior wall hypokinesis. * There is moderate posterior wall hypokinesis. * Anteroseptal akinesis. Right Ventricle * The right ventricle is normal in size and function. * The right ventricular systolic function is normal as assessed by tricuspid annular plane systolic excursion (TAPSE) (normal >1.5 cm). Atria * The left atrium is mildly dilated. * Right atrial size is normal. * A patent foramen ovale is suspected. Mitral Valve * There is mild mitral annular calcification. * There is no mitral valve stenosis. * There is mild mitral regurgitation. Tricuspid Valve * The tricuspid valve is normal. * There is no tricuspid stenosis. * There is trace tricuspid regurgitation. * Right ventricular systolic pressure is normal. Aortic Valve * The aortic valve is trileaflet. * The aortic valve opens well. * Aortic valve sclerosis mild, without significant aortic valvular stenosis. * Aortic stenosis is absent. * No aortic regurgitation is present. Pulmonic Valve * The pulmonic valve is not well visualized. * The pulmonary valve is inadequately visualized, but the Doppler data is adequate for interpretation. * There is no pulmonic valvular stenosis. * Trace pulmonic valvular regurgitation. Pericardium/Pleural * There is no pericardial effusion. Great Vessels * Normal inferior vena cava diameter and respiratory variation suggests normal central venous pressure. MMode 2D Measurements and Calculations IVSd 1.4 cm IVSs 2.1 cm LVIDd 5.0 cm LVIDs 3.9 cm LVPWd 1.4 cm LVPWs 2.0 cm IVS/LVPW 0.99 FS 23.2 % EDV(Teich) 120.0 ml ESV(Teich) 64.4 ml EF(Teich) 46.3 % EDV(cubed) 127.4 ml ESV(cubed) 57.6 ml EF(cubed) 54.8 % % IVS thick 50.9 % % LVPW thick 41.3 % LV mass(C)d 289.3 grams LV mass(C)dI 140.7 grams/m\S\2 LV mass(C)s 363.3 grams LV mass(C)sI 176.7 grams/m\S\2 SV(Teich) 55.6 ml SI(Teich) 27.0 ml/m\S\2 SV(cubed) 69.8 ml SI(cubed) 34.0 ml/m\S\2 Ao root diam 3.7 cm Ao root area 10.8 cm\S\2 LA dimension 4.2 cm LA/Ao 1.1 LVAd ap4 35.6 cm\S\2 LVLd ap4 9.4 cm EDV(MOD-sp4) 117.2 ml EDV(sp4-el) 115.0 ml LVAs ap4 26.6 cm\S\2 LVLs ap4 9.5 cm ESV(MOD-sp4) 67.7 ml ESV(sp4-el) 63.5 ml EF(MOD-sp4) 42.3 % EF(sp4-el) 44.8 % LVAd ap2 37.6 cm\S\2 LVLd ap2 9.3 cm EDV(MOD-sp2) 131.6 ml EDV(sp2-el) 129.1 ml LVAs ap2 27.3 cm\S\2 LVLs ap2 8.8 cm ESV(MOD-sp2) 72.4 ml ESV(sp2-el) 71.7 ml EF(MOD-sp2) 44.9 % EF(sp2-el) 44.5 % LVLd %diff -0.88 % EDV(MOD-bp) 124.0 ml LVLs %diff -7.65 % ESV(MOD-bp) 71.7 ml EF(MOD-bp) 42.2 % SV(MOD-sp4) 49.6 ml SI(MOD-sp4) 24.1 ml/m\S\2 SV(MOD-sp2) 59.1 ml SI(MOD-sp2) 28.8 ml/m\S\2 SV(MOD-bp) 52.3 ml SI(MOD-bp) 25.4 ml/m\S\2 SV(sp4-el) 51.5 ml SI(sp4-el) 25.0 ml/m\S\2 SV(sp2-el) 57.5 ml SI(sp2-el) 28.0 ml/m\S\2 Doppler Measurements and Calculations MV E max faraz 67.9 cm/sec MV A max faraz 98.0 cm/sec MV E/A 0.69 MV dec time 0.24 sec Ao V2 max 107.4 cm/sec Ao max PG 4.6 mmHg Ao max PG (full) 0.62 mmHg LV V1 max PG 4.0 mmHg LV V1 max 99.9 cm/sec TR max faraz 44.6 cm/sec
[2017-07-14] MEDS ORDERED: SPIRONOLACTONE 25 MG TAB PO ONE (14:00)
[2017-07-14] MEDS ORDERED: POTASSIUM CHLORIDE 10 MEQ TABCR PO ONE (14:00)
[2017-07-14] MEDS ORDERED: FUROSEMIDE INJ 40 MG in SYRINGE 0 ML IV SCH (14:00)
[2017-07-14] MEDS ORDERED: METOPROLOL SUCC 25MG EXT REL TAB PO ONE (14:00)
--- NOTE | 2017-07-14 15:37 | CARDIOLOGY CONSULTATION ---
DATE OF CONSULTATION: 07/14/2017 PRIMARY PHYSICIAN: Jae Hills MD ATTENDING AND REFERRING PHYSICIAN: Jeet Adamson DO PRIMARY MATERIALS PLANNER/PRODUCTION PLANNER: Klaus Greco MD PRIMARY ONCOLOGIST: Fantasma Jalloh DO CONSULTATION: Saul Schofiedl, HISTORY OF PRESENT ILLNESS: The patient is a 77-year-old male with a longstanding history of coronary artery disease, dyslipidemia, hypertension, and diabetes mellitus. He was diagnosed with metastatic pancreatic cancer in February 2017. At that time, he presented with a small bowel obstruction. He has carcinomatosis. He has received palliative chemotherapy with gemcitabine and Abraxane. He has received 3 cycles of this. It was planned for him to receive a total of 4 cycles. The patient has no prior history of congestive heart failure. He underwent cardiac catheterization in 1998 at [facility]. 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 He has [id number] and [id number] collaterals. The coronary arteries were heavily calcified. LV exam at that time reported inferior hypokinesis. LV ejection fraction 55%. The patient had a transthoracic echocardiogram performed at [facility] in 2003, which revealed mild concentric LVH. Normal LV wall motion reported at that time. LV ejection fraction 60%-65%. No significant valvular abnormalities. The patient states that prior to his diagnosis of pancreatic disease, he was in stable condition. He is able to exercise for up to 40 minutes on a treadmill without any limiting cardiac complaints. He does have bilateral calf claudication, walking approximately 1/2 mile. He has a known history of cerebrovascular disease and peripheral arterial disease. He normally can sleep with 2 pillows. He normally has no dyspnea on exertion. Over the past 4-6 weeks, he has developed increasing orthopnea. He was recently sleeping with 3 pillows. He developed a nocturnal nonproductive cough over the past few weeks. He has also noted increased edema of his lower legs, ankles, and feet over the past several weeks. In the past several days, he developed worsening dyspnea on exertion. He went to the cancer center yesterday to receive his fourth cycle of chemotherapy. He was noted to the dyspneic. The patient states that his resting oxygen saturation was in the 80% range. With exertion, it dropped into the 70s. He was subsequently referred for a CT angiogram of his chest. This revealed no evidence of pulmonary embolus. There were diffuse nodular ground-glass peribronchovascular consolidations, primarily involving the right lung and to a lesser extent left lower lobe. Moderate right and trace left pleural effusions. His chest x-ray on July 13 revealed patchy right lung airspace opacities and a right pleural effusion. A few small patchy airspace opacities at the left lung base. The patient was subsequently admitted to the medical/telemetry floor with a diagnosis of acute congestive heart failure. He was given 1 dose of 40-mg intravenous furosemide. With this, he has had a significant diuresis. He states that his orthopnea has improved. He does not have any dyspnea at rest today. No dyspnea moving about his bed. However, he is wearing supplemental nasal cannula oxygen since admission. Current flow rate 3.5 liters per minute. He has had a decrease in his peripheral edema since admission. Over the past several weeks, he has also noted increased abdominal girth. Over the past few weeks, he has had at least a 5-pound weight gain. This is despite having a decreased appetite. He denies any chest pain or other anginal type pains. No palpitations. No lightheadedness or syncope. He denies any increased nocturia. He usually has nocturia no more than 1 time per night. Some night, he does not have any nocturia. He denies any fevers or chills. No sputum production. He does have diffuse weakness. This has been progressively worsening over the past several weeks. He denies any penile or scrotal edema. No bleeding complaints. No SURGICAL NURSE PRACTITIONER type complaints. He does have paresthesias in his legs, right greater than left. He also has paresthesias in his right arm. He states that these are chronic symptoms. PAST MEDICAL HISTORY: 1. Coronary artery disease as above. 2. Type 2 diabetes mellitus. 3. Cerebrovascular disease. Carotid ultrasound in September 2016 with moderate left internal carotid artery stenosis. Mild right internal carotid artery stenosis. He also had less than 50% left subclavian stenosis noted at that time. The left internal carotid artery stenosis was reported to be 60%-69%. Right internal carotid artery stenosis is less than 50%. 4. Peripheral arterial disease. Prior CT angiograms of his legs have shown extensive lower extremity disease with extensive collateralization. This has been treated with medical management. 5. Hypertension. 6. Dyslipidemia. 7. Lumbar radiculopathy. 8. Osteoarthritis. 9. History of benign prostatic hypertrophy with symptoms of urinary obstruction. 10. History of anemia. 11. History of renal artery stenosis. 12. Prior history of myocardial infarction. PAST SURGICAL HISTORY: 1. Status post hernia repair. 2. Status post knee replacement. FAMILY HISTORY: Positive for coronary artery disease. SOCIAL HISTORY: The patient is and lives with his . This is he and his second marriage. They were both . They have been for 24 years. Occasional use of alcohol. Former cigarette smoker. Approximately [id number] smoking history. He stopped smoking cigarettes 15 years ago. 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 REVIEW OF SYSTEMS: 1. As above. 2. No myalgias. 3. No current or recent urinary complaints. 4. No symptoms of bleeding. 5. No abdominal pain or nausea. 6. Decreased appetite. 7. His thinks that his right eyelid is weaker for the past few months than usual. MEDICATIONS: At time of admission were amlodipine 5 mg daily, aspirin 81 mg daily, atenolol 25 mg b.i.d., atorvastatin 80 mg daily, metformin 500 mg b.i.d., tramadol 200 mg daily, triamterene/HCTZ 37.5/25 one tab every 2 days, clopidogrel 75 mg daily, isosorbide mononitrate 30 mg daily, and cilostazol 100 mg daily. CURRENT MEDICATIONS: Atenolol 25 mg b.i.d., aspirin 81 mg daily, clopidogrel 75 mg daily, atorvastatin 80 mg daily, cilostazol 100 mg daily, isosorbide mononitrate 30 mg daily, and several p.r.n. medications. ALLERGIES AND ADVERSE DRUG REACTIONS: None. Intake and output yesterday reported to be 350/1825. Today, no intake reported. Output 1000 mL. Yesterday's weight 87.8 kg. Today's weight 84.5 kg. PHYSICAL EXAMINATION: VITAL SIGNS: Most recent vital signs show oral temperature of 36.9, pulse 81, blood pressure 108/47, and pulse oximetry on 3.5 liters per minute 91%. GENERAL APPEARANCE: Shows him to be sitting in his bedside. No distress. HEAD: Normal. EYES: Slight drooping of right eyelid. Anicteric. Conjunctivae normal. NECK: Jugular venous pressure 8-9 cm. Carotids 2/2 bilaterally. Right bruit. No palpable masses or adenopathy. LUNGS: Normal respiratory effort. Decreased breath sounds at both bases, right greater than left. Rales at both bases. HEART: Regular rate and rhythm. S1 and S2 normal. No S3 or S4. 1/6 systolic murmur at the second intercostal space. 2/6 systolic murmur at the left lower sternal border and apex. No diastolic murmur or rub. ABDOMEN: Soft. Nontender. No palpable masses or organomegaly. No bruits. Normal bowel sounds. EXTREMITIES: 2+ pretibial, ankle, and pedal edema. This is pitting edema. NEUROLOGIC: Alert and oriented x3. Motor grossly intact. PSYCHIATRIC: Affect is normal. DATA: Echocardiogram performed today and reviewed by me showed moderate left ventricular systolic dysfunction. LV ejection fraction 35%-40%. Mild concentric LVH. Type 1 LV diastolic dysfunction. Anteroseptal and apical akinesis. Inferior, posterior, and lateral hypokinesis. Mild mitral regurgitation. Trace pulmonic and tricuspid regurgitation. Normal estimated right ventricular systolic pressure. Normal estimated central venous pressure. Electrocardiogram performed yesterday and reviewed by me showed sinus rhythm with occasional premature ventricular beats. Anterolateral ST and T wave abnormalities consistent with ischemia. Chest x-ray as reported above. Reviewed by me. CT scan as reported above. LABORATORY DATA: Today with WBC 7.11, hemoglobin 8.3, hematocrit 27.2, and platelet count 171. Metabolic profile today was sodium 139, potassium 3.5, chloride 101, carbon dioxide 32, BUN 14, creatinine 0.71, and random glucose 91. Troponin I is 0.040 and 0.032. BUN and creatinine yesterday were 15 and 0.58. Potassium yesterday was 4.1. AST 9. ALT 14. Albumin 2.0. ProB natriuretic peptide ordered by me late this morning was 5311. Urinalysis yesterday normal. ASSESSMENT: 1. Based on the patient's symptoms, echocardiogram, physical exam at the time of admission and today, chest x-ray, and CT scan, he has acute congestive heart failure. Based on the echocardiographic findings, this would be acute combined systolic and diastolic heart failure. His ProBNP is consistent with congestive heart failure. He has had an improvement in his symptoms with diuresis since admission. Today's lung exam compared to that reported yesterday has improved. The rales yesterday were reported to be up to his mid lung gaming. His symptoms over the past several weeks are consistent with developing heart failure and fluid retention. 2. Coronary artery disease. No anginal type pains. Electrocardiogram with anterolateral ischemic ST and T wave abnormalities. Cardiac enzymes negative for acute myocardial injury. 3. Cerebrovascular disease. No current cerebrovascular type complaints. 4. Peripheral arterial disease. Stable claudication type complaints. His activities have recently been limited because of his weakness and fatigue. With his current activity level, he has no claudication type pains. 5. History of hypertension. 6. Dyslipidemia. 7. Type 2 diabetes mellitus. 8. No signs or symptoms of any significant arrhythmia. Premature ventricular beats on his electrocardiogram yesterday and on monitoring since admission. 9. Edema. This may be multifactorial in etiology. He is predisposed to edema with the low serum albumin. The amlodipine and ischemic therapy could also contribute to fluid retention. This is superimposed upon systolic and diastolic left ventricular dysfunction. 10. Metastatic pancreatic cancer. Carcinomatosis. For this, he is receiving palliative chemotherapy. RECOMMENDATIONS: 1. Additional 40 mg of furosemide today. He still has evidence of pulmonary vascular congestion on exam. He has a marginal oxygen saturation on supplemental nasal cannula oxygen. 2. Completely discontinue amlodipine. 3. Completely discontinue triamterene/HCTZ. 4. Start losartan 25 mg daily. 5. When he is discharged, he will need a maintenance oral diuretic. 6. Start spironolactone 25 mg daily. 7. Switch atenolol to a heart failure specific beta becca. We will switch him to metoprolol succinate ER 50 mg daily. 8. Oral potassium supplement today. His potassium level today was borderline low. With additional diuresis today, it is likely his potassium level will further decrease. 9. Recheck renal function and potassium tomorrow. Recheck magnesium tomorrow. Recheck ProBNP tomorrow. 10. In light of his metastatic pancreatic cancer and in light of his lack of any anginal symptoms, would not perform cardiac catheterization at this time. Would only perform a cardiac catheterization procedure in this patient if he had evidence of life threatening myocardial infarction or ischemia. This is not evident at this time. He has no anginal symptoms. He is hemodynamically stable. He has no significant arrhythmias. Thank you for asking us to see this patient in cardiology consultation. SYLVAIN
--- NOTE | 2017-07-14 18:35 | Family Medicine Progress Note ---
Progress Note Date of Service Jul 14, 2017. Subjective Pt evaluation today including: conversation w/ patient, physical exam, chart review, lab review, review of studies, conversation w/ pension consultant, review of inpatient medication list Pain: 0 PO Intake: good Voiding: no voiding problems Patient feels his breathing is much improved today. He denies any chest pain, shortness of breath. Continues to have orthopnea. No palpitations. Medications Current Inpatient Medications Medications (Trade) Dose Ordered Sig/Magdi Route Start Time Stop Time Status Last Admin Dose Admin Heparin Sodium (Porcine) (Heparin Sq 5000 Unit/0.5ml) 5,000 unit Q8 SQ 07/13/17 22:00 08/12/17 21:59 Future Hold 07/13/17 20:35 5,000 UNIT Acetaminophen (Tylenol Tab) 650 mg Q4H PRN PO 07/13/17 16:30 08/12/17 16:29 Ondansetron HCl (Zofran Inj) 4 mg Q6H PRN IV 07/13/17 16:30 08/12/17 16:29 Nitroglycerin (Nitrostat Tab) 0.4 mg UD PRN SL 07/13/17 16:30 08/12/17 16:29 Aspirin (Ecotrin Tab) 81 mg DAILY PO 07/14/17 09:00 08/13/17 08:59 07/14/17 09:05 81 MG Atorvastatin Calcium (Lipitor Tab) 80 mg DAILY PO 07/14/17 09:00 08/13/17 08:59 07/14/17 09:04 80 MG Cilostazol (Pletal Tab) 100 mg DAILY PO 07/14/17 09:00 08/13/17 08:59 07/14/17 09:03 100 MG Clopidogrel Bisulfate (plAVix TAB) 75 mg DAILY PO 07/14/17 09:00 08/13/17 08:59 07/14/17 09:04 75 MG Isosorbide Mononitrate (Imdur Ext Rel Tab) 30 mg DAILY PO 07/14/17 09:00 08/13/17 08:59 07/14/17 09:05 30 MG Zolpidem Tartrate (Ambien Tab) 5 mg HS PRN PO 07/13/17 21:15 08/12/17 21:14 07/13/17 21:27 5 MG Glucose (Glucose 40% Gel) 15-30 GRAMS 15 GRAMS... UD PRN PO 07/13/17 21:30 08/12/17 21:29 Glucose (Glucose Chew Tab) 4-8 Tablets 4 Tabl... UD PRN PO 07/13/17 21:30 08/12/17 21:29 Dextrose (Dextrose 50% 50ML Syringe) 25-50ML OF 50% DW IV FOR... UD PRN IV 07/13/17 21:30 08/12/17 21:29 Glucagon (Glucagon Inj) 1 mg UD PRN SQ 07/13/17 21:30 08/12/17 21:29 Furosemide 40 mg/ Syringe 4 ml @ 4 mls/min TODAY@1400 IV 07/14/17 14:00 07/14/17 18:00 07/14/17 14:27 4 MLS/MIN Spironolactone (Aldactone Tab) 25 mg QAM PO 07/15/17 09:00 08/14/17 08:59 Losartan Potassium (coZAAR TAB) 25 mg QAM PO 07/15/17 09:00 08/14/17 08:59 Metoprolol Succinate (Toprol Xl Tab) 25 mg QAM PO 07/15/17 09:00 08/14/17 08:59 Insulin Aspart (novoLOG ASPART) SLIDING SCALE If C... ACHS SC 07/14/17 16:30 08/13/17 16:29 Objective Vital Signs Date Time Temp Pulse Resp B/P (MAP) Pulse Ox O2 Delivery O2 Flow Rate FiO2 07/14/17 12:00 91 Nasal Cannula 3.5 07/14/17 11:56 36.9 81 16 108/47 (67) 91 Nasal Cannula 3.5 07/14/17 08:00 94 Nasal Cannula 2.0 07/14/17 07:40 37.3 75 20 128/72 (90) 94 Nasal Cannula 2.0 07/14/17 04:00 36.8 73 20 125/68 (87) 92 2.0 07/14/17 04:00 Nasal Cannula 2.5 07/14/17 00:18 36.7 73 20 124/70 (88) 91 2.0 07/14/17 00:00 Nasal Cannula 2.5 07/13/17 20:09 94 Nasal Cannula 2.5 07/13/17 20:05 94 Nasal Cannula 2.5 07/13/17 19:52 36.4 85 20 131/56 (81) 94 Nasal Cannula 2.5 Physical Exam General Appearance: WD/WN, no apparent distress Eyes: normal inspection Neck: supple, no JVD, trachea midline Respiratory/Chest: no respiratory distress, no accessory muscle use, + crackles (bilateral base fine crackles) Cardiovascular: regular rate, rhythm, no murmur Abdomen: normal bowel sounds, non tender, soft Extremities: normal inspection, no pedal edema, no calf tenderness, normal capillary refill Neurologic/Psychiatric: alert, + pertinent finding (right sided foot drop persists) Skin: normal color, warm/dry, no rash Laboratory Results 07/14/17 06:23 Red Blood Count 2.88, Mean Corpuscular Volume 94.4, Mean Corpuscular Hemoglobin 28.8, Mean Corpuscular Hemoglobin Concent 30.5, Mean Platelet Volume 10.4, Neutrophils (%) (Auto) 76.8, Lymphocytes (%) (Auto) 8.4, Monocytes (%) (Auto) 13.6, Eosinophils (%) (Auto) 0.7, Basophils (%) (Auto) 0.1, Neutrophils # (Auto ) 5.45, Lymphocytes # (Auto) 0.60, Monocytes # (Auto) 0.97, Eosinophils # (Auto ) 0.05, Basophils # (Auto) 0.01 07/14/17 06:23 Test 07/13/17 19:00 07/14/17 06:23 07/14/17 16:29 Urine Color YELLOW Urine Appearance CLEAR (CLEAR) Urine pH 7.0 (4.5-7.5) Urine Specific [place] 1.024 (1.000-1.030) Urine Protein NEG (NEG) Urine Glucose (UA) NEG (NEG) Urine Ketones NEG (NEG) Urine Occult Blood NEG (NEG) Urine Nitrite NEG (NEG) Urine Bilirubin NEG (NEG) Urine Urobilinogen NEG (NEG) Urine Leukocyte Esterase NEG (NEG) Urine WBC (Auto) 0 /hpf (0-5) Urine RBC (Auto) 0-4 /hpf (0-4) Urine Hyaline Casts (Auto) 0 /lpf (0-5) Urine Epithelial Cells (Auto) 0-5 /lpf (0-5) Urine Bacteria (Auto) NEG (NEG) White Blood Count 7.11 K/uL (4.8-10.8) Red Blood Count 2.88 M/uL (4.7-6.1) Hemoglobin 8.3 g/dL (14.0-18.0) Hematocrit 27.2 % (42-52) Mean Corpuscular Volume 94.4 fL (80-100) Mean Corpuscular Hemoglobin 28.8 pg (25-34) Mean Corpuscular Hemoglobin Concent 30.5 g/dl (32-36) Platelet Count 171 K/uL (130-400) Mean Platelet Volume 10.4 fL (7.4-10.4) Neutrophils (%) (Auto) 76.8 % Lymphocytes (%) (Auto) 8.4 % Monocytes (%) (Auto) 13.6 % Eosinophils (%) (Auto) 0.7 % Basophils (%) (Auto) 0.1 % Neutrophils # (Auto) 5.45 K/uL (1.4-6.5) Lymphocytes # (Auto) 0.60 K/uL (1.2-3.4) Monocytes # (Auto) 0.97 K/uL (0.11-0.59) Eosinophils # (Auto) 0.05 K/uL (0-0.5) Basophils # (Auto) 0.01 K/uL (0-0.2) RDW Standard Deviation 76.8 fL (36.4-46.3) RDW Coefficient of Variation 23.2 % (11.5-14.5) Immature Granulocyte % (Auto) 0.4 % Immature Granulocyte # (Auto) 0.03 K/uL (0.00-0.02) Hypersegmented Polys 1+ Polychromasia 1+ Poikilocytosis PRESENT Anisocytosis PRESENT Anion Gap 6.0 mmol/L (3-11) Est Creatinine Clear Calc Drug Dose 88.5 ml/min Estimated GFR () 104.2 Estimated GFR (Non- 89.9 BUN/Creatinine Ratio 20.3 (10-20) Estimated Average Glucose 126 mg/dl Hemoglobin A1c 6.0 % (4.5-5.6) Calcium Level 7.9 mg/dl (8.5-10.1) Troponin I 0.032 ng/ml (0-0.045) Pro-B-Type Natriuretic Peptide 5311 pg/ml (0-1800) Bedside Glucose 94 mg/dl (70-99) Assessment and Plan 77 year old with metastatic pancreatic ca. admission for hypoxia Hypoxic respiratory failure - secondary to pulmonary edema below - O2 sats maintain above 92%, emphysema also noted on CT chest - no PE on CT chest done prior to admission Acute heart failure with reduced ejection fraction - BB, ARB and spironolactone started by cardiology - LVEF of 35% Coronary/carotid artery disease - s/p NSTEMI 25 years ago - ASA, Plavix - BB, ARB - continue statin Peripheral artery disease - continue cilostazol, ASA, Plavix, atorvastatin Right sided foot drop and unequal pupils - CT head normal, likely peripheral neuropathy and previous cataract surgery T2DM - diet T2DM, heart healthy, low sodium - hold metformin - insulin sliding scale Hypertension - hold amlodipine, triamterene/HCZT - metoprolol, khushbu and losartan as ordered by cardio VTE prophylaxis - heparin 5000 units Q8H Code - DNR as per the patient wishes. Disposition - transfer to med/surg Resident Physician Supervision Note: I was present with Dr. Hernandez during the history and exam. I discussed the case with the resident and agree with the findings and plan as documented in the note. Any exceptions or clarifications are listed here: [None] Documented By: Gurdeep Adamson Resident Tracking Resident Involvement: Resident Care Provided Care Provided: Adult Hospital Medicine
[2017-07-14] MEDS: ZOLPIDEM TARTRATE 5 MG TAB PO PRN (21:04)
[2017-07-15] VITALS (9 sets, daily range): BP systolic 116–146; BP diastolic 63–78; PULSE 77–91; TEMP 36.3–36.8; O2SAT 91–97
[2017-07-15 06:17] LABS: BUN/CREATININE RATIO 28.7 (10-20); CALCIUM 7.6 mg/dl (8.5-10.1); CREATININE 0.61 mg/dl (0.60-1.40); MAGNESIUM 1.9 mg/dl (1.8-2.4); POTASSIUM 3.6 mmol/L (3.5-5.1)
--- NOTE | 2017-07-15 07:43 | DIAGNOSTIC IMAGING REPORT ---
CHEST ONE VIEW PORTABLE CLINICAL HISTORY: hypoxia COMPARISON STUDY: 07/13/2017 FINDINGS: The cardiac images all contours remain stable. There are persistent right lung airspace opacities. Patchy airspace opacities are also present the left lung base. There is a subpulmonic right pleural effusion and trace left pleural effusion.[ IMPRESSION: Stable findings. Persistent bilateral airspace opacities right greater than left. Small to moderate subpulmonic right pleural effusion. Trace left pleural effusion. Electronically signed by: Cristobal Angeles M.D. 07/15/2017 7:42 AM Dictated Date/Time: 07/15/2017 7:40 AM
[2017-07-15] MEDS: ATORVASTATIN 40 MG TAB PO SCH (07:53)
[2017-07-15] MEDS: CLOPIDOGREL BISULFATE 75 MG TAB PO SCH (07:53)
[2017-07-15] MEDS: ISOSORBIDE MONONITRATE 30 MG TABCR PO SCH (07:53)
[2017-07-15] MEDS: CILOSTAZOL 100 MG TAB PO SCH (07:53)
[2017-07-15] MEDS: ASPIRIN 81 MG ECTAB PO SCH (07:53)
[2017-07-15] MEDS ORDERED: SPR25 PO (07:55)
[2017-07-15] MEDS ORDERED: TPRSR50 PO (07:55)
[2017-07-15] MEDS ORDERED: CZR25 PO (07:55)
[2017-07-15] MEDS ORDERED: FURO-85 PO (07:57)
[2017-07-15] MEDS ORDERED: FUROSEMIDE INJ 20 MG in SYRINGE 0 ML IV ONE (08:00)
--- NOTE | 2017-07-15 08:01 | Discharge Instructions ---
Discharge Instructions Date of Service Jul 15, 2017. Admission Reason for Admission: New Onset Chf Discharge Discharge Diagnosis / Problem: Heart failure with reuced ejection fraction Discharge Goals Goal(s): Decrease discomfort, Improve disease control Activity Recommendations Activity Limitations: resume your previous activity Exercise/Sports Limitations: gradually increase as tolerated . Instructions / Follow-Up Instructions / Follow-Up Call your Primary Care doctor if any of the following symptoms or problems start or get worse: * Shortness of breath or difficulty breathing * Wake up at night short of breath * Chest pain * Cough * Swelling of your hands, feet, or legs * More fatigued or tired with your normal activity * Palpitations - sudden fast heart beats WEIGHT * Weigh yourself every morning after using the bathroom. * Use the same scale. * Wear the same amount of clothing. * Write your weight down on a chart. * Call your Primary Care doctor if you gain more than 2-3 pounds in 1-2 days. MEDICATIONS * Use this discharge instruction sheet for medication instructions. * Take your medications at the time your doctor ordered. * Do not skip a dose of your medicines. * If you miss a dose of medicine, take it as soon as possible, but DO NOT DOUBLE A DOSE. * Read your medicine information when you get home. * Know all of the side effects of your medicine. If in doubt, ask your pharmacist * Call your Primary Care doctor's office if you have any side effects. * Be sure all of your doctors know what medicine and herbs you take (including cold, flu, and herbal medicine). Take the following with you to your follow-up doctor appointments: * Weight Chart * Medication List * List of questions Do not drink excessive alcohol, beer or wine. Current Hospital Diet Patient's current hospital diet: Low Sodium Diet (2gm Na), AHA Diet (Heart Healthy), Diabetes Type 2 Diet Discharge Diet Recommended Diet: AHA Diet (Heart Healthy), Low Sodium Diet (2gm Na), Diabetes Type 2 Diet Fluid Restriction: None Pending Studies Studies pending at discharge: no Laboratory Results Hemoglobin A1c Test 07/14/17 06:23 Range/Units Estimated Average Glucose 126 mg/dl Hemoglobin A1c 6.0 H 4.5-5.6 % Medical Emergencies . Who to Call and When: Call 911 or go to the Emergency Room if: * If at any time you feel your situation is an emergency * You have tightness or pain in your chest that does not go away with rest or Nitroglycerin * You are very short of breath even with rest . Non-Emergent Contact Non-Emergency issues call your: [employer] Contact Number: [phone] . . "Provider Documentation" section prepared by Tobias Hernandez. . VTE Core Measure Inpt VTE Proph given/why not?: Unfractionated heparin SQ
[2017-07-15] MEDS ORDERED: POTA20TA16 PO (08:22)
[2017-07-15] MEDS: INSULIN ASPART 100 UNITS/ML 3 ML PEN SC SCH ×4 (08:31→20:45)
--- NOTE | 2017-07-15 08:56 | PROGRESS NOTE ---
DATE: 07/15/2017 SUBJECTIVE: The patient was seen by me this morning in his medical floor/telemetry bed. He states that he had dyspnea lying in bed overnight. No dyspnea when he is sitting upright. No chest pain. No palpitations, lightheadedness or syncope. No abdominal or leg pain. No fevers or chills. No sputum production. No significant cough. No neurologic symptoms suggestive of a thromboembolic event. CURRENT MEDICATIONS: Spironolactone 25 mg daily, losartan 25 mg daily, metoprolol succinate ER 50 mg daily, aspirin 81 mg daily, atorvastatin 80 mg daily, cilostazol 100 mg daily, clopidogrel 75 mg daily, isosorbide mononitrate 30 mg daily and a few p.r.n. medications. ALLERGIES AND ADVERSE DRUG REACTIONS: None. The patient received 40 mg of intravenous furosemide yesterday. Intake and output yesterday was 720/3800. Today it is 240/600. Today's weight 83.6 kg. Yesterday's 84.5 kg. On July 13 it was 87.8 kg. Negative fluid balance since admission; 4915 mL. OBJECTIVE: GENERAL: The patient appeared mildly dyspneic, lying in bed with head elevated approximately at 30 degrees. VITAL SIGNS: This morning; oral temperature 36.8 pulse 77, blood pressure 132/72, pulse oximetry on 5 liters per minute nasal cannula oxygen 91-92%. NECK: No jugular venous distention noted. LUNGS: Decreased breath sounds in both bases, right greater than left. Crackles and rhonchi at both bases, right greater than left. HEART: Regular rate and rhythm. S1, S2 normal, 1/6 systolic murmur second right intercostal space, 2/6 systolic murmur at apex and left lower sternal border. No diastolic murmur or rub. No S3 or S4 heard. ABDOMEN: Soft. Nontender. No palpable masses or organomegaly. No bruits. EXTREMITIES: No pretibial edema. No calf tenderness. NEUROLOGIC: Alert and oriented x3. Motor grossly intact. PSYCHIATRIC: Affect normal. LABORATORY DATA: Today; sodium 137, potassium 3.6, chloride 101, carbon dioxide 29, BUN 18, creatinine 0.61 and random glucose 95. Magnesium 1.9. ProB natriuretic peptide 4908. Serum albumin on 07/13/2017 was 2.0. Chest x-ray today with diffuse alveolar infiltrates throughout the right lung field. Scant amount of alveolar infiltrate left base. Small right pleural effusion. ASSESSMENT: 1. Significant diuresis since yesterday. On examination, the patient appears euvolemic. His renal function is stable. 2. Echocardiogram performed yesterday, with moderate left ventricular systolic dysfunction and also left ventricular diastolic dysfunction. On echocardiogram yesterday the estimated right ventricular systolic pressure and central venous pressures were normal. 3. Metastatic pancreatic cancer. 4. Dyspnea and oxygen desaturation; this is likely multifactorial. Despite significant diuresis since admission he remains short of breath. His x-ray is unchanged. On examination, he is euvolemic. With the elevated proBNP noted on this admission there is certainly a component of heart failure. This would be likely acute, combined systolic and diastolic heart failure. However, the patient does have a longstanding cigarette smoking history. He likely has a component of chronic obstructive pulmonary disease. Additionally, he may have metastatic disease to his lungs. This could certainly account for the pleural effusions. 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 5. Coronary artery disease. No anginal symptoms. 6. Cerebrovascular disease and peripheral vascular disease. No current symptoms of vascular disease. 7. Poor nutritional status. Low serum albumin on admission; this would certainly contribute to development of extravascular fluid. RECOMMENDATIONS: 1. Continue metoprolol, losartan, spironolactone, aspirin and clopidogrel. 2. No further intravenous diuretics at this time. 3. Start oral diuretic therapy with furosemide 20 mg daily. The patient should weight himself daily. For weight gain of 2 pounds or more in one day, have him take 40 mg of furosemide. 4. May need to consider home oxygen therapy. 5. No further cardiac evaluation at this time. [facility]
[2017-07-15] MEDS ORDERED: METOPROLOL SUCC 25MG EXT REL TAB PO SCH (09:00)
--- NOTE | 2017-07-15 09:03 | Hematology/Oncology Prog Note ---
Hematology/Onc Progress Note Date of Service Jul 15, 2017. Diagnoses Metastatic pancreatic cancer Acute CHF exacerbation Hypoxia Medications Medications Administered Medications (Trade) Dose Ordered Sig/Magdi Route Start Time Stop Time Status Last Admin Dose Admin Heparin Sodium (Porcine) (Heparin Sq 5000 Unit/0.5ml) 5,000 unit Q8 SQ 07/13/17 22:00 08/12/17 21:59 Future Hold 07/13/17 20:35 5,000 UNIT Aspirin (Ecotrin Tab) 81 mg DAILY PO 07/14/17 09:00 08/13/17 08:59 07/15/17 07:53 81 MG Atenolol (Tenormin Tab) 25 mg BID PO 07/13/17 21:00 07/14/17 13:32 DC 07/14/17 09:04 25 MG Atorvastatin Calcium (Lipitor Tab) 80 mg DAILY PO 07/14/17 09:00 08/13/17 08:59 07/15/17 07:53 80 MG Cilostazol (Pletal Tab) 100 mg DAILY PO 07/14/17 09:00 08/13/17 08:59 07/15/17 07:53 100 MG Clopidogrel Bisulfate (plAVix TAB) 75 mg DAILY PO 07/14/17 09:00 08/13/17 08:59 07/15/17 07:53 75 MG Isosorbide Mononitrate (Imdur Ext Rel Tab) 30 mg DAILY PO 07/14/17 09:00 08/13/17 08:59 07/15/17 07:53 30 MG Furosemide 40 mg/ Syringe 4 ml @ 4 mls/min NOW ONCE IV 07/13/17 17:30 07/13/17 17:31 DC 07/13/17 17:29 4 MLS/MIN Zolpidem Tartrate (Ambien Tab) 5 mg HS PRN PO 07/13/17 21:15 08/12/17 21:14 07/14/17 21:04 5 MG Insulin Aspart (novoLOG ASPART) SLIDING SCALE If C... Q6 SC 07/14/17 00:00 07/14/17 16:29 DC 07/14/17 13:00 4 UNITS Furosemide 40 mg/ Syringe 4 ml @ 4 mls/min TODAY@1400 IV 07/14/17 14:00 07/14/17 18:00 DC 07/14/17 14:27 4 MLS/MIN Potassium Chloride (Klor-Con M10) 40 meq NOW ONCE PO 07/14/17 14:00 07/14/17 14:01 DC 07/14/17 14:27 40 MEQ Spironolactone (Aldactone Tab) 25 mg NOW ONCE PO 07/14/17 14:00 07/14/17 14:01 DC 07/14/17 14:28 25 MG Metoprolol Succinate (Toprol Xl Tab) 25 mg NOW ONCE PO 07/14/17 14:00 07/14/17 14:01 DC 07/14/17 14:28 25 MG Insulin Aspart (novoLOG ASPART) SLIDING SCALE If C... ACHS SC 07/14/17 16:30 08/13/17 16:29 07/15/17 08:31 3 UNITS Subjective Mr. Dye continues to feel better. However, he required more oxygen overnight and is on 6L by [place] today. He is breathing comfortably and his edema is markedly improved. He denies any cough or fevers. He also denies any pain. Review of Systems: Constitutional: No fever, No chills Respiratory: No cough, No shortness of breath Cardiovascular: + edema (markedly improved), No chest pain Abdomen: No pain, No nausea Musculoskeletal: No joint pain, No muscle pain Vital Signs Vital Signs Past 12 Hours Date Time Temp Pulse Resp B/P (MAP) Pulse Ox O2 Delivery O2 Flow Rate FiO2 07/15/17 08:00 36.8 80 20 128/70 (89) 91 Nasal Cannula 6.0 07/15/17 04:00 36.8 77 20 132/72 (92) 91 07/15/17 00:00 92 Nasal Cannula 5.0 07/14/17 23:51 36.8 88 20 128/69 (88) 91 Room Air Physical Exam Constitutional: Level of Distress: NAD, chronically ill Psychiatric: Mental Status: active & alert Orientation: oriented except where noted Lungs: Auscuitation: CTA except as noted Cardiovascular: Heart Auscultation: RRR Abdomen: Inspection & Palpation: soft, no tenderness, guarding & rebound Extremities: edema (trace edema in both ankles) Laboratory Last 24 Hours Test 07/14/17 11:40 07/14/17 16:29 07/14/17 20:03 8/16/17 05:23 Bedside Glucose 142 mg/dl 94 mg/dl 138 mg/dl Sodium Level 137 mmol/L Potassium Level 3.6 mmol/L Chloride Level 101 mmol/L Carbon Dioxide Level 29 mmol/L Anion Gap 7.0 mmol/L Blood Urea Nitrogen 18 mg/dl Creatinine 0.61 mg/dl Est Creatinine Clear Calc Drug Dose 103.1 ml/min Estimated GFR () 110.9 Estimated GFR (Non- 95.7 BUN/Creatinine Ratio 28.7 Random Glucose 95 mg/dl Calcium Level 7.6 mg/dl Magnesium Level 1.9 mg/dl Pro-B-Type Natriuretic Peptide 4908 pg/ml Test 07/15/17 07:44 Bedside Glucose 107 mg/dl Assessment & Plan Mr. Dye is feeling better, though it is a bit worrisome that he is requiring more oxygen today, particularly as he was not hypoxemic prior to this admission (on his recent visits to our office, he had O2 sats above 95%, excluding the one that led to this admission). He is negative close to 5L for his hospital stay and appears close to euvolemic. His CT findings from admission revealed changes that could be consistent with pulmonary edema, but could also represent pneumonitis, in the setting of underlying emphysema. He does not clinically have a pneumonia. If he is not continuing to improve with aggressive diuresis, we may need to consider a course of steroids for possible pneumonitis. If his oxygen requirement doesn't improve today, I would consider another CT chest to evaluate for evolution of his interstitial changes.
[2017-07-15] MEDS: METOPROLOL SUCC 50MG EXT REL TAB PO SCH (09:17)
[2017-07-15] MEDS: SPIRONOLACTONE 25 MG TAB PO SCH (09:17)
[2017-07-15] MEDS: LOSARTAN POTASSIUM 25 MG TAB PO SCH (09:18)
[2017-07-15] MEDS ORDERED: LEVOFLOXACIN 750 MG TAB PO ONE (11:34)
[2017-07-15 12:23] LABS: BASO % 0.1 %; BASO ABS # 0.01 K/uL (0-0.2); EOS % 1.1 %; HEMATOCRIT 28.9 % (42-52); IG% 0.5 %; LYMPH % 6.6 %; LYMPH ABS # 0.58 K/uL (1.2-3.4); MEAN CELL VOLUME 93.2 fL (80-100); MEAN CORPUSCULAR HEMOGLOBIN 29.4 pg (25-34); MEAN CORPUSCULAR HGB CONC 31.5 g/dl (32-36); MEAN PLATELET VOLUME 10.4 fL (7.4-10.4); MONO % 15.7 %; PLATELET COUNT 240 K/uL (130-400); WHITE BLOOD COUNT 8.83 K/uL (4.8-10.8)
--- NOTE | 2017-07-15 13:29 | Medical Student: [facility] ---
Med Student Progress Note Date of Service Jul 15, 2017. Subjective Pain: patient denies PO Intake: tolerating PO diet Jasson Dye is a 77 yo male, currently being treated for prostate cancer , who presented with shortness of breath and cough 2 days ago. He states he was feeling much better, but last night he was laying flat and needed 6L of oxygen to improve his saturation level >90%. He denies using oxygen at home and clinic data shows he is normally around 96% on room air. He states he was unable to sleep well last night and is now feeling fatigued. Patient denies cough, but clears his throat loudly a couple of times during the interview. He denies any other symptoms, including pain, shortness of breath, chest pain, and fever/chills. Review of Systems Constitutional: + fatigue, No fever, No chills, No sweats, No weakness Eyes: No worsening of vision, No eye pain, No redness ENT: No hearing loss, No nasal symptoms, No sore throat Respiratory: No cough (denies, but clears throat), No sputum, No wheezing, No shortness of breath (denies, but has not ambulated much since admission), No dyspnea at rest, No hemoptysis Cardiac: + edema, No chest pain, No palpitations Abdomen: No pain, No nausea, No vomiting, No diarrhea, No constipation Musculoskeletal: No joint pain, No muscle pain, No swelling Male : + urinary frequency (from Lasix), No dysuria, No incontinence Neurologic: No memory loss, No weakness, No numbness/tingling (neuropathy at baseline) Heme: No abnormal bleeding/bruising, No swollen lymph nodes Endo: + fatigue, No excessive urination (increased, but secondary to Lasix) Skin: No rash, No itch Objective Vital Signs Date Time Temp Pulse Resp B/P (MAP) Pulse Ox O2 Delivery O2 Flow Rate FiO2 07/15/17 11:39 36.3 88 20 122/70 (87) 94 Nasal Cannula 6.0 07/15/17 08:15 Nasal Cannula 6.0 07/15/17 08:00 36.8 80 20 128/70 (89) 91 Nasal Cannula 6.0 07/15/17 04:00 36.8 77 20 132/72 (92) 91 07/15/17 00:00 92 Nasal Cannula 5.0 07/14/17 23:51 36.8 88 20 128/69 (88) 91 Room Air 07/14/17 19:31 37.1 77 18 117/66 (83) 90 3.0 07/14/17 16:00 91 Nasal Cannula 3.5 Physical Exam General Appearance: WD/WN, no apparent distress Eyes: bilateral eyes normal inspection, bilateral eyes PERRL, bilateral eyes EOMI ENT: normal ENT inspection, hearing grossly normal, pharynx normal Neck: supple, no adenopathy Respiratory/Chest: chest non-tender, normal breath sounds, no respiratory distress, no accessory muscle use, + crackles (at bases, right > left; consistent with yesterday, improved since Thursday) Cardiovascular: regular rate, rhythm (distant), + pertinent finding (edema 1+ on shins, 2+ on ankles) Abdomen: normal bowel sounds, non tender, soft Extremities: normal range of motion, non-tender, normal inspection, no calf tenderness, + pedal edema (1+ shins, 2+ ankles, continual improvement) Neurologic/Psychiatric: alert, normal mood/affect, oriented x 3, + pertinent finding (neuropathy of legs, right foot drop at baseline) Skin: normal color, warm/dry, no rash Lymphatic: no adenopathy Laboratory Results Last 24 Hours Test 07/14/17 16:29 07/14/17 20:03 07/15/17 05:23 07/15/17 07:44 Bedside Glucose 94 mg/dl 138 mg/dl 107 mg/dl Sodium Level 137 mmol/L Potassium Level 3.6 mmol/L Chloride Level 101 mmol/L Carbon Dioxide Level 29 mmol/L Anion Gap 7.0 mmol/L Blood Urea Nitrogen 18 mg/dl Creatinine 0.61 mg/dl Est Creatinine Clear Calc Drug Dose 103.1 ml/min Estimated GFR () 110.9 Estimated GFR (Non- 95.7 BUN/Creatinine Ratio 28.7 Random Glucose 95 mg/dl Calcium Level 7.6 mg/dl Magnesium Level 1.9 mg/dl Pro-B-Type Natriuretic Peptide 4908 pg/ml Test 07/15/17 11:51 07/15/17 12:05 Bedside Glucose 110 mg/dl White Blood Count 8.83 K/uL Red Blood Count 3.10 M/uL Hemoglobin 9.1 g/dL Hematocrit 28.9 % Mean Corpuscular Volume 93.2 fL Mean Corpuscular Hemoglobin 29.4 pg Mean Corpuscular Hemoglobin Concent 31.5 g/dl Platelet Count 240 K/uL Mean Platelet Volume 10.4 fL Neutrophils (%) (Auto) 76.0 % Lymphocytes (%) (Auto) 6.6 % Monocytes (%) (Auto) 15.7 % Eosinophils (%) (Auto) 1.1 % Basophils (%) (Auto) 0.1 % Neutrophils # (Auto) 6.71 K/uL Lymphocytes # (Auto) 0.58 K/uL Monocytes # (Auto) 1.39 K/uL Eosinophils # (Auto) 0.10 K/uL Basophils # (Auto) 0.01 K/uL RDW Standard Deviation 76.2 fL RDW Coefficient of Variation 23.1 % Immature Granulocyte % (Auto) 0.5 % Immature Granulocyte # (Auto) 0.04 K/uL Medications Medications Administered Medications (Trade) Dose Ordered Sig/Magdi Route Start Time Stop Time Status Last Admin Dose Admin Heparin Sodium (Porcine) (Heparin Sq 5000 Unit/0.5ml) 5,000 unit Q8 SQ 07/13/17 22:00 08/12/17 21:59 Future Hold 07/13/17 20:35 5,000 UNIT Aspirin (Ecotrin Tab) 81 mg DAILY PO 07/14/17 09:00 08/13/17 08:59 07/15/17 07:53 81 MG Atenolol (Tenormin Tab) 25 mg BID PO 07/13/17 21:00 07/14/17 13:32 DC 07/14/17 09:04 25 MG Atorvastatin Calcium (Lipitor Tab) 80 mg DAILY PO 07/14/17 09:00 08/13/17 08:59 07/15/17 07:53 80 MG Cilostazol (Pletal Tab) 100 mg DAILY PO 07/14/17 09:00 08/13/17 08:59 07/15/17 07:53 100 MG Clopidogrel Bisulfate (plAVix TAB) 75 mg DAILY PO 07/14/17 09:00 08/13/17 08:59 07/15/17 07:53 75 MG Isosorbide Mononitrate (Imdur Ext Rel Tab) 30 mg DAILY PO 07/14/17 09:00 08/13/17 08:59 07/15/17 07:53 30 MG Furosemide 40 mg/ Syringe 4 ml @ 4 mls/min NOW ONCE IV 07/13/17 17:30 07/13/17 17:31 DC 07/13/17 17:29 4 MLS/MIN Zolpidem Tartrate (Ambien Tab) 5 mg HS PRN PO 07/13/17 21:15 08/12/17 21:14 07/14/17 21:04 5 MG Insulin Aspart (novoLOG ASPART) SLIDING SCALE If C... Q6 W[place] 07/14/17 00:00 07/14/17 16:29 DC 07/14/17 13:00 4 UNITS Furosemide 40 mg/ Syringe 4 ml @ 4 mls/min TODAY@1400 IV 07/14/17 14:00 07/14/17 18:00 DC 07/14/17 14:27 4 MLS/MIN Potassium Chloride (Klor-Con M10) 40 meq NOW ONCE PO 07/14/17 14:00 07/14/17 14:01 DC 07/14/17 14:27 40 MEQ Spironolactone (Aldactone Tab) 25 mg QAM PO 07/15/17 09:00 08/14/17 08:59 07/15/17 09:17 25 MG Spironolactone (Aldactone Tab) 25 mg NOW ONCE PO 07/14/17 14:00 07/14/17 14:01 DC 07/14/17 14:28 25 MG Losartan Potassium (coZAAR TAB) 25 mg QAM PO 07/15/17 09:00 08/14/17 08:59 07/15/17 09:18 25 MG Metoprolol Succinate (Toprol Xl Tab) 25 mg NOW ONCE PO 07/14/17 14:00 07/14/17 14:01 DC 07/14/17 14:28 25 MG Insulin Aspart (novoLOG ASPART) SLIDING SCALE If C... ACHS W[place] 07/14/17 16:30 08/13/17 16:29 07/15/17 12:25 3 UNITS Metoprolol Succinate (Toprol Xl Tab) 50 mg QAM PO 07/15/17 09:00 08/14/17 08:59 07/15/17 09:17 50 MG Furosemide 20 mg/ Syringe 2 ml @ 4 mls/min ONE ONCE IV 07/15/17 08:00 07/15/17 08:01 DC 07/15/17 09:18 4 MLS/MIN Albuterol/ Ipratropium (Duoneb) 3 ml QIDR INH 07/15/17 12:00 08/14/17 11:59 07/15/17 15:22 3 ML Levofloxacin (Levaquin Tab) 750 mg 1134 ONCE PO 07/15/17 11:34 07/15/17 11:44 DC 07/15/17 12:24 750 MG Assessment and Plan Assessment and Plan: Jasson Dye is an 77 yo male currently treated for prostate cancer, who was directly admitted two days ago from Dr. Jalloh's office complaining of shortness of breath worsening for 3 days. Patient has associated symptoms of bilateral pitting edema to knees and dry cough. Patient was admitted to telemetry, with working diagnosis of heart failure. With Lasix treatment patient has improved, with increased breath sounds, crackles only heard at bases for two days, instead of nursing home up lung gaming. Pedal edema has improved (3+ upon admission, 1+ today on shins and 2+ on ankles). Echocardiogram showed 35% EF, cardiology consult added spironolactone, metoprolol and KCl to patient's medication list. Patient's oxygen saturation decreased overnight, when he was lying flat; he is now on 6L of oxygen, repeat CXR with clinical findings showed possible pneumonitis. Heart failure, acute - CXR findings:No change in the bilateral airspace opacities, right greater than left, and a small right pleural effusion. - EKG findings: Sinus rhythm with occasional , and consecutive Premature ventricular complexes, ST & T wave abnormality, consider lateral ischemia, Abnormal ECG, When compared with ECG of 15-DEC-2016 18:04, Premature ventricular complexes are now Present, T wave inversion now evident in Anterolateral leads. - Consult cardiology (Patient followed by Dr. Greco). Dr. Schofield consulted and started patient on Spironolactone, Metoprolol, and KCl - Prescribe 25 mg Spironolactone (Aldactone Tab), 25 mg Metoprolol Succinate ( Toprol Xl Tab), and 40 mg Potassium Chloride (Klor-Con M10) - 07/13: Furosemide (40 mg/Syringe) for edema/fluid on lungs. 07/14: Patient tolerated furosemide well, urinary output to 3000mL since admission, continue today with 20 mg IV of furosemide. 07/15: Negative fluid balance close to 5L since admission, continue on 20mg IV furosemide. - Echocardiogram pertinent findings: "The left ventricle is normal in size. There is no thrombus. There is mild concentric left ventricular hypertrophy. Left ventricular systolic function is moderately reduced. A full diastolic examination was done with clinical findings of Class I diastolic dysfunction. Ejection Fraction = 35-40%. There is apical akinesis. There is moderate inferior wall hypokinesis. There is moderate posterior wall hypokinesis." - Monitor I&Os, pulse oximetry, and daily weights while in-patient. Patient had a negative balance of 3L yesterday and almost another liter today; his weight is down about 3kg too. - CBC with differential, magnesium, CMP, troponin, BNP, urine culture for underlying heart muscle/rhythm problem or infection. 07/14 results: RBC's 2.88, Hgb 8.3, Hct 27.2, elevated monocytes at 0.97, decreased lymphocytes 0.60, troponin 0.032, BNP 5311, urine negative). 07/15: RBCs 3.10, WBC's 8.83, BNP: 4908, Magnesium 1.9, Hct 29.9, monocytes 1.39, lymphocytes 0.58. - Discontinue home medications of Tenormin (Atenolol) 25 Mg Tab 25 Mg PO BID - Continue home medications of Lipitor (Atorvastatin Calcium) 80 Mg Tab 80 Mg PO DAILY - EKG PRN if chest pain symptom occurs Hypoxemia, acute respiratory failure - CXR on 07/15 findings: "Stable findings. Persistent bilateral airspace opacities right greater than left. Small to moderate subpulmonic right pleural effusion. Trace left pleural effusion." - 6L of oxygen and oximetry monitoring with goal >90%. In the clinic and at beginning of hospital stay his oxygen saturation was 96%, but today on 6L he is around 90-91%. - Levaquin 750mg for antibiotic coverage of possible hospital acquired pneumonia. However, patient does not have elevated WBC (8.83) or fever. - Duoneb breathing treatments - Incentive inspirometry and flutter valve treatment to help open airways Pancreatic cancer - Consult hematology/oncology. Today they suggest possible pneumonitis with consideration of steroid treatment and second CT of chest to look for evolution of interstitial changes. - Continue home medications (Prochlorperazine 25 Mg Sup 25 Mg RE PRN UD, Tramadol Hcl Er (Tramadol Hcl) 200 Mg Tab 200 Mg PO DAILY, Procrit (Epoetin Mariano ) 40,000 Units Inj 1 Dose INJ UD) CAD, chronic - Discontinue home medication of Norvasc (Amlodipine Besylate) 5 Mg Tab 5 Mg PO DAILY, Tenormin (Atenolol) 25 Mg Tab 25 Mg PO BID - Continue home medications (Metformin HCl 500 Mg Tab 500 Mg PO BID, Lipitor ( Atorvastatin Calcium) 80 Mg Tab 80 Mg PO DAILY, Aspir-81 (Aspirin) 81 Mg Tab 1 Tab PO DAILY, Nitrostat (Nitroglycerin) 0.4 Mg/1 Tab Subl 0.4 Mg SL DIRECTED , Plavix (Clopidogrel Bisulfate) 75 Mg Tab 1 Tab PO 90 Days TAKES EVERY OTHER DAY, Imdur Ext Rel (Isosorbide Mononitrate) 30 Mg Tabcr 1 Tab PO every other day ) - Monitor hemoglobin A1c (6.0) and dietary consult Peripheral artery disease, chronic - Continue home medications (Cilostazol 100 Mg Tab 1 Tab PO DAILY) HTN, chronic - Monitor BPs while in-patient (122/70, 146/78) - Discontinue home medication (Dyazide 37.5MG/25MG (Triamterene/HCTZ) Cap 1 Tab PO Q2D) DVT prophylaxis - Heparin (5000 units SQ Q8 hours), Brayan chakraborty, and SCDs
[2017-07-15 13:31] LABS: ANISOCYTOSIS PRESENT; COMPLETE YES; POLYCHROMASIA 1+; TEAR DROP CELLS 1+
[2017-07-15] MEDS: ALBUT/IPRATROP 3MG/0.5MG NEB 3 ML VIAL INH SCH ×2 (15:22→19:25)
--- NOTE | 2017-07-15 17:52 | Family Medicine Progress Note ---
Progress Note Date of Service Jul 15, 2017. Subjective Pt evaluation today including: conversation w/ patient, physical exam Worsening hypoxia overnight after trying to lie flat. He remained on 6L O2 this morning and was unable wean this over the coarse of the morning. He denies any significant shortness of breath or chest pain. He reports feeling better than when he was admitted. Medications Current Inpatient Medications Medications (Trade) Dose Ordered Sig/Magdi Route Start Time Stop Time Status Last Admin Dose Admin Heparin Sodium (Porcine) (Heparin Sq 5000 Unit/0.5ml) 5,000 unit Q8 SQ 07/13/17 22:00 08/12/17 21:59 Future Hold 07/13/17 20:35 5,000 UNIT Acetaminophen (Tylenol Tab) 650 mg Q4H PRN PO 07/13/17 16:30 08/12/17 16:29 Ondansetron HCl (Zofran Inj) 4 mg Q6H PRN IV 07/13/17 16:30 08/12/17 16:29 Nitroglycerin (Nitrostat Tab) 0.4 mg UD PRN SL 07/13/17 16:30 08/12/17 16:29 Aspirin (Ecotrin Tab) 81 mg DAILY PO 07/14/17 09:00 08/13/17 08:59 07/15/17 07:53 81 MG Atorvastatin Calcium (Lipitor Tab) 80 mg DAILY PO 07/14/17 09:00 08/13/17 08:59 07/15/17 07:53 80 MG Cilostazol (Pletal Tab) 100 mg DAILY PO 07/14/17 09:00 08/13/17 08:59 07/15/17 07:53 100 MG Clopidogrel Bisulfate (plAVix TAB) 75 mg DAILY PO 07/14/17 09:00 08/13/17 08:59 07/15/17 07:53 75 MG Isosorbide Mononitrate (Imdur Ext Rel Tab) 30 mg DAILY PO 07/14/17 09:00 08/13/17 08:59 07/15/17 07:53 30 MG Zolpidem Tartrate (Ambien Tab) 5 mg HS PRN PO 07/13/17 21:15 08/12/17 21:14 07/14/17 21:04 5 MG Glucose (Glucose 40% Gel) 15-30 GRAMS 15 GRAMS... UD PRN PO 07/13/17 21:30 08/12/17 21:29 Glucose (Glucose Chew Tab) 4-8 Tablets 4 Tabl... UD PRN PO 07/13/17 21:30 08/12/17 21:29 Dextrose (Dextrose 50% 50ML Syringe) 25-50ML OF 50% DW IV FOR... UD PRN IV 07/13/17 21:30 08/12/17 21:29 Glucagon (Glucagon Inj) 1 mg UD PRN SQ 07/13/17 21:30 08/12/17 21:29 Spironolactone (Aldactone Tab) 25 mg QAM PO 07/15/17 09:00 08/14/17 08:59 07/15/17 09:17 25 MG Losartan Potassium (coZAAR TAB) 25 mg QAM PO 07/15/17 09:00 08/14/17 08:59 07/15/17 09:18 25 MG Insulin Aspart (novoLOG ASPART) SLIDING SCALE If C... ACHS SC 07/14/17 16:30 08/13/17 16:29 07/15/17 12:25 3 UNITS Metoprolol Succinate (Toprol Xl Tab) 50 mg QAM PO 07/15/17 09:00 08/14/17 08:59 07/15/17 09:17 50 MG Albuterol/ Ipratropium (Duoneb) 3 ml QIDR INH 07/15/17 12:00 08/14/17 11:59 07/15/17 15:22 3 ML Levofloxacin (Levaquin Tab) 750 mg DAILY@11 PO 07/16/17 11:00 07/22/17 10:59 Objective Vital Signs Date Time Temp Pulse Resp B/P (MAP) Pulse Ox O2 Delivery O2 Flow Rate FiO2 07/15/17 16:20 93 Nasal Cannula 6.0 07/15/17 16:20 93 Nasal Cannula 6.0 07/15/17 15:52 36.5 86 18 146/78 (100) 97 Room Air 07/15/17 15:23 84 16 95 Nasal Cannula 6.0 07/15/17 11:39 36.3 88 20 122/70 (87) 94 Nasal Cannula 6.0 07/15/17 08:15 Nasal Cannula 6.0 07/15/17 08:00 36.8 80 20 128/70 (89) 91 Nasal Cannula 6.0 07/15/17 04:00 36.8 77 20 132/72 (92) 91 07/15/17 00:00 92 Nasal Cannula 5.0 07/14/17 23:51 36.8 88 20 128/69 (88) 91 Room Air 07/14/17 19:31 37.1 77 18 117/66 (83) 90 3.0 Physical Exam General Appearance: WD/WN, no apparent distress Eyes: normal inspection Neck: supple, no JVD Respiratory/Chest: no respiratory distress, no accessory muscle use, + decreased breath sounds (right base), + crackles (bilateral R>L coarse crackles worse from previous day) Cardiovascular: regular rate, rhythm, no murmur Abdomen: normal bowel sounds, non tender, soft Extremities: + pedal edema (trace ankles) Neurologic/Psychiatric: alert, oriented x 3 Laboratory Results 07/15/17 12:05 Red Blood Count 3.10, Mean Corpuscular Volume 93.2, Mean Corpuscular Hemoglobin 29.4, Mean Corpuscular Hemoglobin Concent 31.5, Mean Platelet Volume 10.4, Neutrophils (%) (Auto) 76.0, Lymphocytes (%) (Auto) 6.6, Monocytes (%) (Auto) 15.7, Eosinophils (%) (Auto) 1.1, Basophils (%) (Auto) 0.1, Neutrophils # (Auto ) 6.71, Lymphocytes # (Auto) 0.58, Monocytes # (Auto) 1.39, Eosinophils # (Auto ) 0.10, Basophils # (Auto) 0.01 07/15/17 05:23 Test 07/15/17 05:23 07/15/17 12:05 07/15/17 16:34 Anion Gap 7.0 mmol/L (3-11) Est Creatinine Clear Calc Drug Dose 103.1 ml/min Estimated GFR () 110.9 Estimated GFR (Non- 95.7 BUN/Creatinine Ratio 28.7 (10-20) Calcium Level 7.6 mg/dl (8.5-10.1) Magnesium Level 1.9 mg/dl (1.8-2.4) Pro-B-Type Natriuretic Peptide 4908 pg/ml (0-1800) White Blood Count 8.83 K/uL (4.8-10.8) Red Blood Count 3.10 M/uL (4.7-6.1) Hemoglobin 9.1 g/dL (14.0-18.0) Hematocrit 28.9 % (42-52) Mean Corpuscular Volume 93.2 fL (80-100) Mean Corpuscular Hemoglobin 29.4 pg (25-34) Mean Corpuscular Hemoglobin Concent 31.5 g/dl (32-36) Platelet Count 240 K/uL (130-400) Mean Platelet Volume 10.4 fL (7.4-10.4) Neutrophils (%) (Auto) 76.0 % Lymphocytes (%) (Auto) 6.6 % Monocytes (%) (Auto) 15.7 % Eosinophils (%) (Auto) 1.1 % Basophils (%) (Auto) 0.1 % Neutrophils # (Auto) 6.71 K/uL (1.4-6.5) Lymphocytes # (Auto) 0.58 K/uL (1.2-3.4) Monocytes # (Auto) 1.39 K/uL (0.11-0.59) Eosinophils # (Auto) 0.10 K/uL (0-0.5) Basophils # (Auto) 0.01 K/uL (0-0.2) RDW Standard Deviation 76.2 fL (36.4-46.3) RDW Coefficient of Variation 23.1 % (11.5-14.5) Immature Granulocyte % (Auto) 0.5 % Immature Granulocyte # (Auto) 0.04 K/uL (0.00-0.02) Polychromasia 1+ Anisocytosis PRESENT Tear Drop Cells 1+ Bedside Glucose 103 mg/dl (70-99) Assessment and Plan 77 year old with metastatic pancreatic ca. admission for hypoxia. Initially impression was patient was hypervolemic and pulmonary edema / heart failure felt to be cause of hypoxia. However despite diuresis and patient is now euvolemic he became more hypoxic overnight. On review of his CT chest images on day of admission I am more concerned about a malignant process. I agree with heme/onc clinically he does not appear to have pneumonia given lack of WBC, no fever and he doesn't feel short of breath - however given worsening despite diuresis I think it would be prudent to cover for this. I discussed his case with Dr Verdin (pulmonology) who will see him tomorrow and agrees with antibiotics. Initially I treated with levaquin but given immunocompromised state with malignancy and chemotherapy we will broaden coverage as per Dr Verdin' s recommendations. I reviewed the CT images with Dr Verdin. Hypoxia - worsening despite euvolemic status. Pneumonia vs. pneumonitis vs. malignancy vs. increasing pleural effusion. - O2 sats maintain above 92%, emphysema also noted on CT chest. As per Dr Maryann Foreman usual sats >96% in office - no PE on CT chest done prior to admission - duonebs, sputum culture, blood culture - zosyn, vancomycin + levaquin - Hold off steroids to assess for clinical improvement with antibiotics, if deteriorates will start steroids and BiPAP - Consult pulmonology - Dr Verdin Acute systolic heart failure with reduced ejection fraction - BB, ARB and spironolactone started by cardiology - LVEF of 35% Coronary/carotid artery disease - s/p NSTEMI 25 years ago - ASA, Plavix - BB, ARB - continue statin Peripheral artery disease - continue cilostazol, ASA, Plavix, atorvastatin Right sided foot drop and unequal pupils - CT head normal, likely peripheral neuropathy and previous cataract surgery T2DM - diet T2DM, heart healthy, low sodium - hold metformin - insulin sliding scale Hypertension - stop amlodipine, triamterene/HCZT - metoprolol, khushbu and losartan VTE prophylaxis - heparin 5000 units Q8H Code - DNR as per the patient wishes. Disposition - continued inpatient stay due to hypoxia Resident Physician Supervision Note: I was present with Dr. Hernandez during the history and exam. I discussed the case with the resident and agree with the findings and plan as documented in the note. Any exceptions or clarifications are listed here: Documented By: Gurdeep Adamson Resident Tracking Resident Involvement: Resident Care Provided Care Provided: Adult Hospital Medicine
[2017-07-15] MEDS ORDERED: VANCOMYCIN CONSULT ACTIVE PRN (18:15)
[2017-07-15] MEDS ORDERED: PIPERACILL/TAZOBAC IV 3.375 GM in DEXTROSE 5% 100ML 100 ML IV SCH (18:15)
[2017-07-15] MEDS ORDERED: PIPERACILL/TAZOBAC CONSULT ACTIVE PRN (18:15)
[2017-07-15] MEDS ORDERED: VANCOMYCIN INJ 2,000 MG in SODIUM CHLORIDE 0.9% 500ML 500 ML IV SCH (19:00)
[2017-07-15] MEDS: ZOLPIDEM TARTRATE 5 MG TAB PO PRN (20:45)
--- NOTE | 2017-07-15 22:52 | Pharmacy Progress Note ---
Pharmacy Abx Initial Consult Date of Service Jul 15, 2017. Pharmacy Dosing Scope Date of Consult: 07/15/17 Consultation requested by: Dr. Hernandez Pharmacy is consulted to initiate Vancomycin IV dosing therapy, order appropriate labs and adjust drug dose/frequency. Subjective The patient is a 77 year old male admitted on Jul 13, 2017 at 14:50. Objective Height (Feet): 5 Height (Inches): 10.00 Weight (Kilograms): 83.600 Vital Signs (Past 12Hrs) Vital Signs Past 12 Hours Date Time Temp Pulse Resp B/P (MAP) Pulse Ox O2 Delivery O2 Flow Rate FiO2 07/15/17 21:08 36.7 91 19 116/63 (80) 94 Nasal Cannula 6.0 07/15/17 19:25 86 16 94 Nasal Cannula 6.0 07/15/17 16:20 93 Nasal Cannula 6.0 07/15/17 16:20 93 Nasal Cannula 6.0 07/15/17 15:52 36.5 86 18 146/78 (100) 97 Room Air 07/15/17 15:23 84 16 95 Nasal Cannula 6.0 07/15/17 11:39 36.3 88 20 122/70 (87) 94 Nasal Cannula 6.0 Lab Results (24Hrs) Laboratory Tests (24 Hours) Test 07/15/17 12:05 White Blood Count 8.83 K/uL (4.8-10.8) Red Blood Count 3.10 M/uL (4.7-6.1) L Hemoglobin 9.1 g/dL (14.0-18.0) L Hematocrit 28.9 % (42-52) L Mean Corpuscular Volume 93.2 fL (80-100) Mean Corpuscular Hemoglobin 29.4 pg (25-34) Mean Corpuscular Hemoglobin Concent 31.5 g/dl (32-36) L Platelet Count 240 K/uL (130-400) Mean Platelet Volume 10.4 fL (7.4-10.4) Neutrophils (%) (Auto) 76.0 % Lymphocytes (%) (Auto) 6.6 % Monocytes (%) (Auto) 15.7 % Eosinophils (%) (Auto) 1.1 % Basophils (%) (Auto) 0.1 % Neutrophils # (Auto) 6.71 K/uL (1.4-6.5) H Lymphocytes # (Auto) 0.58 K/uL (1.2-3.4) L Monocytes # (Auto) 1.39 K/uL (0.11-0.59) H Eosinophils # (Auto) 0.10 K/uL (0-0.5) Basophils # (Auto) 0.01 K/uL (0-0.2) Micro Results Date/Time Source Procedure Growth Status 07/15/17 12:10 Blood Blood Culture Pending Received 07/15/17 12:05 Blood Blood Culture Pending Received 07/15/17 16:40 Nasal MRSA DNA Surveillance Screen - Final Specimen Negative for MRSA by DNA Probe Complete 07/13/17 19:00 Urine , Clean Catch Urine Culture - Preliminary NO GROWTH - LESS THAN 1,000 COLONIES/... Resulted Risk Factors for Resistance * Immunocompromised ( chemotherapy ) Assessment & Plan Assessment 77 year old male with hypoxia, who was undergoing chemotherapy and now suspecting Pneumonia. Plan Vancomycin for treatment of possible Pneumonia. Vancomycin IV * Loading dose: 2000 mg (24 mg/kg) * Maintenance dose: 1250 mg IV (15 mg/kg) every 12 hours * Est. pharmacokinetics: Ke = 0.07/hr, Vd = 0.7 L/kg, t1/2 = 9.9 hrs. * Goal trough level for Pneumonia: 15 to 30 mcg/mL * Trough level ordered for 07/17/17 before dose at 0600. Pharmacy will continue to follow and will adjust dose/frequency as necessary. Thank you.
[2017-07-15] MEDS: PIPERACILL/TAZOBAC IV 3.375 GM in DEXTROSE 5% 100ML 100 ML IV SCH (23:25)
[2017-07-16] VITALS (9 sets, daily range): BP systolic 105–121; BP diastolic 58–73; PULSE 83–97; TEMP 36.5–36.8; O2SAT 90–94
[2017-07-16] MEDS: VANCOMYCIN INJ 1,250 MG in SODIUM CHLORIDE 0.9% 250ML 250 ML IV SCH ×2 (05:24→17:51)
[2017-07-16] MEDS: INSULIN ASPART 100 UNITS/ML 3 ML PEN SC SCH ×4 (06:30→20:56)
[2017-07-16] MEDS: ALBUT/IPRATROP 3MG/0.5MG NEB 3 ML VIAL INH SCH ×4 (07:04→19:55)
[2017-07-16] MEDS: CLOPIDOGREL BISULFATE 75 MG TAB PO SCH (07:59)
[2017-07-16] MEDS: ASPIRIN 81 MG ECTAB PO SCH (07:59)
[2017-07-16] MEDS: ATORVASTATIN 40 MG TAB PO SCH (07:59)
[2017-07-16] MEDS: LOSARTAN POTASSIUM 25 MG TAB PO SCH (08:00)
[2017-07-16] MEDS: ISOSORBIDE MONONITRATE 30 MG TABCR PO SCH (08:00)
[2017-07-16] MEDS: CILOSTAZOL 100 MG TAB PO SCH (08:01)
[2017-07-16] MEDS: METOPROLOL SUCC 50MG EXT REL TAB PO SCH (08:01)
[2017-07-16] MEDS: SPIRONOLACTONE 25 MG TAB PO SCH (08:02)
[2017-07-16] MEDS: PIPERACILL/TAZOBAC IV 3.375 GM in DEXTROSE 5% 100ML 100 ML IV SCH ×3 (08:04→23:11)
--- NOTE | 2017-07-16 10:57 | DIAGNOSTIC IMAGING REPORT ---
(CHEST) THORAX WITHOUT CLINICAL HISTORY: Shortness of breath. Hypoxia. COMPARISON STUDY: Chest x-ray dated 07/15/2017, CT angiography of the chest dated 07/13/2017 CT DOSE: 470.34 mGy.cm TECHNIQUE: CT of the thorax was performed from the thoracic inlet to the lung bases. Images are reviewed in the axial, sagittal, and coronal planes. IV contrast was not administered for this examination. A dose lowering technique was utilized adhering to the principles of ALARA. FINDINGS: Thyroid: Imaged portions of the thyroid gland are normal in appearance. Thoracic aorta: The thoracic aorta is normal in course and caliber, noting standard 3 vessel arch anatomy. Heart: The heart is mildly enlarged. There is a small pericardial effusion. There are coronary artery calcifications. Lungs and pleural spaces: There is a persistent moderate right pleural effusion and trace left pleural effusion. There is pulmonary emphysema. There are persistent bilateral pulmonary airspace opacities most pronounced with thin the right lower lobe. There is also right middle, right upper, and left lower lobe involvement. The findings are suspicious for a multifocal pneumonitis. Mediastinum: Mediastinal lymph nodes are the upper limits of normal in size. Marivel: There is no evidence of pathologic hilar adenopathy given the limitations of a noncontrast study. Axilla: There is no evidence of pathologic axillary lymphadenopathy Upper abdomen: There is a 28 mm hypodense lesion arising from the spleen. Skeletal structures: There are no lytic or blastic osseous lesions. IMPRESSION: 1. Pulmonary emphysema 2. No evidence of pathologic adenopathy 3. Persistent bilateral pleural effusions right greater than left 4. Bilateral pulmonary airspace opacities suspicious for a multifocal pneumonitis Electronically signed by: Cristobal Anegles M.D. 07/16/2017 10:55 AM Dictated Date/Time: 07/16/2017 10:50 AM
[2017-07-16] MEDS ORDERED: LEVOFLOXACIN 750 MG TAB PO SCH (11:00)
[2017-07-16] MEDS: LEVOFLOXACIN / D5W 750 MG in PREMIXED IN D5W 150 ML IV SCH (12:43)
--- NOTE | 2017-07-16 12:47 | Medical Student: [facility] ---
Med Student Progress Note Date of Service Jul 16, 2017. Subjective Pt evaluation today including: conversation w/ patient, physical exam Pain: patient denies PO Intake: NPO before pulmonary consult, resuming normal diet after Voiding: no voiding problems, no incontinence Jasson Dye, is a 77 yo male, currently treated for prostate cancer, complaining of shortness of breath worsening, bilateral pitting edema to knees and dry cough for 3 days prior to arrival. He currently is denying shortness of breath and is on 6L of oxygen. He states his cough is intermittent without production. Today, he is complaining of abdominal distention that his appreciated late yesterday. He also reports chills, fatigue, and anxiety concerning the pulmonary consult and possible metastatic disease to the lung. Patient denies chest pain, palpitations, shortness of breath, fever, any pain, and swelling of his legs. Review of Systems Constitutional: + chills, + fatigue, No fever, No sweats, No weakness Eyes: No worsening of vision, No eye pain, No redness ENT: No hearing loss, No nasal symptoms, No sore throat Respiratory: + cough (intermittent), No sputum, No wheezing, No shortness of breath Cardiac: + orthopnea, + edema, No chest pain Abdomen: + problem reported (distended), No pain, No nausea, No vomiting, No diarrhea, No constipation Musculoskeletal: No joint pain, No muscle pain Male : + urinary frequency (increased since starting Lasix), No dysuria Neurologic: No memory loss, No weakness, No numbness/tingling, No vertigo Psychiatric: + anxiety Heme: No abnormal bleeding/bruising, No clotting problems Endo: + fatigue, No excessive thirst Skin: No rash, No itch Objective Vital Signs Date Time Temp Pulse Resp B/P (MAP) Pulse Ox O2 Delivery O2 Flow Rate FiO2 07/16/17 12:18 36.7 92 18 110/64 (79) 90 6.0 07/16/17 11:23 85 16 93 Nasal Cannula 6.0 07/16/17 08:00 Nasal Cannula 6.0 07/16/17 07:49 36.7 87 20 121/73 (89) 90 6.0 07/16/17 07:06 83 16 91 Nasal Cannula 6.0 07/16/17 00:15 36.8 91 20 110/69 (83) 94 Nasal Cannula 4.0 07/16/17 00:00 93 Nasal Cannula 6.0 07/16/17 00:00 93 Nasal Cannula 6.0 07/15/17 21:08 36.7 91 19 116/63 (80) 94 Nasal Cannula 6.0 07/15/17 19:25 86 16 94 Nasal Cannula 6.0 07/15/17 16:20 93 Nasal Cannula 6.0 07/15/17 16:20 93 Nasal Cannula 6.0 07/15/17 15:52 36.5 86 18 146/78 (100) 97 Room Air 07/15/17 15:23 84 16 95 Nasal Cannula 6.0 Physical Exam General Appearance: WD/WN, + mild distress (anxious) Eyes: bilateral eyes normal inspection, bilateral eyes PERRL ENT: normal ENT inspection, hearing grossly normal Neck: supple, no adenopathy Respiratory/Chest: chest non-tender, no respiratory distress, no accessory muscle use, + crackles (bilateral bases L>R) Cardiovascular: regular rate, rhythm (distant), + pertinent finding (edema 1+ on ankles) Abdomen: normal bowel sounds, non tender, soft, + distended (hollow to percussion, especially RUQ) Extremities: normal range of motion, non-tender, normal inspection, + pedal edema (1+ at ankles, improved) Neurologic/Psychiatric: no motor/sensory deficits, alert, oriented x 3, + pertinent finding (anxious over pulmonary consult happening today) Skin: normal color, warm/dry, no rash Lymphatic: no adenopathy Laboratory Results Last 24 Hours Test 07/15/17 16:34 07/15/17 20:37 07/16/17 07:30 07/16/17 11:45 Bedside Glucose 103 mg/dl 224 mg/dl 100 mg/dl 110 mg/dl Medications Medications Administered Medications (Trade) Dose Ordered Sig/Magdi Route Start Time Stop Time Status Last Admin Dose Admin Heparin Sodium (Porcine) (Heparin Sq 5000 Unit/0.5ml) 5,000 unit Q8 SQ 07/13/17 22:00 08/12/17 21:59 Future hold 07/13/17 20:35 5,000 UNIT Aspirin (Ecotrin Tab) 81 mg DAILY PO 07/14/17 09:00 08/13/17 08:59 07/16/17 07:59 81 MG Atenolol (Tenormin Tab) 25 mg BID PO 07/13/17 21:00 07/14/17 13:32 DC 07/14/17 09:04 25 MG Atorvastatin Calcium (Lipitor Tab) 80 mg DAILY PO 07/14/17 09:00 08/13/17 08:59 07/16/17 07:59 80 MG Cilostazol (Pletal Tab) 100 mg DAILY PO 07/14/17 09:00 08/13/17 08:59 07/16/17 08:01 100 MG Clopidogrel Bisulfate (plAVix TAB) 75 mg DAILY PO 07/14/17 09:00 08/13/17 08:59 07/16/17 07:59 75 MG Isosorbide Mononitrate (Imdur Ext Rel Tab) 30 mg DAILY PO 07/14/17 09:00 08/13/17 08:59 07/16/17 08:00 30 MG Furosemide 40 mg/ Syringe 4 ml @ 4 mls/min NOW ONCE IV 07/13/17 17:30 07/13/17 17:31 DC 07/13/17 17:29 4 MLS/MIN Zolpidem Tartrate (Ambien Tab) 5 mg HS PRN PO 07/13/17 21:15 08/12/17 21:14 07/15/17 20:45 5 MG Insulin Aspart (novoLOG ASPART) SLIDING SCALE If C... Q6 SC 07/14/17 00:00 07/14/17 16:29 DC 07/14/17 13:00 4 UNITS Furosemide 40 mg/ Syringe 4 ml @ 4 mls/min TODAY@1400 IV 07/14/17 14:00 07/14/17 18:00 DC 07/14/17 14:27 4 MLS/MIN Potassium Chloride (Klor-Con M10) 40 meq NOW ONCE PO 07/14/17 14:00 07/14/17 14:01 DC 07/14/17 14:27 40 MEQ Spironolactone (Aldactone Tab) 25 mg QAM PO 07/15/17 09:00 08/14/17 08:59 07/16/17 08:02 25 MG Spironolactone (Aldactone Tab) 25 mg NOW ONCE PO 07/14/17 14:00 07/14/17 14:01 DC 07/14/17 14:28 25 MG Losartan Potassium (coZAAR TAB) 25 mg QAM PO 07/15/17 09:00 08/14/17 08:59 07/16/17 08:00 25 MG Metoprolol Succinate (Toprol Xl Tab) 25 mg NOW ONCE PO 07/14/17 14:00 07/14/17 14:01 DC 07/14/17 14:28 25 MG Insulin Aspart (novoLOG ASPART) SLIDING SCALE If C... ACHS SC 07/14/17 16:30 08/13/17 16:29 07/15/17 20:45 3 UNITS Metoprolol Succinate (Toprol Xl Tab) 50 mg QAM PO 07/15/17 09:00 08/14/17 08:59 07/16/17 08:01 50 MG Furosemide 20 mg/ Syringe 2 ml @ 4 mls/min ONE ONCE IV 07/15/17 08:00 07/15/17 08:01 DC 07/15/17 09:18 4 MLS/MIN Albuterol/ Ipratropium (Duoneb) 3 ml QIDR INH 07/15/17 12:00 08/14/17 11:59 07/16/17 11:23 3 ML Levofloxacin (Levaquin Tab) 750 mg 1134 ONCE PO 07/15/17 11:34 07/15/17 11:44 DC 07/15/17 12:24 750 MG Levofloxacin 750 mg/Prmx 150 ml @ 100 mls/hr DAILY@1100 IV 07/16/17 11:00 07/22/17 10:59 07/16/17 12:43 100 MLS/HR Piperacillin Sod/ Tazobactam Sod 3.375 gm/Dextrose 115 ml @ 28.75 mls/ hr Q8@0000,0800,1600 IV 07/16/17 00:00 07/23/17 00:00 07/16/17 08:04 28.75 MLS/HR Vancomycin HCl 2000 mg/Sodium Chloride 540 ml @ 200 mls/hr 1900 IV 07/15/17 19:00 07/15/17 21:41 DC 07/15/17 19:06 200 MLS/HR Piperacillin Sod/ Tazobactam Sod 3.375 gm/Dextrose 115 ml @ 200 mls/hr 1815 IV 07/15/17 18:15 07/15/17 18:50 DC 07/15/17 19:38 200 MLS/HR Vancomycin HCl 1250 mg/Sodium Chloride 275 ml @ 125 mls/hr Q12@0600,1800 IV 07/16/17 06:00 07/22/17 23:59 07/16/17 05:24 125 MLS/HR Assessment and Plan Assessment and Plan: Jasson Dye is an 77 yo male currently treated for prostate cancer, who was directly admitted [address] Jalloh's office complaining of shortness of breath worsening for 3 days. Patient has associated symptoms of bilateral pitting edema to knees and dry cough. Patient was admitted to telemetry, with working diagnosis of heart failure. With Lasix treatment patient has improved, with increased breath sounds, crackles only heard at bases for two days, instead of custodial up lung gaming. Pedal edema has improved (3+ upon admission, 1+ on ankles). Echocardiogram showed 35% EF, cardiology consult added spironolactone, metoprolol and KCl to patient's medication list. Patient's oxygen saturation decreased overnight 2 nights ago, when he was lying flat; he is now on 6L of oxygen, repeat CXR with clinical findings showed possible pneumonitis. Pulmonary consult suggested continued antibiotic coverage for possible pneumonia, starting steroid treatment for possible pneumonitis, obtaining speech/swallow study, and does not recommend bronchoscopy at this time. Heart failure, acute - CXR findings:No change in the bilateral airspace opacities, right greater than left, and a small right pleural effusion. - EKG findings: Sinus rhythm with occasional , and consecutive Premature ventricular complexes, ST & T wave abnormality, consider lateral ischemia, Abnormal ECG, When compared with ECG of 15-DEC-2016 18:04, Premature ventricular complexes are now Present, T wave inversion now evident in Anterolateral leads. - Consult cardiology (Patient followed by Dr. Greco). Dr. Schofield consulted and started patient on Spironolactone, Metoprolol, and KCl - Prescribe 25 mg Spironolactone (Aldactone Tab), 25 mg Metoprolol Succinate ( Toprol Xl Tab), and 40 mg Potassium Chloride (Klor-Con M10) - 07/13: Furosemide (40 mg/Syringe) for edema/fluid on lungs. 07/14: Patient tolerated furosemide well, urinary output to 3000mL since admission, continue today with 20 mg IV of furosemide. 07/15: Negative fluid balance close to 5L since admission, continue on 20mg IV furosemide. 07/16: Continue 20mg IV furosemide - Echocardiogram pertinent findings: "The left ventricle is normal in size. There is no thrombus. There is mild concentric left ventricular hypertrophy. Left ventricular systolic function is moderately reduced. A full diastolic examination was done with clinical findings of Class I diastolic dysfunction. Ejection Fraction = 35-40%. There is apical akinesis. There is moderate inferior wall hypokinesis. There is moderate posterior wall hypokinesis." - Monitor I&Os, pulse oximetry, and daily weights while in-patient. 07/15: Patient had a negative balance of 3L yesterday and almost another liter today; his weight is down about 3kg too. 07/16: Weight down .2kg from yesterday. -400mL fluid balance today. - CBC with differential, magnesium, CMP, troponin, BNP, urine culture for underlying heart muscle/rhythm problem or infection. 07/14 results: RBC's 2.88, Hgb 8.3, Hct 27.2, elevated monocytes at 0.97, decreased lymphocytes 0.60, troponin 0.032, BNP 5311, urine negative). 07/15: RBCs 3.10, WBC's 8.83, BNP: 4908, Magnesium 1.9, Hct 29.9, monocytes 1.39, lymphocytes 0.58. - Discontinue home medications of Tenormin (Atenolol) 25 Mg Tab 25 Mg PO BID - Continue home medications of Lipitor (Atorvastatin Calcium) 80 Mg Tab 80 Mg PO DAILY - EKG PRN if chest pain symptom occurs Hypoxemia, acute respiratory failure - CXR on 07/15 findings: "Stable findings. Persistent bilateral airspace opacities right greater than left. Small to moderate subpulmonic right pleural effusion. Trace left pleural effusion." - 6L of oxygen and oximetry monitoring with goal >90%. In the clinic and at beginning of hospital stay his oxygen saturation was 96%, but today on 6L he is around 90-91%. 07/16: Continue on 6L, still having orthopnea, continue to sit up , BiPAP if decompensates per pulmonary consult. - Levaquin 750mg for antibiotic coverage of possible hospital acquired pneumonia. However, patient does not have elevated WBC (8.83) or fever. Per pulmonary, antibiotic coverage was expanded to: Levofloxacin 750 mg/Prmx at 150ml at 100ml/hr daily, Piperacillin Sod/ Tazobactam Sod 3.375 gm/Dextrose ( 15 ml @ 28.75 mls/hr TID), and Vancomycin HCl (2000mg initially then 1250mg/ Sodium Chloride 275 ml @ 125 mls/hr) - Duoneb breathing treatments - Incentive inspirometry and flutter valve treatment to help open airways - Consult pulmonary on 07/16: They recommend against pulmonary bronchoscopy with biopsy at this time and are considering US guided thoracentesis for fluid on lungs. Patient was kept NPO for consult incase of bronchoscopy, but can resume normal diet as tolerated at this time. Pulmonary also suggests speech and swallow study, 0.5mg/kg steroid treatment for possible pneumonitis, a nutrition consult to quantify protein intake, and a BiPAP if oxygen saturation decompensates (currently holding at 92% on 6L). Pancreatic cancer - Consult hematology/oncology. Today they suggest possible pneumonitis with consideration of steroid treatment and second CT of chest to look for evolution of interstitial changes. - Continue home medications (Prochlorperazine 25 Mg Sup 25 Mg RE PRN UD, Tramadol Hcl Er (Tramadol Hcl) 200 Mg Tab 200 Mg PO DAILY, Procrit (Epoetin Mariano ) 40,000 Units Inj 1 Dose INJ UD) CAD, chronic - Discontinue home medication of Norvasc (Amlodipine Besylate) 5 Mg Tab 5 Mg PO DAILY, Tenormin (Atenolol) 25 Mg Tab 25 Mg PO BID - Continue home medications (Metformin HCl 500 Mg Tab 500 Mg PO BID, Lipitor ( Atorvastatin Calcium) 80 Mg Tab 80 Mg PO DAILY, Aspir-81 (Aspirin) 81 Mg Tab 1 Tab PO DAILY, Nitrostat (Nitroglycerin) 0.4 Mg/1 Tab Subl 0.4 Mg SL DIRECTED , Plavix (Clopidogrel Bisulfate) 75 Mg Tab 1 Tab PO 90 Days TAKES EVERY OTHER DAY, Imdur Ext Rel (Isosorbide Mononitrate) 30 Mg Tabcr 1 Tab PO every other day ) - Monitor hemoglobin A1c (6.0) and POC glucose, plus dietary consult. Peripheral artery disease, chronic - Continue home medications (Cilostazol 100 Mg Tab 1 Tab PO DAILY) HTN, chronic - Monitor BPs while in-patient (122/70, 146/78) - Discontinue home medication (Dyazide 37.5MG/25MG (Triamterene/HCTZ) Cap 1 Tab PO Q2D) DVT prophylaxis - Heparin (5000 units SQ Q8 hours), Brayan hose, and SCDs
--- NOTE | 2017-07-16 13:10 | Pulmonary Consultation ---
History General Date of Service: Jul 16, 2017. Stated Complaint: New Onset Chf HPI The patient is a 77 year old male who presents to [facility] with complaints of New Onset Chf. The patient's primary care provider is Jae Hills M.D.. Mr. Dye is a 71-year-old male with history of pancreatic cancer and is undergoing chemotherapy treatment with gemcitabine/Abraxane. He admitted on as a direct admission from oncology service with complaints of increased shortness of breath and hypoxia. His final dose of fourth cycle of chemotherapy was subsequently canceled. His SaO2 was 80% at rest and dropped to 70% with exertion. Patient denies any fevers, chills, chest pain. He does note that he has had increased shortness of breath as well as dyspnea on exertion associated with a dry nonproductive cough and bilateral lower extremity edema, orthopnea, PND that started about 7 days prior to admission. He also has history of claudication. Prior to diagnosis of pancreatic cancer he was able to walk up to a half. Initial vitals in the ER showed a temperature of 36.9, pulse of 70, respiratory rate of 20, blood pressure 135/68, SaO2 of 91% on 4 L nasal cannula. Laboratory data on admission showed a white blood cell count of 5.44, hemoglobin of 8.3 platelet count of 159. His chemistry was significant for sodium of 134, potassium of 4.1, chloride 99, carbon dioxide level of 29, urinalysis 15 and creatinine 0.58. Calcium level was 7.9, troponin of 0.04, and BNP 5311. CT chest was done to rule out PE and was negative for pulmonary embolism. However there was diffuse nodular groundglass opacifications with peribronchial vascular consolidation mostly in the right lung and lesser in the left lower lobe. It was also moderate right and trace left parapneumonic effusions and underlying emphysema. EKG on admission showed sinus rhythm with premature ventricular complexes associated with T-wave inversions in anterior lateral leads. He was admitted acute hypoxemia secondary to multifocal pneumonia in the setting of metastatic pancreatic cancer. His home medications include: Tylenol 2 tabs by mouth twice a day, amlodipine 5 mg by mouth twice a day, aspirin 81 one tab by mouth daily, atenolol 25 mg by mouth twice a day, atorvastatin 80 mg by mouth daily, cilostazol 1 tab by mouth daily, Procrit 1 dose daily, metformin 500 mg by mouth twice a day, Nitrostat 0.4 mg sublingual as directed, prochlorperazine 25 mg when necessary, tramadol ER 200 mg by mouth daily, Rmmexgq15.5 mg/25 mg 1 tab by mouth twice daily. His current medications are listed below. He has recently been diuresing well. However has had no improvement in respiratory symptoms as well as hypoxemia. Repeat CT chest was done today, which shows persistent moderate right pleural effusion with trace left pleural effusion, pulmonary emphysema, persistent bilateral airspace opacities in the right middle and right upper and left lower lobe. Vital signs in the last 24 hours show a MAXIMUM TEMPERATURE of 36.8, blood pressure ranging between 110/64-121/73, pulse 83-92, respiratory rate 16-20, saturating 90-94 on 46 L of nasal cannula. He is cumulative fluid output has been about 5 L. Historian: patient Onset: other (several days prior to admission) Complaint Status: persistent Review of Systems Constitutional: denies: chills, fever Eyes: reports: no symptoms ENT: reports: no symptoms Cardiovascular: reports: edema, intermittent claudication, orthopnea Respiratory: reports: cough, orthopnea, shortness of breath, BARTHOLOMEW, PND, denies: hemoptysis Gastrointestinal: reports: no symptoms Genitourinary - Male: reports: no symptoms Musculoskeletal: denies: joint pain, joint swelling Integumentary: reports: no symptoms Neurologic: reports: no symptoms Psychiatric: reports: no symptoms Endocrine: no symptoms Hematologic / Lymphatic: no symptoms Allergic / Immunologic: no symptoms Past Medical History Past Medical History: COPD (patient has no history of PFT on record, but seen on imaging) Hypertension Metastatic pancreatic cancer Type 2 diabetes Coronary artery disease status post and STEMI 25 years ago Carotid artery disease with 60-69% stenosis of the left ICA Peripheral artery disease Dyslipidemia Chronic anemia BPH Family History Heart disease Stroke Significant for heart disease and stroke Social History He lives at home with his and family. 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 Was a former smoker of 2 packs per day for 30 years he quit smoking about 15 years ago. He denies any smokeless tobacco use. He drinks socially about 1 mixed drink i.e. 1 shot of vodka every other day. He denies any illicit drug use. He denies any environmental exposures. 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[employer]) Immunizations History of Influenza Vaccine: Yes Influenza Vaccine Date: Aug 03, 2008 History of Tetanus Vaccine?: Yes History of Pneumococcal: Unknown History of Hepatitis B Vaccine: No History of MDRO History of MDRO: No Allergies Coded Allergies: No Known Allergies (Verified , 07/02/17) Current Medications Reported Home Medications Medications Dose Route/Sig Max Daily Dose Days Date Category Dose Instructions Klor-Con (Potassium Chloride) 20 Meq Tabcr 20 Meq PO DAILY 30 07/15/17 Rx Lasix (Furosemide) 20 Mg Tab 1 Tab PO DAILY 30 07/15/17 Rx If weight increase > 2 lb over one day take additional tablet Spironolactone 25 Mg Tab 25 Mg PO QAM 30 07/15/17 Rx Metoprolol Succinate ER (Metoprolol Succinate) 50 Mg Tabcr 50 Mg PO QAM 30 07/15/17 Rx Losartan Potassium 25 Mg Tab 25 Mg PO QAM 30 07/15/17 Rx Procrit (Epoetin Mariano) 40,000 Units Inj 1 Dose INJ UD 07/02/17 Reported Dyazide 37.5MG/25MG (Triamterene/HCTZ) Cap 1 Tab PO Q2D 06/22/17 Reported Prochlorperazine 25 Mg Sup 25 Mg RE PRN UD 04/29/17 Reported Cilostazol 100 Mg Tab 1 Tab PO DAILY 03/06/17 Reported Aspir-81 (Aspirin) 81 Mg Tab 1 Tab PO DAILY 03/06/17 Reported Tramadol Hcl Er (Tramadol Hcl) 200 Mg Tab 200 Mg PO DAILY 12/15/16 Reported Tylenol (Acetaminophen) 500 Mg Tab 2 Tab PO TID 2 08/21/15 Reported Nitrostat (Nitroglycerin) 0.4 Mg/1 Tab Subl 0.4 Mg SL DIRECTED 08/21/15 Reported Metformin HCl 500 Mg Tab 500 Mg PO BIDM 08/21/15 Reported Lipitor (Atorvastatin Calcium) 80 Mg Tab 80 Mg PO DAILY 08/21/15 Reported Imdur Ext Rel (Isosorbide Mononitrate) 30 Mg Tabcr 1 Tab PO 08/21/15 Reported every other day Plavix (Clopidogrel Bisulfate) 75 Mg Tab 1 Tab PO 90 08/21/15 Reported TAKES EVERY OTHER DAY Norvasc (Amlodipine Besylate) 5 Mg Tab 5 Mg PO DAILY 12/15/08 Reported Tenormin (Atenolol) 25 Mg Tab 25 Mg PO BID 12/15/08 Reported Physical Physical Exam Vital Signs: Date Time Temp Pulse Resp B/P (MAP) Pulse Ox O2 Delivery O2 Flow Rate FiO2 07/16/17 12:51 36.7 92 18 90 6.0 07/16/17 12:18 36.7 92 18 110/64 (79) 90 6.0 07/16/17 11:23 85 16 93 Nasal Cannula 6.0 07/16/17 08:00 Nasal Cannula 6.0 07/16/17 07:49 36.7 87 20 121/73 (89) 90 6.0 07/16/17 07:06 83 16 91 Nasal Cannula 6.0 07/16/17 00:15 36.8 91 20 110/69 (83) 94 Nasal Cannula 4.0 07/16/17 00:00 93 Nasal Cannula 6.0 07/16/17 00:00 93 Nasal Cannula 6.0 07/15/17 21:08 36.7 91 19 116/63 (80) 94 Nasal Cannula 6.0 07/15/17 19:25 86 16 94 Nasal Cannula 6.0 07/15/17 16:20 93 Nasal Cannula 6.0 07/15/17 16:20 93 Nasal Cannula 6.0 07/15/17 15:52 36.5 86 18 146/78 (100) 97 Room Air 07/15/17 15:23 84 16 95 Nasal Cannula 6.0 General Appearance: NO APPARENT DISTRESS Head: NORMOCEPHALIC, ATRAUMATIC, other (alopecia) Eyes: PERRLA, NO DISCHARGE, EOMI, SCLERAE NORMAL, CONJUNCTIVAE NORMAL, FUNDUSCOPIC EXAM NORMAL, conjunctivae pale ENT: NORMAL NASAL EXAM, NORMAL MOUTH EXAM, NORMAL THROAT EXAM Neck: NORMAL RANGE OF MOTION, NO TENDERNESS, TRACHEA MIDLINE, NO STRIDOR, SUPPLE Respiratory: BREATH SOUNDS NORMAL, CLEAR TO AUSCULTATION, NO TENDERNESS ( decreaed bibasilar breath sounds) Cardiovasular: REGULAR RATE/RHYTHM, NORMAL S1S2, NO M/G/R Abdomen: NON TENDER, NORMAL BOWEL SOUNDS, NO REBOUND Genitourinary - Male: EXTERNAL GENITALIA NORMAL Back: NORMAL INSPECTION, NO MIDLINE TENDERNESS, NO CVA TENDERNESS Upper Extremities: NO EDEMA Lower Extremities: NO EDEMA Pulses: dorsalis pedis (R) (1+), dorsalis pedis (L) (2+) Neuro: ALERT, ORIENTED x 3, NORMAL MOTOR EXAM, NORMAL SENSATION Reflexes: brachioradialis (R), patellar (R) (3+), patellar (L) (3+) Psychiatric: NORMAL AFFECT, NO SUICIDAL IDEATION, CONTRACTS FOR SAFETY Diagnostics Labs Results Past 24 Hours Test 07/15/17 16:34 07/15/17 20:37 07/16/17 07:30 07/16/17 11:45 Range/Units Bedside Glucose 103 224 100 110 70-99 mg/dl Microbiology Results 07/15/17 MRSA DNA Surveillance Screen - Final, Complete Specimen Negative for MRSA by DNA Probe Diagnostic Radiology CT chest 07/16/2017 IMPRESSION: 1. Pulmonary emphysema 2. No evidence of pathologic adenopathy 3. Persistent bilateral pleural effusions right greater than left 4. Bilateral pulmonary airspace opacities suspicious for a multifocal pneumonitis CT chest 07/13/2017 IMPRESSION: 1. Diffuse nodular groundglass peribronchial vascular consolidation primarily involving the right lung and to a lesser extent the left lower lobe. This is most concerning for multifocal pneumonia. Moderate right and trace left parapneumonic effusions. 2. Underlying emphysema. 3. No evidence of pulmonary embolus. TTE 07/14/2017 * Moderate left ventricular systolic dysfunction. * Anteroseptal and apical akinesis. * Inferior,posterior,lateral hypokinesis. * Mild concentric left ventricular hypertrophy. * Left ventricular diastolic dysfunction. * Mild left atrial dilatation. * Mild mitral regurgitation. * Trace pulmonic and tricuspid regurgitation. * Normal estimated right ventricular systolic pressure. * Normal estimated central venous pressure. * Possible patent foramen ovale. Impression Assessment and Plan Hypoxemia Multifocal pneumonia Bilateral pleural effusion Combined diastolic and systolic heart failure CHF Hypoalbuminemia Metastatic pancreatic cancer On review of patients history, electronic medical record, and imaging I feel that his symptoms are multifactorial in nature. He does have bilateral pleural effusions as well as ground glass opacifications bilaterally mostly on the right middle lobe. With his history of recent chemotherapy, this may represent a pneumonitis. However, multifocal pneumonia is still on the differential. Although he does not have much of white blood cell count and is afebrile at this time. The differential also includes bronchiolitis obliterans/INSERTER PROMOTIONAL ITEM. Due to patients tenuous respiratory status and cardiac history, I would not recommend bronchoscopy at this time. However I would recommend a diagnostic thoracentesis to rule out a parapneumonic effusion. I would continue with empiric coverage for pneumonia at this time. I would obtain a speech and swallow evaluation as he may be silently aspirating. Also I would recommend starting 0.5 mg/kg steroids for possible pneumonitis, once a parapneumonic effusion is ruled out. Consider a nutrition consult to optimize his protein input. Cardiology is on board and optimizing his medications for his combined diastolic and systolic heart failure. Continue with supplementary oxygen therapy to maintain SaO2 above 92%. If patient should further decompensate he may benefit from a trial of BiPAP for high flow nasal cannula. Upon discharge, patient should follow up with pulmonary for outpatient PFT as he does appear to have emphysema on imaging. Continue with bronchodilators at this time. I appreciate the consult and will continue to follow.
[2017-07-16] MEDS: HEPARIN SOD 5000 UNIT/0.5 ML CARP SQ SCH ×2 (13:41→21:11)
--- NOTE | 2017-07-16 16:25 | Procedure Note ---
Procedure Note Date of Service Jul 16, 2017. Procedure Note Procedures: Right sided Thoracentesis Consent: obtained via the patient and placed into the chart Pre-Procedural Dx: Right-sided pleural effusion Post-Procedural Dx: Right-sided pleural effusion Analgesia: 8cc of 1% Liquid Lidocaine Procedure: The patient was placed in an upright position and thoracic US was used to select a spot for the procedure. A spot along the posterior axillary line was marked in the 7th intercostal space. The patient was then draped and prepped in a sterile fashion. A modified Seldinger technique was then used for catheter placement. Flowing this approximately 1800cc of yellow pleural fluid was removed. The patient was then cleaned and placed at a 60 degree angle in the bed were the US was used to evaluate for possible pneumothorax. The US showed good lung sliding and [place] signs. Post procedure chest x-ray was ordered. EBL: none Complications: none
--- NOTE | 2017-07-16 16:40 | DIAGNOSTIC IMAGING REPORT ---
SINGLE VIEW CHEST CLINICAL HISTORY: Status post thoracentesis. FINDINGS: An AP, portable, upright chest radiograph is compared to study dated 07/15/2017 and correlated with chest CT performed the same day 07/16/2017. The examination is degraded by portable technique and apical lordotic positioning. The heart is enlarged and there is atherosclerotic calcification of the thoracic aorta. The pulmonary vasculature is noncongested. Emphysema and chronic interstitial thickening are similar to previous. There is patchy airspace consolidation throughout the right lung, greatest the right lung base. Airspace consolidation is also seen in the left lung base. There are small pleural effusions. The right pleural effusion appears decreased in size from previous. No pneumothorax is seen. The skeletal structures are osteopenic. The bony thorax is grossly intact. IMPRESSION: 1. No pneumothorax is identified post thoracentesis. 2. There is patchy airspace consolidation throughout the right lung and at the left lung base. This appears modestly cleared from previous. Radiographic follow-up to complete resolution is recommended. 3. Small pleural effusions. A right pleural effusion appears decreased in size from previous. 4. Cardiomegaly and emphysema. Electronically signed by: Jon Rios M.D. 07/16/2017 4:39 PM Dictated Date/Time: 07/16/2017 4:36 PM
[2017-07-16 16:53] LABS: PLEURAL FLUID TOTAL PROTEIN 2.7 g/dl
[2017-07-16 17:29] LABS: PLEURAL FLUID APPEARANCE CLEAR; PLEURAL FLUID COLOR YELLOW; PLEURAL FLUID MONONUC RELAT 91.6 %; PLEURAL FLUID POLYNUC 8.4 %; PLEURAL FLUID SOURCE RIGHT LUNG; PLEURAL FLUID WBC (A) 453 /uL
[2017-07-16] MEDS: ZOLPIDEM TARTRATE 5 MG TAB PO PRN (21:08)
--- NOTE | 2017-07-16 22:28 | Family Medicine Progress Note ---
Progress Note Date of Service Jul 16, 2017. Subjective Pt evaluation today including: conversation w/ patient, physical exam, chart review, lab review, review of studies Voiding: no voiding problems Patient seen in the morning. [place] well. Anxious about possibility of a procedure today. Denies any shortness of breath but is experiencing some mild right sided chest pain. Worse on inspiration. Sharp. Severity 1-2/10. Remains on 6L O2 overnight. Constitutional: No fever, No chills Respiratory: + cough, No sputum, No wheezing, No shortness of breath Cardiovascular: + chest pain (right sided inspiratory chest pain) Abdomen: No pain, No nausea, No vomiting, No diarrhea Musculoskeletal: No joint pain, No muscle pain Male : No dysuria, No urinary frequency Heme: No abnormal bleeding/bruising Endo: + fatigue All Other Systems: Reviewed and Negative Medications Current Inpatient Medications Medications (Trade) Dose Ordered Sig/Magdi Route Start Time Stop Time Status Last Admin Dose Admin Heparin Sodium (Porcine) (Heparin Sq 5000 Unit/0.5ml) 5,000 unit Q8 SQ 07/13/17 22:00 08/12/17 21:59 Future hold 07/16/17 21:11 5,000 UNIT Acetaminophen (Tylenol Tab) 650 mg Q4H PRN PO 07/13/17 16:30 08/12/17 16:29 Ondansetron HCl (Zofran Inj) 4 mg Q6H PRN IV 07/13/17 16:30 08/12/17 16:29 Nitroglycerin (Nitrostat Tab) 0.4 mg UD PRN SL 07/13/17 16:30 08/12/17 16:29 Aspirin (Ecotrin Tab) 81 mg DAILY PO 07/14/17 09:00 08/13/17 08:59 07/16/17 07:59 81 MG Atorvastatin Calcium (Lipitor Tab) 80 mg DAILY PO 07/14/17 09:00 08/13/17 08:59 07/16/17 07:59 80 MG Cilostazol (Pletal Tab) 100 mg DAILY PO 07/14/17 09:00 08/13/17 08:59 07/16/17 08:01 100 MG Clopidogrel Bisulfate (plAVix TAB) 75 mg DAILY PO 07/14/17 09:00 08/13/17 08:59 07/16/17 07:59 75 MG Isosorbide Mononitrate (Imdur Ext Rel Tab) 30 mg DAILY PO 07/14/17 09:00 08/13/17 08:59 07/16/17 08:00 30 MG Zolpidem Tartrate (Ambien Tab) 5 mg HS PRN PO 07/13/17 21:15 08/12/17 21:14 07/16/17 21:08 5 MG Glucose (Glucose 40% Gel) 15-30 GRAMS 15 GRAMS... UD PRN PO 07/13/17 21:30 08/12/17 21:29 Glucose (Glucose Chew Tab) 4-8 Tablets 4 Tabl... UD PRN PO 07/13/17 21:30 08/12/17 21:29 Dextrose (Dextrose 50% 50ML Syringe) 25-50ML OF 50% DW IV FOR... UD PRN IV 07/13/17 21:30 08/12/17 21:29 Glucagon (Glucagon Inj) 1 mg UD PRN SQ 07/13/17 21:30 08/12/17 21:29 Spironolactone (Aldactone Tab) 25 mg QAM PO 07/15/17 09:00 08/14/17 08:59 07/16/17 08:02 25 MG Losartan Potassium (coZAAR TAB) 25 mg QAM PO 07/15/17 09:00 08/14/17 08:59 07/16/17 08:00 25 MG Insulin Aspart (novoLOG ASPART) SLIDING SCALE If C... ACHS SC 07/14/17 16:30 08/13/17 16:29 07/16/17 17:50 2 UNITS Metoprolol Succinate (Toprol Xl Tab) 50 mg QAM PO 07/15/17 09:00 08/14/17 08:59 07/16/17 08:01 50 MG Albuterol/ Ipratropium (Duoneb) 3 ml QIDR INH 07/15/17 12:00 08/14/17 11:59 07/16/17 19:55 3 ML Levofloxacin 750 mg/Prmx 150 ml @ 100 mls/hr DAILY@1100 IV 07/16/17 11:00 07/22/17 10:59 07/16/17 12:43 100 MLS/HR Piperacillin Sod/ Tazobactam Sod 3.375 gm/Dextrose 115 ml @ 28.75 mls/ hr Q8@0000,0800,1600 IV 07/16/17 00:00 07/23/17 00:00 07/16/17 15:41 28.75 MLS/HR Piperacillin Sod/ Tazobactam Sod (Consult) 1 ea UD PRN N/A 07/15/17 18:15 08/14/17 18:14 Prednisone (PredniSONE TAB) 60 mg QAM PO 07/17/17 08:00 08/16/17 07:59 UNV Prednisone (PredniSONE TAB) 40 mg NOW STAT PO 07/16/17 22:00 07/16/17 22:01 UNV Objective Vital Signs Date Time Temp Pulse Resp B/P (MAP) Pulse Ox O2 Delivery O2 Flow Rate FiO2 07/16/17 20:10 Nasal Cannula 6.0 07/16/17 19:57 93 16 93 Nasal Cannula 6.0 07/16/17 15:35 36.5 97 18 105/58 (74) 94 Nasal Cannula 6.0 07/16/17 12:51 36.7 92 18 90 6.0 07/16/17 12:18 36.7 92 18 110/64 (79) 90 6.0 07/16/17 11:23 85 16 93 Nasal Cannula 6.0 07/16/17 08:00 Nasal Cannula 6.0 07/16/17 07:49 36.7 87 20 121/73 (89) 90 6.0 07/16/17 07:06 83 16 91 Nasal Cannula 6.0 07/16/17 00:15 36.8 91 20 110/69 (83) 94 Nasal Cannula 4.0 07/16/17 00:00 93 Nasal Cannula 6.0 07/16/17 00:00 93 Nasal Cannula 6.0 Physical Exam General Appearance: WD/WN, no apparent distress Neck: supple, no JVD Respiratory/Chest: no respiratory distress, no accessory muscle use, + crackles (bilateral coarse R>L) Cardiovascular: regular rate, rhythm, no murmur Abdomen: normal bowel sounds, non tender, soft Extremities: no calf tenderness, normal capillary refill, + pedal edema (1+ to mid shins) Neurologic/Psychiatric: alert, oriented x 3 Laboratory Results Test 07/16/17 16:05 07/16/17 16:29 07/16/17 20:08 Pleural Fluid Source RIGHT LUNG Pleural Fluid Color YELLOW Pleural Fluid Appearance CLEAR Pleural Fluid WBC 453 /uL Pleural Fluid RBC < 3000 /uL Pleural Fluid pH 7.51 (7.3-7.4) Pleural Fluid Polynuclear WBCs % 8.4 % Pleural Fluid Mononuclear WBCs % 91.6 % Pleural Fluid Total Protein 2.7 g/dl Pleural Fluid LDH 144 IU Pleural Fluid Glucose 120 mg/dl Pleural Fluid Amylase 41 U/L Total Bilirubin 0.5 mg/dl (0.2-1) Lactate Dehydrogenase 188 U/L (87-241) Total Protein 5.9 gm/dl (6.4-8.2) Albumin 2.1 gm/dl (3.4-5.0) Bedside Glucose 120 mg/dl (70-99) Assessment and Plan 77 year old with metastatic pancreatic ca. admission for hypoxia. Initially impression was patient was hypervolemic and pulmonary edema / heart failure felt to be cause of hypoxia. Worsening hypoxia despite adequate fluid diuresis therefore started on antibiotics to cover for multifocal pneumonia. Pulmonology consulted for possibility of metastatic disease - ?need for bronchoscopy vs. thoracocentesis Hypoxia - worsening despite euvolemic status. Pneumonia vs. pneumonitis vs. malignancy vs. increasing pleural effusion. - O2 sats maintain above 92%, emphysema also noted on CT chest. As per Dr Maryann Swanson usual sats >96% in office - no PE on CT chest done prior to admission - duonebs, sputum culture, blood culture - zosyn, vancomycin + levaquin - minimal clinical improvement with antibiotics overnight and would recommend starting steroids at this point for pneumonitis pending pulmonology consult - Consult pulmonology - Dr Verdin Acute systolic heart failure with reduced ejection fraction - BB, ARB and spironolactone started by cardiology - lasix 20mg PO daily - LVEF of 35% Coronary/carotid artery disease - s/p NSTEMI 25 years ago - ASA, Plavix - BB, ARB - continue statin Peripheral artery disease - continue cilostazol, ASA, Plavix, atorvastatin Right sided foot drop and unequal pupils - CT head normal, likely peripheral neuropathy and previous cataract surgery T2DM - diet T2DM, heart healthy, low sodium - hold metformin - insulin sliding scale - likely will need increasing does +/- basal dosing if starting steroids Hypertension - stopped amlodipine, triamterene/HCZT - started on metoprolol, khushbu and losartan as above for better prognosis with heart failure VTE prophylaxis - heparin 5000 units Q8H Code - DNR as per the patient wishes. Disposition - continued inpatient stay due to hypoxia Resident Physician Supervision Note: I was present with Dr. Hernandez during the history and exam. I discussed the case with the resident and agree with the findings and plan as documented in the note. Documented By: Gurdeep Adamson Resident Tracking Resident Involvement: Resident Care Provided Care Provided: Adult ED
[2017-07-17] VITALS (8 sets, daily range): BP systolic 105–125; BP diastolic 45–72; PULSE 88–94; TEMP 36.4–36.9; O2SAT 91–100
[2017-07-17] MEDS: HEPARIN SOD 5000 UNIT/0.5 ML CARP SQ SCH ×3 (05:21→21:10)
[2017-07-17] MEDS ORDERED: VANCOMYCIN TROUGH SCH (05:30)
[2017-07-17] MEDS: ALBUT/IPRATROP 3MG/0.5MG NEB 3 ML VIAL INH SCH ×4 (06:48→19:04)
[2017-07-17] MEDS: PIPERACILL/TAZOBAC IV 3.375 GM in DEXTROSE 5% 100ML 100 ML IV SCH ×2 (07:53→16:28)
[2017-07-17] MEDS: SPIRONOLACTONE 25 MG TAB PO SCH (07:53)
[2017-07-17] MEDS: METOPROLOL SUCC 50MG EXT REL TAB PO SCH (07:54)
[2017-07-17] MEDS: CILOSTAZOL 100 MG TAB PO SCH (07:55)
[2017-07-17] MEDS: ISOSORBIDE MONONITRATE 30 MG TABCR PO SCH (07:55)
[2017-07-17] MEDS: LOSARTAN POTASSIUM 25 MG TAB PO SCH (07:56)
[2017-07-17] MEDS: ATORVASTATIN 40 MG TAB PO SCH (07:56)
[2017-07-17] MEDS: CLOPIDOGREL BISULFATE 75 MG TAB PO SCH (07:56)
[2017-07-17] MEDS: ASPIRIN 81 MG ECTAB PO SCH (07:56)
[2017-07-17] MEDS ORDERED: FUROSEMIDE 20 MG TAB PO SCH (08:00)
--- NOTE | 2017-07-17 08:24 | Medical Student: [facility] ---
Med Student Progress Note Date of Service Jul 17, 2017. Subjective Pt evaluation today including: conversation w/ patient, physical exam, chart review Pain: patient denies PO Intake: tolerating PO diet Voiding: no voiding problems, no incontinence Jasson Dye is a 77 yo male, currently being treated for pancreatic cancer, who presented with shortness of breath, cough, and bilateral leg swelling on 07/13. He currently states symptom of chills/feeling cold and intermittent cough sometimes with phlegm. He feels his cough has improved since yesterday. He also was complaining of nasal congestion, but his 6L of oxygen is now being humidified, which he says has helped with his symptom. He denies shortness of breath, leg swelling, and any pain at this time. He wants to know when he can go home, and if he will need to be on 6L of oxygen at home. He was sitting on the edge of his bed, watching tv, and practicing his handwriting during interview. Review of Systems Constitutional: + chills, + fatigue, No fever, No sweats, No weight loss Eyes: No worsening of vision, No redness ENT: No hearing loss, No nasal symptoms, No sore throat Respiratory: + cough, + sputum (intermittent), No wheezing, No shortness of breath Cardiac: + orthopnea, + edema, No chest pain, No claudication Abdomen: No pain, No nausea, No vomiting, No diarrhea, No constipation (no bowel movement for 2 days) Musculoskeletal: No joint pain, No muscle pain Male : No dysuria, No incontinence Neurologic: No memory loss, No numbness/tingling (at baseline) Psychiatric: + anxiety, No depression symptoms Endo: + fatigue, No excessive thirst Skin: No rash, No new/changing skin lesions Objective Vital Signs Date Time Temp Pulse Resp B/P (MAP) Pulse Ox O2 Delivery O2 Flow Rate FiO2 07/17/17 07:16 36.5 91 20 118/62 (80) 91 Nasal Cannula 6.0 07/17/17 06:50 88 18 95 Nasal Cannula 6.0 07/17/17 00:05 36.9 91 20 120/69 (86) 98 Nasal Cannula 5.0 07/17/17 00:00 Nasal Cannula 6.0 07/16/17 20:10 Nasal Cannula 6.0 07/16/17 19:57 93 16 93 Nasal Cannula 6.0 07/16/17 15:35 36.5 97 18 105/58 (74) 94 Nasal Cannula 6.0 07/16/17 12:51 36.7 92 18 90 6.0 07/16/17 12:18 36.7 92 18 110/64 (79) 90 6.0 07/16/17 11:23 85 16 93 Nasal Cannula 6.0 Physical Exam General Appearance: WD/WN, no apparent distress Eyes: bilateral eyes normal inspection, bilateral eyes PERRL ENT: normal ENT inspection, hearing grossly normal, pharynx normal Neck: supple, no adenopathy Respiratory/Chest: chest non-tender, no respiratory distress, no accessory muscle use, + crackles (lower bases) Cardiovascular: regular rate, rhythm, no edema (improved since yesterday) Abdomen: normal bowel sounds, non tender, soft Extremities: normal range of motion, non-tender, normal inspection, no pedal edema (improved since yesterday), no calf tenderness, + pertinent finding ( peripheral neuropathy at baseline, having trouble writing with pen from shakiness) Neurologic/Psychiatric: no motor/sensory deficits, alert, normal mood/affect, oriented x 3 Skin: normal color, warm/dry, no rash Lymphatic: no adenopathy Laboratory Results Last 24 Hours Test 07/16/17 11:45 07/16/17 16:05 07/16/17 16:29 07/16/17 16:39 Bedside Glucose 110 mg/dl 117 mg/dl Pleural Fluid Source RIGHT LUNG Pleural Fluid Color YELLOW Pleural Fluid Appearance CLEAR Pleural Fluid WBC 453 /uL Pleural Fluid RBC < 3000 /uL Pleural Fluid pH 7.51 Pleural Fluid Polynuclear WBCs % 8.4 % Pleural Fluid Mononuclear WBCs % 91.6 % Pleural Fluid Total Protein 2.7 g/dl Pleural Fluid LDH 144 IU Pleural Fluid Glucose 120 mg/dl Pleural Fluid Amylase 41 U/L Total Bilirubin 0.5 mg/dl Lactate Dehydrogenase 188 U/L Total Protein 5.9 gm/dl Albumin 2.1 gm/dl Test 07/16/17 20:08 07/17/17 04:44 07/17/17 07:52 Bedside Glucose 120 mg/dl 219 mg/dl Medications Medications Administered Medications (Trade) Dose Ordered Sig/Magdi Route Start Time Stop Time Status Last Admin Dose Admin Heparin Sodium (Porcine) (Heparin Sq 5000 Unit/0.5ml) 5,000 unit Q8 SQ 07/13/17 22:00 08/12/17 21:59 Future hold 07/17/17 05:21 5,000 UNIT Aspirin (Ecotrin Tab) 81 mg DAILY PO 07/14/17 09:00 08/13/17 08:59 07/17/17 07:56 81 MG Atenolol (Tenormin Tab) 25 mg BID PO 07/13/17 21:00 07/14/17 13:32 DC 07/14/17 09:04 25 MG Atorvastatin Calcium (Lipitor Tab) 80 mg DAILY PO 07/14/17 09:00 08/13/17 08:59 07/17/17 07:56 80 MG Cilostazol (Pletal Tab) 100 mg DAILY PO 07/14/17 09:00 08/13/17 08:59 07/17/17 07:55 100 MG Clopidogrel Bisulfate (plAVix TAB) 75 mg DAILY PO 07/14/17 09:00 08/13/17 08:59 07/17/17 07:56 75 MG Isosorbide Mononitrate (Imdur Ext Rel Tab) 30 mg DAILY PO 07/14/17 09:00 08/13/17 08:59 07/17/17 07:55 30 MG Furosemide 40 mg/ Syringe 4 ml @ 4 mls/min NOW ONCE IV 07/13/17 17:30 07/13/17 17:31 DC 07/13/17 17:29 4 MLS/MIN Zolpidem Tartrate (Ambien Tab) 5 mg HS PRN PO 07/13/17 21:15 08/12/17 21:14 07/16/17 21:08 5 MG Insulin Aspart (novoLOG ASPART) SLIDING SCALE If C... Q6 SC 07/14/17 00:00 07/14/17 16:29 DC 07/14/17 13:00 4 UNITS Furosemide 40 mg/ Syringe 4 ml @ 4 mls/min TODAY@1400 IV 07/14/17 14:00 07/14/17 18:00 DC 07/14/17 14:27 4 MLS/MIN Potassium Chloride (Klor-Con M10) 40 meq NOW ONCE PO 07/14/17 14:00 07/14/17 14:01 DC 07/14/17 14:27 40 MEQ Spironolactone (Aldactone Tab) 25 mg QAM PO 07/15/17 09:00 08/14/17 08:59 07/17/17 07:53 25 MG Spironolactone (Aldactone Tab) 25 mg NOW ONCE PO 07/14/17 14:00 07/14/17 14:01 DC 07/14/17 14:28 25 MG Losartan Potassium (coZAAR TAB) 25 mg QAM PO 07/15/17 09:00 08/14/17 08:59 07/17/17 07:56 25 MG Metoprolol Succinate (Toprol Xl Tab) 25 mg NOW ONCE PO 07/14/17 14:00 07/14/17 14:01 DC 07/14/17 14:28 25 MG Insulin Aspart (novoLOG ASPART) SLIDING SCALE If C... ACHS SC 07/14/17 16:30 08/13/17 16:29 07/16/17 17:50 2 UNITS Metoprolol Succinate (Toprol Xl Tab) 50 mg QAM PO 07/15/17 09:00 08/14/17 08:59 07/17/17 07:54 50 MG Furosemide 20 mg/ Syringe 2 ml @ 4 mls/min ONE ONCE IV 07/15/17 08:00 07/15/17 08:01 DC 07/15/17 09:18 4 MLS/MIN Albuterol/ Ipratropium (Duoneb) 3 ml QIDR INH 07/15/17 12:00 08/14/17 11:59 07/17/17 06:48 3 ML Levofloxacin (Levaquin Tab) 750 mg 1134 ONCE PO 07/15/17 11:34 07/15/17 11:44 DC 07/15/17 12:24 750 MG Levofloxacin 750 mg/Prmx 150 ml @ 100 mls/hr DAILY@1100 IV 07/16/17 11:00 07/22/17 10:59 07/16/17 12:43 100 MLS/HR Piperacillin Sod/ Tazobactam Sod 3.375 gm/Dextrose 115 ml @ 28.75 mls/ hr Q8@0000,0800,1600 IV 07/16/17 00:00 07/23/17 00:00 07/17/17 07:53 28.75 MLS/HR Vancomycin HCl 2000 mg/Sodium Chloride 540 ml @ 200 mls/hr 1900 IV 07/15/17 19:00 07/15/17 21:41 DC 07/15/17 19:06 200 MLS/HR Piperacillin Sod/ Tazobactam Sod 3.375 gm/Dextrose 115 ml @ 200 mls/hr 1815 IV 07/15/17 18:15 07/15/17 18:50 DC 07/15/17 19:38 200 MLS/HR Vancomycin HCl 1250 mg/Sodium Chloride 275 ml @ 125 mls/hr Q12@0600,1800 IV 07/16/17 06:00 07/16/17 18:16 DC 07/16/17 17:51 125 MLS/HR Prednisone (PredniSONE TAB) 20 mg NOW STAT PO 07/16/17 18:20 07/16/17 18:41 DC 07/16/17 19:22 20 MG Prednisone (PredniSONE TAB) 60 mg QAM PO 07/17/17 08:00 08/16/17 07:59 07/17/17 07:54 60 MG Prednisone (PredniSONE TAB) 40 mg NOW STAT PO 07/16/17 22:00 07/16/17 22:07 DC 07/16/17 23:10 40 MG Furosemide (Lasix Tab) 20 mg QAM PO 07/17/17 08:00 08/16/17 07:59 07/17/17 07:54 20 MG Assessment and Plan Assessment and Plan: Jasson Dye is an 77 yo male currently treated for prostate cancer, who was directly admitted on 07/[address] Jalloh's office complaining of shortness of breath worsening for 3 days. Patient has associated symptoms of bilateral pitting edema to knees and dry cough. Patient was admitted to telemetry, with working diagnosis of heart failure. With Lasix treatment patient has improved, with increased breath sounds, crackles only heard at bases for two days, instead of prison up lung gaming. Pedal edema has improved (3+ upon admission, 1+ on ankles yesterday, minimal today). Echocardiogram showed 35% EF, cardiology consult added spironolactone, metoprolol and KCl to patient's medication list. Patient's oxygen saturation decreased overnight on 07/14, when he was lying flat; he is now on 6L of oxygen, repeat CXR with clinical findings showed possible pneumonitis. Pulmonary consult suggested continued antibiotic coverage for possible pneumonia, starting steroid treatment for possible pneumonitis, obtaining speech/swallow study, and does not recommend bronchoscopy at this time. Pulmonary performed thoracocentesis and assessing home oxygen use, waiting on OT for speech/swallow evaluation, then will confirm plan with Heme/Onc, before discharge home with home nursing as needed. Heart failure, acute - CXR findings:No change in the bilateral airspace opacities, right greater than left, and a small right pleural effusion. - EKG findings: Sinus rhythm with occasional , and consecutive Premature ventricular complexes, ST & T wave abnormality, consider lateral ischemia, Abnormal ECG, When compared with ECG of 15-DEC-2016 18:04, Premature ventricular complexes are now Present, T wave inversion now evident in Anterolateral leads. - Consult cardiology (Patient followed by Dr. Greco). Dr. Schofield consulted and started patient on Spironolactone, Metoprolol, and KCl - Prescribe 25 mg Spironolactone (Aldactone Tab), 25 mg Metoprolol Succinate ( Toprol Xl Tab), and 40 mg Potassium Chloride (Klor-Con M10) - 07/13: Furosemide (40 mg/Syringe) for edema/fluid on lungs. 07/14: Patient tolerated furosemide well, urinary output to 3000mL since admission, continue today with 20 mg IV of furosemide. 07/15: Negative fluid balance close to 5L since admission, continue on 20mg IV furosemide. 07/16: Continue 20mg IV furosemide 07/17: Edema improved to minimal on bilateral legs, continue 20mg IV furosemide today, but monitor for signs of hypovolemia. Switch to 40 mg PO furosemide daily at discharge. - Echocardiogram pertinent findings: "The left ventricle is normal in size. There is no thrombus. There is mild concentric left ventricular hypertrophy. Left ventricular systolic function is moderately reduced. A full diastolic examination was done with clinical findings of Class I diastolic dysfunction. Ejection Fraction = 35-40%. There is apical akinesis. There is moderate inferior wall hypokinesis. There is moderate posterior wall hypokinesis." - Monitor I&Os, pulse oximetry, and daily weights while in-patient. 07/15: Patient had a negative balance of 3L yesterday and almost another liter today; his weight is down about 3kg too. 07/16: Weight down .2kg from yesterday. -400mL fluid balance today. 07/17: Weight down .9kg from yesterday, -900mL fluid balance so far today. - CBC with differential, magnesium, CMP, troponin, BNP, urine culture for underlying heart muscle/rhythm problem or infection. 07/14 results: RBC's 2.88, Hgb 8.3, Hct 27.2, elevated monocytes at 0.97, decreased lymphocytes 0.60, troponin 0.032, BNP 5311, urine negative). 07/15: RBCs 3.10, WBC's 8.83, BNP: 4908, Magnesium 1.9, Hct 29.9, monocytes 1.39, lymphocytes 0.58. - Discontinue home medications of Tenormin (Atenolol) 25 Mg Tab 25 Mg PO BID - Continue home medications of Lipitor (Atorvastatin Calcium) 80 Mg Tab 80 Mg PO DAILY - EKG PRN if chest pain symptom occurs Hypoxemia, acute respiratory failure - CXR on 07/15 findings: "Stable findings. Persistent bilateral airspace opacities right greater than left. Small to moderate subpulmonic right pleural effusion. Trace left pleural effusion." - 6L of oxygen and oximetry monitoring with goal >90%. In the clinic and at beginning of hospital stay his oxygen saturation was 96%, but today on 6L he is around 90-91%. 07/16: Continue on 6L, still having orthopnea, continue to sit up , BiPAP if decompensates per pulmonary consult. 07/17: Continue on 6L, 92-96% when sitting comfortably, dips into 80's when talking/coughing. Evaluate with PT for oxygen saturations while ambulating in anticipation of discharge. - Levaquin 750mg for antibiotic coverage of possible hospital acquired pneumonia. However, patient does not have elevated WBC (8.83) or fever. Per pulmonary, antibiotic coverage was expanded to: Levofloxacin 750 mg/Prmx at 150ml at 100ml/hr daily, Piperacillin Sod/ Tazobactam Sod 3.375 gm/Dextrose ( 15 ml @ 28.75 mls/hr TID), and Vancomycin HCl (2000mg initially then 1250mg/ Sodium Chloride 275 ml @ 125 mls/hr). 07/17: Continue Levofloxacin, Piperacillin Sod/Tazobactam Sod, and Vancomycin HCl. For discharge will need to switch to PO medication, like Augmentin. - Duoneb breathing treatments - Incentive inspirometry and flutter valve treatment to help open airways - Consult pulmonary on 07/16: They recommend against pulmonary bronchoscopy with biopsy at this time and are considering US guided thoracentesis for fluid on lungs. Patient was kept NPO for consult incase of bronchoscopy, but can resume normal diet as tolerated at this time. Pulmonary also suggests speech and swallow study, 0.5mg/kg steroid treatment for possible pneumonitis, a nutrition consult to quantify protein intake, and a BiPAP if oxygen saturation decompensates (currently holding at 92% on 6L). 07/17: Throacocentesis completed yesterday, patient still needs OT to come by for speech/swallow study (pulmonary concerned for aspiration), continue steroid treatment (60mg prednisone daily for 3 days followed by gradual taper). Oxygen saturations slightly improved from yesterday, 92-95% when resting comfortably during exam, need to evaluate how oxygen saturations are when ambulates, to quantify how much oxygen he will need at home. Pancreatic cancer - Consult hematology/oncology. Today they suggest possible pneumonitis with consideration of steroid treatment and second CT of chest to look for evolution of interstitial changes. - Continue home medications (Prochlorperazine 25 Mg Sup 25 Mg RE PRN UD, Tramadol Hcl Er (Tramadol Hcl) 200 Mg Tab 200 Mg PO DAILY, Procrit (Epoetin Mariano ) 40,000 Units Inj 1 Dose INJ UD) CAD, chronic - Discontinue home medication of Norvasc (Amlodipine Besylate) 5 Mg Tab 5 Mg PO DAILY, Tenormin (Atenolol) 25 Mg Tab 25 Mg PO BID - Continue home medications (Metformin HCl 500 Mg Tab 500 Mg PO BID, Lipitor ( Atorvastatin Calcium) 80 Mg Tab 80 Mg PO DAILY, Aspir-81 (Aspirin) 81 Mg Tab 1 Tab PO DAILY, Nitrostat (Nitroglycerin) 0.4 Mg/1 Tab Subl 0.4 Mg SL DIRECTED , Plavix (Clopidogrel Bisulfate) 75 Mg Tab 1 Tab PO 90 Days TAKES EVERY OTHER DAY, Imdur Ext Rel (Isosorbide Mononitrate) 30 Mg Tabcr 1 Tab PO every other day ) - Monitor hemoglobin A1c (6.0) and POC glucose, plus dietary consult. Peripheral artery disease, chronic - Continue home medications (Cilostazol 100 Mg Tab 1 Tab PO DAILY) HTN, chronic - Monitor BPs while in-patient (122/70, 146/78) - Discontinue home medication (Dyazide 37.5MG/25MG (Triamterene/HCTZ) Cap 1 Tab PO Q2D) DVT prophylaxis - Heparin (5000 units SQ Q8 hours), Brayan hose, and SCDs
[2017-07-17] MEDS: INSULIN ASPART 100 UNITS/ML 3 ML PEN SC SCH ×4 (08:29→21:09)
[2017-07-17 09:13] LABS: HEMATOCRIT 30.6 % (42-52); IG% 0.1 %; LYMPH % 3.5 %; LYMPH ABS # 0.26 K/uL (1.2-3.4); MEAN CELL VOLUME 96.5 fL (80-100); MEAN CORPUSCULAR HGB CONC 30.1 g/dl (32-36); MEAN PLATELET VOLUME 10.7 fL (7.4-10.4); MONO % 3.7 %; NEUT % 92.7 %; PLATELET COUNT 319 K/uL (130-400); RED BLOOD COUNT 3.17 M/uL (4.7-6.1); WHITE BLOOD COUNT 7.47 K/uL (4.8-10.8)
[2017-07-17 09:23] LABS: INR 1.2 (0.9-1.1); PARTIAL THROMBOPLASTIN RATIO 1.3
[2017-07-17 09:39] LABS: BUN/CREATININE RATIO 19.2 (10-20); CALCIUM 8.2 mg/dl (8.5-10.1); CREATININE 0.88 mg/dl (0.60-1.40); POTASSIUM 3.6 mmol/L (3.5-5.1)
[2017-07-17 09:55] LABS: ANISOCYTOSIS PRESENT; COMPLETE YES; ECHINOCYTES 1+; TEAR DROP CELLS 1+
[2017-07-17] MEDS: LEVOFLOXACIN / D5W 750 MG in PREMIXED IN D5W 150 ML IV SCH (11:27)
[2017-07-17] MEDS ORDERED: LORAZEPAM 0.5 MG TAB PO STA (11:41)
--- NOTE | 2017-07-17 12:09 | Pulmonology Progress Note ---
Pulmonary Progress Note Date of Service Jul 17, 2017. Attending Dr. Verdin Subjective Patient seen and examined today. He is feeling a little down and anxious today. He states that he feels about the same. He denies any fever, chills, chest pain , still has some shortness of breath, mild dyspnea on exertion. He is s/p thoracentesis yesterday with removal of 650 ml. Objective VS: reviewed. Tm 36.9, BP 118/62, P 88-92, Pox 91-98, Sao2 6 L NC. General Appearance: NO APPARENT DISTRESS, feeling down today Head: NORMOCEPHALIC, ATRAUMATIC, other (alopecia) Eyes: PERRLA, NO DISCHARGE, EOMI, SCLERAE NORMAL, CONJUNCTIVAE NORMAL, FUNDUSCOPIC EXAM NORMAL, conjunctivae pale ENT: NORMAL NASAL EXAM, NORMAL MOUTH EXAM, NORMAL THROAT EXAM Neck: NORMAL RANGE OF MOTION, NO TENDERNESS, TRACHEA MIDLINE, NO STRIDOR, SUPPLE Respiratory: BREATH SOUNDS NORMAL, CLEAR TO AUSCULTATION, NO TENDERNESS ( decreaed bibasilar breath sounds) Cardiovasular: REGULAR RATE/RHYTHM, NORMAL S1S2, NO M/G/R Abdomen: NON TENDER, NORMAL BOWEL SOUNDS, NO REBOUND Genitourinary - Male: EXTERNAL GENITALIA NORMAL Back: NORMAL INSPECTION, NO MIDLINE TENDERNESS, NO CVA TENDERNESS Upper Extremities: NO EDEMA Lower Extremities: NO EDEMA Pulses: dorsalis pedis (R) (1+), dorsalis pedis (L) (2+) Neuro: ALERT, ORIENTED x 3, NORMAL MOTOR EXAM, NORMAL SENSATION Reflexes: brachioradialis (R), patellar (R) (3+), patellar (L) (3+) Psychiatric: NORMAL AFFECT, NO SUICIDAL IDEATION, CONTRACTS FOR SAFE Assessment & Plan Hypoxemia Multifocal pneumonia Bilateral pleural effusion Combined diastolic and systolic heart failure CHF Hypoalbuminemia Metastatic pancreatic cancer On review of patients history, electronic medical record, and imaging I feel that his symptoms are multifactorial in nature. He does have bilateral pleural effusions as well as ground glass opacifications bilaterally mostly on the right middle lobe. With his history of recent chemotherapy, this may represent a pneumonitis. However, multifocal pneumonia is still on the differential. Although he does not have much of white blood cell count and is afebrile at this time. The differential also includes bronchiolitis obliterans/PUBLIC OPINION SURVEY TAKER. Patient s/p diagnostic thoracentesis yesterday that meets one criteria of exudate. Cytology and culture still pending. He still requiring increased oxygen requirements at this time. Continue with empiric coverage for pneumonia at this time. Continue with bronchodilators at this time. Start 0.5 mg/kg steroids for possible pneumonitis or PUBLIC OPINION SURVEY TAKER. They should both improve with corticosteroid treatment Cardiology is on board and optimizing his medications for his combined diastolic and systolic heart failure. Continue with supplementary oxygen therapy to maintain SaO2 above 92%. If patient should further decompensate he may benefit from a trial of BiPAP for high flow nasal cannula. Upon discharge, patient should follow up with pulmonary for outpatient PFT as he does appear to have emphysema on imaging. Data Medications: Current Inpatient Medications Medications (Trade) Dose Ordered Sig/Magdi Route Start Time Stop Time Status Last Admin Dose Admin Heparin Sodium (Porcine) (Heparin Sq 5000 Unit/0.5ml) 5,000 unit Q8 SQ 07/13/17 22:00 08/12/17 21:59 Future hold 07/17/17 05:21 5,000 UNIT Acetaminophen (Tylenol Tab) 650 mg Q4H PRN PO 07/13/17 16:30 08/12/17 16:29 Ondansetron HCl (Zofran Inj) 4 mg Q6H PRN IV 07/13/17 16:30 08/12/17 16:29 Nitroglycerin (Nitrostat Tab) 0.4 mg UD PRN SL 07/13/17 16:30 08/12/17 16:29 Aspirin (Ecotrin Tab) 81 mg DAILY PO 07/14/17 09:00 08/13/17 08:59 07/17/17 07:56 81 MG Atorvastatin Calcium (Lipitor Tab) 80 mg DAILY PO 07/14/17 09:00 08/13/17 08:59 07/17/17 07:56 80 MG Cilostazol (Pletal Tab) 100 mg DAILY PO 07/14/17 09:00 08/13/17 08:59 07/17/17 07:55 100 MG Clopidogrel Bisulfate (plAVix TAB) 75 mg DAILY PO 07/14/17 09:00 08/13/17 08:59 07/17/17 07:56 75 MG Isosorbide Mononitrate (Imdur Ext Rel Tab) 30 mg DAILY PO 07/14/17 09:00 08/13/17 08:59 07/17/17 07:55 30 MG Zolpidem Tartrate (Ambien Tab) 5 mg HS PRN PO 07/13/17 21:15 08/12/17 21:14 07/16/17 21:08 5 MG Glucose (Glucose 40% Gel) 15-30 GRAMS 15 GRAMS... UD PRN PO 07/13/17 21:30 08/12/17 21:29 Glucose (Glucose Chew Tab) 4-8 Tablets 4 Tabl... UD PRN PO 07/13/17 21:30 08/12/17 21:29 Dextrose (Dextrose 50% 50ML Syringe) 25-50ML OF 50% DW IV FOR... UD PRN IV 07/13/17 21:30 08/12/17 21:29 Glucagon (Glucagon Inj) 1 mg UD PRN SQ 07/13/17 21:30 08/12/17 21:29 Spironolactone (Aldactone Tab) 25 mg QAM PO 07/15/17 09:00 08/14/17 08:59 07/17/17 07:53 25 MG Losartan Potassium (coZAAR TAB) 25 mg QAM PO 07/15/17 09:00 08/14/17 08:59 07/17/17 07:56 25 MG Insulin Aspart (novoLOG ASPART) SLIDING SCALE If C... ACHS SC 07/14/17 16:30 08/13/17 16:29 07/17/17 08:29 6 UNITS Metoprolol Succinate (Toprol Xl Tab) 50 mg QAM PO 07/15/17 09:00 08/14/17 08:59 07/17/17 07:54 50 MG Albuterol/ Ipratropium (Duoneb) 3 ml QIDR INH 07/15/17 12:00 08/14/17 11:59 07/17/17 11:16 3 ML Levofloxacin 750 mg/Prmx 150 ml @ 100 mls/hr DAILY@1100 IV 07/16/17 11:00 07/22/17 10:59 07/17/17 11:27 100 MLS/HR Piperacillin Sod/ Tazobactam Sod 3.375 gm/Dextrose 115 ml @ 28.75 mls/ hr Q8@0000,0800,1600 IV 07/16/17 00:00 07/23/17 00:00 07/17/17 07:53 28.75 MLS/HR Piperacillin Sod/ Tazobactam Sod (Consult) 1 ea UD PRN N/A 07/15/17 18:15 08/14/17 18:14 Prednisone (PredniSONE TAB) 60 mg QAM PO 07/17/17 08:00 08/16/17 07:59 07/17/17 07:54 60 MG Furosemide (Lasix Tab) 20 mg QAM PO 07/17/17 08:00 08/16/17 07:59 07/17/17 07:54 20 MG Vital Signs: Date Time Temp Pulse Resp B/P (MAP) Pulse Ox O2 Delivery O2 Flow Rate FiO2 07/17/17 11:16 94 18 94 Nasal Cannula 6.0 07/17/17 08:00 Nasal Cannula 6.0 07/17/17 07:16 36.5 91 20 118/62 (80) 91 Nasal Cannula 6.0 07/17/17 06:50 88 18 95 Nasal Cannula 6.0 07/17/17 00:05 36.9 91 20 120/69 (86) 98 Nasal Cannula 5.0 07/17/17 00:00 Nasal Cannula 6.0 07/16/17 20:10 Nasal Cannula 6.0 07/16/17 19:57 93 16 93 Nasal Cannula 6.0 07/16/17 15:35 36.5 97 18 105/58 (74) 94 Nasal Cannula 6.0 07/16/17 12:51 36.7 92 18 90 6.0 07/16/17 12:18 36.7 92 18 110/64 (79) 90 6.0 Laboratory Results: Last 24 Hours Test 07/16/17 16:05 07/16/17 16:29 07/16/17 16:39 07/16/17 20:08 Pleural Fluid Source RIGHT LUNG Pleural Fluid Color YELLOW Pleural Fluid Appearance CLEAR Pleural Fluid WBC 453 /uL Pleural Fluid RBC < 3000 /uL Pleural Fluid pH 7.51 Pleural Fluid Polynuclear WBCs % 8.4 % Pleural Fluid Mononuclear WBCs % 91.6 % Pleural Fluid Total Protein 2.7 g/dl Pleural Fluid LDH 144 IU Pleural Fluid Glucose 120 mg/dl Pleural Fluid Amylase 41 U/L Total Bilirubin 0.5 mg/dl Lactate Dehydrogenase 188 U/L Total Protein 5.9 gm/dl Albumin 2.1 gm/dl Bedside Glucose 117 mg/dl 120 mg/dl Test 07/17/17 07:52 07/17/17 08:34 07/17/17 11:20 Bedside Glucose 219 mg/dl 232 mg/dl White Blood Count 7.47 K/uL Red Blood Count 3.17 M/uL Hemoglobin 9.2 g/dL Hematocrit 30.6 % Mean Corpuscular Volume 96.5 fL Mean Corpuscular Hemoglobin 29.0 pg Mean Corpuscular Hemoglobin Concent 30.1 g/dl Platelet Count 319 K/uL Mean Platelet Volume 10.7 fL Neutrophils (%) (Auto) 92.7 % Lymphocytes (%) (Auto) 3.5 % Monocytes (%) (Auto) 3.7 % Eosinophils (%) (Auto) 0.0 % Basophils (%) (Auto) 0.0 % Neutrophils # (Auto) 6.92 K/uL Lymphocytes # (Auto) 0.26 K/uL Monocytes # (Auto) 0.28 K/uL Eosinophils # (Auto) 0.00 K/uL Basophils # (Auto) 0.00 K/uL RDW Standard Deviation 77.6 fL RDW Coefficient of Variation 22.7 % Immature Granulocyte % (Auto) 0.1 % Immature Granulocyte # (Auto) 0.01 K/uL Anisocytosis PRESENT Tear Drop Cells 1+ Echinocytes 1+ Prothrombin Time 13.0 SECONDS Prothromb Time International Ratio 1.2 Activated Partial Thromboplast Time 32.8 SECONDS Partial Thromboplastin Ratio 1.3 Sodium Level 134 mmol/L Potassium Level 3.6 mmol/L Chloride Level 101 mmol/L Carbon Dioxide Level 26 mmol/L Anion Gap 7.0 mmol/L Blood Urea Nitrogen 17 mg/dl Creatinine 0.88 mg/dl Est Creatinine Clear Calc Drug Dose 71.4 ml/min Estimated GFR () 95.4 Estimated GFR (Non- 82.3 BUN/Creatinine Ratio 19.2 Random Glucose 211 mg/dl Calcium Level 8.2 mg/dl
--- NOTE | 2017-07-17 13:47 | DIAGNOSTIC IMAGING REPORT ---
VIDEO SWALLOW HISTORY: Assess for aspiration. pneumonia TECHNIQUE: Video fluoroscopic evaluation of swallowing was performed in the AP and lateral projections by the speech pathology staff. The patient is fed nectar-thick and thin liquid barium, a barium coated wafer, and barium pudding. FLUOROSCOPY TIME: 1.7 minutes. A cine loop was submitted.. COMPARISON STUDY: None. FINDINGS: There is normal hyoid excursion and epiglottic deflection. No significant penetration or aspiration identified. Swallowing function is within normal limits. IMPRESSION: 1. No aspiration identified. 2. Please see the speech pathologist report for detailed findings and recommendations. Electronically signed by: Mio Brand M.D. 07/17/2017 1:46 PM Dictated Date/Time: 07/17/2017 1:44 PM
--- NOTE | 2017-07-17 15:05 | Family Medicine Progress Note ---
Progress Note Date of Service Jul 17, 2017. Subjective Pt evaluation today including: conversation w/ patient, physical exam, chart review, lab review, review of studies, conversation w/ identity management consultant, review of inpatient medication list Pain: denies PO Intake: good Voiding: no voiding problems He continues on 6 L of oxygen; he has no significant short of breath when semi reclined in bed. He denies any chest pain; no fever or chills reported. Constitutional: No fever, No chills ENT: No problem reported Respiratory: + dyspnea on exertion, No cough, No wheezing, No shortness of breath, No dyspnea at rest Cardiovascular: No chest pain Abdomen: No pain, No nausea, No vomiting Musculoskeletal: + joint pain Neurologic: No memory loss All Other Systems: Reviewed and Negative Objective Vital Signs Vital Signs Past 12 Hours Date Time Temp Pulse Resp B/P (MAP) Pulse Ox O2 Delivery O2 Flow Rate FiO2 07/17/17 11:16 94 18 94 Nasal Cannula 6.0 07/17/17 08:00 Nasal Cannula 6.0 07/17/17 07:16 36.5 91 20 118/62 (80) 91 Nasal Cannula 6.0 07/17/17 06:50 88 18 95 Nasal Cannula 6.0 Physical Exam General Appearance: WD/WN, no apparent distress Eyes: normal inspection, PERRL ENT: hearing grossly normal, TMs normal Neck: supple, no adenopathy, thyroid normal Respiratory/Chest: chest non-tender, lungs clear (his lungs sound fairly clear today especially in the apices. The bases are slightly decreased but improved aeration compared to examination yesterday.) Cardiovascular: regular rate, rhythm, no edema (trace to 1+ bilateral lower show me edema) Abdomen: normal bowel sounds, non tender, soft Extremities: non-tender Neurologic/Psychiatric: no motor/sensory deficits, alert, normal mood/affect, oriented x 3 Skin: normal color, warm/dry, no rash Laboratory Results Last 24 Hours Test 07/16/17 16:05 07/16/17 16:29 07/16/17 16:39 07/16/17 20:08 Pleural Fluid Source RIGHT LUNG Pleural Fluid Color YELLOW Pleural Fluid Appearance CLEAR Pleural Fluid WBC 453 /uL Pleural Fluid RBC < 3000 /uL Pleural Fluid pH 7.51 Pleural Fluid Polynuclear WBCs % 8.4 % Pleural Fluid Mononuclear WBCs % 91.6 % Pleural Fluid Total Protein 2.7 g/dl Pleural Fluid LDH 144 IU Pleural Fluid Glucose 120 mg/dl Pleural Fluid Amylase 41 U/L Total Bilirubin 0.5 mg/dl Lactate Dehydrogenase 188 U/L Total Protein 5.9 gm/dl Albumin 2.1 gm/dl Bedside Glucose 117 mg/dl 120 mg/dl Test 07/17/17 07:52 07/17/17 08:34 07/17/17 11:20 Bedside Glucose 219 mg/dl 232 mg/dl White Blood Count 7.47 K/uL Red Blood Count 3.17 M/uL Hemoglobin 9.2 g/dL Hematocrit 30.6 % Mean Corpuscular Volume 96.5 fL Mean Corpuscular Hemoglobin 29.0 pg Mean Corpuscular Hemoglobin Concent 30.1 g/dl Platelet Count 319 K/uL Mean Platelet Volume 10.7 fL Neutrophils (%) (Auto) 92.7 % Lymphocytes (%) (Auto) 3.5 % Monocytes (%) (Auto) 3.7 % Eosinophils (%) (Auto) 0.0 % Basophils (%) (Auto) 0.0 % Neutrophils # (Auto) 6.92 K/uL Lymphocytes # (Auto) 0.26 K/uL Monocytes # (Auto) 0.28 K/uL Eosinophils # (Auto) 0.00 K/uL Basophils # (Auto) 0.00 K/uL RDW Standard Deviation 77.6 fL RDW Coefficient of Variation 22.7 % Immature Granulocyte % (Auto) 0.1 % Immature Granulocyte # (Auto) 0.01 K/uL Anisocytosis PRESENT Tear Drop Cells 1+ Echinocytes 1+ Prothrombin Time 13.0 SECONDS Prothromb Time International Ratio 1.2 Activated Partial Thromboplast Time 32.8 SECONDS Partial Thromboplastin Ratio 1.3 Sodium Level 134 mmol/L Potassium Level 3.6 mmol/L Chloride Level 101 mmol/L Carbon Dioxide Level 26 mmol/L Anion Gap 7.0 mmol/L Blood Urea Nitrogen 17 mg/dl Creatinine 0.88 mg/dl Est Creatinine Clear Calc Drug Dose 71.4 ml/min Estimated GFR () 95.4 Estimated GFR (Non- 82.3 BUN/Creatinine Ratio 19.2 Random Glucose 211 mg/dl Calcium Level 8.2 mg/dl Assessment and Plan 77-year-old male with metastatic pancreatic cancer admitted for hypoxia. Suspect multifactorial including systolic congestive heart failure, pneumonitis secondary to chemotherapy, and likely pneumonia Hypoxia Multifactorial combination of heart failure, pneumonitis, and pneumonia Continue antibiotic coverage Oxygen supplementation [place] Pulmonology consult appreciated Acute systolic heart failure with reduced ejection fraction Beta becca, angiotensin receptor becca, and spironolactone started this admission Had excellent diuresis with IV Lasix upon admission, now on 20 mg by mouth daily Slight increase in lower extremity me today; will increase Lasix to 40 mg twice a morning Left ventricular ejection fraction of 35% on echocardiogram this admission. T2DM Diabetic diet Holding metformin Insulin sliding scale Addition of steroids will likely increase his insulin needs His overall goal in terms of her A1c have to be viewed with respect to his end- stage malignancy Other medical diagnoses History of Coronary/carotid artery disease -stable Peripheral artery disease - continue cilostazol, ASA, Plavix, atorvastatin Hypertension - stopped amlodipine, triamterene/HCZT with addition of beta becca, Aldactone, and losartan. VTE prophylaxis Heparin 5000 units Q8H Code DNR as per the patient wishes. Continued [facility] stay due to: abnormal vital signs, multiple IV medications needed, home environment unsafe for pt Discharge planning: home, home with home health, uncertain
[2017-07-17] MEDS: BOOST GLUCOSE CONTROL PO SCH (16:34)
--- NOTE | 2017-07-17 16:48 | Hematology/Oncology Prog Note ---
Hematology/Onc Progress Note Date of Service Jul 17, 2017. Diagnoses Metastatic pancreatic cancer Acute CHF exacerbation Hypoxia Medications Medications Administered Medications (Trade) Dose Ordered Sig/Magdi Route Start Time Stop Time Status Last Admin Dose Admin Heparin Sodium (Porcine) (Heparin Sq 5000 Unit/0.5ml) 5,000 unit Q8 SQ 07/13/17 22:00 08/12/17 21:59 Future hold 07/17/17 12:32 5,000 UNIT Aspirin (Ecotrin Tab) 81 mg DAILY PO 07/14/17 09:00 08/13/17 08:59 07/17/17 07:56 81 MG Atenolol (Tenormin Tab) 25 mg BID PO 07/13/17 21:00 07/14/17 13:32 DC 07/14/17 09:04 25 MG Atorvastatin Calcium (Lipitor Tab) 80 mg DAILY PO 07/14/17 09:00 08/13/17 08:59 07/17/17 07:56 80 MG Cilostazol (Pletal Tab) 100 mg DAILY PO 07/14/17 09:00 08/13/17 08:59 07/17/17 07:55 100 MG Clopidogrel Bisulfate (plAVix TAB) 75 mg DAILY PO 07/14/17 09:00 08/13/17 08:59 07/17/17 07:56 75 MG Isosorbide Mononitrate (Imdur Ext Rel Tab) 30 mg DAILY PO 07/14/17 09:00 08/13/17 08:59 07/17/17 07:55 30 MG Furosemide 40 mg/ Syringe 4 ml @ 4 mls/min NOW ONCE IV 07/13/17 17:30 07/13/17 17:31 DC 07/13/17 17:29 4 MLS/MIN Zolpidem Tartrate (Ambien Tab) 5 mg HS PRN PO 07/13/17 21:15 08/12/17 21:14 07/16/17 21:08 5 MG Insulin Aspart (novoLOG ASPART) SLIDING SCALE If C... Q6 SC 07/14/17 00:00 07/14/17 16:29 DC 07/14/17 13:00 4 UNITS Furosemide 40 mg/ Syringe 4 ml @ 4 mls/min TODAY@1400 IV 07/14/17 14:00 07/14/17 18:00 DC 07/14/17 14:27 4 MLS/MIN Potassium Chloride (Klor-Con M10) 40 meq NOW ONCE PO 07/14/17 14:00 07/14/17 14:01 DC 07/14/17 14:27 40 MEQ Spironolactone (Aldactone Tab) 25 mg QAM PO 07/15/17 09:00 08/14/17 08:59 07/17/17 07:53 25 MG Spironolactone (Aldactone Tab) 25 mg NOW ONCE PO 07/14/17 14:00 07/14/17 14:01 DC 07/14/17 14:28 25 MG Losartan Potassium (coZAAR TAB) 25 mg QAM PO 07/15/17 09:00 08/14/17 08:59 07/17/17 07:56 25 MG Metoprolol Succinate (Toprol Xl Tab) 25 mg NOW ONCE PO 07/14/17 14:00 07/14/17 14:01 DC 07/14/17 14:28 25 MG Insulin Aspart (novoLOG ASPART) SLIDING SCALE If C... ACHS SC 07/14/17 16:30 08/13/17 16:29 07/17/17 12:32 6 UNITS Metoprolol Succinate (Toprol Xl Tab) 50 mg QAM PO 07/15/17 09:00 08/14/17 08:59 07/17/17 07:54 50 MG Furosemide 20 mg/ Syringe 2 ml @ 4 mls/min ONE ONCE IV 07/15/17 08:00 07/15/17 08:01 DC 07/15/17 09:18 4 MLS/MIN Albuterol/ Ipratropium (Duoneb) 3 ml QIDR INH 07/15/17 12:00 08/14/17 11:59 07/17/17 15:29 3 ML Levofloxacin (Levaquin Tab) 750 mg 1134 ONCE PO 07/15/17 11:34 07/15/17 11:44 DC 07/15/17 12:24 750 MG Levofloxacin 750 mg/Prmx 150 ml @ 100 mls/hr DAILY@1100 IV 07/16/17 11:00 07/22/17 10:59 07/17/17 11:27 100 MLS/HR Piperacillin Sod/ Tazobactam Sod 3.375 gm/Dextrose 115 ml @ 28.75 mls/ hr Q8@0000,0800,1600 IV 07/16/17 00:00 07/23/17 00:00 07/17/17 16:28 28.75 MLS/HR Vancomycin HCl 2000 mg/Sodium Chloride 540 ml @ 200 mls/hr 1900 IV 07/15/17 19:00 07/15/17 21:41 DC 07/15/17 19:06 200 MLS/HR Piperacillin Sod/ Tazobactam Sod 3.375 gm/Dextrose 115 ml @ 200 mls/hr 1815 IV 07/15/17 18:15 07/15/17 18:50 DC 07/15/17 19:38 200 MLS/HR Vancomycin HCl 1250 mg/Sodium Chloride 275 ml @ 125 mls/hr Q12@0600,1800 IV 07/16/17 06:00 07/16/17 18:16 DC 07/16/17 17:51 125 MLS/HR Prednisone (PredniSONE TAB) 20 mg NOW STAT PO 07/16/17 18:20 07/16/17 18:41 DC 07/16/17 19:22 20 MG Prednisone (PredniSONE TAB) 60 mg QAM PO 07/17/17 08:00 08/16/17 07:59 07/17/17 07:54 60 MG Prednisone (PredniSONE TAB) 40 mg NOW STAT PO 07/16/17 22:00 07/16/17 22:07 DC 07/16/17 23:10 40 MG Furosemide (Lasix Tab) 20 mg QAM PO 07/17/17 08:00 07/17/17 15:07 DC 07/17/17 07:54 20 MG Lorazepam (Ativan Tab) 0.5 mg NOW STAT PO 07/17/17 11:41 07/17/17 11:42 DC 07/17/17 12:26 0.5 MG Enteral Nutritional Formula (Boost Glucose Control) 1 can BIDM PO 07/17/17 17:00 08/16/17 16:59 07/17/17 16:34 1 CAN Subjective Mr. Dye looks about the same as yesterday. He breathes comfortably as long as he is wearing his oxygen. He denies any cough, fevers, or purulent sputum. His swelling has totally resolved. Review of Systems: Constitutional: No fever, No chills Respiratory: + shortness of breath, No cough, No hemoptysis Cardiovascular: No chest pain Abdomen: No pain, No nausea Musculoskeletal: No joint pain, No muscle pain Male : No dysuria Heme: No abnormal bleeding/bruising Skin: No rash Vital Signs Vital Signs Past 12 Hours Date Time Temp Pulse Resp B/P (MAP) Pulse Ox O2 Delivery O2 Flow Rate FiO2 07/17/17 15:30 89 18 95 Nasal Cannula 6.0 07/17/17 15:30 36.4 88 18 105/45 (65) 100 Nasal Cannula 6.0 07/17/17 11:16 94 18 94 Nasal Cannula 6.0 07/17/17 08:00 Nasal Cannula 6.0 07/17/17 07:16 36.5 91 20 118/62 (80) 91 Nasal Cannula 6.0 07/17/17 06:50 88 18 95 Nasal Cannula 6.0 Physical Exam Constitutional: Level of Distress: NAD, chronically ill Psychiatric: Mental Status: active & alert Orientation: oriented except where noted Lungs: Auscuitation: CTA except as noted Cardiovascular: Heart Auscultation: RRR Abdomen: Inspection & Palpation: soft, no tenderness, guarding & rebound Extremities: edema (trace edema in both ankles) Laboratory Last 24 Hours Test 07/16/17 20:08 07/17/17 07:52 07/17/17 08:34 07/17/17 11:20 Bedside Glucose 120 mg/dl 219 mg/dl 232 mg/dl White Blood Count 7.47 K/uL Red Blood Count 3.17 M/uL Hemoglobin 9.2 g/dL Hematocrit 30.6 % Mean Corpuscular Volume 96.5 fL Mean Corpuscular Hemoglobin 29.0 pg Mean Corpuscular Hemoglobin Concent 30.1 g/dl Platelet Count 319 K/uL Mean Platelet Volume 10.7 fL Neutrophils (%) (Auto) 92.7 % Lymphocytes (%) (Auto) 3.5 % Monocytes (%) (Auto) 3.7 % Eosinophils (%) (Auto) 0.0 % Basophils (%) (Auto) 0.0 % Neutrophils # (Auto) 6.92 K/uL Lymphocytes # (Auto) 0.26 K/uL Monocytes # (Auto) 0.28 K/uL Eosinophils # (Auto) 0.00 K/uL Basophils # (Auto) 0.00 K/uL RDW Standard Deviation 77.6 fL RDW Coefficient of Variation 22.7 % Immature Granulocyte % (Auto) 0.1 % Immature Granulocyte # (Auto) 0.01 K/uL Anisocytosis PRESENT Tear Drop Cells 1+ Echinocytes 1+ Prothrombin Time 13.0 SECONDS Prothromb Time International Ratio 1.2 Activated Partial Thromboplast Time 32.8 SECONDS Partial Thromboplastin Ratio 1.3 Sodium Level 134 mmol/L Potassium Level 3.6 mmol/L Chloride Level 101 mmol/L Carbon Dioxide Level 26 mmol/L Anion Gap 7.0 mmol/L Blood Urea Nitrogen 17 mg/dl Creatinine 0.88 mg/dl Est Creatinine Clear Calc Drug Dose 71.4 ml/min Estimated GFR () 95.4 Estimated GFR (Non- 82.3 BUN/Creatinine Ratio 19.2 Random Glucose 211 mg/dl Calcium Level 8.2 mg/dl Test 07/17/17 16:30 Bedside Glucose 158 mg/dl Assessment & Plan The repeat CT continues to demonstrate a patchy bilateral infiltrate that is suggestive of pneumonitis or, less likely, pneumonia. He also had a small residual pleural effusion that was drained earlier today. Given his lack of fever and purulent sputum, I am less inclined to think this is a pneumonia. That being said, empiric antibiotic coverage until final cultures result is reasonable. I suspect this is pneumonitis secondary to his gemcitabine, which is a well-characterized though uncommon complication of treatment. The management is mostly supportive, though experts advocate for a trial of steroids. Patients can recover, though the mortality rates of this entity are rather high, often because of late recognition that lead to advanced, permanent inflammatory changes. Hopefully, his oxygen requirement will improve over the coming days, though it may be slow.
[2017-07-17] MEDS: ZOLPIDEM TARTRATE 5 MG TAB PO PRN (22:39)
[2017-07-18] VITALS (7 sets, daily range): BP systolic 120–148; BP diastolic 65–71; PULSE 63–97; TEMP 36.4–36.6; O2SAT 90–98
[2017-07-18] MEDS: PIPERACILL/TAZOBAC IV 3.375 GM in DEXTROSE 5% 100ML 100 ML IV SCH ×4 (00:04→23:49)
[2017-07-18] MEDS: HEPARIN SOD 5000 UNIT/0.5 ML CARP SQ SCH ×3 (05:44→21:37)
[2017-07-18 06:22] LABS: BASO % 0.1 %; BASO ABS # 0.01 K/uL (0-0.2); EOS % 0.7 %; HEMATOCRIT 26.2 % (42-52); IG% 0.4 %; LYMPH ABS # 0.85 K/uL (1.2-3.4); MEAN CELL VOLUME 93.9 fL (80-100); MEAN CORPUSCULAR HEMOGLOBIN 28.7 pg (25-34); MEAN CORPUSCULAR HGB CONC 30.5 g/dl (32-36); MEAN PLATELET VOLUME 9.9 fL (7.4-10.4); MONO % 7.6 %; NEUT % 83.2 %; PLATELET COUNT 274 K/uL (130-400); RED BLOOD COUNT 2.79 M/uL (4.7-6.1); WHITE BLOOD COUNT 10.63 K/uL (4.8-10.8)
[2017-07-18 06:50] LABS: ANISOCYTOSIS PRESENT; COMPLETE YES; OVALOCYTES 1+; TEAR DROP CELLS 1+
[2017-07-18 06:52] LABS: BUN/CREATININE RATIO 24.8 (10-20); CALCIUM 7.7 mg/dl (8.5-10.1); MAGNESIUM 2.2 mg/dl (1.8-2.4); POTASSIUM 3.7 mmol/L (3.5-5.1)
[2017-07-18] MEDS: ALBUT/IPRATROP 3MG/0.5MG NEB 3 ML VIAL INH SCH ×4 (07:09→19:18)
[2017-07-18] MEDS: METOPROLOL SUCC 50MG EXT REL TAB PO SCH (07:32)
[2017-07-18] MEDS: CLOPIDOGREL BISULFATE 75 MG TAB PO SCH (07:33)
[2017-07-18] MEDS: ATORVASTATIN 40 MG TAB PO SCH (07:33)
[2017-07-18] MEDS: CILOSTAZOL 100 MG TAB PO SCH (07:33)
[2017-07-18] MEDS: ISOSORBIDE MONONITRATE 30 MG TABCR PO SCH (07:34)
[2017-07-18] MEDS: ASPIRIN 81 MG ECTAB PO SCH (07:34)
[2017-07-18] MEDS: FUROSEMIDE 40 MG TAB PO SCH (07:34)
[2017-07-18] MEDS: LOSARTAN POTASSIUM 25 MG TAB PO SCH (07:35)
[2017-07-18] MEDS: SPIRONOLACTONE 25 MG TAB PO SCH (07:35)
[2017-07-18] MEDS: BOOST GLUCOSE CONTROL PO SCH ×2 (08:33→17:43)
[2017-07-18] MEDS: INSULIN ASPART 100 UNITS/ML 3 ML PEN SC SCH ×4 (08:41→21:38)
--- NOTE | 2017-07-18 09:21 | DIAGNOSTIC IMAGING REPORT ---
CHEST 2 VIEWS ROUTINE CLINICAL HISTORY: Hypoxia. COMPARISON STUDY: Chest radiograph and chest CT July 16, 2017. FINDINGS: There is no pneumothorax. Trace bilateral pleural effusions are present. Multifocal bilateral airspace opacities, right greater than left, persist. Note is made of a 4.7 cm lucent focus projecting of the right lower lung. There is underlying emphysema. Mild cardiomegaly is unchanged. There is no evidence for pulmonary edema. IMPRESSION: Multifocal bilateral airspace opacities suggestive of pneumonia. No significant change in extent since prior exam. 4.7 cm lucency projecting over the right lower lung likely reflects aerated lung however interval cavitation could appear similar. Electronically signed by: Anish Montelongo M.D. 07/18/2017 9:19 AM Dictated Date/Time: 07/18/2017 9:15 AM
--- NOTE | 2017-07-18 12:05 | Hematology/Oncology Prog Note ---
Hematology/Onc Progress Note Date of Service Jul 18, 2017. Diagnoses Metastatic pancreatic cancer Acute CHF exacerbation Hypoxia Medications Medications Administered Medications (Trade) Dose Ordered Sig/Magdi Route Start Time Stop Time Status Last Admin Dose Admin Heparin Sodium (Porcine) (Heparin Sq 5000 Unit/0.5ml) 5,000 unit Q8 SQ 07/13/17 22:00 08/12/17 21:59 Future hold 07/18/17 05:44 5,000 UNIT Aspirin (Ecotrin Tab) 81 mg DAILY PO 07/14/17 09:00 08/13/17 08:59 07/18/17 07:34 81 MG Atenolol (Tenormin Tab) 25 mg BID PO 07/13/17 21:00 07/14/17 13:32 DC 07/14/17 09:04 25 MG Atorvastatin Calcium (Lipitor Tab) 80 mg DAILY PO 07/14/17 09:00 08/13/17 08:59 07/18/17 07:33 80 MG Cilostazol (Pletal Tab) 100 mg DAILY PO 07/14/17 09:00 08/13/17 08:59 07/18/17 07:33 100 MG Clopidogrel Bisulfate (plAVix TAB) 75 mg DAILY PO 07/14/17 09:00 08/13/17 08:59 07/18/17 07:33 75 MG Isosorbide Mononitrate (Imdur Ext Rel Tab) 30 mg DAILY PO 07/14/17 09:00 08/13/17 08:59 07/18/17 07:34 30 MG Furosemide 40 mg/ Syringe 4 ml @ 4 mls/min NOW ONCE IV 07/13/17 17:30 07/13/17 17:31 DC 07/13/17 17:29 4 MLS/MIN Zolpidem Tartrate (Ambien Tab) 5 mg HS PRN PO 07/13/17 21:15 08/12/17 21:14 07/17/17 22:39 5 MG Insulin Aspart (novoLOG ASPART) SLIDING SCALE If C... Q6 SC 07/14/17 00:00 07/14/17 16:29 DC 07/14/17 13:00 4 UNITS Furosemide 40 mg/ Syringe 4 ml @ 4 mls/min TODAY@1400 IV 07/14/17 14:00 07/14/17 18:00 DC 07/14/17 14:27 4 MLS/MIN Potassium Chloride (Klor-Con M10) 40 meq NOW ONCE PO 07/14/17 14:00 07/14/17 14:01 DC 07/14/17 14:27 40 MEQ Spironolactone (Aldactone Tab) 25 mg QAM PO 07/15/17 09:00 08/14/17 08:59 07/18/17 07:35 25 MG Spironolactone (Aldactone Tab) 25 mg NOW ONCE PO 07/14/17 14:00 07/14/17 14:01 DC 07/14/17 14:28 25 MG Losartan Potassium (coZAAR TAB) 25 mg QAM PO 07/15/17 09:00 08/14/17 08:59 07/18/17 07:35 25 MG Metoprolol Succinate (Toprol Xl Tab) 25 mg NOW ONCE PO 07/14/17 14:00 07/14/17 14:01 DC 07/14/17 14:28 25 MG Insulin Aspart (novoLOG ASPART) SLIDING SCALE If C... ACHS SC 07/14/17 16:30 08/13/17 16:29 07/18/17 08:41 3 UNITS Metoprolol Succinate (Toprol Xl Tab) 50 mg QAM PO 07/15/17 09:00 08/14/17 08:59 07/18/17 07:32 50 MG Furosemide 20 mg/ Syringe 2 ml @ 4 mls/min ONE ONCE IV 07/15/17 08:00 07/15/17 08:01 DC 07/15/17 09:18 4 MLS/MIN Albuterol/ Ipratropium (Duoneb) 3 ml QIDR INH 07/15/17 12:00 08/14/17 11:59 07/18/17 11:17 3 ML Levofloxacin (Levaquin Tab) 750 mg 1134 ONCE PO 07/15/17 11:34 07/15/17 11:44 DC 07/15/17 12:24 750 MG Levofloxacin 750 mg/Prmx 150 ml @ 100 mls/hr DAILY@1100 IV 07/16/17 11:00 07/22/17 10:59 07/17/17 11:27 100 MLS/HR Piperacillin Sod/ Tazobactam Sod 3.375 gm/Dextrose 115 ml @ 28.75 mls/ hr Q8@0000,0800,1600 IV 07/16/17 00:00 07/23/17 00:00 07/18/17 07:37 28.75 MLS/HR Vancomycin HCl 2000 mg/Sodium Chloride 540 ml @ 200 mls/hr 1900 IV 07/15/17 19:00 07/15/17 21:41 DC 07/15/17 19:06 200 MLS/HR Piperacillin Sod/ Tazobactam Sod 3.375 gm/Dextrose 115 ml @ 200 mls/hr 1815 IV 07/15/17 18:15 07/15/17 18:50 DC 07/15/17 19:38 200 MLS/HR Vancomycin HCl 1250 mg/Sodium Chloride 275 ml @ 125 mls/hr Q12@0600,1800 IV 07/16/17 06:00 07/16/17 18:16 DC 07/16/17 17:51 125 MLS/HR Prednisone (PredniSONE TAB) 20 mg NOW STAT PO 07/16/17 18:20 07/16/17 18:41 DC 07/16/17 19:22 20 MG Prednisone (PredniSONE TAB) 60 mg QAM PO 07/17/17 08:00 08/16/17 07:59 07/18/17 07:32 60 MG Prednisone (PredniSONE TAB) 40 mg NOW STAT PO 07/16/17 22:00 07/16/17 22:07 DC 07/16/17 23:10 40 MG Furosemide (Lasix Tab) 20 mg QAM PO 07/17/17 08:00 07/17/17 15:07 DC 07/17/17 07:54 20 MG Lorazepam (Ativan Tab) 0.5 mg NOW STAT PO 07/17/17 11:41 07/17/17 11:42 DC 07/17/17 12:26 0.5 MG Furosemide (Lasix Tab) 40 mg QAM PO 07/18/17 08:00 08/16/17 07:59 07/18/17 07:34 40 MG Enteral Nutritional Formula (Boost Glucose Control) 1 can BIDM PO 07/17/17 17:00 08/16/17 16:59 07/18/17 08:33 1 CAN Subjective Mr. Dye is a bit more short of breath today. His oxygen requirement is stable, however. He has no other complaints and is in good spirits, though he is looking a bit more tired. Review of Systems: Constitutional: + fatigue, No fever, No chills ENT: No unusual epistaxis Respiratory: + shortness of breath, No hemoptysis Cardiovascular: No chest pain Abdomen: No pain, No nausea Male : No dysuria Heme: No abnormal bleeding/bruising Vital Signs Vital Signs Past 12 Hours Date Time Temp Pulse Resp B/P (MAP) Pulse Ox O2 Delivery O2 Flow Rate FiO2 07/18/17 11:18 63 18 98 Nasal Cannula 6.0 07/18/17 08:00 Nasal Cannula 6.0 07/18/17 07:11 36.4 86 20 120/71 (87) 92 Nasal Cannula 6.0 07/18/17 07:09 84 18 90 Nasal Cannula 6.0 Physical Exam Constitutional: Level of Distress: NAD, chronically ill Psychiatric: Mental Status: active & alert Orientation: oriented except where noted Lungs: Auscuitation: dry rales/crackles (in all gaming) Cardiovascular: Heart Auscultation: RRR Abdomen: Inspection & Palpation: soft, no tenderness, guarding & rebound Extremities: edema (trace edema in both ankles) Laboratory Last 24 Hours Test 07/17/17 16:30 07/17/17 19:25 07/18/17 06:09 07/18/17 07:40 Bedside Glucose 158 mg/dl 216 mg/dl 99 mg/dl White Blood Count 10.63 K/uL Red Blood Count 2.79 M/uL Hemoglobin 8.0 g/dL Hematocrit 26.2 % Mean Corpuscular Volume 93.9 fL Mean Corpuscular Hemoglobin 28.7 pg Mean Corpuscular Hemoglobin Concent 30.5 g/dl Platelet Count 274 K/uL Mean Platelet Volume 9.9 fL Neutrophils (%) (Auto) 83.2 % Lymphocytes (%) (Auto) 8.0 % Monocytes (%) (Auto) 7.6 % Eosinophils (%) (Auto) 0.7 % Basophils (%) (Auto) 0.1 % Neutrophils # (Auto) 8.85 K/uL Lymphocytes # (Auto) 0.85 K/uL Monocytes # (Auto) 0.81 K/uL Eosinophils # (Auto) 0.07 K/uL Basophils # (Auto) 0.01 K/uL RDW Standard Deviation 75.8 fL RDW Coefficient of Variation 22.3 % Immature Granulocyte % (Auto) 0.4 % Immature Granulocyte # (Auto) 0.04 K/uL Anisocytosis PRESENT Tear Drop Cells 1+ Ovalocytes 1+ Sodium Level 137 mmol/L Potassium Level 3.7 mmol/L Chloride Level 105 mmol/L Carbon Dioxide Level 26 mmol/L Anion Gap 6.0 mmol/L Blood Urea Nitrogen 25 mg/dl Creatinine 1.00 mg/dl Est Creatinine Clear Calc Drug Dose 62.9 ml/min Estimated GFR () 83.2 Estimated GFR (Non- 71.8 BUN/Creatinine Ratio 24.8 Random Glucose 106 mg/dl Calcium Level 7.7 mg/dl Magnesium Level 2.2 mg/dl Test 07/18/17 11:33 Bedside Glucose 175 mg/dl Assessment & Plan He had a chest x-ray that shows a more solidified consolidation with an area of gas that appears necrotic. I spoke with pulmonology and they are planning an ABG and repeat CT. In the meantime, he remains on broad-spectrum antibiotics for possible pneumonia and steroids for possible pneumonitis. His lack of improvement is concerning, though his prospects for recovery would look better if this does prove to be an infection rather than pneumonitis.
[2017-07-18] MEDS: LEVOFLOXACIN / D5W 750 MG in PREMIXED IN D5W 150 ML IV SCH (12:11)
[2017-07-18] MEDS ORDERED: OPTIRAY 320 IV PRN (14:00)
--- NOTE | 2017-07-18 14:04 | Pulmonology Progress Note ---
Pulmonary Progress Note Date of Service Jul 18, 2017. Attending Dr. Verdin Subjective Patient is feeling anxious today. Daughters are at bedside. He states that he has a productive cough today with whitish sputum. He denies any fever, chills, chest pain. Still dyspneic at rest and on exertion. Objective VS: reviewed. Tm 36.4, BP 120/71, P 63-86, Pox 90-98%, Sao2 6 L NC. 4L cumulative balance negative. General Appearance: NO APPARENT DISTRESS, feeling down today Head: NORMOCEPHALIC, ATRAUMATIC, other (alopecia) Eyes: PERRLA, NO DISCHARGE, EOMI, SCLERAE NORMAL, CONJUNCTIVAE NORMAL, FUNDUSCOPIC EXAM NORMAL, conjunctivae pale ENT: NORMAL NASAL EXAM, NORMAL MOUTH EXAM, NORMAL THROAT EXAM Neck: NORMAL RANGE OF MOTION, NO TENDERNESS, TRACHEA MIDLINE, NO STRIDOR, SUPPLE Respiratory: GOOD AIR ENTRY BILATERALLY, (bibasilar crackles) Cardiovasular: REGULAR RATE/RHYTHM, NORMAL S1S2, NO M/G/R Abdomen: NON TENDER, NORMAL BOWEL SOUNDS, NO REBOUND Back: NORMAL INSPECTION, NO MIDLINE TENDERNESS, NO CVA TENDERNESS Lower Extremities: Trace pitting edema, bilateral LE Neuro: ALERT, ORIENTED x 3, NORMAL MOTOR EXAM, NORMAL SENSATION Reflexes: brachioradialis (R), patellar (R) (3+), patellar (L) (3+) Psychiatric: FLAT AFFECT, NO SUICIDAL IDEATION, CONTRACTS FOR SAFE, Anxious Assessment & Plan Hypoxemia Multifocal pneumonia Bilateral pleural effusion Combined diastolic and systolic heart failure CHF Hypoalbuminemia Metastatic pancreatic cancer Patient remains afebrile. Now with some mucus production with hypoxia. Still Although he does not have much of white blood cell count and is afebrile at this time. Repeat CXR shows m ultifocal bilateral airspace opacities suggestive of pneumonia. However new, 4.7 cm lucency projecting over the right lower lung. Per radiology, this likely reflects aerated lung however interval cavitation. I have ordered a repeat CT chest with contrast to rule this out cavitation and to rule out PE. Diagnostic thoracentesis on 07/16/2017 meets one criteria of exudate. culture negative growth to date. Cytology and AFB still pending. He still requiring increased oxygen requirements at this time.ABG has also been ordered. Continue with empiric coverage for pneumonia at this time. Sputum culture sent to the lab this morning. Continue with bronchodilators at this time. 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 They should both improve with corticosteroid treatment Cardiology is on board and optimizing his medications for his combined diastolic and systolic heart failure. Hematology is also on board regarding pancreatic cancer. Continue with supplementary oxygen therapy to maintain SaO2 above 92%. If patient should further decompensate he may benefit from a trial of BiPAP for high flow nasal cannula. Data Medications: Current Inpatient Medications Medications (Trade) Dose Ordered Sig/Magdi Route Start Time Stop Time Status Last Admin Dose Admin Heparin Sodium (Porcine) (Heparin Sq 5000 Unit/0.5ml) 5,000 unit Q8 SQ 07/13/17 22:00 08/12/17 21:59 Future hold 07/18/17 05:44 5,000 UNIT Acetaminophen (Tylenol Tab) 650 mg Q4H PRN PO 07/13/17 16:30 08/12/17 16:29 Ondansetron HCl (Zofran Inj) 4 mg Q6H PRN IV 07/13/17 16:30 08/12/17 16:29 Nitroglycerin (Nitrostat Tab) 0.4 mg UD PRN SL 07/13/17 16:30 08/12/17 16:29 Aspirin (Ecotrin Tab) 81 mg DAILY PO 07/14/17 09:00 08/13/17 08:59 07/18/17 07:34 81 MG Atorvastatin Calcium (Lipitor Tab) 80 mg DAILY PO 07/14/17 09:00 08/13/17 08:59 07/18/17 07:33 80 MG Cilostazol (Pletal Tab) 100 mg DAILY PO 07/14/17 09:00 08/13/17 08:59 07/18/17 07:33 100 MG Clopidogrel Bisulfate (plAVix TAB) 75 mg DAILY PO 07/14/17 09:00 08/13/17 08:59 07/18/17 07:33 75 MG Isosorbide Mononitrate (Imdur Ext Rel Tab) 30 mg DAILY PO 07/14/17 09:00 08/13/17 08:59 07/18/17 07:34 30 MG Zolpidem Tartrate (Ambien Tab) 5 mg HS PRN PO 07/13/17 21:15 08/12/17 21:14 07/17/17 22:39 5 MG Glucose (Glucose 40% Gel) 15-30 GRAMS 15 GRAMS... UD PRN PO 07/13/17 21:30 08/12/17 21:29 Glucose (Glucose Chew Tab) 4-8 Tablets 4 Tabl... UD PRN PO 07/13/17 21:30 08/12/17 21:29 Dextrose (Dextrose 50% 50ML Syringe) 25-50ML OF 50% DW IV FOR... UD PRN IV 07/13/17 21:30 08/12/17 21:29 Glucagon (Glucagon Inj) 1 mg UD PRN SQ 07/13/17 21:30 08/12/17 21:29 Spironolactone (Aldactone Tab) 25 mg QAM PO 07/15/17 09:00 08/14/17 08:59 07/18/17 07:35 25 MG Losartan Potassium (coZAAR TAB) 25 mg QAM PO 07/15/17 09:00 08/14/17 08:59 07/18/17 07:35 25 MG Insulin Aspart (novoLOG ASPART) SLIDING SCALE If C... ACHS SC 07/14/17 16:30 08/13/17 16:29 07/18/17 12:29 4 UNITS Metoprolol Succinate (Toprol Xl Tab) 50 mg QAM PO 07/15/17 09:00 08/14/17 08:59 07/18/17 07:32 50 MG Albuterol/ Ipratropium (Duoneb) 3 ml QIDR INH 07/15/17 12:00 08/14/17 11:59 07/18/17 11:17 3 ML Levofloxacin 750 mg/Prmx 150 ml @ 100 mls/hr DAILY@1100 IV 07/16/17 11:00 07/22/17 10:59 07/18/17 12:11 100 MLS/HR Piperacillin Sod/ Tazobactam Sod 3.375 gm/Dextrose 115 ml @ 28.75 mls/ hr Q8@0000,0800,1600 IV 07/16/17 00:00 07/23/17 00:00 07/18/17 07:37 28.75 MLS/HR Piperacillin Sod/ Tazobactam Sod (Consult) 1 ea UD PRN N/A 07/15/17 18:15 08/14/17 18:14 Prednisone (PredniSONE TAB) 60 mg QAM PO 07/17/17 08:00 08/16/17 07:59 07/18/17 07:32 60 MG Furosemide (Lasix Tab) 40 mg QAM PO 07/18/17 08:00 08/16/17 07:59 07/18/17 07:34 40 MG Enteral Nutritional Formula (Boost Glucose Control) 1 can BIDM PO 07/17/17 17:00 08/16/17 16:59 07/18/17 08:33 1 CAN Vital Signs: Date Time Temp Pulse Resp B/P (MAP) Pulse Ox O2 Delivery O2 Flow Rate FiO2 07/18/17 11:18 63 18 98 Nasal Cannula 6.0 07/18/17 08:00 Nasal Cannula 6.0 07/18/17 07:11 36.4 86 20 120/71 (87) 92 Nasal Cannula 6.0 07/18/17 07:09 84 18 90 Nasal Cannula 6.0 07/17/17 23:36 36.5 93 20 125/72 (89) 97 Nasal Cannula 6.0 07/17/17 19:50 98 Nasal Cannula 6.0 07/17/17 19:05 93 18 95 Nasal Cannula 6.0 07/17/17 15:30 89 18 95 Nasal Cannula 6.0 07/17/17 15:30 36.4 88 18 105/45 (65) 100 Nasal Cannula 6.0 Laboratory Results: Last 24 Hours Test 07/17/17 16:30 07/17/17 19:25 07/18/17 06:09 07/18/17 07:40 Bedside Glucose 158 mg/dl 216 mg/dl 99 mg/dl White Blood Count 10.63 K/uL Red Blood Count 2.79 M/uL Hemoglobin 8.0 g/dL Hematocrit 26.2 % Mean Corpuscular Volume 93.9 fL Mean Corpuscular Hemoglobin 28.7 pg Mean Corpuscular Hemoglobin Concent 30.5 g/dl Platelet Count 274 K/uL Mean Platelet Volume 9.9 fL Neutrophils (%) (Auto) 83.2 % Lymphocytes (%) (Auto) 8.0 % Monocytes (%) (Auto) 7.6 % Eosinophils (%) (Auto) 0.7 % Basophils (%) (Auto) 0.1 % Neutrophils # (Auto) 8.85 K/uL Lymphocytes # (Auto) 0.85 K/uL Monocytes # (Auto) 0.81 K/uL Eosinophils # (Auto) 0.07 K/uL Basophils # (Auto) 0.01 K/uL RDW Standard Deviation 75.8 fL RDW Coefficient of Variation 22.3 % Immature Granulocyte % (Auto) 0.4 % Immature Granulocyte # (Auto) 0.04 K/uL Anisocytosis PRESENT Tear Drop Cells 1+ Ovalocytes 1+ Sodium Level 137 mmol/L Potassium Level 3.7 mmol/L Chloride Level 105 mmol/L Carbon Dioxide Level 26 mmol/L Anion Gap 6.0 mmol/L Blood Urea Nitrogen 25 mg/dl Creatinine 1.00 mg/dl Est Creatinine Clear Calc Drug Dose 62.9 ml/min Estimated GFR () 83.2 Estimated GFR (Non- 71.8 BUN/Creatinine Ratio 24.8 Random Glucose 106 mg/dl Calcium Level 7.7 mg/dl Magnesium Level 2.2 mg/dl Test 07/18/17 11:33 Bedside Glucose 175 mg/dl
[2017-07-18 14:25] LABS: ARTERIAL BLD GAS O2 SATURATION 88.1 % (90-95); ARTERIAL BLOOD GAS BASE EXCESS -1.3 mEq/L (-9-1.8); ARTERIAL BLOOD GAS HCO3 22 mmol/L (19-24); ARTERIAL BLOOD GAS PO2 57 mm/Hg (80-95); ARTERIAL BLOOD GAS pH 7.46 (7.35-7.45)
[2017-07-18 14:26] LABS: ALLEN TEST POS (POS); O2 ADMINISTRATION 6L
--- NOTE | 2017-07-18 15:05 | DIAGNOSTIC IMAGING REPORT ---
CT ANGIOGRAPHY OF THE CHEST, PULMONARY EMBOLUS PROTOCOL CLINICAL HISTORY: New onset congestive heart failure. Abnormal chest radiograph. Pancreatic cancer. COMPARISON STUDY: Chest CT July 16, 2017 and chest radiograph performed earlier today. TECHNIQUE: Following IV administration of 93 mL of Optiray-320, helical axial images of the chest were obtained utilizing the pulmonary embolus protocol. Maximal intensity projections and sagittal and coronal reformats were viewed on an independent 3D workstation. IV contrast was administered without complication. A dose lowering technique was utilized adhering to the principles of ALARA. CT DOSE: 478.44 mGycm FINDINGS: No pulmonary emboli are identified. There is no evidence of thoracic aortic dissection. There is extensive coronary artery calcification. The heart is mildly enlarged. No pericardial effusion is present. A right pleural effusion has significantly decreased in size since exam of July 16, 2017. There is a small residual right pleural effusion. A trace left pleural effusion is similar to prior exam. No pneumothorax is present. Moderate emphysema is noted. Multifocal airspace opacities, greater within the right lung, are similar to exam of July 16, 2017. No cavitation is present. The possible cavitation shown on prior chest radiograph was artifactual. Central airways are patent. There is no pneumothorax. No suspicious osseous lesions are present. Infiltration within the left upper quadrant of the abdomen is similar to prior abdominal CT of June 10, 2017. IMPRESSION: 1. No pulmonary emboli identified. 2. No change in extensive bilateral airspace opacities, greater within the right lung, since CT of July 16, 2017. The findings suggest multifocal pneumonia. No cavitation. Possible right lower lung cavitation shown on prior chest radiograph was artifactual. 3. Small right pleural effusion, significantly decreased in size since prior CT. Trace left pleural effusion. 4. Moderate emphysema and extensive coronary artery calcification. Electronically signed by: Anish Montelongo M.D. 07/18/2017 3:03 PM Dictated Date/Time: 07/18/2017 2:54 PM
--- NOTE | 2017-07-18 18:21 | Family Medicine Progress Note ---
Progress Note Date of Service Jul 18, 2017. Subjective Pt evaluation today including: conversation w/ patient, conversation w/ family , physical exam, chart review, lab review, review of studies, conversation w/ event management consultant, review of inpatient medication list Pain: denies PO Intake: good Voiding: owen catheter in place Mr. Dye is playing Scrabble with family members when I saw him today. He notes a cough with a more pronounced yellow sputum. He has family note that his oxygen saturations have been consistently between 96 and 98% (on 6 L/m via nasal cannula) while he's been sitting upright in bed. He denies any significant dyspnea - he is able to talk in full sentences without pausing. Denies chest or abdominal pain. Constitutional: No fever, No chills Eyes: No problem reported ENT: No problem reported Respiratory: + cough, + sputum (yellow) Cardiovascular: No chest pain Abdomen: No pain, No nausea Neurologic: No memory loss, No weakness All Other Systems: Reviewed and Negative Medications Current Inpatient Medications Medications (Trade) Dose Ordered Sig/Magdi Route Start Time Stop Time Status Last Admin Dose Admin Heparin Sodium (Porcine) (Heparin Sq 5000 Unit/0.5ml) 5,000 unit Q8 SQ 07/13/17 22:00 08/12/17 21:59 Future hold 07/18/17 13:58 5,000 UNIT Acetaminophen (Tylenol Tab) 650 mg Q4H PRN PO 07/13/17 16:30 08/12/17 16:29 Ondansetron HCl (Zofran Inj) 4 mg Q6H PRN IV 07/13/17 16:30 08/12/17 16:29 Nitroglycerin (Nitrostat Tab) 0.4 mg UD PRN SL 07/13/17 16:30 08/12/17 16:29 Aspirin (Ecotrin Tab) 81 mg DAILY PO 07/14/17 09:00 08/13/17 08:59 07/18/17 07:34 81 MG Atorvastatin Calcium (Lipitor Tab) 80 mg DAILY PO 07/14/17 09:00 08/13/17 08:59 07/18/17 07:33 80 MG Cilostazol (Pletal Tab) 100 mg DAILY PO 07/14/17 09:00 08/13/17 08:59 07/18/17 07:33 100 MG Clopidogrel Bisulfate (plAVix TAB) 75 mg DAILY PO 07/14/17 09:00 08/13/17 08:59 07/18/17 07:33 75 MG Isosorbide Mononitrate (Imdur Ext Rel Tab) 30 mg DAILY PO 07/14/17 09:00 08/13/17 08:59 07/18/17 07:34 30 MG Zolpidem Tartrate (Ambien Tab) 5 mg HS PRN PO 07/13/17 21:15 08/12/17 21:14 07/17/17 22:39 5 MG Glucose (Glucose 40% Gel) 15-30 GRAMS 15 GRAMS... UD PRN PO 07/13/17 21:30 08/12/17 21:29 Glucose (Glucose Chew Tab) 4-8 Tablets 4 Tabl... UD PRN PO 07/13/17 21:30 08/12/17 21:29 Dextrose (Dextrose 50% 50ML Syringe) 25-50ML OF 50% DW IV FOR... UD PRN IV 07/13/17 21:30 08/12/17 21:29 Glucagon (Glucagon Inj) 1 mg UD PRN SQ 07/13/17 21:30 08/12/17 21:29 Spironolactone (Aldactone Tab) 25 mg QAM PO 07/15/17 09:00 08/14/17 08:59 07/18/17 07:35 25 MG Losartan Potassium (coZAAR TAB) 25 mg QAM PO 07/15/17 09:00 08/14/17 08:59 07/18/17 07:35 25 MG Insulin Aspart (novoLOG ASPART) SLIDING SCALE If C... ACHS SC 07/14/17 16:30 08/13/17 16:29 07/18/17 17:42 3 UNITS Metoprolol Succinate (Toprol Xl Tab) 50 mg QAM PO 07/15/17 09:00 08/14/17 08:59 07/18/17 07:32 50 MG Albuterol/ Ipratropium (Duoneb) 3 ml QIDR INH 07/15/17 12:00 08/14/17 11:59 07/18/17 16:12 3 ML Levofloxacin 750 mg/Prmx 150 ml @ 100 mls/hr DAILY@1100 IV 07/16/17 11:00 07/22/17 10:59 07/18/17 12:11 100 MLS/HR Piperacillin Sod/ Tazobactam Sod 3.375 gm/Dextrose 115 ml @ 28.75 mls/ hr Q8@0000,0800,1600 IV 07/16/17 00:00 07/23/17 00:00 07/18/17 16:14 28.75 MLS/HR Piperacillin Sod/ Tazobactam Sod (Consult) 1 ea UD PRN N/A 07/15/17 18:15 08/14/17 18:14 Prednisone (PredniSONE TAB) 60 mg QAM PO 07/17/17 08:00 08/16/17 07:59 07/18/17 07:32 60 MG Furosemide (Lasix Tab) 40 mg QAM PO 07/18/17 08:00 08/16/17 07:59 07/18/17 07:34 40 MG Enteral Nutritional Formula (Boost Glucose Control) 1 can BIDM PO 07/17/17 17:00 08/16/17 16:59 07/18/17 17:43 1 CAN Ioversol (Optiray 320) 125 ml UD PRN IV 07/18/17 14:00 07/22/17 13:59 Objective Vital Signs Date Time Temp Pulse Resp B/P (MAP) Pulse Ox O2 Delivery O2 Flow Rate FiO2 07/18/17 16:12 93 18 96 Nasal Cannula 6.0 07/18/17 15:30 Nasal Cannula 6.0 07/18/17 15:16 97 20 148/65 (92) 96 Nasal Cannula 6.0 07/18/17 11:18 63 18 98 Nasal Cannula 6.0 07/18/17 08:00 Nasal Cannula 6.0 07/18/17 07:11 36.4 86 20 120/71 (87) 92 Nasal Cannula 6.0 07/18/17 07:09 84 18 90 Nasal Cannula 6.0 07/17/17 23:36 36.5 93 20 125/72 (89) 97 Nasal Cannula 6.0 07/17/17 19:50 98 Nasal Cannula 6.0 07/17/17 19:05 93 18 95 Nasal Cannula 6.0 Physical Exam General Appearance: WD/WN, no apparent distress Eyes: normal inspection, PERRL ENT: normal ENT inspection, hearing grossly normal, TMs normal Neck: supple, no adenopathy, thyroid normal Respiratory/Chest: chest non-tender, + pertinent finding (bibasilar crackles) Cardiovascular: regular rate, rhythm Abdomen: normal bowel sounds, non tender, no organomegaly Extremities: non-tender, + pertinent finding (slight increase in pitting edema looks as compared to yesterday) Neurologic/Psychiatric: alert, normal mood/affect, oriented x 3 Skin: normal color, warm/dry, no rash Assessment and Plan 77-year-old male with metastatic pancreatic cancer admitted for hypoxia. Suspect multifactorial including systolic congestive heart failure, pneumonitis secondary to chemotherapy, and likely pneumonia Hypoxia Multifactorial combination of heart failure, pneumonitis, and pneumonia CT of the chest today is pending Continue current antibiotic coverage Oxygen supplementation - at the time of my visit he is satting well on 6 L/m via nasal cannula [place] Pulmonology consult appreciated Acute systolic heart failure with reduced ejection fraction Beta becca, angiotensin receptor becca, and spironolactone started this admission Left ventricular ejection fraction of 35% on echocardiogram this admission. Continue Lasix 40 mg by mouth every morning Daily BMP to monitor potassium We'll add some lower extremity compression stockings T2DM Diabetic diet Holding metformin Insulin sliding scale Addition of steroids will likely increase his insulin needs His overall goal in terms of her A1c have to be viewed with respect to his end- stage malignancy Anemia Monitor Stable Other medical diagnoses History of Coronary/carotid artery disease -stable Peripheral artery disease - continue cilostazol, ASA, Plavix, atorvastatin Hypertension - stopped amlodipine, triamterene/HCZT with addition of beta becca, Aldactone, and losartan. VTE prophylaxis Heparin 5000 units Q8H Continued [facility] stay due to: abnormal vital signs, multiple IV medications needed Discharge planning: uncertain
[2017-07-18] MEDS: ZOLPIDEM TARTRATE 5 MG TAB PO PRN (21:40)
[2017-07-19] VITALS (12 sets, daily range): BP systolic 118–127; BP diastolic 61–72; PULSE 79–96; TEMP 36.3–36.5; O2SAT 91–96
[2017-07-19] MEDS: HEPARIN SOD 5000 UNIT/0.5 ML CARP SQ SCH ×3 (05:32→20:32)
[2017-07-19 07:07] LABS: CALCIUM 7.6 mg/dl (8.5-10.1); CREATININE 0.87 mg/dl (0.60-1.40); POTASSIUM 3.6 mmol/L (3.5-5.1)
[2017-07-19 07:08] LABS: EOS % 1.2 %; HEMATOCRIT 25.9 % (42-52); IG% 0.2 %; LYMPH % 6.6 %; LYMPH ABS # 0.67 K/uL (1.2-3.4); MEAN CELL VOLUME 94.5 fL (80-100); MEAN CORPUSCULAR HEMOGLOBIN 28.1 pg (25-34); MEAN CORPUSCULAR HGB CONC 29.7 g/dl (32-36); MEAN PLATELET VOLUME 10.1 fL (7.4-10.4); MONO % 11.7 %; NEUT % 80.3 %; PLATELET COUNT 281 K/uL (130-400); RED BLOOD COUNT 2.74 M/uL (4.7-6.1); WHITE BLOOD COUNT 10.17 K/uL (4.8-10.8)
[2017-07-19] MEDS: PIPERACILL/TAZOBAC IV 3.375 GM in DEXTROSE 5% 100ML 100 ML IV SCH ×2 (07:28→16:02)
[2017-07-19] MEDS: FUROSEMIDE 40 MG TAB PO SCH (07:35)
[2017-07-19] MEDS: LOSARTAN POTASSIUM 25 MG TAB PO SCH (07:35)
[2017-07-19] MEDS: ASPIRIN 81 MG ECTAB PO SCH (07:35)
[2017-07-19] MEDS: SPIRONOLACTONE 25 MG TAB PO SCH (07:35)
[2017-07-19] MEDS: ISOSORBIDE MONONITRATE 30 MG TABCR PO SCH (07:35)
[2017-07-19] MEDS: ATORVASTATIN 40 MG TAB PO SCH (07:36)
[2017-07-19] MEDS: CILOSTAZOL 100 MG TAB PO SCH (07:36)
[2017-07-19] MEDS: CLOPIDOGREL BISULFATE 75 MG TAB PO SCH (07:36)
[2017-07-19] MEDS: METOPROLOL SUCC 50MG EXT REL TAB PO SCH (07:36)
[2017-07-19] MEDS: ALBUT/IPRATROP 3MG/0.5MG NEB 3 ML VIAL INH SCH ×4 (07:42→19:10)
[2017-07-19 07:50] LABS: ANISOCYTOSIS PRESENT; COMPLETE YES; OVALOCYTES 1+; POIKILOCYTOSIS PRESENT; TEAR DROP CELLS 1+
[2017-07-19] MEDS: INSULIN ASPART 100 UNITS/ML 3 ML PEN SC SCH ×4 (08:19→20:32)
[2017-07-19] MEDS: BOOST GLUCOSE CONTROL PO SCH ×2 (08:20→17:24)
[2017-07-19] MEDS: LEVOFLOXACIN / D5W 750 MG in PREMIXED IN D5W 150 ML IV SCH (12:13)
--- NOTE | 2017-07-19 12:55 | Pulmonology Progress Note ---
Pulmonary Progress Note Date of Service Jul 19, 2017. Attending Dr. Verdin Subjective Patient seen and examined. Family is visiting. He states he is feeling better. He is having cough with productive sputum. He denies shortness of breath at this time. Objective VS: reviewed. Tm 36.5, BP 127/67, P 79-84, Pox 91-95%, FIO2 6 L NC. 5.2 L cumulative balance negative. General Appearance: NO APPARENT DISTRESS, feeling better today. Respiratory: GOOD AIR ENTRY BILATERALLY, (bibasilar crackles) Cardiovasular: REGULAR RATE/RHYTHM, NORMAL S1S2, NO M/G/R Abdomen: NON TENDER, NORMAL BOWEL SOUNDS, NO REBOUND Lower Extremities: Trace pitting edema, bilateral LE Neuro: ALERT, ORIENTED x 3, NORMAL MOTOR EXAM Psychiatric: NORMAL AFFECT, NO SUICIDAL IDEATION, CONTRACTS FOR SAFE, feeling less anxious. CT chest with contrast IMPRESSION: 1. No pulmonary emboli identified. 2. No change in extensive bilateral airspace opacities, greater within the right lung, since CT of July 16, 2017. The findings suggest multifocal pneumonia. No cavitation. Possible right lower lung cavitation shown on prior chest radiograph was artifactual. 3. Small right pleural effusion, significantly decreased in size since prior CT. Trace left pleural effusion. 4. Moderate emphysema and extensive coronary artery calcification. Assessment & Plan Hypoxemia Multifocal pneumonia Bilateral pleural effusion Combined diastolic and systolic heart failure CHF Hypoalbuminemia Metastatic pancreatic cancer Patient remains afebrile. Now with some mucus production with hypoxia. He still has normal WBC and remains afebrile. Repeat CXR shows multifocal bilateral airspace opacities suggestive of pneumonia. CT chest with contrast was negative for pulmonary embolism. Diagnostic thoracentesis on 07/16/2017 meets one criteria of exudate. culture negative growth to date. Cytology and AFB still pending. He still requiring increased oxygen requirements at this time.ABG consistent with hypoxemia and increase A-a gradient, but he is responsive to oxygen supplementation. Continue with empiric coverage for pneumonia at this time. Sputum cultures frm show light light normal herlinda. Continue with bronchodilators at this time. 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 They should both improve with corticosteroid treatment Cardiology is on board and optimizing his medications for his combined diastolic and systolic heart failure. Hematology is also on board regarding pancreatic cancer. Continue with supplementary oxygen therapy to maintain SaO2 above 92%. If patient should further decompensate he may benefit from a trial of BiPAP for high flow nasal cannula. Dr. Ramirez will be taking over pulmonary service tomorrow and will continue to follow. Data Medications: Current Inpatient Medications Medications (Trade) Dose Ordered Sig/Magdi Route Start Time Stop Time Status Last Admin Dose Admin Heparin Sodium (Porcine) (Heparin Sq 5000 Unit/0.5ml) 5,000 unit Q8 SQ 07/13/17 22:00 08/12/17 21:59 Future hold 07/19/17 05:32 5,000 UNIT Acetaminophen (Tylenol Tab) 650 mg Q4H PRN PO 07/13/17 16:30 08/12/17 16:29 Ondansetron HCl (Zofran Inj) 4 mg Q6H PRN IV 07/13/17 16:30 08/12/17 16:29 Nitroglycerin (Nitrostat Tab) 0.4 mg UD PRN SL 07/13/17 16:30 08/12/17 16:29 Aspirin (Ecotrin Tab) 81 mg DAILY PO 07/14/17 09:00 08/13/17 08:59 07/19/17 07:35 81 MG Atorvastatin Calcium (Lipitor Tab) 80 mg DAILY PO 07/14/17 09:00 08/13/17 08:59 07/19/17 07:36 80 MG Cilostazol (Pletal Tab) 100 mg DAILY PO 07/14/17 09:00 08/13/17 08:59 07/19/17 07:36 100 MG Clopidogrel Bisulfate (plAVix TAB) 75 mg DAILY PO 07/14/17 09:00 08/13/17 08:59 07/19/17 07:36 75 MG Isosorbide Mononitrate (Imdur Ext Rel Tab) 30 mg DAILY PO 07/14/17 09:00 08/13/17 08:59 07/19/17 07:35 30 MG Zolpidem Tartrate (Ambien Tab) 5 mg HS PRN PO 07/13/17 21:15 08/12/17 21:14 07/18/17 21:40 5 MG Glucose (Glucose 40% Gel) 15-30 GRAMS 15 GRAMS... UD PRN PO 07/13/17 21:30 08/12/17 21:29 Glucose (Glucose Chew Tab) 4-8 Tablets 4 Tabl... UD PRN PO 07/13/17 21:30 08/12/17 21:29 Dextrose (Dextrose 50% 50ML Syringe) 25-50ML OF 50% DW IV FOR... UD PRN IV 07/13/17 21:30 08/12/17 21:29 Glucagon (Glucagon Inj) 1 mg UD PRN SQ 07/13/17 21:30 08/12/17 21:29 Spironolactone (Aldactone Tab) 25 mg QAM PO 07/15/17 09:00 08/14/17 08:59 07/19/17 07:35 25 MG Losartan Potassium (coZAAR TAB) 25 mg QAM PO 07/15/17 09:00 08/14/17 08:59 07/19/17 07:35 25 MG Insulin Aspart (novoLOG ASPART) SLIDING SCALE If C... ACHS SC 07/14/17 16:30 08/13/17 16:29 07/19/17 08:19 4 UNITS Metoprolol Succinate (Toprol Xl Tab) 50 mg QAM PO 07/15/17 09:00 08/14/17 08:59 07/19/17 07:36 50 MG Albuterol/ Ipratropium (Duoneb) 3 ml QIDR INH 07/15/17 12:00 08/14/17 11:59 07/19/17 11:24 3 ML Levofloxacin 750 mg/Prmx 150 ml @ 100 mls/hr DAILY@1100 IV 07/16/17 11:00 07/22/17 10:59 07/19/17 12:13 100 MLS/HR Piperacillin Sod/ Tazobactam Sod 3.375 gm/Dextrose 115 ml @ 28.75 mls/ hr Q8@0000,0800,1600 IV 07/16/17 00:00 07/23/17 00:00 07/19/17 07:28 28.75 MLS/HR Piperacillin Sod/ Tazobactam Sod (Consult) 1 ea UD PRN N/A 07/15/17 18:15 08/14/17 18:14 Prednisone (PredniSONE TAB) 60 mg QAM PO 07/17/17 08:00 08/16/17 07:59 07/19/17 07:36 60 MG Furosemide (Lasix Tab) 40 mg QAM PO 07/18/17 08:00 08/16/17 07:59 07/19/17 07:35 40 MG Enteral Nutritional Formula (Boost Glucose Control) 1 can BIDM PO 07/17/17 17:00 08/16/17 16:59 07/19/17 08:20 1 CAN Ioversol (Optiray 320) 125 ml UD PRN IV 07/18/17 14:00 07/22/17 13:59 Vital Signs: Date Time Temp Pulse Resp B/P (MAP) Pulse Ox O2 Delivery O2 Flow Rate FiO2 07/19/17 11:24 83 18 93 Nasal Cannula 6.0 07/19/17 07:42 79 18 95 Mask 6.0 07/19/17 07:30 92 Nasal Cannula 6.0 07/19/17 07:26 36.5 84 20 127/67 (87) 91 Oxymask 6.0 07/19/17 05:36 94 Oxymask 6.0 07/19/17 02:24 93 Oxymask 7.0 07/19/17 01:42 91 Nasal Cannula 6.0 07/19/17 00:00 Venturi Mask 7.0 07/18/17 23:31 36.6 90 20 131/71 (91) 94 Nasal Cannula 6.0 07/18/17 20:15 Nasal Cannula 6.0 07/18/17 19:18 95 18 94 Nasal Cannula 6.0 07/18/17 16:12 93 18 96 Nasal Cannula 6.0 07/18/17 15:30 Nasal Cannula 6.0 07/18/17 15:16 97 20 148/65 (92) 96 Nasal Cannula 6.0 Laboratory Results: Last 24 Hours Test 07/18/17 14:17 07/18/17 16:34 07/18/17 20:42 07/19/17 06:31 Arterial Blood pH 7.46 Arterial Blood Partial Pressure CO2 32 mmHg Arterial Blood Partial Pressure O2 57 mm/Hg Arterial Blood HCO3 22 mmol/L Arterial Blood Oxygen Saturation 88.1 % Arterial Blood Base Excess -1.3 mEq/L Arterial Blood Gas Delivery 6L Yoan Test POS Bedside Glucose 117 mg/dl 190 mg/dl White Blood Count 10.17 K/uL Red Blood Count 2.74 M/uL Hemoglobin 7.7 g/dL Hematocrit 25.9 % Mean Corpuscular Volume 94.5 fL Mean Corpuscular Hemoglobin 28.1 pg Mean Corpuscular Hemoglobin Concent 29.7 g/dl Platelet Count 281 K/uL Mean Platelet Volume 10.1 fL Neutrophils (%) (Auto) 80.3 % Lymphocytes (%) (Auto) 6.6 % Monocytes (%) (Auto) 11.7 % Eosinophils (%) (Auto) 1.2 % Basophils (%) (Auto) 0.0 % Neutrophils # (Auto) 8.17 K/uL Lymphocytes # (Auto) 0.67 K/uL Monocytes # (Auto) 1.19 K/uL Eosinophils # (Auto) 0.12 K/uL Basophils # (Auto) 0.00 K/uL RDW Standard Deviation 76.2 fL RDW Coefficient of Variation 22.6 % Immature Granulocyte % (Auto) 0.2 % Immature Granulocyte # (Auto) 0.02 K/uL Poikilocytosis PRESENT Anisocytosis PRESENT Tear Drop Cells 1+ Ovalocytes 1+ Sodium Level 139 mmol/L Potassium Level 3.6 mmol/L Chloride Level 106 mmol/L Carbon Dioxide Level 27 mmol/L Anion Gap 6.0 mmol/L Blood Urea Nitrogen 24 mg/dl Creatinine 0.87 mg/dl Est Creatinine Clear Calc Drug Dose 72.3 ml/min Estimated GFR () 95.8 Estimated GFR (Non- 82.7 BUN/Creatinine Ratio 27.0 Random Glucose 87 mg/dl Calcium Level 7.6 mg/dl Lipase 215 U/L Test 07/19/17 07:30 07/19/17 11:20 Bedside Glucose 110 mg/dl 137 mg/dl
--- NOTE | 2017-07-19 16:01 | Family Medicine Progress Note ---
Progress Note Date of Service Jul 19, 2017. Subjective Pt evaluation today including: conversation w/ patient, conversation w/ family , physical exam, chart review, lab review, review of studies, conversation w/ pension consultant, review of inpatient medication list Pain: denies PO Intake: good Voiding: no voiding problems He is seated talking to family. Continues to note a productive cough. He continues to have pulse oximetry readings in the low to mid 90s on 6 L via nasal cannula on a more supine position; he does seem to improve when seated upright. He talks in full sentences without conversational dyspnea. Constitutional: No fever, No chills Eyes: No problem reported ENT: No problem reported Respiratory: + cough, + sputum Cardiovascular: No chest pain Abdomen: No problem reported Neurologic: No problem reported Psychiatric: No problem reported All Other Systems: Reviewed and Negative Medications Acetaminophen (Tylenol Tab) 650 mg Q4H PRN PO; Start 07/13/17 at 16:30; Stop at 16:29 Albuterol/ Ipratropium (Duoneb) 3 ml QIDR INH Last administered on 07/19/17 14: 53; Admin Dose 3 ML; Start 07/15/17 at 12:00; Stop 08/14/17 at 11:59 Aspirin (Ecotrin Tab) 81 mg DAILY PO Last administered on 07/19/17 07:35; Admin Dose 81 MG; Start 07/14/17 at 09:00; Stop 08/13/17 at 08:59 Atorvastatin Calcium (Lipitor Tab) 80 mg DAILY PO Last administered on 07:36; Admin Dose 80 MG; Start 07/14/17 at 09:00; Stop 08/13/17 at 08:59 Cilostazol (Pletal Tab) 100 mg DAILY PO Last administered on 07/19/17 07:36; Admin Dose 100 MG; Start 07/14/17 at 09:00; Stop 08/13/17 at 08:59 Clopidogrel Bisulfate (plAVix TAB) 75 mg DAILY PO Last administered on 07:36; Admin Dose 75 MG; Start 07/14/17 at 09:00; Stop 08/13/17 at 08:59 Dextrose (Dextrose 50% 50ML Syringe) 25-50ML OF 50% DW IV FOR... UD PRN IV; Start 07/13/17 at 21:30; Stop 08/12/17 at 21:29 Enteral Nutritional Formula (Boost Glucose Control) 1 can BIDM PO Last administered on 07/19/17 08:20; Admin Dose 1 CAN; Start 07/17/17 at 17:00; Stop 08/16/17 at 16:59 Furosemide (Lasix Tab) 40 mg QAM PO Last administered on 07/19/17 07:35; Admin Dose 40 MG; Start 07/18/17 at 08:00; Stop 08/16/17 at 07:59 Glucagon (Glucagon Inj) 1 mg UD PRN SQ; Start 07/13/17 at 21:30; Stop 08/12/17 at 21:29 Glucose (Glucose 40% Gel) 15-30 GRAMS 15 GRAMS... UD PRN PO; Start 07/13/17 at 21:30; Stop 08/12/17 at 21:29 Glucose (Glucose Chew Tab) 4-8 Tablets 4 Tabl... UD PRN PO; Start 07/13/17 at 21:30; Stop 08/12/17 at 21:29 Heparin Sodium (Porcine) (Heparin Sq 5000 Unit/0.5ml) 5,000 unit Q8 SQ Last administered on 07/19/17 14:02; Admin Dose 5,000 UNIT; Start 07/13/17 at 22:00 ; Stop 08/12/17 at 21:59; Status Future hold Insulin Aspart (novoLOG ASPART) SLIDING SCALE If C... ACHS SC Last administered on 07/19/17 12:41; Admin Dose 3 UNITS; Start 07/14/17 at 16:30; Stop 08/13/17 at 16:29 Ioversol (Optiray 320) 125 ml UD PRN IV; Start 07/18/17 at 14:00; Stop at 13:59 Isosorbide Mononitrate (Imdur Ext Rel Tab) 30 mg DAILY PO Last administered on 07:35; Admin Dose 30 MG; Start 07/14/17 at 09:00; Stop 08/13/17 at 08: 59 Levofloxacin 750 mg/Prmx 150 ml @ 100 mls/hr DAILY@1100 IV Last administered on 07/19/17 12:13; Admin Dose 100 MLS/HR; Start 07/16/17 at 11:00; Stop at 10:59 Losartan Potassium (coZAAR TAB) 25 mg QAM PO Last administered on 07/19/17 07: 35; Admin Dose 25 MG; Start 07/15/17 at 09:00; Stop 08/14/17 at 08:59 Metoprolol Succinate (Toprol Xl Tab) 50 mg QAM PO Last administered on 07:36; Admin Dose 50 MG; Start 07/15/17 at 09:00; Stop 08/14/17 at 08:59 Nitroglycerin (Nitrostat Tab) 0.4 mg UD PRN SL; Start 07/13/17 at 16:30; Stop 08/12/17 at 16:29 Ondansetron HCl (Zofran Inj) 4 mg Q6H PRN IV; Start 07/13/17 at 16:30; Stop at 16:29 Piperacillin Sod/ Tazobactam Sod (Consult) 1 ea UD PRN N/A; Start 07/15/17 at 18:15; Stop 08/14/17 at 18:14 Piperacillin Sod/ Tazobactam Sod 3.375 gm/Dextrose 115 ml @ 28.75 mls/ hr Q8@ 0000,0800,1600 IV Last administered on 07/19/17 07:28; Admin Dose 28.75 MLS/HR ; Start 07/16/17 at 00:00; Stop 07/23/17 at 00:00 Prednisone (PredniSONE TAB) 60 mg QAM PO Last administered on 07/19/17 07:36; Admin Dose 60 MG; Start 07/17/17 at 08:00; Stop 08/16/17 at 07:59 Spironolactone (Aldactone Tab) 25 mg QAM PO Last administered on 07/19/17 07:35 ; Admin Dose 25 MG; Start 07/15/17 at 09:00; Stop 08/14/17 at 08:59 Zolpidem Tartrate (Ambien Tab) 5 mg HS PRN PO Last administered on 07/18/17 21 :40; Admin Dose 5 MG; Start 07/13/17 at 21:15; Stop 08/12/17 at 21:14 Objective Vital Signs Vital Signs Past 12 Hours Date Time Temp Pulse Resp B/P (MAP) Pulse Ox O2 Delivery O2 Flow Rate FiO2 07/19/17 15:45 36.3 96 20 124/72 (89) 94 Nasal Cannula 6.0 07/19/17 14:53 85 18 93 Nasal Cannula 6.0 07/19/17 11:24 83 18 93 Nasal Cannula 6.0 07/19/17 07:42 79 18 95 Mask 6.0 07/19/17 07:30 92 Nasal Cannula 6.0 07/19/17 07:26 36.5 84 20 127/67 (87) 91 Oxymask 6.0 07/19/17 05:36 94 Oxymask 6.0 Physical Exam General Appearance: WD/WN, no apparent distress Eyes: normal inspection, PERRL ENT: normal ENT inspection, hearing grossly normal, TMs normal Neck: supple, no adenopathy, thyroid normal Respiratory/Chest: chest non-tender, no respiratory distress, no accessory muscle use, + pertinent finding (decreases the bases bilaterally) Cardiovascular: regular rate, rhythm, + pertinent finding (trace lower extremity edema; he now has compression stockings on) Abdomen: non tender, soft, no organomegaly Extremities: non-tender, normal inspection Neurologic/Psychiatric: no motor/sensory deficits, alert, normal mood/affect, oriented x 3 Assessment and Plan 77-year-old male with metastatic pancreatic cancer admitted for hypoxia. Suspect multifactorial including systolic congestive heart failure, pneumonitis secondary to chemotherapy, and likely pneumonia Hypoxia Multifactorial combination of heart failure, pneumonitis, and pneumonia CT of the chest consistent with multi focal pneumonia Continue current antibiotic coverage, will discuss with pulmonology tomorrow streamlining and/or conversion to by mouth antibiotics I suspect he will go home with oxygen Acute systolic heart failure with reduced ejection fraction His lower extremity is actually look slightly better today compared to yesterday He feels lower extremity compression stockings seem to have helped Continue Lasix 40 mg PO in AM Continue beta becca, angiotensin receptor becca, and spironolactone started this admission T2DM Diabetic diet Holding metformin Insulin sliding scale Addition of steroids will likely increase his insulin needs His overall goal in terms of her A1c have to be viewed with respect to his end- stage malignancy Anemia 7.7 today (admission hemoglobin was 8.3) Monitor Other medical diagnoses History of Coronary/carotid artery disease -stable Peripheral artery disease - continue cilostazol, ASA, Plavix, atorvastatin Hypertension - stopped amlodipine, triamterene/HCZT with addition of beta becca, Aldactone, and losartan. VTE prophylaxis Heparin 5000 units Q8H Continued [facility] stay due to: abnormal vital signs, multiple IV medications needed Discharge planning: uncertain
[2017-07-19] MEDS: LORAZEPAM 0.5 MG TAB PO PRN (17:23)
[2017-07-19] MEDS: ZOLPIDEM TARTRATE 5 MG TAB PO PRN (20:25)
[2017-07-20] VITALS (7 sets, daily range): BP systolic 101–132; BP diastolic 66–70; PULSE 81–101; TEMP 36.3–36.7; O2SAT 88–96
[2017-07-20] MEDS: PIPERACILL/TAZOBAC IV 3.375 GM in DEXTROSE 5% 100ML 100 ML IV SCH ×3 (00:07→16:02)
[2017-07-20] MEDS: LORAZEPAM 0.5 MG TAB PO PRN ×2 (02:25→17:16)
[2017-07-20] MEDS: HEPARIN SOD 5000 UNIT/0.5 ML CARP SQ SCH ×3 (05:39→21:42)
[2017-07-20] MEDS: ALBUT/IPRATROP 3MG/0.5MG NEB 3 ML VIAL INH SCH ×4 (07:25→19:44)
[2017-07-20 07:42] LABS: EOS % 1.9 %; HEMATOCRIT 26.9 % (42-52); IG% 0.2 %; LYMPH % 7.3 %; LYMPH ABS # 0.64 K/uL (1.2-3.4); MEAN CELL VOLUME 95.7 fL (80-100); MEAN CORPUSCULAR HEMOGLOBIN 29.2 pg (25-34); MEAN CORPUSCULAR HGB CONC 30.5 g/dl (32-36); MEAN PLATELET VOLUME 9.7 fL (7.4-10.4); MONO % 8.6 %; PLATELET COUNT 320 K/uL (130-400); RED BLOOD COUNT 2.81 M/uL (4.7-6.1); WHITE BLOOD COUNT 8.79 K/uL (4.8-10.8)
[2017-07-20] MEDS: ISOSORBIDE MONONITRATE 30 MG TABCR PO SCH (08:17)
[2017-07-20] MEDS: SPIRONOLACTONE 25 MG TAB PO SCH (08:17)
[2017-07-20] MEDS: ATORVASTATIN 40 MG TAB PO SCH (08:17)
[2017-07-20] MEDS: CLOPIDOGREL BISULFATE 75 MG TAB PO SCH (08:17)
[2017-07-20 08:18] LABS: BUN/CREATININE RATIO 22.3 (10-20); CALCIUM 7.8 mg/dl (8.5-10.1); CREATININE 0.96 mg/dl (0.60-1.40); POTASSIUM 3.5 mmol/L (3.5-5.1)
[2017-07-20] MEDS: BOOST GLUCOSE CONTROL PO SCH ×2 (08:18→17:17)
[2017-07-20] MEDS: METOPROLOL SUCC 50MG EXT REL TAB PO SCH (08:18)
[2017-07-20] MEDS: ASPIRIN 81 MG ECTAB PO SCH (08:18)
[2017-07-20] MEDS: FUROSEMIDE 40 MG TAB PO SCH (08:18)
[2017-07-20] MEDS: CILOSTAZOL 100 MG TAB PO SCH (08:18)
[2017-07-20] MEDS: LOSARTAN POTASSIUM 25 MG TAB PO SCH (08:18)
[2017-07-20 08:21] LABS: ANISOCYTOSIS PRESENT; COMPLETE YES; POIKILOCYTOSIS PRESENT
[2017-07-20] MEDS: INSULIN ASPART 100 UNITS/ML 3 ML PEN SC SCH ×4 (08:33→21:42)
--- NOTE | 2017-07-20 09:38 | Family Medicine Progress Note ---
Progress Note Date of Service Jul 20, 2017. Subjective Pt evaluation today including: conversation w/ patient, physical exam, chart review, lab review, review of studies Voiding: no voiding problems Mr Dye feels he is stable this morning. No chest pain or worsening of his shortness of breath. He remains on 6L O2. All Other Systems: Reviewed and Negative Medications Current Inpatient Medications Medications (Trade) Dose Ordered Sig/Magdi Route Start Time Stop Time Status Last Admin Dose Admin Heparin Sodium (Porcine) (Heparin Sq 5000 Unit/0.5ml) 5,000 unit Q8 SQ 07/13/17 22:00 08/12/17 21:59 Future hold 07/20/17 05:39 5,000 UNIT Acetaminophen (Tylenol Tab) 650 mg Q4H PRN PO 07/13/17 16:30 08/12/17 16:29 Ondansetron HCl (Zofran Inj) 4 mg Q6H PRN IV 07/13/17 16:30 08/12/17 16:29 Nitroglycerin (Nitrostat Tab) 0.4 mg UD PRN SL 07/13/17 16:30 08/12/17 16:29 Aspirin (Ecotrin Tab) 81 mg DAILY PO 07/14/17 09:00 08/13/17 08:59 07/20/17 08:18 81 MG Atorvastatin Calcium (Lipitor Tab) 80 mg DAILY PO 07/14/17 09:00 08/13/17 08:59 07/20/17 08:17 80 MG Cilostazol (Pletal Tab) 100 mg DAILY PO 07/14/17 09:00 08/13/17 08:59 07/20/17 08:18 100 MG Clopidogrel Bisulfate (plAVix TAB) 75 mg DAILY PO 07/14/17 09:00 08/13/17 08:59 07/20/17 08:17 75 MG Isosorbide Mononitrate (Imdur Ext Rel Tab) 30 mg DAILY PO 07/14/17 09:00 08/13/17 08:59 07/20/17 08:17 30 MG Zolpidem Tartrate (Ambien Tab) 5 mg HS PRN PO 07/13/17 21:15 08/12/17 21:14 07/19/17 20:25 5 MG Glucose (Glucose 40% Gel) 15-30 GRAMS 15 GRAMS... UD PRN PO 07/13/17 21:30 08/12/17 21:29 Glucose (Glucose Chew Tab) 4-8 Tablets 4 Tabl... UD PRN PO 07/13/17 21:30 08/12/17 21:29 Dextrose (Dextrose 50% 50ML Syringe) 25-50ML OF 50% DW IV FOR... UD PRN IV 07/13/17 21:30 08/12/17 21:29 Glucagon (Glucagon Inj) 1 mg UD PRN SQ 07/13/17 21:30 08/12/17 21:29 Spironolactone (Aldactone Tab) 25 mg QAM PO 07/15/17 09:00 08/14/17 08:59 07/20/17 08:17 25 MG Losartan Potassium (coZAAR TAB) 25 mg QAM PO 07/15/17 09:00 08/14/17 08:59 07/20/17 08:18 25 MG Insulin Aspart (novoLOG ASPART) SLIDING SCALE If C... ACHS SC 07/14/17 16:30 08/13/17 16:29 07/20/17 08:33 5 UNITS Metoprolol Succinate (Toprol Xl Tab) 50 mg QAM PO 07/15/17 09:00 08/14/17 08:59 07/20/17 08:18 50 MG Albuterol/ Ipratropium (Duoneb) 3 ml QIDR INH 07/15/17 12:00 08/14/17 11:59 07/20/17 07:25 3 ML Levofloxacin 750 mg/Prmx 150 ml @ 100 mls/hr DAILY@1100 IV 07/16/17 11:00 07/22/17 10:59 07/19/17 12:13 100 MLS/HR Piperacillin Sod/ Tazobactam Sod 3.375 gm/Dextrose 115 ml @ 28.75 mls/ hr Q8@0000,0800,1600 IV 07/16/17 00:00 07/23/17 00:00 07/20/17 08:23 28.75 MLS/HR Piperacillin Sod/ Tazobactam Sod (Consult) 1 ea UD PRN N/A 07/15/17 18:15 08/14/17 18:14 Prednisone (PredniSONE TAB) 60 mg QAM PO 07/17/17 08:00 08/16/17 07:59 07/20/17 08:18 60 MG Furosemide (Lasix Tab) 40 mg QAM PO 07/18/17 08:00 08/16/17 07:59 07/20/17 08:18 40 MG Enteral Nutritional Formula (Boost Glucose Control) 1 can BIDM PO 07/17/17 17:00 08/16/17 16:59 07/20/17 08:18 1 CAN Ioversol (Optiray 320) 125 ml UD PRN IV 07/18/17 14:00 07/22/17 13:59 Lorazepam (Ativan Tab) 0.5 mg Q4H PRN PO 07/19/17 16:30 08/18/17 16:29 07/20/17 02:25 0.5 MG Objective Vital Signs Date Time Temp Pulse Resp B/P (MAP) Pulse Ox O2 Delivery O2 Flow Rate FiO2 07/20/17 07:25 86 18 94 Nasal Cannula 6.0 07/20/17 07:07 36.4 89 22 132/70 (90) 96 Nasal Cannula 6.0 07/20/17 00:00 Nasal Cannula 6.0 07/19/17 23:54 36.3 88 20 118/61 (80) 96 Nasal Cannula 6.0 07/19/17 19:55 Nasal Cannula 6.0 07/19/17 19:10 90 18 94 Nasal Cannula 6.0 07/19/17 15:50 95 Nasal Cannula 6.0 Humidified Oxygen 07/19/17 15:45 36.3 96 20 124/72 (89) 94 Nasal Cannula 6.0 07/19/17 14:53 85 18 93 Nasal Cannula 6.0 07/19/17 11:24 83 18 93 Nasal Cannula 6.0 Physical Exam General Appearance: WD/WN, no apparent distress Eyes: normal inspection (unequal pupils as previously noted) Neck: supple, no JVD Respiratory/Chest: + decreased breath sounds (right sided), + crackles (left basal) Cardiovascular: regular rate, rhythm, no murmur Abdomen: normal bowel sounds, non tender, soft Extremities: no pedal edema, no calf tenderness, normal capillary refill Neurologic/Psychiatric: alert, oriented x 3 Skin: normal color, warm/dry, no rash Laboratory Results 07/20/17 07:32 Red Blood Count 2.81, Mean Corpuscular Volume 95.7, Mean Corpuscular Hemoglobin 29.2, Mean Corpuscular Hemoglobin Concent 30.5, Mean Platelet Volume 9.7, Neutrophils (%) (Auto) 82.0, Lymphocytes (%) (Auto) 7.3, Monocytes (%) (Auto) 8.6, Eosinophils (%) (Auto) 1.9, Basophils (%) (Auto) 0.0, Neutrophils # (Auto) 7.20, Lymphocytes # (Auto) 0.64, Monocytes # (Auto) 0.76, Eosinophils # (Auto) 0.17, Basophils # (Auto) 0.00 07/20/17 07:32 Test 07/20/17 07:22 07/20/17 07:32 Bedside Glucose 171 mg/dl (70-99) White Blood Count 8.79 K/uL (4.8-10.8) Red Blood Count 2.81 M/uL (4.7-6.1) Hemoglobin 8.2 g/dL (14.0-18.0) Hematocrit 26.9 % (42-52) Mean Corpuscular Volume 95.7 fL (80-100) Mean Corpuscular Hemoglobin 29.2 pg (25-34) Mean Corpuscular Hemoglobin Concent 30.5 g/dl (32-36) Platelet Count 320 K/uL (130-400) Mean Platelet Volume 9.7 fL (7.4-10.4) Neutrophils (%) (Auto) 82.0 % Lymphocytes (%) (Auto) 7.3 % Monocytes (%) (Auto) 8.6 % Eosinophils (%) (Auto) 1.9 % Basophils (%) (Auto) 0.0 % Neutrophils # (Auto) 7.20 K/uL (1.4-6.5) Lymphocytes # (Auto) 0.64 K/uL (1.2-3.4) Monocytes # (Auto) 0.76 K/uL (0.11-0.59) Eosinophils # (Auto) 0.17 K/uL (0-0.5) Basophils # (Auto) 0.00 K/uL (0-0.2) RDW Standard Deviation 76.2 fL (36.4-46.3) RDW Coefficient of Variation 22.4 % (11.5-14.5) Immature Granulocyte % (Auto) 0.2 % Immature Granulocyte # (Auto) 0.02 K/uL (0.00-0.02) Poikilocytosis PRESENT Anisocytosis PRESENT Anion Gap 7.0 mmol/L (3-11) Est Creatinine Clear Calc Drug Dose 65.5 ml/min Estimated GFR () 87.4 Estimated GFR (Non- 75.4 BUN/Creatinine Ratio 22.3 (10-20) Calcium Level 7.8 mg/dl (8.5-10.1) Assessment and Plan 77-year-old male with metastatic pancreatic cancer admitted for hypoxia. Suspect multifactorial including systolic congestive heart failure, pneumonitis secondary to chemotherapy, and likely pneumonia Acute Respiratory failure Multifactorial combination of heart failure, pneumonitis, and pneumonia, bilateral pleural effusion Continue supplemental O2. If worsens - bipap/high flow O2 Acute systolic heart failure with reduced ejection fraction Acute exacerbation Continue Lasix 40 mg PO in AM Continue beta becca, angiotensin receptor becca, and spironolactone started this admission Cardiology following Pneumonitis/Pneumonia CT of the chest consistent with multi focal pneumonia Continue current antibiotic coverage, Continue steroids Nebs Bilateral pleural effusion Diagnostic thoracentesis on 07/16/2017 meets one criteria of exudate. culture negative growth to date. Cytology and AFB still pending. Hypoalbuminemia Check prealbumin . Pancreatic Ca hematology following. T2DM Diabetic diet Holding metformin Insulin sliding scale Addition of steroids will increasing his insulin needs His overall goal in terms of her A1c have to be viewed with respect to his end- stage malignancy Anemia 8.2 today (admission hemoglobin was 8.3) Monitor VTE Prophylaxis - continue heparin 5000units Q8H Code - DNR Disposition - discuss with pulmonology regarding disposition Resident Tracking Resident Involvement: Resident Care Provided Care Provided: Adult Hospital Medicine Reviewed: Pt Seen/Exam by Me History No new concerns Constitutional: denies: fever Respiratory: positive: short of breath (still the same), negative: cough Cardiovascular: denies chest pain General Appearance: no apparent distress Respiratory: no respiratory distress, decreased breath sounds, wheezing Cardiovascular: regular rate, rhythm Neurologic/Psychiatric: alert, oriented x 3 Skin Characteristics: warm/dry Assessment/Plan Resident Physician Supervision Note: I was present with Dr. Hernandez in bedside. I verified the rios history and physical, reviewed labs and image studies, discussed the case with the resident and agree with the findings and care plan.
[2017-07-20] MEDS ORDERED: FUROSEMIDE 40 MG TAB PO ONE (10:30)
--- NOTE | 2017-07-20 11:54 | Hematology/Oncology Prog Note ---
Hematology/Onc Progress Note Date of Service Jul 20, 2017. Diagnoses Metastatic pancreatic carcinoma Pulmonary infiltrates Medications Medications Administered Medications (Trade) Dose Ordered Sig/Magdi Route Start Time Stop Time Status Last Admin Dose Admin Heparin Sodium (Porcine) (Heparin Sq 5000 Unit/0.5ml) 5,000 unit Q8 SQ 07/13/17 22:00 08/12/17 21:59 Future hold 07/20/17 05:39 5,000 UNIT Aspirin (Ecotrin Tab) 81 mg DAILY PO 07/14/17 09:00 08/13/17 08:59 07/20/17 08:18 81 MG Atenolol (Tenormin Tab) 25 mg BID PO 07/13/17 21:00 07/14/17 13:32 DC 07/14/17 09:04 25 MG Atorvastatin Calcium (Lipitor Tab) 80 mg DAILY PO 07/14/17 09:00 08/13/17 08:59 07/20/17 08:17 80 MG Cilostazol (Pletal Tab) 100 mg DAILY PO 07/14/17 09:00 08/13/17 08:59 07/20/17 08:18 100 MG Clopidogrel Bisulfate (plAVix TAB) 75 mg DAILY PO 07/14/17 09:00 08/13/17 08:59 07/20/17 08:17 75 MG Isosorbide Mononitrate (Imdur Ext Rel Tab) 30 mg DAILY PO 07/14/17 09:00 08/13/17 08:59 07/20/17 08:17 30 MG Furosemide 40 mg/ Syringe 4 ml @ 4 mls/min NOW ONCE IV 07/13/17 17:30 07/13/17 17:31 DC 07/13/17 17:29 4 MLS/MIN Zolpidem Tartrate (Ambien Tab) 5 mg HS PRN PO 07/13/17 21:15 08/12/17 21:14 07/19/17 20:25 5 MG Insulin Aspart (novoLOG ASPART) SLIDING SCALE If C... Q6 SC 07/14/17 00:00 07/14/17 16:29 DC 07/14/17 13:00 4 UNITS Furosemide 40 mg/ Syringe 4 ml @ 4 mls/min TODAY@1400 IV 07/14/17 14:00 07/14/17 18:00 DC 07/14/17 14:27 4 MLS/MIN Potassium Chloride (Klor-Con M10) 40 meq NOW ONCE PO 07/14/17 14:00 07/14/17 14:01 DC 07/14/17 14:27 40 MEQ Spironolactone (Aldactone Tab) 25 mg QAM PO 07/15/17 09:00 08/14/17 08:59 07/20/17 08:17 25 MG Spironolactone (Aldactone Tab) 25 mg NOW ONCE PO 07/14/17 14:00 07/14/17 14:01 DC 07/14/17 14:28 25 MG Losartan Potassium (coZAAR TAB) 25 mg QAM PO 07/15/17 09:00 08/14/17 08:59 07/20/17 08:18 25 MG Metoprolol Succinate (Toprol Xl Tab) 25 mg NOW ONCE PO 07/14/17 14:00 07/14/17 14:01 DC 07/14/17 14:28 25 MG Insulin Aspart (novoLOG ASPART) SLIDING SCALE If C... ACHS SC 07/14/17 16:30 08/13/17 16:29 07/20/17 08:33 5 UNITS Metoprolol Succinate (Toprol Xl Tab) 50 mg QAM PO 07/15/17 09:00 08/14/17 08:59 07/20/17 08:18 50 MG Furosemide 20 mg/ Syringe 2 ml @ 4 mls/min ONE ONCE IV 07/15/17 08:00 07/15/17 08:01 DC 07/15/17 09:18 4 MLS/MIN Albuterol/ Ipratropium (Duoneb) 3 ml QIDR INH 07/15/17 12:00 08/14/17 11:59 07/20/17 11:12 3 ML Levofloxacin (Levaquin Tab) 750 mg 1134 ONCE PO 07/15/17 11:34 07/15/17 11:44 DC 07/15/17 12:24 750 MG Levofloxacin 750 mg/Prmx 150 ml @ 100 mls/hr DAILY@1100 IV 07/16/17 11:00 07/22/17 10:59 07/19/17 12:13 100 MLS/HR Piperacillin Sod/ Tazobactam Sod 3.375 gm/Dextrose 115 ml @ 28.75 mls/ hr Q8@0000,0800,1600 IV 07/16/17 00:00 07/23/17 00:00 07/20/17 08:23 28.75 MLS/HR Vancomycin HCl 2000 mg/Sodium Chloride 540 ml @ 200 mls/hr 1900 IV 07/15/17 19:00 07/15/17 21:41 DC 07/15/17 19:06 200 MLS/HR Piperacillin Sod/ Tazobactam Sod 3.375 gm/Dextrose 115 ml @ 200 mls/hr 1815 IV 07/15/17 18:15 07/15/17 18:50 DC 07/15/17 19:38 200 MLS/HR Vancomycin HCl 1250 mg/Sodium Chloride 275 ml @ 125 mls/hr Q12@0600,1800 IV 07/16/17 06:00 07/16/17 18:16 DC 07/16/17 17:51 125 MLS/HR Prednisone (PredniSONE TAB) 20 mg NOW STAT PO 07/16/17 18:20 07/16/17 18:41 DC 07/16/17 19:22 20 MG Prednisone (PredniSONE TAB) 60 mg QAM PO 07/17/17 08:00 08/16/17 07:59 07/20/17 08:18 60 MG Prednisone (PredniSONE TAB) 40 mg NOW STAT PO 07/16/17 22:00 07/16/17 22:07 DC 07/16/17 23:10 40 MG Furosemide (Lasix Tab) 20 mg QAM PO 07/17/17 08:00 07/17/17 15:07 DC 07/17/17 07:54 20 MG Lorazepam (Ativan Tab) 0.5 mg NOW STAT PO 07/17/17 11:41 07/17/17 11:42 DC 07/17/17 12:26 0.5 MG Furosemide (Lasix Tab) 40 mg QAM PO 07/18/17 08:00 08/16/17 07:59 07/20/17 08:18 40 MG Enteral Nutritional Formula (Boost Glucose Control) 1 can BIDM PO 07/17/17 17:00 08/16/17 16:59 07/20/17 08:18 1 CAN Lorazepam (Ativan Tab) 0.5 mg Q4H PRN PO 07/19/17 16:30 08/18/17 16:29 07/20/17 02:25 0.5 MG Furosemide (Lasix Tab) 40 mg 1030 ONCE PO 07/20/17 10:30 07/20/17 10:31 DC 07/20/17 10:34 40 MG Subjective Overall he states that he feels that he is breathing somewhat better. He denies fever. He does not have a productive cough. He denies chest pain. Review of Systems: Constitutional: Negative for night sweats, or fever Eyes: Negative for event change of vision ENT: Negative for epistaxis, nasal discharge, sore throat, or deafness Cardiovascular: Negative for chest pain, palpitations, dizziness, diaphoresis Respiratory: Shortness of breath continues and he still requires 5-6 L of nasal oxygen Gastrointestinal: Negative for diarrhea, hematemesis, melena, nausea, vomiting , or dyspepsia Integumentary (skin): Negative for rash or jaundice discoloration Genitourinary: Negative for urinary frequency, hematuria, or dysuria Neurological: Negative for weakness, seizure activity, headache, or dizziness Lymphatic/Hematologic: Negative for petechiae, bleeding or new adenopathy Musculoskeletal: Negative for new joint or back pain. Dependent edema is less Allergic/Immunologic: Negative for unusual rash or pruritis. Vital Signs Vital Signs Past 12 Hours Date Time Temp Pulse Resp B/P (MAP) Pulse Ox O2 Delivery O2 Flow Rate FiO2 07/20/17 07:25 86 18 94 Nasal Cannula 6.0 07/20/17 07:07 36.4 89 22 132/70 (90) 96 Nasal Cannula 6.0 07/20/17 00:00 Nasal Cannula 6.0 07/19/17 23:54 36.3 88 20 118/61 (80) 96 Nasal Cannula 6.0 Physical Exam Constitutional: vitals are stable. Eyes: Eyes are MARGE EOMI without conjuctival erythema or icterus. ENT: External examination was negative for masses. Neck: Negative for masses or palpable thyromegaly Respiratory: Lung sounds with continue occasional rale Cardiovascular: Heart was RRR without significant murmur, gallops aoe rubs Gastrointestinal: No palpable hepatic or splenomegaly. The abdomen was soft with normal bowel sounds. Lymphatic system: there was no palpable peripheral lymphadenopathy Musculoskeletal System: The musculoskeletal system seemed concordant with age. Skin: The skin was negative for jaundice. Neurologic exam: The exam was negative for any focal findings. Deep tendon reflexes were equal and symmetrical. Psychiatric exam: Was essentially negative with normal mood and effect. Extremities: Negative for significant edema currently Constitutional: Level of Distress: NAD, chronically ill Psychiatric: Mental Status: active & alert Orientation: oriented except where noted Lungs: Auscuitation: dry rales/crackles (in all gaming) Cardiovascular: Heart Auscultation: RRR Abdomen: Inspection & Palpation: soft, no tenderness, guarding & rebound Extremities: edema (trace edema in both ankles) Laboratory Last 24 Hours Test 07/19/17 16:56 07/19/17 20:31 07/20/17 07:22 07/20/17 07:32 Bedside Glucose 180 mg/dl 169 mg/dl 171 mg/dl White Blood Count 8.79 K/uL Red Blood Count 2.81 M/uL Hemoglobin 8.2 g/dL Hematocrit 26.9 % Mean Corpuscular Volume 95.7 fL Mean Corpuscular Hemoglobin 29.2 pg Mean Corpuscular Hemoglobin Concent 30.5 g/dl Platelet Count 320 K/uL Mean Platelet Volume 9.7 fL Neutrophils (%) (Auto) 82.0 % Lymphocytes (%) (Auto) 7.3 % Monocytes (%) (Auto) 8.6 % Eosinophils (%) (Auto) 1.9 % Basophils (%) (Auto) 0.0 % Neutrophils # (Auto) 7.20 K/uL Lymphocytes # (Auto) 0.64 K/uL Monocytes # (Auto) 0.76 K/uL Eosinophils # (Auto) 0.17 K/uL Basophils # (Auto) 0.00 K/uL RDW Standard Deviation 76.2 fL RDW Coefficient of Variation 22.4 % Immature Granulocyte % (Auto) 0.2 % Immature Granulocyte # (Auto) 0.02 K/uL Poikilocytosis PRESENT Anisocytosis PRESENT Sodium Level 142 mmol/L Potassium Level 3.5 mmol/L Chloride Level 108 mmol/L Carbon Dioxide Level 27 mmol/L Anion Gap 7.0 mmol/L Blood Urea Nitrogen 21 mg/dl Creatinine 0.96 mg/dl Est Creatinine Clear Calc Drug Dose 65.5 ml/min Estimated GFR () 87.4 Estimated GFR (Non- 75.4 BUN/Creatinine Ratio 22.3 Random Glucose 145 mg/dl Calcium Level 7.8 mg/dl Assessment & Plan Pulmonary infiltrates the cause is somewhat unclear. There continues to be an ongoing debate as to whether this could be the result of chemotherapy that is gemcitabine-induced pneumonitis which would be very rare or heart failure. Preliminary look at the pleural fluid pathology does not reflect any cancer however the formal report is still pending. The cause then of the pulmonary infiltrates will continue to be of mixed opinion. I suspect there has to be an element of congestive heart failure. I recall and he recalls having progressive lower extremity edema that was ongoing for at least a few weeks prior to developing shortness of breath. If in fact this was purely chemotherapy related pneumonitis which again is a very rare circumstance with gemcitabine, then he would have become more short of breath before even developing dependent edema. Nevertheless concern continues for either etiology and subsequently he is being treated for both. Regardless it will be difficult to even consider further gemcitabine as continued therapy for his underlying pancreatic carcinoma. He was informed of this today with his by his side. Further treatments could be a single agent capecitabine versus supportive care alone. He is aware that with his declining overall performance status - that further chemotherapy might invite more risk than benefit. This conversation will be followed up in our clinic. I will order an updated CA 19-9 that has been fairly client care representative of his underlying bulk of neoplasm.
[2017-07-20] MEDS: LEVOFLOXACIN / D5W 750 MG in PREMIXED IN D5W 150 ML IV SCH (12:22)
--- NOTE | 2017-07-20 19:25 | Pulmonology Progress Note ---
Pulmonary Progress Note Date of Service Jul 20, 2017. Attending Dr. Ramirez Subjective Patient notes stability is overall pulmonary function at this time with no acute changes. Objective Patient is doing well we had a long conversation showed no signs of increased work of breathing such as tachypnea or use of accessory muscles. Is also able to complete full sentences with no signs of exertion. VS: I/Os: -6.7L RR: 18-24 SaO2: 88-94% FiO2: 6.0L RESP: Rhonchi bilaterally CARD: S1-S2 distant heart sounds unable to auscultate for murmurs rubs or gallops ABD: Mildly tender but no rebound appreciated SERUM WBC: 9K PLT: 320K AB.46/32/57/22 Aa: 175 MICRO: WNL Expectorated sputum 07/18/2017-no growth Pleural fluid 07/16/2017-no growth Nasal swab MRSA DNA negative 07/15/2017 Blood 07/15/2017 2 -no growth Urine a 2016 -no growth Radiology CT angiogram 07/18/2017 No pulmonary emboli Extensive bilateral airspace/infiltrative process right greater than left greatest in the right lower lobe Small right-sided pleural effusion Linear atelectasis left lower lobe CT thorax 06/10/2017 Stable Noncalcified pulmonary nodules noted on previous exam 12/29/2013 CT thorax to 04/18/16 Diffuse bilateral infiltrates/bronchiectasis with linear atelectasis of the left lower lobe Medications #1 prednisone 60 mg oral daily for #2 levofloxacin 750 mg daily day 5 #3 Zosyn 3.375 g every 8 day 5 #4 DuoNeb 4 times a day Right-sided thoracentesis 07/16/2017 Pleural Serum Ratio Gradient pH: 7.51 protein 2.7 5.9 .46 3.2 LDH 144 188 .77 glucose 120 amylase 41 cholesterol 25 Assessment & Plan 69-year-old gentleman admitted with hypoxemia multifocal infiltrates/abnormal CAT scan: #1 Hypoxia: The patient's hypoxia/refractory nature is consistent with physiologic shunt. This would also be consistent with his clinical onset as well as his diffuse findings on CAT Scan. I agree with Dr. Verdin's assessment on continuing his prednisone dosing at 0.5 mixed per daily for possible [employer]MENT[employer] T[employer]OR. 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 During our conversation I did cut the patient's oxygen delivery down to 3 L nasal cannula any maintain his saturations above 96% during our conversation. He also ambulated earlier today and was noted to have no signs of aggressive desaturation on 5 L nasal cannula. The patient is able to maintain his current status we could discharge him on 3 L nasal cannula at rest and 5 L nasal cannula with exertion and sleep. Once again the patient will need long-term steroids most likely for the next 2-3 months requiring pulmonary follow-up. #2 pleural effusion: The patient's pleural effusion was only mildly exudative based off LDH criteria was 0.77. Looking at the protein gradient fell greater than 3.1 exactly 3.2 does suggest that the patient actually had a transitive effusion. At this time there seems to be no recurrence it was most likely secondary to the acute event which induces hypoxia. Hypoxemia Multifocal pneumonia Bilateral pleural effusion Combined diastolic and systolic heart failure CHF Hypoalbuminemia Metastatic pancreatic cancer Patient remains afebrile. Now with some mucus production with hypoxia. He still has normal WBC and remains afebrile. Repeat CXR shows multifocal bilateral airspace opacities suggestive of pneumonia. CT chest with contrast was negative for pulmonary embolism. Diagnostic thoracentesis on 07/16/2017 meets one criteria of exudate. culture negative growth to date. Cytology and AFB still pending. He still requiring increased oxygen requirements at this time.ABG consistent with hypoxemia and increase A-a gradient, but he is responsive to oxygen supplementation. Continue with empiric coverage for pneumonia at this time. Sputum cultures frm show light light normal herlinda. Continue with bronchodilators at this time. Continue with 0.5 mg/kg steroids for possible pneumonitis or ELEMENT[employer] TUTOR. They should both improve with corticosteroid treatment Cardiology is on board and optimizing his medications for his combined diastolic and systolic heart failure. Hematology is also on board regarding pancreatic cancer. Continue with supplementary oxygen therapy to maintain SaO2 above 92%. If patient should further decompensate he may benefit from a trial of BiPAP for high flow nasal cannula. Dr. Raimrez will be taking over pulmonary service tomorrow and will continue to follow. Data Medications: Current Inpatient Medications Medications (Trade) Dose Ordered Sig/Magdi Route Start Time Stop Time Status Last Admin Dose Admin Heparin Sodium (Porcine) (Heparin Sq 5000 Unit/0.5ml) 5,000 unit Q8 SQ 07/13/17 22:00 08/12/17 21:59 Future hold 07/20/17 13:43 5,000 UNIT Acetaminophen (Tylenol Tab) 650 mg Q4H PRN PO 07/13/17 16:30 08/12/17 16:29 Ondansetron HCl (Zofran Inj) 4 mg Q6H PRN IV 07/13/17 16:30 08/12/17 16:29 Nitroglycerin (Nitrostat Tab) 0.4 mg UD PRN SL 07/13/17 16:30 08/12/17 16:29 Aspirin (Ecotrin Tab) 81 mg DAILY PO 07/14/17 09:00 08/13/17 08:59 07/20/17 08:18 81 MG Atorvastatin Calcium (Lipitor Tab) 80 mg DAILY PO 07/14/17 09:00 08/13/17 08:59 07/20/17 08:17 80 MG Cilostazol (Pletal Tab) 100 mg DAILY PO 07/14/17 09:00 08/13/17 08:59 07/20/17 08:18 100 MG Clopidogrel Bisulfate (plAVix TAB) 75 mg DAILY PO 07/14/17 09:00 08/13/17 08:59 07/20/17 08:17 75 MG Isosorbide Mononitrate (Imdur Ext Rel Tab) 30 mg DAILY PO 07/14/17 09:00 08/13/17 08:59 07/20/17 08:17 30 MG Zolpidem Tartrate (Ambien Tab) 5 mg HS PRN PO 07/13/17 21:15 08/12/17 21:14 07/19/17 20:25 5 MG Glucose (Glucose 40% Gel) 15-30 GRAMS 15 GRAMS... UD PRN PO 07/13/17 21:30 08/12/17 21:29 Glucose (Glucose Chew Tab) 4-8 Tablets 4 Tabl... UD PRN PO 07/13/17 21:30 08/12/17 21:29 Dextrose (Dextrose 50% 50ML Syringe) 25-50ML OF 50% DW IV FOR... UD PRN IV 07/13/17 21:30 08/12/17 21:29 Glucagon (Glucagon Inj) 1 mg UD PRN SQ 07/13/17 21:30 08/12/17 21:29 Spironolactone (Aldactone Tab) 25 mg QAM PO 07/15/17 09:00 08/14/17 08:59 07/20/17 08:17 25 MG Losartan Potassium (coZAAR TAB) 25 mg QAM PO 07/15/17 09:00 08/14/17 08:59 07/20/17 08:18 25 MG Insulin Aspart (novoLOG ASPART) SLIDING SCALE If C... ACHS SC 07/14/17 16:30 08/13/17 16:29 07/20/17 18:04 5 UNITS Metoprolol Succinate (Toprol Xl Tab) 50 mg QAM PO 07/15/17 09:00 08/14/17 08:59 07/20/17 08:18 50 MG Albuterol/ Ipratropium (Duoneb) 3 ml QIDR INH 07/15/17 12:00 08/14/17 11:59 07/20/17 15:32 3 ML Levofloxacin 750 mg/Prmx 150 ml @ 100 mls/hr DAILY@1100 IV 07/16/17 11:00 07/22/17 10:59 07/20/17 12:22 100 MLS/HR Piperacillin Sod/ Tazobactam Sod 3.375 gm/Dextrose 115 ml @ 28.75 mls/ hr Q8@0000,0800,1600 IV 07/16/17 00:00 07/23/17 00:00 07/20/17 16:02 28.75 MLS/HR Piperacillin Sod/ Tazobactam Sod (Consult) 1 ea UD PRN N/A 07/15/17 18:15 08/14/17 18:14 Prednisone (PredniSONE TAB) 60 mg QAM PO 07/17/17 08:00 08/16/17 07:59 07/20/17 08:18 60 MG Furosemide (Lasix Tab) 40 mg QAM PO 07/18/17 08:00 08/16/17 07:59 07/20/17 08:18 40 MG Enteral Nutritional Formula (Boost Glucose Control) 1 can BIDM PO 07/17/17 17:00 08/16/17 16:59 07/20/17 17:17 1 CAN Ioversol (Optiray 320) 125 ml UD PRN IV 07/18/17 14:00 07/22/17 13:59 Lorazepam (Ativan Tab) 0.5 mg Q4H PRN PO 07/19/17 16:30 08/18/17 16:29 07/20/17 17:16 0.5 MG I & O: 24-Hour Column 07/21/17 08:00 Intake Total 887 ml Output Total 400 ml Balance 487 ml Vital Signs: Date Time Temp Pulse Resp B/P (MAP) Pulse Ox O2 Delivery O2 Flow Rate FiO2 07/20/17 15:40 Nasal Cannula 6.0 07/20/17 15:32 81 18 94 Nasal Cannula 6.0 07/20/17 14:50 36.3 101 24 101/66 (78) 94 Nasal Cannula 6.0 07/20/17 13:43 88 07/20/17 08:00 Nasal Cannula 6.0 07/20/17 07:25 86 18 94 Nasal Cannula 6.0 07/20/17 07:07 36.4 89 22 132/70 (90) 96 Nasal Cannula 6.0 07/20/17 00:00 Nasal Cannula 6.0 07/19/17 23:54 36.3 88 20 118/61 (80) 96 Nasal Cannula 6.0 07/19/17 19:55 Nasal Cannula 6.0 Laboratory Results: Last 24 Hours Test 07/19/17 20:31 07/20/17 07:22 07/20/17 07:32 07/20/17 11:38 Bedside Glucose 169 mg/dl 171 mg/dl 149 mg/dl White Blood Count 8.79 K/uL Red Blood Count 2.81 M/uL Hemoglobin 8.2 g/dL Hematocrit 26.9 % Mean Corpuscular Volume 95.7 fL Mean Corpuscular Hemoglobin 29.2 pg Mean Corpuscular Hemoglobin Concent 30.5 g/dl Platelet Count 320 K/uL Mean Platelet Volume 9.7 fL Neutrophils (%) (Auto) 82.0 % Lymphocytes (%) (Auto) 7.3 % Monocytes (%) (Auto) 8.6 % Eosinophils (%) (Auto) 1.9 % Basophils (%) (Auto) 0.0 % Neutrophils # (Auto) 7.20 K/uL Lymphocytes # (Auto) 0.64 K/uL Monocytes # (Auto) 0.76 K/uL Eosinophils # (Auto) 0.17 K/uL Basophils # (Auto) 0.00 K/uL RDW Standard Deviation 76.2 fL RDW Coefficient of Variation 22.4 % Immature Granulocyte % (Auto) 0.2 % Immature Granulocyte # (Auto) 0.02 K/uL Poikilocytosis PRESENT Anisocytosis PRESENT Sodium Level 142 mmol/L Potassium Level 3.5 mmol/L Chloride Level 108 mmol/L Carbon Dioxide Level 27 mmol/L Anion Gap 7.0 mmol/L Blood Urea Nitrogen 21 mg/dl Creatinine 0.96 mg/dl Est Creatinine Clear Calc Drug Dose 65.5 ml/min Estimated GFR () 87.4 Estimated GFR (Non- 75.4 BUN/Creatinine Ratio 22.3 Random Glucose 145 mg/dl Calcium Level 7.8 mg/dl Test 07/20/17 12:27 07/20/17 16:28 Lactate Dehydrogenase 232 U/L Bedside Glucose 161 mg/dl
[2017-07-20] MEDS: ZOLPIDEM TARTRATE 5 MG TAB PO PRN (21:43)
[2017-07-21] MEDS: LORAZEPAM 0.5 MG TAB PO PRN (01:02)
[2017-07-21] MEDS: PIPERACILL/TAZOBAC IV 3.375 GM in DEXTROSE 5% 100ML 100 ML IV SCH ×2 (01:13→08:31)
[2017-07-21] MEDS ORDERED: NURSING DECISION MEDICATION ORDER SCH (02:30)
[2017-07-21] MEDS ORDERED: COUGH DROP (SUGAR FREE) LOZ 24 LOZ/1 BOX PO PRN (02:30)
[2017-07-21] MEDS: HEPARIN SOD 5000 UNIT/0.5 ML CARP SQ SCH ×2 (05:41→13:12)
--- NOTE | 2017-07-21 07:00 | Family Medicine Progress Note ---
Progress Note Date of Service Jul 21, 2017. Subjective Pt evaluation today including: conversation w/ patient, physical exam, chart review, lab review, review of studies, conversation w/ tanning consultant (Dr crane (previous evening)), review of inpatient medication list Voiding: no voiding problems No acute issues. Feeling much this same today. Short of breath on ambulation but feels fine at rest. All Other Systems: Reviewed and Negative Medications Current Inpatient Medications Medications (Trade) Dose Ordered Sig/Magdi Route Start Time Stop Time Status Last Admin Dose Admin Heparin Sodium (Porcine) (Heparin Sq 5000 Unit/0.5ml) 5,000 unit Q8 SQ 07/13/17 22:00 08/12/17 21:59 Future hold 07/21/17 05:41 5,000 UNIT Acetaminophen (Tylenol Tab) 650 mg Q4H PRN PO 07/13/17 16:30 08/12/17 16:29 Ondansetron HCl (Zofran Inj) 4 mg Q6H PRN IV 07/13/17 16:30 08/12/17 16:29 Nitroglycerin (Nitrostat Tab) 0.4 mg UD PRN SL 07/13/17 16:30 08/12/17 16:29 Aspirin (Ecotrin Tab) 81 mg DAILY PO 07/14/17 09:00 08/13/17 08:59 07/20/17 08:18 81 MG Atorvastatin Calcium (Lipitor Tab) 80 mg DAILY PO 07/14/17 09:00 08/13/17 08:59 07/20/17 08:17 80 MG Cilostazol (Pletal Tab) 100 mg DAILY PO 07/14/17 09:00 08/13/17 08:59 07/20/17 08:18 100 MG Clopidogrel Bisulfate (plAVix TAB) 75 mg DAILY PO 07/14/17 09:00 08/13/17 08:59 07/20/17 08:17 75 MG Isosorbide Mononitrate (Imdur Ext Rel Tab) 30 mg DAILY PO 07/14/17 09:00 08/13/17 08:59 07/20/17 08:17 30 MG Zolpidem Tartrate (Ambien Tab) 5 mg HS PRN PO 07/13/17 21:15 08/12/17 21:14 07/20/17 21:43 5 MG Glucose (Glucose 40% Gel) 15-30 GRAMS 15 GRAMS... UD PRN PO 07/13/17 21:30 08/12/17 21:29 Glucose (Glucose Chew Tab) 4-8 Tablets 4 Tabl... UD PRN PO 07/13/17 21:30 08/12/17 21:29 Dextrose (Dextrose 50% 50ML Syringe) 25-50ML OF 50% DW IV FOR... UD PRN IV 07/13/17 21:30 08/12/17 21:29 Glucagon (Glucagon Inj) 1 mg UD PRN SQ 07/13/17 21:30 08/12/17 21:29 Spironolactone (Aldactone Tab) 25 mg QAM PO 07/15/17 09:00 08/14/17 08:59 07/20/17 08:17 25 MG Losartan Potassium (coZAAR TAB) 25 mg QAM PO 07/15/17 09:00 08/14/17 08:59 07/20/17 08:18 25 MG Insulin Aspart (novoLOG ASPART) SLIDING SCALE If C... ACHS SC 07/14/17 16:30 08/13/17 16:29 07/20/17 21:42 1 UNITS Metoprolol Succinate (Toprol Xl Tab) 50 mg QAM PO 07/15/17 09:00 08/14/17 08:59 07/20/17 08:18 50 MG Albuterol/ Ipratropium (Duoneb) 3 ml QIDR INH 07/15/17 12:00 08/14/17 11:59 07/20/17 19:44 3 ML Levofloxacin 750 mg/Prmx 150 ml @ 100 mls/hr DAILY@1100 IV 07/16/17 11:00 07/22/17 10:59 07/20/17 12:22 100 MLS/HR Piperacillin Sod/ Tazobactam Sod 3.375 gm/Dextrose 115 ml @ 28.75 mls/ hr Q8@0000,0800,1600 IV 07/16/17 00:00 07/23/17 00:00 07/21/17 01:13 28.75 MLS/HR Piperacillin Sod/ Tazobactam Sod (Consult) 1 ea UD PRN N/A 07/15/17 18:15 08/14/17 18:14 Prednisone (PredniSONE TAB) 60 mg QAM PO 07/17/17 08:00 08/16/17 07:59 07/20/17 08:18 60 MG Furosemide (Lasix Tab) 40 mg QAM PO 07/18/17 08:00 08/16/17 07:59 07/20/17 08:18 40 MG Enteral Nutritional Formula (Boost Glucose Control) 1 can BIDM PO 07/17/17 17:00 08/16/17 16:59 07/20/17 17:17 1 CAN Ioversol (Optiray 320) 125 ml UD PRN IV 07/18/17 14:00 07/22/17 13:59 Lorazepam (Ativan Tab) 0.5 mg Q4H PRN PO 07/19/17 16:30 08/18/17 16:29 07/21/17 01:02 0.5 MG Menthol (Nice Remigio) 1 remigio PRN PRN PO 07/21/17 02:30 08/20/17 02:29 07/21/17 04:30 1 REMIGIO Objective Vital Signs Date Time Temp Pulse Resp B/P (MAP) Pulse Ox O2 Delivery O2 Flow Rate FiO2 07/21/17 00:01 Nasal Cannula 3.0 07/20/17 23:51 36.7 89 20 125/69 (87) 95 Nasal Cannula 6.0 07/20/17 20:00 Nasal Cannula 3.0 07/20/17 19:34 100 18 94 Nasal Cannula 6.0 07/20/17 15:40 Nasal Cannula 6.0 07/20/17 15:32 81 18 94 Nasal Cannula 6.0 07/20/17 14:50 36.3 101 24 101/66 (78) 94 Nasal Cannula 6.0 07/20/17 13:43 88 07/20/17 08:00 Nasal Cannula 6.0 07/20/17 07:25 86 18 94 Nasal Cannula 6.0 07/20/17 07:07 36.4 89 22 132/70 (90) 96 Nasal Cannula 6.0 Physical Exam General Appearance: WD/WN, no apparent distress Eyes: normal inspection (unequal pupils as previously noted) Neck: supple, no JVD Respiratory/Chest: chest non-tender, lungs clear, no respiratory distress, no accessory muscle use, + crackles (bilateral bases) Cardiovascular: regular rate, rhythm, no edema (with stockings), no murmur Abdomen: normal bowel sounds, non tender, soft Neurologic/Psychiatric: alert, oriented x 3 Skin: normal color, warm/dry, no rash Laboratory Results Test 07/20/17 07:32 07/20/17 12:27 07/20/17 20:16 07/21/17 04:44 RDW Standard Deviation 76.2 fL (36.4-46.3) RDW Coefficient of Variation 22.4 % (11.5-14.5) White Blood Count 8.79 K/uL (4.8-10.8) Red Blood Count 2.81 M/uL (4.7-6.1) Hemoglobin 8.2 g/dL (14.0-18.0) Hematocrit 26.9 % (42-52) Mean Corpuscular Volume 95.7 fL (80-100) Mean Corpuscular Hemoglobin 29.2 pg (25-34) Mean Corpuscular Hemoglobin Concent 30.5 g/dl (32-36) Platelet Count 320 K/uL (130-400) Mean Platelet Volume 9.7 fL (7.4-10.4) Neutrophils (%) (Auto) 82.0 % Lymphocytes (%) (Auto) 7.3 % Monocytes (%) (Auto) 8.6 % Eosinophils (%) (Auto) 1.9 % Basophils (%) (Auto) 0.0 % Neutrophils # (Auto) 7.20 K/uL (1.4-6.5) Lymphocytes # (Auto) 0.64 K/uL (1.2-3.4) Monocytes # (Auto) 0.76 K/uL (0.11-0.59) Eosinophils # (Auto) 0.17 K/uL (0-0.5) Basophils # (Auto) 0.00 K/uL (0-0.2) Immature Granulocyte % (Auto) 0.2 % Immature Granulocyte # (Auto) 0.02 K/uL (0.00-0.02) Poikilocytosis PRESENT Anisocytosis PRESENT Est Creatinine Clear Calc Drug Dose 65.5 ml/min Lactate Dehydrogenase 232 U/L (87-241) Bedside Glucose 178 mg/dl (70-99) Assessment and Plan 77-year-old male with metastatic pancreatic cancer admitted for hypoxia. Suspect multifactorial including systolic congestive heart failure, pneumonitis secondary to chemotherapy, and likely pneumonia Acute Respiratory failure Multifactorial combination of heart failure, pneumonitis, and pneumonia, bilateral pleural effusion Continue supplemental O2. If worsens - bipap/high flow O2 Acute systolic heart failure with reduced ejection fraction Acute exacerbation now resolved Continue Lasix 40 mg PO in AM Continue beta becca, angiotensin receptor becca, and spironolactone started this admission Pneumonitis/Pneumonia CT of the chest consistent with multi focal pneumonia/pneumonitis. MRSA nose swab negative Continue current antibiotic coverage - day 7 Zosyn Continue steroids for pneumonitis (prednisone 60mg) Duonebs Q6H MAGDI Bilateral pleural effusion Diagnostic thoracentesis on 07/16/2017 meets one criteria (fluid/serum LDH) of exudate. culture negative growth to date. Cytology - no metastatic cells and AFB still pending. Hypoalbuminemia Check prealbumin . Pancreatic Ca hematology following. T2DM Diabetic diet Restart metformin Insulin sliding scale 40 correction 20 carb ratio Addition of steroids - increasing his needs 15 units in last 24 hours His overall goal in terms of her A1c have to be viewed with respect to his end- stage malignancy Anemia 8.2 yesterday (admission hemoglobin was 8.3) Monitor VTE Prophylaxis - continue heparin 5000units Q8H Code - DNR Disposition - plan to wean O2, if resting sats > 92% on =< 3L and 5L on ambulation / at night can be discharged home with O2. 2 step today. Resident Tracking Resident Involvement: Resident Care Provided Care Provided: Adult Hospital Medicine
[2017-07-21 07:03] LABS: EOS % 3.4 %; HEMATOCRIT 27.5 % (42-52); IG% 0.2 %; LYMPH % 7.4 %; LYMPH ABS # 0.68 K/uL (1.2-3.4); MEAN CELL VOLUME 94.5 fL (80-100); MEAN CORPUSCULAR HEMOGLOBIN 29.2 pg (25-34); MEAN CORPUSCULAR HGB CONC 30.9 g/dl (32-36); MEAN PLATELET VOLUME 9.8 fL (7.4-10.4); MONO % 11.7 %; NEUT % 77.3 %; PLATELET COUNT 365 K/uL (130-400); RED BLOOD COUNT 2.91 M/uL (4.7-6.1); WHITE BLOOD COUNT 9.23 K/uL (4.8-10.8)
[2017-07-21 07:11] VITALS: PULSE 83; O2SAT 97
[2017-07-21] MEDS: ALBUT/IPRATROP 3MG/0.5MG NEB 3 ML VIAL INH SCH ×3 (07:11→15:27)
[2017-07-21 07:16] VITALS: BP 111/63; PULSE 81; TEMP 36.7; O2SAT 97
[2017-07-21 07:33] LABS: CALCIUM 7.7 mg/dl (8.5-10.1); CREATININE 0.89 mg/dl (0.60-1.40); POTASSIUM 3.4 mmol/L (3.5-5.1)
[2017-07-21 07:44] LABS: ANISOCYTOSIS PRESENT; COMPLETE YES; HYPOCHROMIA PRESENT; POLYCHROMASIA 1+; TEAR DROP CELLS 1+
[2017-07-21] MEDS ORDERED: METFORMIN HCL 500 MG TAB PO SCH (08:00)
[2017-07-21] MEDS: CILOSTAZOL 100 MG TAB PO SCH (08:31)
[2017-07-21] MEDS: SPIRONOLACTONE 25 MG TAB PO SCH (08:31)
[2017-07-21] MEDS: CLOPIDOGREL BISULFATE 75 MG TAB PO SCH (08:32)
[2017-07-21] MEDS: ISOSORBIDE MONONITRATE 30 MG TABCR PO SCH (08:32)
[2017-07-21] MEDS: ATORVASTATIN 40 MG TAB PO SCH (08:32)
[2017-07-21] MEDS: METOPROLOL SUCC 50MG EXT REL TAB PO SCH (08:32)
[2017-07-21] MEDS: LOSARTAN POTASSIUM 25 MG TAB PO SCH (08:32)
[2017-07-21] MEDS: ASPIRIN 81 MG ECTAB PO SCH (08:32)
[2017-07-21] MEDS: BOOST GLUCOSE CONTROL PO SCH (08:33)
[2017-07-21] MEDS: FUROSEMIDE 40 MG TAB PO SCH (08:33)
--- NOTE | 2017-07-21 08:37 | Hematology/Oncology Prog Note ---
Hematology/Onc Progress Note Date of Service Jul 21, 2017. Diagnoses 1. Suspected chemotherapy-induced pneumonitis. 2. Metastatic pancreatic cancer. 3. Pleural effusion. Subjective Jasson is a pleasant 77-year-old gentleman, patient of Dr. Jalloh's with a diagnosis of metastatic pancreatic cancer. Received gemcitabine-based chemotherapy approximately 2 weeks ago and developed subacute onset shortness of breath and dyspnea on exertion. Radiographically patchy infiltrates are seen underwent prior thoracentesis yielding 450 cc of shelby-colored fluid. No malignancy seen within the pleural fluid specimen. Continue supportive care including oxygen and corticosteroids as well as broad- spectrum antibiotics. Making slow but steady improvement oxygenation improving. Vital Signs Vital Signs Past 12 Hours Date Time Temp Pulse Resp B/P (MAP) Pulse Ox O2 Delivery O2 Flow Rate FiO2 07/21/17 07:16 36.7 81 20 111/63 (79) 97 Nasal Cannula 6.0 07/21/17 07:11 83 18 97 Nasal Cannula 3.0 07/21/17 00:01 Nasal Cannula 3.0 07/20/17 23:51 36.7 89 20 125/69 (87) 95 Nasal Cannula 6.0 Physical Exam In general, 77-year-old gentleman in no acute distress Skin, no obvious rashes or lesions. HEENT oral mucosa without buccal lesions or ulcerations Heart regular rate and rhythm no clicks or murmurs Lungs bibasilar crackles bilaterally Abdomen soft nontender nondistended Extremities no clubbing cyanosis or edema. Neuro exam grossly intact. Constitutional: Level of Distress: NAD, chronically ill Psychiatric: Mental Status: active & alert Orientation: oriented except where noted Lungs: Auscuitation: dry rales/crackles (in all gaming) Cardiovascular: Heart Auscultation: RRR Abdomen: Inspection & Palpation: soft, no tenderness, guarding & rebound Extremities: edema (trace edema in both ankles) Assessment & Plan 1. Pneumonitis etiology unclear suspect chemotherapeutic effect (gemcitabine). 2. Metastatic pancreatic cancer. Jasson was seen at bedside today. Continues oxygen via nasal cannula with O2 saturation 92%. Clinically, slow improvement with incorporation of corticosteroids. We'll defer further treatment to Dr. Jalloh one patient is medically stable. Labs pending at time of dictation. We'll continue to follow Jasson periodically throughout his hospital stay. Appreciate the assistance of the consultants on board.
[2017-07-21] MEDS: INSULIN ASPART 100 UNITS/ML 3 ML PEN SC SCH ×2 (08:41→12:43)
[2017-07-21 10:51] VITALS: O2SAT 88
[2017-07-21 11:27] VITALS: PULSE 85; O2SAT 97
[2017-07-21] MEDS: LEVOFLOXACIN / D5W 750 MG in PREMIXED IN D5W 150 ML IV SCH ×2 (12:43→13:12)
[2017-07-21] MEDS ORDERED: PRD20 PO (12:51)
[2017-07-21] MEDS ORDERED: LSX40 PO (12:51)
[2017-07-21] MEDS ORDERED: AMOX875T PO (12:51)
--- NOTE | 2017-07-21 12:57 | Discharge Instructions ---
Discharge Instructions Date of Service Jul 21, 2017. Admission Reason for Admission: New Onset Chf Discharge Discharge Diagnosis / Problem: Multifocal pneumonia, pneumonitis, heart failure Discharge Goals Goal(s): Improve function, Increase independence Activity Recommendations Activity Limitations: resume your previous activity . Instructions / Follow-Up Instructions / Follow-Up superintendent distribution and continue medications as prescribed. Finish the course of antibiotics. Continue steroids for pneumonitis (inflammation of your lungs), you will follow up with pulmonology regarding dosing of these but should take 60mg daily until follow up. Follow up appointment arranged as above Current Hospital Diet Patient's current hospital diet: Low Sodium Diet (2gm Na), Diabetes Type 2 Diet Discharge Diet Recommended Diet: AHA Diet (Heart Healthy), Low Sodium Diet (2gm Na), Diabetes Type 2 Diet Pending Studies Studies pending at discharge: no Laboratory Results Hemoglobin A1c Test 07/14/17 06:23 Range/Units Estimated Average Glucose 126 mg/dl Hemoglobin A1c 6.0 H 4.5-5.6 % Medical Emergencies . Who to Call and When: Medical Emergencies: If at any time you feel your situation is an emergency, please call 911 immediately. . Non-Emergent Contact Non-Emergency issues call your: Primary Care Provider Contact Number: . . "Provider Documentation" section prepared by Tobias Hernandez. . VTE Core Measure Inpt VTE Proph given/why not?: Unfractionated heparin SQ [place] Drug Monitoring Program Search Results: patient reviewed within database, no issues identified ( tramadol and oxycodone prescriptions noted)
[2017-07-21] MEDS ORDERED: POTASSIUM CHLORIDE 20 MEQ TABCR PO ONE (13:00)
--- NOTE | 2017-07-21 13:07 | Discharge Summary ---
Discharge Summary Date of Service Jul 21, 2017. (Tobias Hernandez MD) Discharge Summary Admission Date: Jul 13, 2017 at 14:50 Discharge Date: Jul 15, 2017 Discharge Disposition: Home with services Principal Diagnosis: Pneumonitis (secondary to chemotherapy vs. crypto Problems/Secondary Diagnoses: Acute congestive heart failure with reduced ejection fraction Multifocal pneumonia Immunizations: Have You Had Influenza Vaccine: Yes Influenza Vaccine Date: Aug 03, 2008 History of Tetanus Vaccine?: Yes History of Pneumococcal: Unknown History of Hepatitis B Vaccine: No Procedures: 07/16/17 - right sided thoracocentesis Consultations: Cardiology Pulmonology Hematology/oncology (Tobias Hernandez MD) Medication Reconciliation New Medications: Amoxicillin & Pot Clavulanate (Augmentin 875-125 mg) 1 Tab Tab 1 TAB PO BID for 4 Days, #8 TAB Potassium Ext Rel (Klor-Con) 20 Meq Tabcr 20 MEQ PO DAILY for 30 Days, #30 TAB Furosemide (Furosemide) 40 Mg Tab 40 MG PO QAM for 30 Days, #30 TAB Losartan Potassium (Losartan Potassium) 25 Mg Tab 25 MG PO QAM for 30 Days, #30 TAB Metoprolol Succinate (Metoprolol Succinate ER) 50 Mg Tabcr 50 MG PO QAM for 30 Days, #30 TAB Prednisone (Prednisone) 20 Mg Tab 60 MG PO QAM for 30 Days, #30 TAB Spironolactone (Spironolactone) 25 Mg Tab 25 MG PO QAM for 30 Days, #30 TAB Continued Medications: Acetaminophen (Tylenol) 500 Mg Tab 2 TAB PO TID for 2 Days, #20 TAB 3 Refills Aspirin (Aspir-81) 81 Mg Tab 1 TAB PO DAILY, TAB Atorvastatin (Lipitor) 80 Mg Tab 80 MG PO DAILY, TAB Cilostazol (Cilostazol) 100 Mg Tab 1 TAB PO DAILY, #60 Clopidogrel Bisulfate (Plavix) 75 Mg Tab 1 TAB PO for 90 Days, #90 TAB 1 Refill TAKES EVERY OTHER DAY Epoetin Mariano (Procrit) 40,000 Units Inj 1 DOSE INJ UD, #4 Isosorbide Mononitrate Ext Rel (Imdur Ext Rel) 30 Mg Tabcr 1 TAB PO, TAB every other day Metformin HCl (Metformin HCl) 500 Mg Tab 500 MG PO BIDM Nitroglycerin (Nitrostat) 0.4 Mg/1 Tab Subl 0.4 MG SL DIRECTED Prochlorperazine (Prochlorperazine) 25 Mg Sup 25 MG RE PRN UD, #30 Tramadol Hcl (Tramadol Hcl Er) 200 Mg Tab 200 MG PO DAILY, #90 Discontinued Medications: Amlodipine (Norvasc) 5 Mg Tab 5 MG PO DAILY, 0 Refills Atenolol (Tenormin) 25 Mg Tab 25 MG PO BID Triamterene/Hctz (Dyazide 37.5MG/25MG) Cap 1 TAB PO Q2D, CAP Referrals At Discharge Follow up Referrals: Publication Distributor Referral - Within 1-2 Weeks with Klaus Greco M.D. Manager Of Exhibitions And Collections Referral - Within 1-2 Weeks with Deven Ramirez MD Discharge Exam Please refer to progress note from today for subjective and objective findings. (Tobias Hernandez MD) breathing much improved. Review of Systems: Constitutional: No fever Respiratory: No shortness of breath Cardiovascular: No chest pain Physical Exam: General Appearance: no apparent distress Respiratory/Chest: no respiratory distress, + decreased breath sounds Cardiovascular: regular rate, rhythm Neurologic/Psychiatric: alert, oriented x 3 Skin: warm/dry (Ewa Briones M.D.) Hospital Course 77 year old with metastatic pancreatic ca. admission for hypoxia Hypoxic respiratory failure - secondary to pulmonary edema, pneumonitis and multifocal pneumonia - 2 step on discharge did not show a need for oxygen requirement Pneumonitis/Pneumonia CT of the chest consistent with multi focal pneumonia/pneumonitis. MRSA nose swab negative Finish 10 day course of antibiotics with Augmentin Continue steroids for pneumonitis (prednisone 60mg) - to be tapered by pulmonology as outpatient Acute systolic and diastolic heart failure with reduced ejection fraction - LVEF 35-40% - started on metoprolol, spironolactone and losartan (stopped other antihypertensives) - started on Lasix 40mg PO daily - if increasing weight and short of breath recommend doubling dose - stable weight on discharge - follow up with cardiology outpatient Coronary/carotid artery disease - s/p NSTEMI 25 years ago - aspirin, clopidogrel, metoprolol, losartan and statin Peripheral artery disease - worsening claudication - appears to be subacute issue. Outpatient follow up as required - follows with Dr Gallagher - continue cilostazol, ASA, Plavix, atorvastatin Bilateral pleural effusion Diagnostic thoracentesis on 07/16/2017 meets one criteria (fluid/serum LDH) of exudate. culture negative growth to date. Cytology - no metastatic cells and AFB still pending. Pancreatic Ca Follow up with oncology arranged Right sided foot drop and unequal pupils - peripheral neuropathy vs. central process. Normal tone. - CT head showed no acute hemorrhage or old infarcts. Symptoms present for multiple months. Follow up outpatient T2DM Diabetic diet Restarted metformin Addition of steroids - using insulin as inpatient due to steroid use - need to be monitored as outpatient His overall goal in terms of her A1c have to be viewed with respect to his end- stage malignancy Code - Do not resuscitate as per patient wishes Total Time Spent: Less than 30 minutes This includes examination of the patient, discharge planning, medication reconciliation, and communication with other providers. (Tobias Hernandez MD) Resident Physician Supervision Note: I was present with Dr. Hernandez in bedside. I verified the rios history and physical, reviewed labs and image studies, discussed the case with the resident and agree with the findings and care plan. Total Time Spent: Greater than 30 minutes (40) (Ewa Briones M.D.) Discharge Instructions Please refer to the electronic Patient Visit Report (Discharge Instructions) for additional information. (Tobias Hernandez MD) Follow-Up Follow up at Dr. Hills's office with his preschool assistant teacher, Indigo Daniels PA-C, on ThursdayJuly 27 at 11:15 am. Follow up at the [facility] Office with Dr. Greco' s preschool assistant teacher, Kait Dawson PA-C, on ThursdayJuly 29 at 2:00 pm. Follow up with Dr. Ramirez (pulmonology) on ThursdayJuly 31 at 10:45 am. Follow up with Dr. Jalloh on ThursdayAug 04 at 9:45 am. (Tobias Hernandez MD) Additional Copies To Fantasma Jalloh D.O.; Klaus Greco M.D.; Jae Hills M.D.; Deven Ramirez MD
[2017-07-21 13:25] VITALS: BP 111/63; PULSE 85; TEMP 36.7; O2SAT 97
[2017-07-21] MEDS ORDERED: LORA-741 PO (15:00)
== END 2017-07-21 15:20 | disposition home health service (06) | DRG 291 ==
LOC: C.MED 14:50 → C.4E 07-16 13:02
PROVIDERS: ADMIT Internal Medicine; ATTEND Family Medicine
PROC: 0W993ZX Drainage of Right Pleural Cavity, Percutaneous Approach, Diagnostic (ICD-10-PCS; principal; 2017-07-16)
DX: I11.0 Hypertensive heart disease with heart failure (principal); J18.8 Other pneumonia, unspecified organism; J84.09 Other alveolar and parieto-alveolar conditions; C25.9 Malignant neoplasm of pancreas, unspecified; J96.01 Acute respiratory failure with hypoxia; I50.41 Acute combined systolic (congestive) and diastolic (congestive) heart failure; J43.9 Emphysema, unspecified; E11.9 Type 2 diabetes mellitus without complications; I65.22 Occlusion and stenosis of left carotid artery; I73.9 Peripheral vascular disease, unspecified; D64.9 Anemia, unspecified; Z87.891 Personal history of nicotine dependence; N40.0 Benign prostatic hyperplasia without lower urinary tract symptoms; I25.2 Old myocardial infarction; M21.371 Foot drop, right foot; Z66 Do not resuscitate; T45.1X5A Adverse effect of antineoplastic and immunosuppressive drugs, initial encounter; Y92.199 Unspecified place in other specified residential institution as the place of occurrence of the external cause; I25.10 Atherosclerotic heart disease of native coronary artery without angina pectoris; Z86.73 Personal history of transient ischemic attack (TIA), and cerebral infarction without residual deficits

== ENCOUNTER → 2017-07-13 | Outpatient (CLI) | payer BC ==
[~2017-07-13] MED LIST changes: +AMOX875T PO; +BND25 PO; +CZR25 PO; +EPGI40M INJ; +FLM4 PO; +FURO-85 PO; +FURO40TA3 PO; +LORA-741 PO; +LOSA1TAB PO; +LSX40 PO; +METO50TA7 PO; +ONDA4TAB46 PO; +OPTIRAY 320 IV PRN; +PANT40TA PO; +POTA20TA16 PO; +PRD20 PO; +PRED20TA PO; +SPR25 PO; +TPRSR50 PO; +TUMS PO
--- NOTE | 2017-07-13 13:16 | DIAGNOSTIC IMAGING REPORT ---
(CHEST FOR PE) ANGIO WITH CLINICAL HISTORY: 77 years-old Male presenting with R/O PE PER MANUELA NIXON AT DR. SALINAS'S OFFICE (). TECHNIQUE: Multidetector CT angiography of the chest was performed after administration of intravenous contrast. 3-D volumetric and maximum intensity projection (MIP) images were subsequently reconstructed for review. IV contrast: 117 mL of Optiray 320. A dose lowering technique was used consistent with the principles of ALARA (as low as reasonably achievable). COMPARISON: 06/10/2017. CT DOSE (mGy.cm): The estimated cumulative dose is 456.04 mGy.cm. FINDINGS: Print And Pattern Designer topogram: Diffuse right lung opacity. Pulmonary vasculature: The study is adequate for assessment of the pulmonary vascular tree. No filling defect within the pulmonary arteries to suggest embolus. Main pulmonary artery not enlarged. No flattening of the interventricular septum. No intracardiac filling defect. Remaining chest: On soft tissue windows, normal thyroid and thoracic inlet. Subcentimeter prominent mediastinal lymph nodes in the precarinal region measuring up to 8 mm in short axis, possibly reactive. Calcified and noncalcified atherosclerotic plaque along the aortic arch prominently involving the proximal descending aorta and origin of the left subclavian artery. Mild multichamber enlargement of the heart. Coronary artery calcification. Aortic valve calcification. Interval development of a moderate right pleural effusion and trace left pleural effusion. Upper abdomen normal. On lung windows, interval development of diffuse nodular and groundglass predominantly peribronchovascular consolidation in the right lung and to a lesser extent in the left lower lobe. Underlying emphysema is evident. Fluid noted within the major fissure. Airways patent. On bone windows, degenerative changes of the thoracic spine. IMPRESSION: 1. Diffuse nodular groundglass peribronchial vascular consolidation primarily involving the right lung and to a lesser extent the left lower lobe. This is most concerning for multifocal pneumonia. Moderate right and trace left parapneumonic effusions. 2. Underlying emphysema. 3. No evidence of pulmonary embolus. Electronically signed by: Jae Escobar M.D. 07/13/2017 1:15 PM Dictated Date/Time: 07/13/2017 1:07 PM
== END | disposition home or self-care (01) ==
LOC: C.CTS 12:20
PROVIDERS: ATTEND Internal Medicine Hematology & Oncology
DX: C25.9 Malignant neoplasm of pancreas, unspecified (principal)

== ENCOUNTER → 2017-08-11 | Outpatient (CLI) | payer BC ==
[~2017-08-11] MED LIST changes: -AMLO-110 PO; -ATEN-173 PO; +BND25 PO; +CZR25 PO; +FLM4 PO; +FURO40TA3 PO; +LORA-741 PO; +LOSA1TAB PO; +LSX40 PO; +METO50TA7 PO; +ONDA4TAB46 PO; +OPTIRAY 320 IV PRN; +PANT40TA PO; +POTA20TA16 PO; +PRD20 PO; +PRED20TA PO; +SPR25 PO; +TPRSR50 PO; -TRIA37.5 PO; +TUMS PO
--- NOTE | 2017-08-11 17:43 | DIAGNOSTIC IMAGING REPORT ---
CHEST 2 VIEWS ROUTINE HISTORY: PANCREATIC CANCER COMPARISON: Chest 07/18/2017. FINDINGS: Emphysema. The heart is stable in size. Bilateral airspace opacities have improved in the interval. Small right pleural effusion persists. No pneumothorax. IMPRESSION: Improvement in the bilateral airspace opacities suggestive of a resolving pneumonia. Small right pleural effusion persists. Electronically signed by: Mio Brand M.D. 08/11/2017 5:41 PM Dictated Date/Time: 08/11/2017 5:39 PM
--- NOTE | 2017-08-11 17:51 | DIAGNOSTIC IMAGING REPORT ---
CT OF THE ABDOMEN WITH IV AND ORAL CONTRAST CLINICAL HISTORY: Pancreatic cancer. COMPARISON STUDY: CT of the abdomen and pelvis June 10, [address] July 18, 2017. TECHNIQUE: Axial images of the abdomen were obtained following intravenous injection of 116 cc Optiray 320 IV. Oral contrast was administered. FINDINGS: Multifocal airspace opacities within visualized portions of the lower lungs have improved since exam of July 18, 2017. There is persistent residual airspace opacity. There may be mild bronchiectasis. No pneumatosis, free air or portal venous gas is present. There is a trace right pleural effusion. Hypodense hepatic lesions likely reflect cysts. A splenic cyst is noted. The adrenal glands and kidneys are normal. There is no hydronephrosis. The previously described pancreatic tail lesion measures approximately 2.4 cm. This has slightly decreased in size since exam of April 29, 2017. When allowing for differences in technique, this is likely similar to exam of June 10, 2017. Ill-defined peritoneal nodules have moderately increased since exam of June 10, 2017. Measurements are difficult to obtain given the ill-defined nature of the peritoneal carcinomatosis. A 3 cm infrarenal abdominal aortic aneurysm is unchanged. There is no rupture. No suspicious osseous lesions are present. However in wall thickness of visualized lower leg and small bowel are normal. No enlarged abdominal lymph nodes are present. IMPRESSION: 1. Moderate increase in ill-defined peritoneal carcinomatosis since CT of June 10, 2017 consistent with disease progression. 2. No significant change in the pancreatic tail lesion which reflects the primary lesion. 3. Persistent but improved airspace opacities within the lower lungs which suggest multifocal pneumonia. Trace right pleural effusion. Electronically signed by: Anish Montelongo M.D. 08/11/2017 5:49 PM Dictated Date/Time: 08/11/2017 5:34 PM
== END | disposition home or self-care (01) ==
LOC: C.CTS 15:56
PROVIDERS: ATTEND Nurse Practitioner Family
DX: C25.9 Malignant neoplasm of pancreas, unspecified (principal)

== ENCOUNTER → 2017-08-19 | Outpatient (CLI) | payer BC ==
[~2017-08-19] MED LIST changes: -OPTIRAY 320 IV PRN
[2017-08-19 13:50] LABS: ESTIMATED AVERAGE GLUCOSE 120 mg/dl; HA1C FLAG Normal (Normal)
[2017-08-19 14:03] LABS: BLOOD UREA NITROGEN 26 mg/dl (7-18); BUN/CREATININE RATIO 26.3 (10-20); CALCIUM 8.3 mg/dl (8.5-10.1); CARBON DIOXIDE 28 mmol/L (21-32); CHLORIDE 100 mmol/L (98-107); GLUCOSE 99 mg/dl (70-99); POTASSIUM 4.6 mmol/L (3.5-5.1); SODIUM 136 mmol/L (136-145)
== END | disposition home or self-care (01) ==
LOC: C.LABBC 11:18
PROVIDERS: ATTEND Physician Assistant
DX: Z00.00 Encounter for general adult medical examination without abnormal findings (principal); E11.9 Type 2 diabetes mellitus without complications; I50.20 Unspecified systolic (congestive) heart failure

== ENCOUNTER 2017-09-04 21:30 | Inpatient (IN) | payer BC, OTHER ==
[~2017-09-04] VITALS: Ht 177.8 cm; Wt 83.6 kg
[~2017-09-04 21:30] MED LIST changes: -BND25 PO; -FLM4 PO; -FURO40TA3 PO; -LORA-741 PO; -LOSA1TAB PO; -METO50TA7 PO; -ONDA4TAB46 PO; -PANT40TA PO; -POTA20TA16 PO; -PRED20TA PO; -TUMS PO
[2017-09-04 22:33] LABS: BASO % 0.1 %; BASO ABS # 0.01 K/uL (0-0.2); COMPLETE YES; EOS % 0.4 %; HEMATOCRIT 36.1 % (42-52); IG% 0.4 %; LYMPH % 9.2 %; LYMPH ABS # 0.87 K/uL (1.2-3.4); MEAN CELL VOLUME 92.1 fL (80-100); MEAN CORPUSCULAR HEMOGLOBIN 30.4 pg (25-34); MEAN PLATELET VOLUME 10.7 fL (7.4-10.4); MONO % 4.9 %; PLATELET COUNT 150 K/uL (130-400); RED BLOOD COUNT 3.92 M/uL (4.7-6.1); WHITE BLOOD COUNT 9.42 K/uL (4.8-10.8)
[2017-09-04 22:39] LABS: BUN/CREATININE RATIO 19.3 (10-20); CALCIUM 8.6 mg/dl (8.5-10.1); CREATININE 1.2 mg/dl (0.60-1.40); POTASSIUM 3.8 mmol/L (3.5-5.1)
--- NOTE | 2017-09-04 22:40 | EMERGENCY ROOM VISIT NOTE ---
History Report prepared by Debra: Ciera Hitchcock Under the Supervision of: Dr. Parisa Koehler D.O. First contact with patient: 22:23 Chief Complaint: ABDOMINAL PAIN Stated Complaint: ILLNESS Nursing Triage Summary: Patient arrive via EMS from home. EMS reports patient has not had a bowel movement in 3 days. Patient is on hospice for pacreatic CA. Patient abdomen distended. Abdominal pain, nausea and vomiting reported. History of Present Illness The patient is a 77 year old male who presents to the Emergency Room with complaints of constant abdominal pain beginning 3 days ago. The patient states that 3 days ago he began having diarrhea. He reports that he started taking Imodium and is now constipated. He notes that he has not had a bowel movement in the last 3 days. The patient complains of nausea and bloating. He denies any vomiting, abdominal pressure or bowel urgency, fever, and chills. The patient notes that he is passing gas intermittently. He reports that he has a history of pancreatic cancer and bowel obstruction and states that he is currently on hospice for his cancer. He notes that he is taking a medication that can cause diarrhea. The patient states that he had 2 oxycodone yesterday from a previous knee surgery and he took Reglan about 4 hours ago today. Source of History: patient Onset: 3 days ago Position: abdomen Quality: other (bloating) Timing: constant Associated Symptoms: + nausea, No fevers, No chills, No vomiting Note: He denies any abdominal pressure or bowel urgency. Review of Systems See HPI for pertinent positives & negatives. A total of 10 systems reviewed and were otherwise negative. Past Medical & Surgical Medical Problems: (1) Athscl Heart Disease Of [place] Coronary Artery W/O Ang Pctrs (2) Athscl Heart Disease Of [place] Coronary Artery W/O Ang Pctrs (3) Carcinoma of tail of pancreas (4) Congestive heart failure (CHF) (5) Emphysema, unspecified (6) Hypertension (7) Hypokalemia (8) Intractable vomiting (9) Peritoneal carcinomatosis (10) Pneumonitis (11) Primary pancreatic cancer (12) Small bowel obstruction Family History Heart disease Stroke Social History Smoking Status: Never Smoker Drug Use: none Marital Status: Housing Status: lives with significant other Occupation Status: retired Current/Historical Medications Scheduled Aspirin (Aspir-81), 1 TAB PO QAM Atorvastatin (Lipitor), 80 MG PO QPM Cilostazol (Cilostazol), 1 TAB PO QPM Clopidogrel Bisulfate (Plavix), 1 TAB PO 3XWK Epoetin Mariano (Procrit), 1 DOSE INJ UD Furosemide (Lasix), 40 MG PO QAM Isosorbide Mononitrate Ext Rel (Imdur Ext Rel), 1 TAB PO 3XWK Losartan Potassium (Cozaar), 25 MG PO QAM Metformin HCl (Metformin HCl), 500 MG PO BIDM Metoprolol Succ (Toprol Xl) (Toprol-Xl), 50 MG PO QAM Potassium Ext Rel (Klor-Con), 20 MEQ PO QAM Prednisone (Prednisone), 60 MG PO QAM Tramadol Hcl (Tramadol Hcl Er), 200 MG PO QAM Scheduled PRN Acetaminophen (Tylenol), 2 TAB PO TID PRN for Pain or Fever Nitroglycerin (Nitrostat), 0.4 MG SL DIRECTED PRN for Chest Pain Prochlorperazine (Prochlorperazine), 25 MG RE DIRECTED PRN for Nausea or Vomiting Allergies Coded Allergies: No Known Allergies (Verified , 09/04/17) Physical Exam Vital Signs Date Time Temp Pulse Resp B/P (MAP) Pulse Ox O2 Delivery O2 Flow Rate FiO2 09/05/17 01:54 96 09/04/17 21:58 95 09/04/17 21:40 36.7 98 18 144/84 98 Room Air Physical Exam GENERAL: alert, well appearing, well nourished, no distress, non-toxic EYE EXAM: normal conjunctiva, PERRL and EOM's grossly intact OROPHARYNX: no exudate, no erythema, lips, buccal mucosa, and tongue normal and mucous membranes are dry NECK: supple, no nuchal rigidity, no adenopathy, non-tender LUNGS: Clear to auscultation. Normal chest wall mechanics HEART: no murmurs, S1 normal and S2 normal ABDOMEN: abdomen distended, tympanitic, mild left lower quadrant pain, hypo- active bowel sounds, no masses, no rebound or guarding. BACK: Back is symmetrical on inspection and there is no deformity, no midline tenderness, no CVA tenderness. SKIN: no rashes and no bruising UPPER EXTREMITIES: upper extremities are grossly normal. LOWER EXTREMITIES: No pitting edema. NEURO EXAM: Normal sensorium, cranial nerves II-XII grossly intact, normal speech, no gross weakness of arms, no gross weakness of legs. Medical Decision & Procedures ER Provider Diagnostic Interpretation: Radiology results have been interpreted by the radiologist and reviewed by me. CT ABDOMEN & PELVIS Without Contrast: Comparison is 06/10/17 High-grade small bowel obstruction, transition point to the leftward anterior abdomen, potentially an adhesion to the abdominal wall. Mesenteric edema and small volume ascites. Cannot exclude omental caking/tumor. Prostatomegaly. Mild bladder distention, but no hydronephrosis. Stable fusiform infrarenal abdominal aorta measuring 3.3cm. Developing reticulonodular right middle and lower lobe infiltrates suggesting atypical infection. New small right pleural effusion. Increase in pericardial fluid, though still a small effusion. L5 spondylolysis with grade 2 anterolisthesis. Radiologist: Tobias Rivers M.D. Abdomen X-ray: multiple dialatedl loops of bowel with air fluid levels seen. Chest X-Ray: No focal infiltrate, no effusion, no cardiomegaly, slightly increased interstitial markings bilaterally, no wide mediastinum. Laboratory Results Test 09/04/17 21:15 Lipase 147 U/L (73-393) Laboratory results per my review. Medications Administered Medications (Trade) Dose Ordered Sig/Magdi Route Start Time Stop Time Status Last Admin Dose Admin Ondansetron HCl (Zofran 8mg Iv) 8 mg NOW STAT IV 09/04/17 23:20 09/04/17 23:22 DC 09/04/17 23:20 8 MG Sodium Chloride 1,000 ml @ 125 mls/hr Q8H STAT IV 09/04/17 23:20 09/05/17 03:52 DC 09/04/17 23:20 125 MLS/HR Morphine Sulfate (MoRPHine SULFATE INJ) 4 mg NOW STAT IV 09/04/17 23:40 09/04/17 23:41 DC 09/04/17 23:40 4 MG Hydromorphone HCl (Dilaudid Inj) 0.5 mg NOW STAT IV 09/05/17 01:21 09/05/17 01:22 DC 09/05/17 01:54 0.5 MG Prochlorperazine Edisylate (Compazine Inj) 10 mg NOW STAT IV 09/05/17 01:21 09/05/17 01:22 DC 09/05/17 01:54 10 MG Diphenhydramine HCl (Benadryl Inj) 12.5 mg NOW STAT IV 09/05/17 01:21 09/05/17 01:22 DC 09/05/17 01:53 12.5 MG Levofloxacin (Levaquin / D5W) 750 mg NOW STAT IV 09/05/17 01:48 09/05/17 01:49 DC 09/05/17 02:32 750 MG Miscellaneous Information (Dc All Previously Ordered Diabetes Meds) 1 ea ONE ONCE N/A 09/05/17 02:15 09/05/17 03:53 DC 09/05/17 02:15 1 EA ED Course 2223: The patient was evaluated in room C7. A complete history and physical exam was performed. 2320: Sodium Chloride 1000 ml @ 125 mls/hr IV, Zofran 8mg IV. 2334: Morphine Sulfate 4mg IV, Morphine Sulfate 4mg IV. 0121: Benadryl Inj 12.5mg IV, Compazine Inj 10mg IV, Dilaudid Inj 0.5mg IV. 0136: I spoke with Dr. Hernandez who works with [place]. [place] [facility] He would like us to contact general surgery. 0146: I spoke with Dr. Camp - general surgery. She will see the patient in consult and agrees with the ng tube. 0208: Upon reevaluation, the patient is doing well. I discussed the findings and the treatment plan with the patient. He expresses agreement and understanding. I spoke with Dr. Hernandez with Dr. Moran of the [facility]. He will be evaluated for further management. Medical Decision Differential diagnosis: Etiologies such as appendicitis, diverticulitis, PUD, biliary pathology, UTI, pancreatitis, obstruction, mesenteric ischemia, aortic pathology, infections, inflammatory bowel disease, renal colic, as well as others were entertained. Pt with known pancreatic ca as well as prior abdominal surgery. Bowel obstruction noted on CT. Labs reassuring, pt afebrile. Given vomiting and findings, NG tube placed. Discussed with surgery and with medicine. Pt aware of findings and potential treatment and complications. No evidence of perf. Medication Reconcilliation Current Medication List: was personally reviewed by me Blood Pressure Screening Patient's blood pressure: Elevated blood pressure Blood pressure disposition: Elevated BP felt to be situational Consults Time Called: 014 Consulting Physician: Dr. Wood - General Surgery Returned Call: [address] Camp general surgery. She will see the patient in consult and agrees with the ng tube. No additional orders recommended. Additional Consults: Time Called: 132 Consulted Physician: Dr. Hernandez - [facility] Returned Call: 013 Additional Comments: I spoke with Dr. Hernandez who works with Dr. Moran of [facility]. He would like us to contact general surgery. Impression Primary Impression: Abdominal pain Additional Impressions: Vomiting Bowel obstruction Pleural effusion Scribe Attestation The scribe's documentation has been prepared under my direction and personally reviewed by me in its entirety. I confirm that the note above accurately reflects all work, treatment, procedures, and medical decision making performed by me. Departure Information Dispostion Being Evaluated By Hospitalist Referrals Jae Hills M.D. (PCP) Patient Instructions My [facility] Problem Qualifiers Primary Impression: Abdominal pain Abdominal location: generalized Qualified Codes: R10.84 - Generalized abdominal pain Additional Impressions: Vomiting Vomiting type: unspecified Vomiting Intractability: non-intractable Nausea presence: with nausea Qualified Codes: R11.2 - Nausea with vomiting, unspecified Bowel obstruction Intestinal obstruction type: unspecified Intestinal obstruction extent: complete Qualified Codes: K56.601 - Complete intestinal obstruction, unspecified as to cause
[2017-09-04 22:42] LABS: ALB/GLOB RATIO 1.1 (0.9-2)
[2017-09-04] MEDS ORDERED: METO50TA7 PO (23:09)
[2017-09-04] MEDS ORDERED: PRED20TA PO (23:09)
[2017-09-04] MEDS ORDERED: LOSA1TAB PO (23:09)
[2017-09-04] MEDS ORDERED: FURO40TA3 PO (23:09)
[2017-09-04] MEDS ORDERED: POTA20TA16 PO (23:09)
[2017-09-04] MEDS ORDERED: ONDANSETRON 8 MG/54 ML D5W IV STA (23:20)
[2017-09-04] MEDS ORDERED: SODIUM CHLORIDE 0.9% 1000ML 1,000 ML IV STA (23:20)
[2017-09-04] MEDS ORDERED: MoRPHine SULFATE 4 MG/ML 1 ML CARP\\VIAL ONE (23:34)
[2017-09-04] MEDS ORDERED: MoRPHine SULFATE 4 MG/ML 1 ML CARP\\VIAL IV STA (23:40)
[2017-09-05] VITALS (10 sets, daily range): BP systolic 90–176; BP diastolic 58–92; PULSE 76–137; TEMP 36.3–38; O2SAT 90–97; Ht 177.8 cm; Wt 83.6 kg
[2017-09-05] MEDS ORDERED: PROCHLORPERAZINE 5 MG/ML 2 ML VIAL IV STA (01:21)
[2017-09-05] MEDS ORDERED: DiphenhydrAMINE HCL 50 MG/ML VIAL IV STA (01:21)
[2017-09-05] MEDS ORDERED: HYDROmorphone INJ 0.5 MG/0.5 ML SYR IV STA (01:21)
[2017-09-05] MEDS ORDERED: LEVAQUIN 750MG / 150ML D5W IV STA (01:48)
[2017-09-05] MEDS ORDERED: GLUCAGON FOR INJ 1 MG VIAL SQ PRN (02:15)
[2017-09-05] MEDS ORDERED: DEXTROSE 50% 50 ML SYR IV PRN (02:15)
[2017-09-05] MEDS ORDERED: GLUCOSE 40% GEL 15 GM TUBE PO PRN (02:15)
[2017-09-05] MEDS ORDERED: DC ALL PREVIOUSLY ORDERED DIABETES MEDS ONE (02:15)
[2017-09-05] MEDS ORDERED: GLUCOSE 10 TABS/TUBE PO PRN (02:15)
--- NOTE | 2017-09-05 02:18 | History and Physical ---
History & Physical Date & Time of Service: Sep 05, 2017 at 02:18 Chief Complaint: Illness Primary Care Physician: Jae Hills M.D. History of Present Illness Source: patient, partner, clinic records, hospital records Mr Dye is a 77 year old male with metastatic prostate cancer who presents to the ER with abdominal pain, nausea, vomiting and no bowel movement. Three days previously he had some diarrhea so started on Imodium and hasn't had a bowel movement since then. He is still passing small amounts of gas but not since coming to the ER. He has a history of bowel obstruction which did not require. and bowel obstruction and states that he is currently on hospice for his cancer. He notes that he is taking a medication that can cause diarrhea. The patient states that he had 2 oxycodone yesterday from a previous knee surgery and he took Reglan about 4 hours ago today. Past Medical/Surgical History Medical Problems: Emphysema Hypertension Pancreatic cancer Type 2 Diabetes Mellitus Coronary artery disease Heart failure with reduced ejection fraction BPH - currently off medications, secondary to previous prostatitis Carotid artery disease - 60-69% stenosis of left ICA Coronary artery disease - s/p NSTEMI 25 years previously Heart failure with reduced ejection fraction Dyslipidemia Peripheral artery disease Chronic anemia Family History Heart disease Stroke Social History Smoking Status: Never Smoker Smokeless Tobacco Use: No Alcohol Use: none Drug Use: none Marital Status: Housing status: lives with family Occupational Status: retired Immunizations History of Influenza Vaccine: Yes Influenza Vaccine Date: Aug 03, 2008 History of Tetanus Vaccine?: Yes History of Pneumococcal: Unknown History of Hepatitis B Vaccine: No Multi-Drug Resistant Organisms History of MDRO: No Allergies Coded Allergies: No Known Allergies (Verified , 09/04/17) Home Medications Scheduled Aspirin (Aspir-81), 1 TAB PO QAM Atorvastatin (Lipitor), 80 MG PO QPM Cilostazol (Cilostazol), 1 TAB PO QPM Clopidogrel Bisulfate (Plavix), 1 TAB PO 3XWK Epoetin Mariano (Procrit), 1 DOSE INJ UD Furosemide (Lasix), 40 MG PO QAM Isosorbide Mononitrate Ext Rel (Imdur Ext Rel), 1 TAB PO 3XWK Losartan Potassium (Cozaar), 25 MG PO QAM Metformin HCl (Metformin HCl), 500 MG PO BIDM Metoprolol Succ (Toprol Xl) (Toprol-Xl), 50 MG PO QAM Potassium Ext Rel (Klor-Con), 20 MEQ PO QAM Prednisone (Prednisone), 60 MG PO QAM Tramadol Hcl (Tramadol Hcl Er), 200 MG PO QAM Scheduled PRN Acetaminophen (Tylenol), 2 TAB PO TID PRN for Pain or Fever Nitroglycerin (Nitrostat), 0.4 MG SL DIRECTED PRN for Chest Pain Prochlorperazine (Prochlorperazine), 25 MG RE DIRECTED PRN for Nausea or Vomiting Physical Exam Vital Signs Date Time Temp Pulse Resp B/P (MAP) Pulse Ox O2 Delivery O2 Flow Rate FiO2 09/05/17 01:54 96 09/04/17 21:58 95 09/04/17 21:40 36.7 98 18 144/84 98 Room Air General Appearance: + mild distress (abdominal discomfort) Eyes: EOMI ENT: pharynx normal Respiratory/Chest: chest non-tender, lungs clear (anteriorly), normal breath sounds, no respiratory distress, no accessory muscle use, + accessory muscle use (bibasal fine crackles) Cardiovascular: regular rate, rhythm, no murmur, normal peripheral pulses Abdomen/GI: non tender (no guarding or rebound), soft Back: no CVA tenderness Extremities/Musculoskelatal: no calf tenderness, normal capillary refill, no pedal edema, + pedal edema (b/l equal 1+ up to knees) Neurologic/Psych: pharmacy billing adjudicator II-XII nml as tested, no motor/sensory deficits, alert, oriented x 3 Skin: normal color, warm/dry, no rash Diagnostics Laboratory Results Results Past 24 Hours Test 09/04/17 21:15 Range/Units White Blood Count 9.42 4.8-10.8 K/uL Red Blood Count 3.92 4.7-6.1 M/uL Hemoglobin 11.9 14.0-18.0 g/dL Hematocrit 36.1 42-52 % Mean Corpuscular Volume 92.1 80-100 fL Mean Corpuscular Hemoglobin 30.4 25-34 pg Mean Corpuscular Hemoglobin Concent 33.0 32-36 g/dl Platelet Count 150 130-400 K/uL Mean Platelet Volume 10.7 7.4-10.4 fL Neutrophils (%) (Auto) 85.0 % Lymphocytes (%) (Auto) 9.2 % Monocytes (%) (Auto) 4.9 % Eosinophils (%) (Auto) 0.4 % Basophils (%) (Auto) 0.1 % Neutrophils # (Auto) 8.00 1.4-6.5 K/uL Lymphocytes # (Auto) 0.87 1.2-3.4 K/uL Monocytes # (Auto) 0.46 0.11-0.59 K/uL Eosinophils # (Auto) 0.04 0-0.5 K/uL Basophils # (Auto) 0.01 0-0.2 K/uL RDW Standard Deviation 61.0 36.4-46.3 fL RDW Coefficient of Variation 19.2 11.5-14.5 % Immature Granulocyte % (Auto) 0.4 % Immature Granulocyte # (Auto) 0.04 0.00-0.02 K/uL Sodium Level 137 136-145 mmol/L Potassium Level 3.8 3.5-5.1 mmol/L Chloride Level 102 98-107 mmol/L Carbon Dioxide Level 24 21-32 mmol/L Anion Gap 11.0 3-11 mmol/L Blood Urea Nitrogen 23 7-18 mg/dl Creatinine 1.20 0.60-1.40 mg/dl Est Creatinine Clear Calc Drug Dose 52.4 ml/min Estimated GFR () 66.7 Estimated GFR (Non- 57.6 BUN/Creatinine Ratio 19.3 10-20 Random Glucose 151 70-99 mg/dl Calcium Level 8.6 8.5-10.1 mg/dl Total Bilirubin 0.5 0.2-1 mg/dl Aspartate Amino Transf (AST/SGOT) 16 15-37 U/L Alanine Aminotransferase (ALT/SGPT) 16 12-78 U/L Alkaline Phosphatase 66 45-117 U/L Total Protein 6.1 6.4-8.2 gm/dl Albumin 3.2 3.4-5.0 gm/dl Globulin 2.9 2.5-4.0 gm/dl Albumin/Globulin Ratio 1.1 0.9-2 Lipase 147 73-393 U/L Diagnostic Radiology ABDOMEN 2VIEW W/PA CHEST RTN HISTORY: 77 years-old Male constipation/distention acute constipation with abdominal distention COMPARISON: CT abdomen and pelvis 09/05/2017, chest radiograph 08/11/2017 TECHNIQUE: Frontal view of the chest with erect and supine views of the abdomen FINDINGS: Cardiac silhouette is mildly enlarged. There is atherosclerosis of the aorta. Lungs are hypoinflated with mild bronchovascular crowding. No pneumothorax. There is improved aeration of the lung bases with persistent hazy right basilar opacities noted. Small right pleural effusion. Advanced degenerative changes of the right shoulder. Mildly dilated loops of small bowel are seen within throughout the abdomen with air-fluid levels. No pneumoperitoneum identified. No urolith or fracture. Advanced degenerative changes of the lumbar spine. IMPRESSION: 1. Multiple dilated loops of small bowel throughout the abdomen with air-fluid levels is concerning for small bowel obstruction or ileus. Please see the CT study of same day for further details. 2. Persistent hazy right basilar opacities suggests residual pneumonitis with trace right pleural effusion. 3. No pneumoperitoneum. The above report was generated using voice recognition software. It may contain grammatical, syntax or spelling errors. Electronically signed by: Renaldo Busby M.D. 09/05/2017 5:57 AM Dictated Date/Time: 09/05/2017 5:53 AM ABD/PELVIS NO IV OR ORAL CONT HISTORY: 77 years-old Male abd pain, constipation acute generalized abdominal pain with constipation. History of peritoneal carcinomatosis. COMPARISON: Acute abdominal series radiographs 09/04/2017, CT 08/11/2017 TECHNIQUE: Multiple axial CT images of the abdomen and pelvis were obtained without contrast. A dose lowering technique was used consistent with the principals of ALARA. FINDINGS: Trace right pleural effusion. Patchy groundglass and nodular opacities are present within the right lower lobe and to lesser extent within the left lung base with associated bronchial wall thickening. Pleural-based areas of nodularity are seen measuring up to 10 mm as seen on image 44 series 3. Small pericardial effusion with coronary arterial calcifications. There is increased amount of small volume ascites within the abdomen and pelvis. There are several scattered low attenuating lesions of the liver redemonstrated, too small to characterize and unchanged. These likely reflect cysts. Cystic-appearing lesion of the spleen also appears unchanged. Adrenal glands are unremarkable. Gallbladder is mildly contracted. Solid pancreatic tail lesion, 2.5 x 1.7 cm appears unchanged. Kidneys, ureters and urinary bladder are unremarkable. Coarse calcifications are seen within the central prostate. There is extensive atherosclerotic plaquing of the abdominal aorta which is tortuous and dilated up to 3.1 cm transversely compatible with fusiform aneurysmal dilation. No bulky retroperitoneal adenopathy. Fluid-filled esophagus is noted. There are multiple dilated fluid-filled loops of small bowel throughout the mid and lower abdomen and upper pelvis with air-fluid levels. Air remains within the colon. Transition collapsed loops of small bowel are seen within the left lower abdomen. No pneumoperitoneum. Peritoneal carcinomatosis redemonstrated. Soft tissues are unremarkable. The bones are osteopenic. No definite suspicious lytic or blastic bony lesions. Severe multilevel degenerative changes are present. There is convex right curvature of the lumbar spine. IMPRESSION: 1. Findings suggest high-grade small bowel obstruction with transitioned collapsed loops of small bowel seen within the left lower abdomen. No evidence of pneumatosis or pneumoperitoneum. 2. Pancreatic tail lesion redemonstrated with associated peritoneal carcinomatosis. There is progression of mild intra-abdominal ascites from comparison study. 3. Trace right pleural effusion with right greater than left bibasilar pneumonitis. Mild nodularity of the right lung base likely related to pneumonitis however attention on follow-up recommended. 4. Small pericardial effusion. 5. Additional incidental findings as above. Impression Assessment and Plan 77 year old male with metastatic pancreatic cancer presents to the ER with high grade bowel obstruction High grade small bowel obstruction - NPO - NG tube on intermittent suction - IVF - give slowly due to ascites and recent previous fluid overload - Appreciate surgery recommendations - for conservative management at present Urinary retention - Verdin catheter placed - will need tamsulosin once tolerating medications HTN - stop oral medications (metoprolol and losartan) and give metoprolol 5 mg Q6H with hold parameters Coronary artery disease / Heart failure with reduced ejection fraction (LVEF 35- 40%) - switch ISMN to nitro paste 0.5" - switch metoprolol as above - hold ASA, ARB, statin due to current NPO T2DM - diet NPO - hold metformin - insulin sliding scale Attending Addendum: I have physically seen and examined this patient, have directed the resident's medical activities, and agree with the H&P as noted above with the following exceptions as noted. The patient is awake, alert and oriented 3, looks fatigued and chronically ill , normocephalic and atraumatic, lying in bed and in no acute distress. HEENT--PERRL, EOMI, mucous membranes and oropharynx dry. Neck--supple, no JVD or bruits, thyroid normal, trachea midline, no adenopathy. Heart--normal S1 and S2, no extra beats, no murmurs, rubs or gallops. Lungs--clear bilaterally with good air movement, no respiratory distress, no accessory muscle use. Abdomen--decreased bowel sounds, distended, tympanitic, generalized discomfort. Extremities--no cyanosis, clubbing. 1+ bilateral pedal pitting edema. There are good distal pulses b/l. Dermatologic--normal skin turgor, normal color, warm and dry, no abnormal lymph nodes, no rash. Neurologic--cranial nerves II through XII grossly intact. Rheumatologic--normal range of motion, nontender, muscles and joints. Psychiatric--normal affect. Assessment and Plan: High-grade small bowel obstruction/pancreatic cancer-- Nothing by mouth. NG tube to low intermittent suction. Gentle hydration with IV fluids. Consults surgery CAD/hypertension/systolic heart failure-- Hold all oral and topical medications. Metoprolol 5 mg IV every 4 hours with hold parameters. Nitropaste 1/2 inch to the anterior chest wall every 6 hours. Diabetes mellitus-- Nothing by mouth. Hold metformin. Place on Accu-Cheks before meals and at bedtime with NovoLog coverage per scale. Patient is a level V DO NOT RESUSCITATE. Level of Care Telemetry Advanced Directives Existing Advance Directive: Yes Existing Living Will: Yes Existing Power of Game Programer: Yes () Resuscitation Status DO NOT RESUSCITATE VTE Prophylaxis Risk Level: Moderate Given or contraindicated: T.E.DMannie Stockings, SCD's, Contraindicated (pending surgery decision in morning) Additional Copies To Jae Hills M.D. Resident Tracking Resident Involvement: Resident Care Provided Care Provided: Adult Hospital Medicine
--- NOTE | 2017-09-05 02:45 | Surgery Consultation ---
Consultation Date of Consultation: Sep 05, 2017. Attending Physician: History of Present Illness Jasson Dye is a 77 year old man with pancreatic cancer and previous umbilical hernia repair who presents with signs and symptoms concerning for a bowel obstruction. Patient states he hasn't been feeling himself in last 3 days. Has been feeling fatigued, appetite low, intermittent nausea with one episode of vomiting. Today, he had increased pain and abdominal distention and was brought to the ED for evaluation. Last BM was approximately 2 days ago - he was on Xeloda and had been having diarrhea. For the diarrhea, he was taking Imodium twice daily (last taken yesterday). Continues to pass flatus. NGT placed in ED with return of approximately 400ml of bilious fluid. Patient currently does not have any pain or nausea, but abdomen remains distended. CT scan shows partial small bowel obstruction with peritoneal mets. Denies fever, chills, headaches, dizziness, vision changes, chest pain, SOB, dysuria, melena / hematochezia, pain / numbness / swelling in extremities. 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 Also found to have urinary retention in the ED, for which a owen catheter is planned to be placed. Past Medical/Surgical History Medical Problems: (1) Abdominal pain Status: Acute (2) Bowel obstruction Status: Acute (3) Diarrhea Status: Acute (4) Encounter for removal of joelle Status: Acute (5) Finger pain, left Status: Acute (6) Pancreatic mass Status: Acute (7) Pleural effusion Status: Acute (8) Small bowel obstruction Status: Acute (9) Urinary tract infection Status: Acute (10) Vomiting Status: Acute (11) Vomiting Status: Acute Family History Heart disease Stroke Social History Smoking Status: Never Smoker Drug Use: none Marital Status: Housing Status: lives with significant other Occupation Status: retired Allergies Coded Allergies: No Known Allergies (Verified , 09/04/17) Home Medications Scheduled Aspirin (Aspir-81), 1 TAB PO QAM Atorvastatin (Lipitor), 80 MG PO QPM Cilostazol (Cilostazol), 1 TAB PO QPM Clopidogrel Bisulfate (Plavix), 1 TAB PO 3XWK Epoetin Mariano (Procrit), 1 DOSE INJ UD Furosemide (Lasix), 40 MG PO QAM Isosorbide Mononitrate Ext Rel (Imdur Ext Rel), 1 TAB PO 3XWK Losartan Potassium (Cozaar), 25 MG PO QAM Metformin HCl (Metformin HCl), 500 MG PO BIDM Metoprolol Succ (Toprol Xl) (Toprol-Xl), 50 MG PO QAM Potassium Ext Rel (Klor-Con), 20 MEQ PO QAM Prednisone (Prednisone), 60 MG PO QAM Tramadol Hcl (Tramadol Hcl Er), 200 MG PO QAM Scheduled PRN Acetaminophen (Tylenol), 2 TAB PO TID PRN for Pain or Fever Nitroglycerin (Nitrostat), 0.4 MG SL DIRECTED PRN for Chest Pain Prochlorperazine (Prochlorperazine), 25 MG RE DIRECTED PRN for Nausea or Vomiting Current Inpatient Medications Current Inpatient Medications Medications (Trade) Dose Ordered Sig/Magdi Route Start Time Stop Time Status Last Admin Dose Admin Sodium Chloride 1,000 ml @ 125 mls/hr Q8H STAT IV 09/04/17 23:20 09/05/17 07:19 09/04/17 23:20 125 MLS/HR Ondansetron HCl (Zofran Inj) 4 mg Q6H PRN IV 09/05/17 02:15 10/05/17 02:14 UNV Metoprolol Tartrate (Lopressor Iv) 5 mg Q6 IV. 09/05/17 06:00 10/05/17 05:59 UNV Nitroglycerin (Nitroglycerin 2% Oint) 0.5 inch Q6H EXT 09/05/17 02:15 10/05/17 02:14 UNV Piperacillin Sod/ Tazobactam Sod 3.375 gm/Dextrose 115 ml @ 200 mls/hr Q6 IV 09/05/17 06:00 09/12/17 05:59 UNV Insulin Aspart (novoLOG ASPART) SLIDING SCALE If C... ACHS SC 09/05/17 07:00 10/05/17 06:59 UNV Miscellaneous Information (Dc All Previously Ordered Diabetes Meds) 1 ea ONE ONCE N/A 09/05/17 02:15 09/05/17 02:16 UNV Glucose (Glucose 40% Gel) 15-30 GRAMS 15 GRAMS... UD PRN PO 09/05/17 02:15 10/05/17 02:14 UNV Glucose (Glucose Chew Tab) 4-8 Tablets 4 Tabl... UD PRN PO 09/05/17 02:15 10/05/17 02:14 UNV Dextrose (Dextrose 50% 50ML Syringe) 25-50ML OF 50% DW IV FOR... UD PRN IV 09/05/17 02:15 10/05/17 02:14 UNV Glucagon (Glucagon Inj) 1 mg UD PRN SQ 09/05/17 02:15 10/05/17 02:14 UNV Review of Systems Constitutional: + weakness, + fatigue, No fever, No chills, No sweats Eyes: No worsening of vision Respiratory: No cough, No sputum, No wheezing, No shortness of breath, No dyspnea on exertion Cardiovascular: No chest pain, No edema Abdomen: + pain, + nausea, + vomiting, + diarrhea, No GI bleeding Musculoskeletal: No joint pain Genitourinary - Male: + urinary retention, No hematuria, No dysuria Neurologic: + weakness, + numbness/tingling, + balance problems Endocrine: + fatigue Integumentary: No rash Physical Exam Date Time Temp Pulse Resp B/P (MAP) Pulse Ox O2 Delivery O2 Flow Rate FiO2 09/05/17 01:54 96 09/04/17 21:58 95 09/04/17 21:40 36.7 98 18 144/84 98 Room Air General Appearance: WD/WN, no apparent distress Head: normocephalic Eyes: normal inspection Neck: supple Respiratory/Chest: lungs clear, normal breath sounds, no respiratory distress Cardiovascular: regular rate, rhythm, no edema Abdomen/GI: non tender, soft (no rebound or guarding), + distended (per , a bit less distended than prior to NGT placement), + pertinent finding (well healed umbilical hernia scar, no palpable hernias) Neurologic/Psych: alert, normal mood/affect, oriented x 3 Skin: normal color, warm/dry, no rash Laboratory Results Last 24 Hours Test 09/04/17 21:15 09/05/17 02:24 White Blood Count 9.42 K/uL Red Blood Count 3.92 M/uL Hemoglobin 11.9 g/dL Hematocrit 36.1 % Mean Corpuscular Volume 92.1 fL Mean Corpuscular Hemoglobin 30.4 pg Mean Corpuscular Hemoglobin Concent 33.0 g/dl Platelet Count 150 K/uL Mean Platelet Volume 10.7 fL Neutrophils (%) (Auto) 85.0 % Lymphocytes (%) (Auto) 9.2 % Monocytes (%) (Auto) 4.9 % Eosinophils (%) (Auto) 0.4 % Basophils (%) (Auto) 0.1 % Neutrophils # (Auto) 8.00 K/uL Lymphocytes # (Auto) 0.87 K/uL Monocytes # (Auto) 0.46 K/uL Eosinophils # (Auto) 0.04 K/uL Basophils # (Auto) 0.01 K/uL RDW Standard Deviation 61.0 fL RDW Coefficient of Variation 19.2 % Immature Granulocyte % (Auto) 0.4 % Immature Granulocyte # (Auto) 0.04 K/uL Sodium Level 137 mmol/L Potassium Level 3.8 mmol/L Chloride Level 102 mmol/L Carbon Dioxide Level 24 mmol/L Anion Gap 11.0 mmol/L Blood Urea Nitrogen 23 mg/dl Creatinine 1.20 mg/dl Est Creatinine Clear Calc Drug Dose 52.4 ml/min Estimated GFR () 66.7 Estimated GFR (Non- 57.6 BUN/Creatinine Ratio 19.3 Random Glucose 151 mg/dl Calcium Level 8.6 mg/dl Total Bilirubin 0.5 mg/dl Aspartate Amino Transf (AST/SGOT) 16 U/L Alanine Aminotransferase (ALT/SGPT) 16 U/L Alkaline Phosphatase 66 U/L Total Protein 6.1 gm/dl Albumin 3.2 gm/dl Globulin 2.9 gm/dl Albumin/Globulin Ratio 1.1 Lipase 147 U/L 09/04/17 CT Abd / Pelvis without IV or PO contrast: -No free air, no abscesses or fluid collections -Multiple fluid filled loops of small bowel -Evidence of peritoneal metastasis -Distended bladder Assessment & Plan Jasson Dye is a 77 year old man with pancreatic cancer and peritoneal mets who presents with symptoms and CT scan imaging consistent with a partial small bowel obstruction. He is afebrile, hemodynamically stable and normal. NGT in place with 400ml bilious output, patient is currently comfortable - denies pain, nausea or vomiting. Abdomen is distended, but soft, and currently non tender to palpation with no rebound or guarding. Will try non operative management of bowel obstruction, if patient were to need an operation it would likely be very difficult due to pancreatic cancer and peritoneal mets. -No acute surgical intervention indicated at this time -NPO, NGT decompression for bowel rest -IVF, electrolyte repletion as needed -Trend labs -Rest of care per primary team -Will continue to follow Shannon Camp MD 09/05/17
[2017-09-05 03:28] LABS: COMPLETE YES; EOS % 0.2 %; HEMATOCRIT 34.8 % (42-52); IG% 0.2 %; LYMPH % 6.9 %; LYMPH ABS # 0.37 K/uL (1.2-3.4); MEAN CELL VOLUME 93.8 fL (80-100); MEAN CORPUSCULAR HEMOGLOBIN 29.6 pg (25-34); MEAN CORPUSCULAR HGB CONC 31.6 g/dl (32-36); MEAN PLATELET VOLUME 10.9 fL (7.4-10.4); MONO % 2.8 %; NEUT % 89.9 %; PLATELET COUNT 113 K/uL (130-400); RED BLOOD COUNT 3.71 M/uL (4.7-6.1); WHITE BLOOD COUNT 5.33 K/uL (4.8-10.8)
[2017-09-05 03:40] LABS: INR 1.4 (0.9-1.1); PARTIAL THROMBOPLASTIN RATIO 0.9; PROTHROMBIN TIME (PATIENT) 15.3 SECONDS (9.0-12.0)
[2017-09-05 03:53] LABS: BUN/CREATININE RATIO 20.9 (10-20); CALCIUM 7.4 mg/dl (8.5-10.1); CREATININE 1.1 mg/dl (0.60-1.40); MAGNESIUM 1.9 mg/dl (1.8-2.4); POTASSIUM 3.6 mmol/L (3.5-5.1)
[2017-09-05] MEDS ORDERED: ACETAMINOPHEN 1000 MG/100 ML IV IV ONE (03:53)
[2017-09-05 03:56] LABS: ALB/GLOB RATIO 1.1 (0.9-2); PHOSPHORUS 3.8 mg/dl (2.5-4.9)
[2017-09-05] MEDS ORDERED: PIPERACILL/TAZOBAC CONSULT ACTIVE PRN (04:00)
[2017-09-05] MEDS ORDERED: NURSING VERBAL MED ORDER ONE ×2 (04:00→17:15)
[2017-09-05] MEDS ORDERED: INFLUENZA ADMINISTRATION CHARGE ONE (04:00)
[2017-09-05] MEDS ORDERED: INFLUENZA VACCINE HIGH DOSE 65+ 0.5 ML SYR IM. ONE (04:00)
[2017-09-05] MEDS ORDERED: ACETAMINOPHEN IV 1000MG/100ML IV PRN (04:00)
[2017-09-05] MEDS ORDERED: PIPERACILL/TAZOBAC IV 3.375 GM in DEXTROSE 5% 100ML IV ONE (04:00)
[2017-09-05] MEDS: NITROGLYCERIN OINT 2% 1GM PACKET EXT SCH ×3 (04:09→22:46)
[2017-09-05 04:47] LABS: MANUAL MICROSCOPIC REQUIRED? NO; REVIEW REQ? NO; URINE APPEARANCE CLEAR (CLEAR); URINE BILIRUBIN NEG (NEG); URINE COLOR YELLOW; URINE NITRITE NEG (NEG); URINE SPECIFIC GRAVITY 1.018 (1.000-1.030); UROBILINOGEN NEG (NEG); ZZUR CULT IF INDIC CLEAN CATCH NO
--- NOTE | 2017-09-05 05:58 | DIAGNOSTIC IMAGING REPORT ---
ABDOMEN 2VIEW W/PA CHEST RTN HISTORY: 77 years-old Male constipation/distention acute constipation with abdominal distention COMPARISON: CT abdomen and pelvis 09/05/2017, chest radiograph 08/11/2017 TECHNIQUE: Frontal view of the chest with erect and supine views of the abdomen FINDINGS: Cardiac silhouette is mildly enlarged. There is atherosclerosis of the aorta. Lungs are hypoinflated with mild bronchovascular crowding. No pneumothorax. There is improved aeration of the lung bases with persistent hazy right basilar opacities noted. Small right pleural effusion. Advanced degenerative changes of the right shoulder. Mildly dilated loops of small bowel are seen within throughout the abdomen with air-fluid levels. No pneumoperitoneum identified. No urolith or fracture. Advanced degenerative changes of the lumbar spine. IMPRESSION: 1. Multiple dilated loops of small bowel throughout the abdomen with air-fluid levels is concerning for small bowel obstruction or ileus. Please see the CT study of same day for further details. 2. Persistent hazy right basilar opacities suggests residual pneumonitis with trace right pleural effusion. 3. No pneumoperitoneum. The above report was generated using voice recognition software. It may contain grammatical, syntax or spelling errors. Electronically signed by: Renaldo Busby M.D. 09/05/2017 5:57 AM Dictated Date/Time: 09/05/2017 5:53 AM
[2017-09-05] MEDS ORDERED: PIPERACILL/TAZOBAC IV 3.375 GM in DEXTROSE 5% 100ML 100 ML IV SCH (06:00)
[2017-09-05] MEDS: METOPROLOL TARTRATE 1 MG/ML VIAL IV. SCH ×3 (06:01→17:21)
--- NOTE | 2017-09-05 06:14 | DIAGNOSTIC IMAGING REPORT ---
ABD/PELVIS NO IV OR ORAL CONT HISTORY: 77 years-old Male abd pain, constipation acute generalized abdominal pain with constipation. History of peritoneal carcinomatosis. COMPARISON: Acute abdominal series radiographs 09/04/2017, CT 08/11/2017 TECHNIQUE: Multiple axial CT images of the abdomen and pelvis were obtained without contrast. A dose lowering technique was used consistent with the principals of MIKE. FINDINGS: Trace right pleural effusion. Patchy groundglass and nodular opacities are present within the right lower lobe and to lesser extent within the left lung base with associated bronchial wall thickening. Pleural-based areas of nodularity are seen measuring up to 10 mm as seen on image 44 series 3. Small pericardial effusion with coronary arterial calcifications. There is increased amount of small volume ascites within the abdomen and pelvis. There are several scattered low attenuating lesions of the liver redemonstrated, too small to characterize and unchanged. These likely reflect cysts. Cystic-appearing lesion of the spleen also appears unchanged. Adrenal glands are unremarkable. Gallbladder is mildly contracted. Solid pancreatic tail lesion, 2.5 x 1.7 cm appears unchanged. Kidneys, ureters and urinary bladder are unremarkable. Coarse calcifications are seen within the central prostate. There is extensive atherosclerotic plaquing of the abdominal aorta which is tortuous and dilated up to 3.1 cm transversely compatible with fusiform aneurysmal dilation. No bulky retroperitoneal adenopathy. Fluid-filled esophagus is noted. There are multiple dilated fluid-filled loops of small bowel throughout the mid and lower abdomen and upper pelvis with air-fluid levels. Air remains within the colon. Transition collapsed loops of small bowel are seen within the left lower abdomen. No pneumoperitoneum. Peritoneal carcinomatosis redemonstrated. Soft tissues are unremarkable. The bones are osteopenic. No definite suspicious lytic or blastic bony lesions. Severe multilevel degenerative changes are present. There is convex right curvature of the lumbar spine. IMPRESSION: 1. Findings suggest high-grade small bowel obstruction with transitioned collapsed loops of small bowel seen within the left lower abdomen. No evidence of pneumatosis or pneumoperitoneum. 2. Pancreatic tail lesion redemonstrated with associated peritoneal carcinomatosis. There is progression of mild intra-abdominal ascites from comparison study. 3. Trace right pleural effusion with right greater than left bibasilar pneumonitis. Mild nodularity of the right lung base likely related to pneumonitis however attention on follow-up recommended. 4. Small pericardial effusion. 5. Additional incidental findings as above. The above report was generated using voice recognition software. It may contain grammatical, syntax or spelling errors. Electronically signed by: Renaldo Busby M.D. 09/05/2017 6:13 AM Dictated Date/Time: 09/05/2017 6:01 AM
[2017-09-05] MEDS: SODIUM CHLOR 0.45% + 20MEQ KCL 1,000 ML IV SCH ×2 (06:56→17:21)
[2017-09-05] MEDS ORDERED: PIPERACILL/TAZOBAC IV 3.375 GM in DEXTROSE 5% 100ML IV SCH (08:00)
--- NOTE | 2017-09-05 08:15 | Family Medicine Progress Note ---
Progress Note Date of Service Sep 05, 2017. Subjective Pt evaluation today including: conversation w/ patient, conversation w/ family , physical exam, chart review, lab review, review of studies, conversation w/ water resource consultant, review of inpatient medication list Voiding: owen catheter in place Patient doing well since admission. With the insertion of the NG tube, patient has felt improvement in bloating, abdominal tenderness, and nausea. He feels he may have even passed gas. He denies fevers, sweats, chills, chest pain, shortness of breath, and has had no further vomiting since admission. Family at bedside claims that he is a little disoriented at this time, but are unsure if this is attributable to pain and antinausea medications that he received several hours ago. Otherwise they claim the patient does look more comfortable. ROS unremarkable except as noted above. Objective Vital Signs Date Time Temp Pulse Resp B/P (MAP) Pulse Ox O2 Delivery O2 Flow Rate FiO2 09/05/17 06:01 115 176/92 09/05/17 04:49 90 Nasal Cannula 09/05/17 03:35 38.0 115 22 176/92 (120) 90 Nasal Cannula 09/05/17 02:49 Room Air 09/05/17 01:54 96 09/04/17 21:58 95 09/04/17 21:40 36.7 98 18 144/84 98 Room Air Physical Exam General Appearance: WD/WN, no apparent distress, + pertinent finding (NG tube in situ) Eyes: normal inspection ENT: hearing grossly normal Neck: supple, no adenopathy Respiratory/Chest: lungs clear, normal breath sounds, no respiratory distress, no accessory muscle use Cardiovascular: regular rate, rhythm, no edema, no murmur Abdomen: soft, + abnormal bowel sounds (hypoactive, but not tinkling), + distended (mild), + tenderness (diffusely on palpation) Extremities: non-tender, normal inspection, no pedal edema, no calf tenderness , normal capillary refill Neurologic/Psychiatric: alert, normal mood/affect, + disoriented (oriented to person, but not place or time) Skin: normal color, warm/dry, no rash Laboratory Results Results Past 24 Hours Test 09/05/17 03:12 09/05/17 04:23 09/05/17 06:29 09/05/17 11:35 Range/Units White Blood Count 5.33 4.8-10.8 K/uL Red Blood Count 3.71 4.7-6.1 M/uL Hemoglobin 11.0 14.0-18.0 g/dL Hematocrit 34.8 42-52 % Mean Corpuscular Volume 93.8 80-100 fL Mean Corpuscular Hemoglobin 29.6 25-34 pg Mean Corpuscular Hemoglobin Concent 31.6 32-36 g/dl Platelet Count 113 130-400 K/uL Mean Platelet Volume 10.9 7.4-10.4 fL Neutrophils (%) (Auto) 89.9 % Lymphocytes (%) (Auto) 6.9 % Monocytes (%) (Auto) 2.8 % Eosinophils (%) (Auto) 0.2 % Basophils (%) (Auto) 0.0 % Neutrophils # (Auto) 4.79 1.4-6.5 K/uL Lymphocytes # (Auto) 0.37 1.2-3.4 K/uL Monocytes # (Auto) 0.15 0.11-0.59 K/uL Eosinophils # (Auto) 0.01 0-0.5 K/uL Basophils # (Auto) 0.00 0-0.2 K/uL RDW Standard Deviation 62.0 36.4-46.3 fL RDW Coefficient of Variation 19.0 11.5-14.5 % Immature Granulocyte % (Auto) 0.2 % Immature Granulocyte # (Auto) 0.01 0.00-0.02 K/uL Prothrombin Time 15.3 9.0-12.0 SECONDS Prothromb Time International Ratio 1.4 0.9-1.1 Activated Partial Thromboplast Time 24.3 21.0-31.0 SECONDS Partial Thromboplastin Ratio 0.9 Sodium Level 138 136-145 mmol/L Potassium Level 3.6 3.5-5.1 mmol/L Chloride Level 104 98-107 mmol/L Carbon Dioxide Level 25 21-32 mmol/L Anion Gap 9.0 3-11 mmol/L Blood Urea Nitrogen 23 7-18 mg/dl Creatinine 1.10 0.60-1.40 mg/dl Est Creatinine Clear Calc Drug Dose 57.1 ml/min Estimated GFR () 74.1 Estimated GFR (Non- 64.0 BUN/Creatinine Ratio 20.9 10-20 Random Glucose 159 70-99 mg/dl Calcium Level 7.4 8.5-10.1 mg/dl Phosphorus Level 3.8 2.5-4.9 mg/dl Magnesium Level 1.9 1.8-2.4 mg/dl Total Bilirubin 0.5 0.2-1 mg/dl Aspartate Amino Transf (AST/SGOT) 11 15-37 U/L Alanine Aminotransferase (ALT/SGPT) 16 12-78 U/L Alkaline Phosphatase 61 45-117 U/L Total Protein 5.3 6.4-8.2 gm/dl Albumin 2.8 3.4-5.0 gm/dl Globulin 2.5 2.5-4.0 gm/dl Albumin/Globulin Ratio 1.1 0.9-2 Urine Color YELLOW Urine Appearance CLEAR CLEAR Urine pH 5.0 4.5-7.5 Urine Specific [place] 1.018 1.000-1.030 Urine Protein TRACE NEG Urine Glucose (UA) NEG NEG Urine Ketones NEG NEG Urine Occult Blood NEG NEG Urine Nitrite NEG NEG Urine Bilirubin NEG NEG Urine Urobilinogen NEG NEG Urine Leukocyte Esterase NEG NEG Urine WBC (Auto) 1-5 0-5 /hpf Urine RBC (Auto) 0-4 0-4 /hpf Urine Hyaline Casts (Auto) 5-10 0-5 /lpf Urine Epithelial Cells (Auto) 10-20 0-5 /lpf Urine Bacteria (Auto) NEG NEG Bedside Glucose 162 112 70-99 mg/dl Test 09/05/17 16:19 09/05/17 19:53 Range/Units Bedside Glucose 120 145 70-99 mg/dl Microbiology Results 09/05/17 Blood Culture, Received Pending 09/05/17 Blood Culture, Received Pending 09/05/17 MRSA DNA Surveillance Screen - Final, Complete Specimen Negative for MRSA by DNA Probe Assessment and Plan 77 year old male with metastatic pancreatic cancer under hospice care presents to the ER with high grade bowel obstruction for symptomatic management. High grade small bowel obstruction - NPO - NG tube on intermittent suction. With improving symptoms, plans to clamp tomorrow AM and reassess ~6 hours after. Will subsequently consider clears if asymptomatic. - IVF - maintenance 1/2NSS + 20mEq KCl given slowly due to ascites and recent previous fluid overload. - s/p 1L NSS bolus for sinus tachycardia and hypotension consistent with dehydration - Patient for conservative management at present Urinary retention - Owen catheter placed. Plans to remove once ability to ambulate increases - Will need tamsulosin once tolerating medications, and vitals permit HTN - Hold home medications (metoprolol and losartan) - IV metoprolol 5 mg Q6H with hold parameters Coronary artery disease / Heart failure with reduced ejection fraction (LVEF 35- 40%) - Hold home meds (ASA, BB, ARB, ISMN, statin) due to current NPO - Use IV metoprolol as above and nitro paste 0.5" T2DM - diet: NPO for now - Hold metformin - Insulin sliding scale Resident Physician Supervision Note: I interviewed and examined the patient. Discussed with Dr. Echavarria and agree with findings and plan as documented in the note. Any exceptions or clarifications are listed here: None Documented By: Jluis Leone feeling better less NGT outpt has maybe had some gas, stomach feels better vitals noted nad breathing unlabored no pallor or icterus abd soft mild distention mild tender no guarding or rebound SBO - likely relates to cancer but seems to be progressing more on the pattern of an adhesional SBO - continue NGT drainage but improving - discussed w pt and frankly in regards to cancer likely related to SBO but progress is hopeful for this being a short term rather than defining event. Continued [facility] stay due to: inadequate po fluid intake, multiple IV medications needed Discharge planning: home with Hospice Resident Tracking Resident Involvement: Resident Care Provided Care Provided: Adult Hospital Medicine
[2017-09-05] MEDS: INSULIN ASPART 100 UNITS/ML 3 ML PEN SC SCH ×4 (08:27→20:59)
[2017-09-05] MEDS ORDERED: SODIUM CHLORIDE 0.9% 1000ML 1,000 ML IV ONE (17:30)
[2017-09-06] VITALS (11 sets, daily range): BP systolic 102–144; BP diastolic 64–77; PULSE 71–92; TEMP 36.3–37; O2SAT 90–99
[2017-09-06] MEDS: METOPROLOL TARTRATE 1 MG/ML VIAL IV. SCH ×5 (00:14→23:40)
[2017-09-06] MEDS: SODIUM CHLOR 0.45% + 20MEQ KCL 1,000 ML IV SCH ×3 (02:53→21:57)
[2017-09-06] MEDS: NITROGLYCERIN OINT 2% 1GM PACKET EXT SCH ×4 (04:10→22:21)
[2017-09-06] MEDS: ONDANSETRON INJ 2 MG/ML 2 ML VIAL IV PRN ×2 (05:46→17:40)
[2017-09-06 06:01] LABS: HEMATOCRIT 29.5 % (42-52); MEAN CELL VOLUME 93.9 fL (80-100); MEAN CORPUSCULAR HEMOGLOBIN 30.6 pg (25-34); MEAN CORPUSCULAR HGB CONC 32.5 g/dl (32-36); RED BLOOD COUNT 3.14 M/uL (4.7-6.1); WHITE BLOOD COUNT 8.33 K/uL (4.8-10.8)
[2017-09-06 06:26] LABS: BUN/CREATININE RATIO 18.8 (10-20); CALCIUM 7.5 mg/dl (8.5-10.1); CREATININE 0.94 mg/dl (0.60-1.40)
[2017-09-06 06:31] LABS: COMPLETE YES; EOS % 0.5 %; IG% 0.7 %; LYMPH % 5.4 %; LYMPH ABS # 0.45 K/uL (1.2-3.4); MEAN PLATELET VOLUME 10.7 fL (7.4-10.4); NEUT % 88.4 %; PLATELET COUNT 97 K/uL (130-400); PLT ESTIMATE DECREASED
--- NOTE | 2017-09-06 06:44 | Family Medicine Progress Note ---
Progress Note Date of Service Sep 06, 2017. Subjective Pt evaluation today including: conversation w/ patient, physical exam, chart review, lab review, review of studies, conversation w/ market research consultant, review of inpatient medication list Patient feeling better today. Improvement of abdominal pain and nausea. Minimal NGT output. Patient claims he has been passing "loads of gas" although he has not had a bowel movement yet. His main complaint is thirst, and he does not feel that the ice chips are sufficient. Family agrees that he appears more alert and strong today, with less agitation. Family has questions regarding current management plans and contingency plans should this recur. Though it is not feasible to provide an exact timeline, the step marc plan was explained to the family, and questions were answered to their satisfaction. Family also interested increased home care/respite care, but plan to talk to the hospice nurse/social work about this in more detail. ROS otherwise unremarkable except as noted above. Objective Vital Signs Date Time Temp Pulse Resp B/P (MAP) Pulse Ox O2 Delivery O2 Flow Rate FiO2 09/06/17 05:40 85 149/79 09/06/17 04:00 Room Air 09/06/17 03:45 36.3 78 14 124/64 (84) 96 Nasal Cannula 2.0 Humidified Oxygen 09/06/17 00:14 73 128/69 09/06/17 00:00 36.6 73 18 128/69 (88) 98 Nasal Cannula 2.0 09/06/17 00:00 Room Air 09/05/17 20:38 36.8 76 17 111/58 (75) 97 Nasal Cannula 2.0 09/05/17 20:00 Room Air 09/05/17 17:21 87 116/62 09/05/17 16:36 37.0 137 22 90/64 (73) 94 Nasal Cannula 2.0 09/05/17 16:01 90 Nasal Cannula 3.0 09/05/17 12:52 96 126/63 09/05/17 12:00 91 Nasal Cannula 3.0 09/05/17 11:00 36.5 93 19 115/61 (79) 91 Nasal Cannula 3.0 09/05/17 10:00 91 18 94 09/05/17 10:00 91 18 119/68 (85) 94 Nasal Cannula 3.0 09/05/17 09:01 36.3 89 19 108/62 (77) 92 Nasal Cannula 3.0 09/05/17 08:00 86 18 114/63 (80) 90 Nasal Cannula 2.0 09/05/17 08:00 90 Nasal Cannula 2.0 Physical Exam General Appearance: WD/WN, no apparent distress, + pertinent finding (NG tube in situ) Eyes: normal inspection ENT: hearing grossly normal Respiratory/Chest: lungs clear, normal breath sounds, no respiratory distress, no accessory muscle use Cardiovascular: regular rate, rhythm, no edema, no murmur Abdomen: normal bowel sounds, + distended (mild), + tenderness (on RLQ with palpation) Extremities: normal inspection, no pedal edema, no calf tenderness Neurologic/Psychiatric: alert, normal mood/affect, oriented x 3 Skin: normal color, warm/dry, no rash Laboratory Results Results Past 24 Hours Test 09/05/17 16:19 09/05/17 19:53 09/06/17 05:44 09/06/17 07:13 Range/Units Bedside Glucose 120 145 102 70-99 mg/dl White Blood Count 8.33 4.8-10.8 K/uL Red Blood Count 3.14 4.7-6.1 M/uL Hemoglobin 9.6 14.0-18.0 g/dL Hematocrit 29.5 42-52 % Mean Corpuscular Volume 93.9 80-100 fL Mean Corpuscular Hemoglobin 30.6 25-34 pg Mean Corpuscular Hemoglobin Concent 32.5 32-36 g/dl Platelet Count 97 130-400 K/uL Mean Platelet Volume 10.7 7.4-10.4 fL Neutrophils (%) (Auto) 88.4 % Lymphocytes (%) (Auto) 5.4 % Monocytes (%) (Auto) 5.0 % Eosinophils (%) (Auto) 0.5 % Basophils (%) (Auto) 0.0 % Neutrophils # (Auto) 7.36 1.4-6.5 K/uL Lymphocytes # (Auto) 0.45 1.2-3.4 K/uL Monocytes # (Auto) 0.42 0.11-0.59 K/uL Eosinophils # (Auto) 0.04 0-0.5 K/uL Basophils # (Auto) 0.00 0-0.2 K/uL RDW Standard Deviation 64.0 36.4-46.3 fL RDW Coefficient of Variation 19.3 11.5-14.5 % Immature Granulocyte % (Auto) 0.7 % Immature Granulocyte # (Auto) 0.06 0.00-0.02 K/uL Platelet Estimate DECREASED Sodium Level 138 136-145 mmol/L Potassium Level 4.0 3.5-5.1 mmol/L Chloride Level 107 98-107 mmol/L Carbon Dioxide Level 25 21-32 mmol/L Anion Gap 6.0 3-11 mmol/L Blood Urea Nitrogen 18 7-18 mg/dl Creatinine 0.94 0.60-1.40 mg/dl Est Creatinine Clear Calc Drug Dose 66.9 ml/min Estimated GFR () 89.6 Estimated GFR (Non- 77.3 BUN/Creatinine Ratio 18.8 10-20 Random Glucose 98 70-99 mg/dl Calcium Level 7.5 8.5-10.1 mg/dl Test 09/06/17 11:06 Range/Units Bedside Glucose 100 70-99 mg/dl Assessment and Plan 77 year old male with metastatic pancreatic cancer under hospice care presents to the ER with high grade bowel obstruction for symptomatic management. High grade small bowel obstruction - NG tube was clamped, however, within an hour, symptoms of nausea and abdominal pain/distenstion recurred. As such, low intermittent suction resumed. May attempt to re-clamp tomorrow and if symptoms remain abated, will subsequently consider clears if asymptomatic. - IVF - maintenance 1/2NSS + 20mEq KCl given slowly due to ascites and recent previous fluid overload. - s/p 1L NSS bolus for sinus tachycardia and hypotension consistent with dehydration - Patient for conservative management Urinary retention - Verdin catheter placed. Plans to remove once ability to ambulate increases - Will need tamsulosin once tolerating medications, and vitals permit HTN - Hold home medications (metoprolol, ISMN, and losartan) - IV metoprolol 5 mg Q6H with hold parameters Coronary artery disease / Heart failure with reduced ejection fraction (LVEF 35- 40%) - Hold home meds (ASA, BB, ARB, ISMN, statin) due to current NPO - Use IV metoprolol as above and nitro paste 0.5" T2DM - diet: NPO for now - Hold metformin - Insulin sliding scale Code: DO NOT RESUSCITATE Resident Physician Supervision Note: I interviewed and examined the patient. Discussed with Dr. Echavarria and agree with findings and plan as documented in the note. Any exceptions or clarifications are listed here: None Documented By: Jluis Leone felt worse - NGT only off suction for about an hour and a little more distended and salivating, early nausea vitals noted appearing more ill than yesterday abdomen more distended SBO - cancer related. worrisome but not definitive that he worsened after stopping suction for now - for now resume suction and follow d/w pt and , offered empathy and support Continued [facility] stay due to: inadequate po fluid intake, inadequate oral pain control Resident Tracking Resident Involvement: Resident Care Provided Care Provided: Adult Hospital Medicine
[2017-09-06] MEDS: INSULIN ASPART 100 UNITS/ML 3 ML PEN SC SCH ×2 (07:00→11:00)
--- NOTE | 2017-09-06 11:12 | Surgery Progress Note ---
Surgery Progress Note Date of Service Sep 06, 2017. Subjective Patient examined at bedside this morning. Afebrile, vitals stable overnight on room air, no acute events reported. Sleeping comfortably on arrival, NGT in place (currently clamped). Abdomen seems slightly less distended than yesterday , denies N/V. Passing flatus, no BM yet. +Bowel sounds. Objective Vital Signs: Date Time Temp Pulse Resp B/P (MAP) Pulse Ox O2 Delivery O2 Flow Rate FiO2 09/06/17 08:21 90 Nasal Cannula 3.0 09/06/17 08:01 36.8 86 18 136/75 (95) 99 2.0 09/06/17 05:40 85 149/79 09/06/17 04:00 Room Air 09/06/17 03:45 36.3 78 14 124/64 (84) 96 Nasal Cannula 2.0 Humidified Oxygen 09/06/17 00:14 73 128/69 09/06/17 00:00 36.6 73 18 128/69 (88) 98 Nasal Cannula 2.0 09/06/17 00:00 Room Air 09/05/17 20:38 36.8 76 17 111/58 (75) 97 Nasal Cannula 2.0 09/05/17 20:00 Room Air 09/05/17 17:21 87 116/62 09/05/17 16:36 37.0 137 22 90/64 (73) 94 Nasal Cannula 2.0 09/05/17 16:01 90 Nasal Cannula 3.0 09/05/17 12:52 96 126/63 09/05/17 12:00 91 Nasal Cannula 3.0 Physical Exam: nasogastric drainage General Appearance: WD/WN, no apparent distress Head: normocephalic Neck: supple Respiratory/Chest: lungs clear, normal breath sounds, no respiratory distress Cardiovascular: regular rate, rhythm Abdomen: normal bowel sounds, non tender, soft, + distended (slightly) Laboratory Results: Results Past 24 Hours Test 09/05/17 11:35 09/05/17 16:19 09/05/17 19:53 09/06/17 05:44 Range/Units Bedside Glucose 112 120 145 70-99 mg/dl White Blood Count 8.33 4.8-10.8 K/uL Red Blood Count 3.14 4.7-6.1 M/uL Hemoglobin 9.6 14.0-18.0 g/dL Hematocrit 29.5 42-52 % Mean Corpuscular Volume 93.9 80-100 fL Mean Corpuscular Hemoglobin 30.6 25-34 pg Mean Corpuscular Hemoglobin Concent 32.5 32-36 g/dl Platelet Count 97 130-400 K/uL Mean Platelet Volume 10.7 7.4-10.4 fL Neutrophils (%) (Auto) 88.4 % Lymphocytes (%) (Auto) 5.4 % Monocytes (%) (Auto) 5.0 % Eosinophils (%) (Auto) 0.5 % Basophils (%) (Auto) 0.0 % Neutrophils # (Auto) 7.36 1.4-6.5 K/uL Lymphocytes # (Auto) 0.45 1.2-3.4 K/uL Monocytes # (Auto) 0.42 0.11-0.59 K/uL Eosinophils # (Auto) 0.04 0-0.5 K/uL Basophils # (Auto) 0.00 0-0.2 K/uL RDW Standard Deviation 64.0 36.4-46.3 fL RDW Coefficient of Variation 19.3 11.5-14.5 % Immature Granulocyte % (Auto) 0.7 % Immature Granulocyte # (Auto) 0.06 0.00-0.02 K/uL Platelet Estimate DECREASED Sodium Level 138 136-145 mmol/L Potassium Level 4.0 3.5-5.1 mmol/L Chloride Level 107 98-107 mmol/L Carbon Dioxide Level 25 21-32 mmol/L Anion Gap 6.0 3-11 mmol/L Blood Urea Nitrogen 18 7-18 mg/dl Creatinine 0.94 0.60-1.40 mg/dl Est Creatinine Clear Calc Drug Dose 66.9 ml/min Estimated GFR () 89.6 Estimated GFR (Non- 77.3 BUN/Creatinine Ratio 18.8 10-20 Random Glucose 98 70-99 mg/dl Calcium Level 7.5 8.5-10.1 mg/dl Test 09/06/17 07:13 Range/Units Bedside Glucose 102 70-99 mg/dl Assessment & Plan Jasson Dye is a 77 year old man with pancreatic cancer and peritoneal mets who presents with symptoms and CT scan imaging consistent with a partial small bowel obstruction. Remains afebrile, hemodynamically stable and normal. NGT in place with minimal output - denies pain, nausea or vomiting. Abdomen is less distended today; still soft, and currently non tender to palpation with no rebound or guarding. -No acute surgical intervention indicated at this time, continue non operative management. -NPO, NGT decompression for bowel rest - clamp trial today -IVF, electrolyte repletion as needed -Rest of care per primary team -Will continue to follow Shannon Camp MD 09/06/17
[2017-09-06] MEDS ORDERED: NURSING VERBAL MED ORDER ONE (18:30)
[2017-09-07] VITALS (8 sets, daily range): BP systolic 111–143; BP diastolic 64–82; PULSE 65–100; TEMP 36.7–36.9; O2SAT 90–99
[2017-09-07] MEDS ORDERED: NURSING VERBAL MED ORDER ONE (01:00)
[2017-09-07] MEDS: D5W AND 1/2NSS + 20MEQ KCL 1,000 ML IV SCH ×3 (01:33→21:17)
[2017-09-07] MEDS: NITROGLYCERIN OINT 2% 1GM PACKET EXT SCH ×4 (04:34→22:13)
[2017-09-07] MEDS: INSULIN ASPART 100 UNITS/ML 3 ML PEN SC SCH ×4 (06:00→18:00)
[2017-09-07] MEDS: METOPROLOL TARTRATE 1 MG/ML VIAL IV. SCH ×4 (06:15→23:33)
[2017-09-07 07:14] LABS: HEMATOCRIT 29.9 % (42-52); MEAN CELL VOLUME 94.6 fL (80-100); MEAN CORPUSCULAR HEMOGLOBIN 30.1 pg (25-34); MEAN CORPUSCULAR HGB CONC 31.8 g/dl (32-36); RED BLOOD COUNT 3.16 M/uL (4.7-6.1); WHITE BLOOD COUNT 7.47 K/uL (4.8-10.8)
[2017-09-07 07:20] LABS: MEAN PLATELET VOLUME 10.2 fL (7.4-10.4); PLATELET COUNT 95 K/uL (130-400)
--- NOTE | 2017-09-07 07:27 | Family Medicine Progress Note ---
Progress Note Date of Service Sep 07, 2017. Subjective Pt evaluation today including: conversation w/ patient, physical exam, chart review, lab review, review of studies, conversation w/ information systems consultant, review of inpatient medication list Patient feeling well this morning, significantly better than yesterday and he denies any acute overnight events. He feels that the extra day of suctioning has helped to further improve his bloating and abdominal tenderness. He denies any nausea currently. He feels he is passing gas, although he has not had a bowel movement yet. His main complaint is significant thirst, not quenched with ice chips. He denies fevers, sweats, chills, chest pain, shortness of breath, and has had no further vomiting since admission. He is keen to re-attempt clamping of the NGT. All Other Systems: Reviewed and Negative Objective Vital Signs Date Time Temp Pulse Resp B/P (MAP) Pulse Ox O2 Delivery O2 Flow Rate FiO2 09/07/17 06:15 77 128/62 09/07/17 04:30 118/65 (82) 09/07/17 00:00 90 Nasal Cannula 3.0 09/06/17 23:40 71 102/65 09/06/17 23:32 37.0 71 18 102/65 (77) 96 Nasal Cannula 3.0 09/06/17 19:19 92 144/77 09/06/17 18:05 92 144/77 (99) 09/06/17 16:00 90 Nasal Cannula 3.0 09/06/17 15:57 36.7 77 18 107/64 (78) 97 Nasal Cannula 2.0 09/06/17 14:41 36.6 85 20 90 3.0 09/06/17 12:05 90 Nasal Cannula 3.0 09/06/17 11:36 85 136/70 09/06/17 11:26 36.6 89 20 136/70 (92) 95 2.0 09/06/17 08:21 90 Nasal Cannula 3.0 09/06/17 08:01 36.8 86 18 136/75 (95) 99 2.0 Physical Exam General Appearance: WD/WN, no apparent distress, + pertinent finding (NG tube in situ) Eyes: normal inspection ENT: hearing grossly normal Neck: supple, no adenopathy Respiratory/Chest: lungs clear, normal breath sounds, no respiratory distress, no accessory muscle use Cardiovascular: regular rate, rhythm, no edema, no murmur Abdomen: normal bowel sounds, non tender, soft, + distended (mild, significantly improved) Extremities: normal inspection, no pedal edema, no calf tenderness Neurologic/Psychiatric: alert, normal mood/affect Skin: normal color, warm/dry, no rash Laboratory Results Results Past 24 Hours Test 09/07/17 06:11 09/07/17 06:53 09/07/17 11:51 09/07/17 20:13 Range/Units Bedside Glucose 89 99 148 70-99 mg/dl White Blood Count 7.47 4.8-10.8 K/uL Red Blood Count 3.16 4.7-6.1 M/uL Hemoglobin 9.5 14.0-18.0 g/dL Hematocrit 29.9 42-52 % Mean Corpuscular Volume 94.6 80-100 fL Mean Corpuscular Hemoglobin 30.1 25-34 pg Mean Corpuscular Hemoglobin Concent 31.8 32-36 g/dl Platelet Count 95 130-400 K/uL Mean Platelet Volume 10.2 7.4-10.4 fL Neutrophils (%) (Auto) 85.8 % Lymphocytes (%) (Auto) 7.1 % Monocytes (%) (Auto) 5.1 % Eosinophils (%) (Auto) 1.3 % Basophils (%) (Auto) 0.0 % Neutrophils # (Auto) 6.41 1.4-6.5 K/uL Lymphocytes # (Auto) 0.53 1.2-3.4 K/uL Monocytes # (Auto) 0.38 0.11-0.59 K/uL Eosinophils # (Auto) 0.10 0-0.5 K/uL Basophils # (Auto) 0.00 0-0.2 K/uL RDW Standard Deviation 63.7 36.4-46.3 fL RDW Coefficient of Variation 19.4 11.5-14.5 % Immature Granulocyte % (Auto) 0.7 % Immature Granulocyte # (Auto) 0.05 0.00-0.02 K/uL Dohle Bodies 1+ Anisocytosis PRESENT Echinocytes 1+ Sodium Level 139 136-145 mmol/L Potassium Level 4.0 3.5-5.1 mmol/L Chloride Level 107 98-107 mmol/L Carbon Dioxide Level 27 21-32 mmol/L Anion Gap 5.0 3-11 mmol/L Blood Urea Nitrogen 15 7-18 mg/dl Creatinine 0.71 0.60-1.40 mg/dl Est Creatinine Clear Calc Drug Dose 88.5 ml/min Estimated GFR () 104.2 Estimated GFR (Non- 89.9 BUN/Creatinine Ratio 20.4 10-20 Random Glucose 92 70-99 mg/dl Calcium Level 7.7 8.5-10.1 mg/dl Test 09/07/17 22:46 Range/Units Bedside Glucose 156 70-99 mg/dl Assessment and Plan 77 year old male with metastatic pancreatic cancer, previously under hospice care, presents to the ER with high grade bowel obstruction for symptomatic management. High grade small bowel obstruction --> On day of admission, required 1L NSS bolus for sinus tachycardia and hypotension consistent with dehydration in addition to mIVF. NG tube was clamped 09/05, however within an hour, symptoms of nausea and abdominal pain/distension recurred. As such, low intermittent suction resumed. Re-clamp today was successful with progression to clears. - Continue mIVF for now (1/2NSS + 20mEq KCl). Discontinue tomorrow if diet continues to escalate. - Patient for symptom management Urinary retention - Verdin catheter placed. Consider removing tomorrow once ability to get OOB increases - Will need tamsulosin once tolerating medications, and vitals permit HTN - Hold home medications (metoprolol, ISMN, and losartan) - IV metoprolol 5 mg Q6H with hold parameters Coronary artery disease / Heart failure with reduced ejection fraction (LVEF 35- 40%) - Hold home meds (ASA, BB, ARB, ISMN, statin) due to limited PO intake at this time - Use IV metoprolol as above and nitro paste 0.5" T2DM - diet: clears for now - Hold metformin - Insulin sliding scale Code: DO NOT RESUSCITATE Continued [facility] stay due to: multiple IV medications needed Discharge planning: home with Hospice Resident Tracking Resident Involvement: Resident Care Provided Care Provided: Adult Hospital Medicine Reviewed: Pt Seen/Exam by Me History Resident Physician Supervision Note: I interviewed and examined the patient. Discussed with Dr. Echavarria and agree with findings and plan as documented in the note. Any exceptions or clarifications are listed here: Feeling better, had NGT clamped all day, passing flatus, no stool, tolerating clears diet for dinner, no pain, no nausea Vitals reviewed, BPs improved NAD, appears chronically ill RRR no mgr Pulm with crackles and a few rhonchi at bases and mid lungs bilat Abd +BS, soft, NT ND, NGT in place Ext no edema : Verdin in place draining clear yellow urine 77 yo male with metastatic pancreatic CA, here with high grade SBO, with urinary retention -If tolerates clears breakfast, remove NGT in AM -SUrgery last resort if SBO recurs and only if pt agreeable--> Appreciate Surgery following -reduce IVFs overnight to 75 mls/hr as milan clears -ok to restart home Toprol and dc IV lopressor -dc Verdin in AM, start Flomax in AM, TOV and hopeful for dc tomorrow -continue Hospice care upon discharge Documented By: Bronwyn Joseph
[2017-09-07 07:41] LABS: BUN/CREATININE RATIO 20.4 (10-20); CALCIUM 7.7 mg/dl (8.5-10.1); CREATININE 0.71 mg/dl (0.60-1.40)
[2017-09-07 07:42] LABS: ANISOCYTOSIS PRESENT; COMPLETE YES; DOHLE BODIES 1+; ECHINOCYTES 1+; EOS % 1.3 %; IG% 0.7 %; LYMPH % 7.1 %; LYMPH ABS # 0.53 K/uL (1.2-3.4); MONO % 5.1 %; NEUT % 85.8 %
[2017-09-07] MEDS: HYDROmorphone INJ 0.5 MG/0.5 ML SYR IV PRN ×2 (11:11→16:25)
--- NOTE | 2017-09-07 19:18 | Surgery Progress Note ---
Surgery Progress Note Date of Service Sep 07, 2017. Subjective Post OP Day: HD # 2 + feeling well, + flatus, + nausea, + vomiting, No complaints, No bowel movement NGT clamped Objective Vital Signs: Date Time Temp Pulse Resp B/P (MAP) Pulse Ox O2 Delivery O2 Flow Rate FiO2 09/07/17 18:25 100 111/64 09/07/17 18:22 100 111/64 (80) 09/07/17 15:05 36.9 89 18 111/65 (80) 90 Nasal Cannula 2.0 09/07/17 12:26 83 137/75 09/07/17 09:55 71 136/73 (94) 09/07/17 08:15 36.7 65 22 125/67 (86) 99 Nasal Cannula 2.0 09/07/17 08:00 Nasal Cannula 3.0 09/07/17 06:15 77 128/62 09/07/17 04:30 118/65 (82) 09/07/17 00:00 90 Nasal Cannula 3.0 09/06/17 23:40 71 102/65 09/06/17 23:32 37.0 71 18 102/65 (77) 96 Nasal Cannula 3.0 09/06/17 19:19 92 144/77 General Appearance: WD/WN, no apparent distress Head: normocephalic, atraumatic Neck: trachea midline Respiratory/Chest: no respiratory distress, no accessory muscle use Abdomen: non distended, soft, + tenderness (tenderness in the RLQ on deep palpation, no rigidity, guarding, or rebound) Laboratory Results: Results Past 24 Hours Test 09/06/17 23:52 09/07/17 01:16 09/07/17 06:11 09/07/17 06:53 Range/Units Bedside Glucose 71 77 89 70-99 mg/dl White Blood Count 7.47 4.8-10.8 K/uL Red Blood Count 3.16 4.7-6.1 M/uL Hemoglobin 9.5 14.0-18.0 g/dL Hematocrit 29.9 42-52 % Mean Corpuscular Volume 94.6 80-100 fL Mean Corpuscular Hemoglobin 30.1 25-34 pg Mean Corpuscular Hemoglobin Concent 31.8 32-36 g/dl Platelet Count 95 130-400 K/uL Mean Platelet Volume 10.2 7.4-10.4 fL Neutrophils (%) (Auto) 85.8 % Lymphocytes (%) (Auto) 7.1 % Monocytes (%) (Auto) 5.1 % Eosinophils (%) (Auto) 1.3 % Basophils (%) (Auto) 0.0 % Neutrophils # (Auto) 6.41 1.4-6.5 K/uL Lymphocytes # (Auto) 0.53 1.2-3.4 K/uL Monocytes # (Auto) 0.38 0.11-0.59 K/uL Eosinophils # (Auto) 0.10 0-0.5 K/uL Basophils # (Auto) 0.00 0-0.2 K/uL RDW Standard Deviation 63.7 36.4-46.3 fL RDW Coefficient of Variation 19.4 11.5-14.5 % Immature Granulocyte % (Auto) 0.7 % Immature Granulocyte # (Auto) 0.05 0.00-0.02 K/uL Dohle Bodies 1+ Anisocytosis PRESENT Echinocytes 1+ Sodium Level 139 136-145 mmol/L Potassium Level 4.0 3.5-5.1 mmol/L Chloride Level 107 98-107 mmol/L Carbon Dioxide Level 27 21-32 mmol/L Anion Gap 5.0 3-11 mmol/L Blood Urea Nitrogen 15 7-18 mg/dl Creatinine 0.71 0.60-1.40 mg/dl Est Creatinine Clear Calc Drug Dose 88.5 ml/min Estimated GFR () 104.2 Estimated GFR (Non- 89.9 BUN/Creatinine Ratio 20.4 10-20 Random Glucose 92 70-99 mg/dl Calcium Level 7.7 8.5-10.1 mg/dl Test 09/07/17 11:51 Range/Units Bedside Glucose 99 70-99 mg/dl Assessment & Plan SBO -vitals stable - No leukocytosis - passing flatus - NGT clamped at this time, no nausea Plan: continue conservative management at this time, IV fluids, IV pain medication prn , IV zofran prn, NPO Keep NGT clamped, if tolerates can remove tomorrow continue current medical management will follow Dr. King has seen and examined patient, agrees with above I interviewed and examined this patient and I agree with the above note. He was admitted with small bowel obstruction. 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 Surgery would be a very last option. He is beginning to pass flatus. His NG tube was clamped. I would remove in the morning if he remains stable without evidence of recurrent obstruction.
[2017-09-07] MEDS: ONDANSETRON INJ 2 MG/ML 2 ML VIAL IV PRN (22:12)
[2017-09-08] VITALS (9 sets, daily range): BP systolic 101–126; BP diastolic 62–74; PULSE 80–102; TEMP 36.7–37; O2SAT 90–98
[2017-09-08] MEDS ORDERED: NURSING VERBAL MED ORDER ONE ×2 (01:45→23:45)
[2017-09-08] MEDS ORDERED: COUGH DROP (SUGAR FREE) LOZ 24 LOZ/1 BOX ONE (01:49)
[2017-09-08] MEDS ORDERED: COUGH DROP (SUGAR FREE) LOZ 24 LOZ/1 BOX PO PRN (02:45)
[2017-09-08] MEDS: NITROGLYCERIN OINT 2% 1GM PACKET EXT SCH ×4 (05:15→22:00)
[2017-09-08] MEDS: INSULIN ASPART 100 UNITS/ML 3 ML PEN SC SCH ×4 (06:00→19:16)
--- NOTE | 2017-09-08 07:12 | Family Medicine Progress Note ---
Progress Note Date of Service Sep 08, 2017. Subjective Pt evaluation today including: conversation w/ patient, physical exam, chart review, lab review, review of studies, conversation w/ planning consultant, review of inpatient medication list Voiding: owen catheter in place Patient feeling well this morning, significantly better than yesterday and states he is unsure how the NG tube keep last night. He continues to note further improvement in his bloating and abdominal tenderness. He denies any nausea currently. He feels he is passing gas, although he has not had a bowel movement yet. he is glad that he was able to start clears as he had been feeling very thirsty. He is looking forward to escalating diet.. He denies fevers, sweats, chills, chest pain, shortness of breath, and has had no further vomiting since admission. All Other Systems: Reviewed and Negative Objective Vital Signs Date Time Temp Pulse Resp B/P (MAP) Pulse Ox O2 Delivery O2 Flow Rate FiO2 09/08/17 05:15 80 118/62 (80) 09/08/17 00:00 90 Nasal Cannula 3.0 09/07/17 23:33 90 142/82 09/07/17 23:00 36.7 91 20 142/82 (102) 98 Nasal Cannula 3.0 09/07/17 22:13 89 143/67 (92) 09/07/17 18:25 100 111/64 09/07/17 18:22 100 111/64 (80) 09/07/17 16:00 Nasal Cannula 3.0 09/07/17 15:05 36.9 89 18 111/65 (80) 90 Nasal Cannula 2.0 09/07/17 12:26 83 137/75 09/07/17 09:55 71 136/73 (94) 09/07/17 08:15 36.7 65 22 125/67 (86) 99 Nasal Cannula 2.0 09/07/17 08:00 Nasal Cannula 3.0 Physical Exam General Appearance: WD/WN, no apparent distress Eyes: normal inspection ENT: hearing grossly normal, pharynx normal Neck: supple Respiratory/Chest: lungs clear, normal breath sounds, no respiratory distress, no accessory muscle use Cardiovascular: regular rate, rhythm, no edema, no murmur Abdomen: normal bowel sounds, non tender, + distended (minimal) Extremities: normal inspection, no pedal edema, no calf tenderness Neurologic/Psychiatric: alert, normal mood/affect, oriented x 3 Skin: normal color, warm/dry, no rash Laboratory Results Results Past 24 Hours Test 09/08/17 07:10 09/08/17 07:29 09/08/17 11:45 09/08/17 17:08 Range/Units White Blood Count 7.29 4.8-10.8 K/uL Red Blood Count 3.06 4.7-6.1 M/uL Hemoglobin 9.2 14.0-18.0 g/dL Hematocrit 28.8 42-52 % Mean Corpuscular Volume 94.1 80-100 fL Mean Corpuscular Hemoglobin 30.1 25-34 pg Mean Corpuscular Hemoglobin Concent 31.9 32-36 g/dl Platelet Count 97 130-400 K/uL Mean Platelet Volume 9.8 7.4-10.4 fL Neutrophils (%) (Auto) 82.8 % Lymphocytes (%) (Auto) 7.4 % Monocytes (%) (Auto) 7.7 % Eosinophils (%) (Auto) 1.6 % Basophils (%) (Auto) 0.0 % Neutrophils # (Auto) 6.03 1.4-6.5 K/uL Lymphocytes # (Auto) 0.54 1.2-3.4 K/uL Monocytes # (Auto) 0.56 0.11-0.59 K/uL Eosinophils # (Auto) 0.12 0-0.5 K/uL Basophils # (Auto) 0.00 0-0.2 K/uL RDW Standard Deviation 64.0 36.4-46.3 fL RDW Coefficient of Variation 19.3 11.5-14.5 % Immature Granulocyte % (Auto) 0.5 % Immature Granulocyte # (Auto) 0.04 0.00-0.02 K/uL Dohle Bodies 1+ Anisocytosis PRESENT Sodium Level 137 136-145 mmol/L Potassium Level 3.9 3.5-5.1 mmol/L Chloride Level 106 98-107 mmol/L Carbon Dioxide Level 23 21-32 mmol/L Anion Gap 8.0 3-11 mmol/L Blood Urea Nitrogen 10 7-18 mg/dl Creatinine 0.61 0.60-1.40 mg/dl Est Creatinine Clear Calc Drug Dose 103.1 ml/min Estimated GFR () 110.9 Estimated GFR (Non- 95.7 BUN/Creatinine Ratio 15.9 09-18 Random Glucose 108 70-99 mg/dl Calcium Level 7.2 8.5-10.1 mg/dl Bedside Glucose 106 114 82 70-99 mg/dl Test 09/08/17 19:47 Range/Units Bedside Glucose 136 70-99 mg/dl Assessment and Plan 77 year old male with metastatic pancreatic cancer, previously under hospice care, presents to the ER with high grade bowel obstruction for symptomatic management. High grade small bowel obstruction --> On day of admission, required 1L NSS bolus for sinus tachycardia and hypotension consistent with dehydration in addition to mIVF. O2 via NC also provided for support. NG tube was clamped 09/05 , however within an hour, symptoms of nausea and abdominal pain/distension recurred. As such, low intermittent suction resumed. Re-clamp 09/06 was successful with progression to clears. Patient pulled his own NGT on 09/08. Diet being escalated as tolerated. mIVF discontinued. O2 also weaned and saturating well on RA. - Zofran PRN nausea - Dilaudid PRN pain Urinary retention --> Owen removed 09/08. Trial of void successful. - Tamsulosin HTN - Resume oral metoprolol, but ISMN and ARB held in view of adequate BP Coronary artery disease / Heart failure with reduced ejection fraction (LVEF 35- 40%) - Resume ASA, clopidogrel, metoprolol. Statin discontinued. - Nitro paste 0.5" PRN HTN T2DM - HbA1c 5.8 (08/16). - Diet: soft diet - Metformin discontinued. - Insulin sliding scale while in hospital Pulmonary disease - Prednisone 60mg, as per Dr. Ramirez's outpt note. Poor sleep - Benadryl qHS VTE PPx - Recommend activity as tolerated. Code: DO NOT RESUSCITATE Continued [facility] stay due to: other Discharge planning: home with Hospice Resident Tracking Resident Involvement: Resident Care Provided Care Provided: Adult Hospital Medicine Reviewed: Pt Seen/Exam by Me History Resident Physician Supervision Note: I interviewed and examined the patient. Discussed with Dr. Echavarria and agree with findings and plan as documented in the note. Any exceptions or clarifications are listed here: Feeling better, no abd pain, no nausea, is passing flatus, NGT fell out last night, tolerating full liquids. Wants to go home but is not ready yet as hospital bed not delivered through home hospice. No longer requiring O2 Vitals reviewed NAD, appears chronically ill RRR no mgr Pulm CTAB no wcr Abd +BS, soft, NT ND Ext no edema 77 yo male with metastatic pancreatic CA, here with high grade SBO, with urinary retention-SBO and urine retention resolved, Acute hypoxemic respiratory failure and recent history of pneumonitis requiring high dose daily prednisone. -stable for discharge once Home Hospice arrangements final -continue Toprol but does not need ARB or isosorbide upon return home for now -permanently dc metformin as A1C in the 5 range and has terminal prognosis -continue Flomax for urinary retention -hold lasix on dc and use prn swelling or weight gain -consider permanently stopping statin given terminal prognosis-d/w pt -continue Hospice care upon discharge likely tomorrow Documented By: Bronwyn Joseph
[2017-09-08 07:24] LABS: HEMATOCRIT 28.8 % (42-52); MEAN CELL VOLUME 94.1 fL (80-100); MEAN CORPUSCULAR HEMOGLOBIN 30.1 pg (25-34); MEAN CORPUSCULAR HGB CONC 31.9 g/dl (32-36); RED BLOOD COUNT 3.06 M/uL (4.7-6.1); WHITE BLOOD COUNT 7.29 K/uL (4.8-10.8)
[2017-09-08 07:34] LABS: MEAN PLATELET VOLUME 9.8 fL (7.4-10.4); PLATELET COUNT 97 K/uL (130-400)
[2017-09-08 07:45] LABS: ANISOCYTOSIS PRESENT; COMPLETE YES; DOHLE BODIES 1+; EOS % 1.6 %; IG% 0.5 %; LYMPH % 7.4 %; LYMPH ABS # 0.54 K/uL (1.2-3.4); MONO % 7.7 %; NEUT % 82.8 %
[2017-09-08 08:07] LABS: BUN/CREATININE RATIO 15.9 (10-20); CALCIUM 7.2 mg/dl (8.5-10.1); CREATININE 0.61 mg/dl (0.60-1.40); POTASSIUM 3.9 mmol/L (3.5-5.1)
--- NOTE | 2017-09-08 08:48 | Surgery Progress Note ---
Surgery Progress Note Date of Service Sep 08, 2017. Subjective Post OP Day: HD # 3 + feeling well, + flatus, + pain controlled, No complaints, No bowel movement, No nausea, No vomiting NGT was pulled last evening (pt delerium?) No further nausea or vomiting without NGT Passing flatus, steady, no bowel movement. No abdominal pain, patient does not feel distended. Objective Vital Signs: Date Time Temp Pulse Resp B/P (MAP) Pulse Ox O2 Delivery O2 Flow Rate FiO2 09/08/17 08:15 36.9 87 18 111/69 (83) 98 Nasal Cannula 3.0 09/08/17 05:15 80 118/62 (80) 09/08/17 00:00 90 Nasal Cannula 3.0 09/07/17 23:33 90 142/82 09/07/17 23:00 36.7 91 20 142/82 (102) 98 Nasal Cannula 3.0 09/07/17 22:13 89 143/67 (92) 09/07/17 18:25 100 111/64 09/07/17 18:22 100 111/64 (80) 09/07/17 16:00 Nasal Cannula 3.0 09/07/17 15:05 36.9 89 18 111/65 (80) 90 Nasal Cannula 2.0 09/07/17 12:26 83 137/75 09/07/17 09:55 71 136/73 (94) General Appearance: WD/WN, no apparent distress Head: normocephalic, atraumatic Neck: trachea midline Respiratory/Chest: no respiratory distress, no accessory muscle use Abdomen: non tender, soft, no organomegaly, + abnormal bowel sounds (hypoactive ), + distended (mild) Laboratory Results: Results Past 24 Hours Test 09/07/17 11:51 09/07/17 20:13 09/07/17 22:46 09/08/17 07:10 Range/Units Bedside Glucose 99 148 156 70-99 mg/dl White Blood Count 7.29 4.8-10.8 K/uL Red Blood Count 3.06 4.7-6.1 M/uL Hemoglobin 9.2 14.0-18.0 g/dL Hematocrit 28.8 42-52 % Mean Corpuscular Volume 94.1 80-100 fL Mean Corpuscular Hemoglobin 30.1 25-34 pg Mean Corpuscular Hemoglobin Concent 31.9 32-36 g/dl Platelet Count 97 130-400 K/uL Mean Platelet Volume 9.8 7.4-10.4 fL Neutrophils (%) (Auto) 82.8 % Lymphocytes (%) (Auto) 7.4 % Monocytes (%) (Auto) 7.7 % Eosinophils (%) (Auto) 1.6 % Basophils (%) (Auto) 0.0 % Neutrophils # (Auto) 6.03 1.4-6.5 K/uL Lymphocytes # (Auto) 0.54 1.2-3.4 K/uL Monocytes # (Auto) 0.56 0.11-0.59 K/uL Eosinophils # (Auto) 0.12 0-0.5 K/uL Basophils # (Auto) 0.00 0-0.2 K/uL RDW Standard Deviation 64.0 36.4-46.3 fL RDW Coefficient of Variation 19.3 11.5-14.5 % Immature Granulocyte % (Auto) 0.5 % Immature Granulocyte # (Auto) 0.04 0.00-0.02 K/uL Dohle Bodies 1+ Anisocytosis PRESENT Sodium Level 137 136-145 mmol/L Potassium Level 3.9 3.5-5.1 mmol/L Chloride Level 106 98-107 mmol/L Carbon Dioxide Level 23 21-32 mmol/L Anion Gap 8.0 3-11 mmol/L Blood Urea Nitrogen 10 7-18 mg/dl Creatinine 0.61 0.60-1.40 mg/dl Est Creatinine Clear Calc Drug Dose 103.1 ml/min Estimated GFR () 110.9 Estimated GFR (Non- 95.7 BUN/Creatinine Ratio 15.9 10-20 Random Glucose 108 70-99 mg/dl Calcium Level 7.2 8.5-10.1 mg/dl Test 09/08/17 07:29 Range/Units Bedside Glucose 106 70-99 mg/dl Assessment & Plan SBO- resolving - vitals stable - No leukocytosis - passing flatus, no bowel movement - NGT was pulled by patient overnight, no further nausea or vomiting or abdominal pain Plan: may advance diet to clear liquids, advised patient to take it slowly and stop if any nausea, pain, or distention. continue conservative management at this time, IV fluids, IV pain medication prn , IV zofran prn continue current medical management will follow re-evaluated patient with Dr. King at 2:30 pm Doing well, tolerated clear liquids No abdominal pain passing flatus, no bowel movement Plan: Dulcolax suppository x 1 Advance diet to full liquids continue medical management will follow Dr. King has seen and examined patient, agrees with above
[2017-09-08] MEDS: CLOPIDOGREL BISULFATE 75 MG TAB PO SCH (10:14)
[2017-09-08] MEDS: TAMSULOSIN HCL 0.4 MG CAP PO SCH (10:14)
[2017-09-08] MEDS: METOPROLOL SUCC 50MG EXT REL TAB PO SCH (10:14)
[2017-09-08] MEDS: ASPIRIN 81 MG ECTAB PO SCH (10:14)
[2017-09-08] MEDS: D5W AND 1/2NSS + 20MEQ KCL 1,000 ML IV SCH (10:15)
[2017-09-08] MEDS ORDERED: BISACODYL 10 MG SUPP PR STA (15:59)
[2017-09-08] MEDS: ONDANSETRON INJ 2 MG/ML 2 ML VIAL IV PRN (17:19)
--- NOTE | 2017-09-08 17:38 | Medical Student: [facility] ---
Med Student Progress Note Date of Service Sep 08, 2017. Subjective Pt evaluation today including: conversation w/ patient, physical exam, chart review, lab review Pt notes that he had some trouble sleeping last night. At some point in the night his NG tube was inadvertently removed. He notes no abdominal pain or nausea despite tube removal. Tolerated diet advancement to clears and then to full liquids. Has not had a BM but does note passage of flatus today. Wishes to go home. Review of Systems Constitutional: No fever, No chills, No sweats, No weight loss Respiratory: No cough, No sputum, No wheezing, No shortness of breath Cardiac: No chest pain, No palpitations Abdomen: + problem reported (passing flatus), No pain, No nausea, No vomiting, No diarrhea Male : No dysuria, No urinary frequency Skin: No rash, No itch Objective Vital Signs Date Time Temp Pulse Resp B/P (MAP) Pulse Ox O2 Delivery O2 Flow Rate FiO2 09/08/17 15:38 36.7 95 18 107/65 (79) 94 Room Air 09/08/17 14:29 94 Room Air 09/08/17 12:19 Nasal Cannula 2.0 09/08/17 11:56 Nasal Cannula 3.0 09/08/17 11:27 37.0 88 18 114/71 (85) 97 Nasal Cannula 3.0 09/08/17 10:13 92 126/74 (91) 09/08/17 08:15 36.9 87 18 111/69 (83) 98 Nasal Cannula 3.0 09/08/17 05:15 80 118/62 (80) 09/08/17 00:00 90 Nasal Cannula 3.0 09/07/17 23:33 90 142/82 09/07/17 23:00 36.7 91 20 142/82 (102) 98 Nasal Cannula 3.0 09/07/17 22:13 89 143/67 (92) 09/07/17 18:25 100 111/64 09/07/17 18:22 100 111/64 (80) Physical Exam General Appearance: no apparent distress Neck: supple, no adenopathy, thyroid normal Respiratory/Chest: lungs clear, normal breath sounds, no respiratory distress, no accessory muscle use Cardiovascular: regular rate, rhythm, no murmur Abdomen: non tender, soft, no organomegaly Extremities: normal inspection, no pedal edema, no calf tenderness Neurologic/Psychiatric: alert, oriented x 3, + depressed affect Skin: normal color, warm/dry, no rash Laboratory Results Last 24 Hours Test 09/07/17 20:13 09/07/17 22:46 09/08/17 07:10 09/08/17 07:29 Bedside Glucose 148 mg/dl 156 mg/dl 106 mg/dl White Blood Count 7.29 K/uL Red Blood Count 3.06 M/uL Hemoglobin 9.2 g/dL Hematocrit 28.8 % Mean Corpuscular Volume 94.1 fL Mean Corpuscular Hemoglobin 30.1 pg Mean Corpuscular Hemoglobin Concent 31.9 g/dl Platelet Count 97 K/uL Mean Platelet Volume 9.8 fL Neutrophils (%) (Auto) 82.8 % Lymphocytes (%) (Auto) 7.4 % Monocytes (%) (Auto) 7.7 % Eosinophils (%) (Auto) 1.6 % Basophils (%) (Auto) 0.0 % Neutrophils # (Auto) 6.03 K/uL Lymphocytes # (Auto) 0.54 K/uL Monocytes # (Auto) 0.56 K/uL Eosinophils # (Auto) 0.12 K/uL Basophils # (Auto) 0.00 K/uL RDW Standard Deviation 64.0 fL RDW Coefficient of Variation 19.3 % Immature Granulocyte % (Auto) 0.5 % Immature Granulocyte # (Auto) 0.04 K/uL Dohle Bodies 1+ Anisocytosis PRESENT Sodium Level 137 mmol/L Potassium Level 3.9 mmol/L Chloride Level 106 mmol/L Carbon Dioxide Level 23 mmol/L Anion Gap 8.0 mmol/L Blood Urea Nitrogen 10 mg/dl Creatinine 0.61 mg/dl Est Creatinine Clear Calc Drug Dose 103.1 ml/min Estimated GFR () 110.9 Estimated GFR (Non- 95.7 BUN/Creatinine Ratio 15.9 Random Glucose 108 mg/dl Calcium Level 7.2 mg/dl Test 09/08/17 11:45 09/08/17 17:08 Bedside Glucose 114 mg/dl 82 mg/dl Assessment and Plan Assessment and Plan: Pt is a 77 yo M who presented 3 days ago with s/s of small bowel obstruction. Pt continues to improve. Small Bowel Obstruction -NG tube inadvertently removed overnight. -Pt tolerating diet advancement to full liquids - will advance to soft foods tonight. -Pain is well controlled. -IVF stopped. -Surgery rec's conservative management Urinary Retention -Verdin catheter dc'd -Tamulosin 0.4 mg qAM started today. HTN -Restarted on Metoprolol 50 mg q day. -BP is well controlled at this point. May restart his home Losartan if BP increases. CAD -Resumed PO ASA, Plavis and BB -Can restart statin on d/c. Pt can consider stopping statin if having side effects. T2DM -ISS while in the hospital -Home metformin not restarted. His last a1c was 5.6. Can dc metformin all together Difficulty Sleeping -Normally takes tylenol PM at home. Given Benadryl at hs tonight. Pulmonary Disease -Restart home 60 mg Prednisone dose as per Dr. Salas outpt note. Ambulate as tolerated Resus Status: DNR DVT ppx: Plavix Dispo: Remain on floor - anticipate DC home tmw pending home health supplies from hospice Continued [facility] stay due to: home environment unsafe for pt Discharge planning: home with Hospice
[2017-09-09] VITALS (8 sets, daily range): BP systolic 110–136; BP diastolic 68–83; PULSE 80–98; TEMP 36.3–36.7; O2SAT 90–96
[2017-09-09] MEDS ORDERED: NURSING VERBAL MED ORDER ONE ×2 (00:30→02:30)
[2017-09-09] MEDS: ONDANSETRON INJ 2 MG/ML 2 ML VIAL IV PRN ×3 (00:37→12:50)
[2017-09-09] MEDS ORDERED: ZOLPIDEM TARTRATE 5 MG TAB PO PRN (01:00)
[2017-09-09] MEDS: CALCIUM CARBONATE 500 MG CHEWABLE PO PRN ×3 (01:35→23:03)
[2017-09-09] MEDS ORDERED: METOCLOPRAMIDE HCL INJ 5 MG/ML 2 ML VIAL ONE (02:43)
[2017-09-09] MEDS: NITROGLYCERIN OINT 2% 1GM PACKET EXT SCH ×4 (04:12→22:15)
[2017-09-09 06:02] LABS: BASO % 0.1 %; BASO ABS # 0.01 K/uL (0-0.2); COMPLETE YES; HEMATOCRIT 30.7 % (42-52); IG% 0.3 %; LYMPH ABS # 0.34 K/uL (1.2-3.4); MEAN CELL VOLUME 93.9 fL (80-100); MEAN CORPUSCULAR HGB CONC 31.9 g/dl (32-36); MEAN PLATELET VOLUME 10.3 fL (7.4-10.4); MONO % 4.2 %; NEUT % 90.4 %; PLATELET COUNT 108 K/uL (130-400); RED BLOOD COUNT 3.27 M/uL (4.7-6.1); WHITE BLOOD COUNT 6.74 K/uL (4.8-10.8)
[2017-09-09 06:38] LABS: BUN/CREATININE RATIO 16.7 (10-20); CALCIUM 7.5 mg/dl (8.5-10.1); CREATININE 0.71 mg/dl (0.60-1.40); POTASSIUM 4.4 mmol/L (3.5-5.1)
--- NOTE | 2017-09-09 07:09 | Family Medicine Progress Note ---
Progress Note Date of Service Sep 09, 2017. Subjective Pt evaluation today including: conversation w/ patient, physical exam, chart review, lab review, review of studies, conversation w/ regional engagement consultant, review of inpatient medication list Patient feeling well this morning. He had tolerated soft diet for dinner last night. He did feel nauseous at 2am and had 50ml emesis. Temporay relief provided by metoclopramide. He had recurrence of nausea at 6am with 125ml emesis. Symptoms were relieved with compazine and patient was able to tolerate breakfast. He feels he is passing gas, and also had a bowel movement yesterday. He denies fevers, sweats, chills, chest pain, shortness of breath, and has had no further vomiting since admission. His goal today is to ambulate more. All Other Systems: Reviewed and Negative Objective Vital Signs Date Time Temp Pulse Resp B/P (MAP) Pulse Ox O2 Delivery O2 Flow Rate FiO2 09/09/17 03:54 36.3 85 16 115/73 (87) 94 Room Air 09/09/17 01:15 Room Air 09/09/17 00:13 36.7 87 18 112/77 (89) 91 Room Air 09/08/17 22:18 105/65 (78) 09/08/17 19:33 36.9 102 18 101/63 (76) 93 Room Air 09/08/17 16:00 Room Air 09/08/17 15:38 36.7 95 18 107/65 (79) 94 Room Air 09/08/17 14:29 94 Room Air 09/08/17 12:19 Nasal Cannula 2.0 09/08/17 11:56 Nasal Cannula 3.0 09/08/17 11:27 37.0 88 18 114/71 (85) 97 Nasal Cannula 3.0 09/08/17 10:13 92 126/74 (91) 09/08/17 08:15 36.9 87 18 111/69 (83) 98 Nasal Cannula 3.0 Physical Exam General Appearance: WD/WN, no apparent distress Eyes: normal inspection ENT: hearing grossly normal Neck: supple, no adenopathy Respiratory/Chest: lungs clear, normal breath sounds, no respiratory distress, no accessory muscle use Cardiovascular: regular rate, rhythm, no edema, no murmur Abdomen: normal bowel sounds, + distended, + tenderness (mild, diffuse) Extremities: normal inspection, no pedal edema, no calf tenderness Neurologic/Psychiatric: alert, normal mood/affect, oriented x 3 Skin: normal color, warm/dry, no rash Laboratory Results Results Past 24 Hours Test 09/08/17 17:08 09/08/17 19:47 09/09/17 05:30 09/09/17 07:50 Range/Units Bedside Glucose 82 136 121 70-99 mg/dl White Blood Count 6.74 4.8-10.8 K/uL Red Blood Count 3.27 4.7-6.1 M/uL Hemoglobin 9.8 14.0-18.0 g/dL Hematocrit 30.7 42-52 % Mean Corpuscular Volume 93.9 80-100 fL Mean Corpuscular Hemoglobin 30.0 25-34 pg Mean Corpuscular Hemoglobin Concent 31.9 32-36 g/dl Platelet Count 108 130-400 K/uL Mean Platelet Volume 10.3 7.4-10.4 fL Neutrophils (%) (Auto) 90.4 % Lymphocytes (%) (Auto) 5.0 % Monocytes (%) (Auto) 4.2 % Eosinophils (%) (Auto) 0.0 % Basophils (%) (Auto) 0.1 % Neutrophils # (Auto) 6.09 1.4-6.5 K/uL Lymphocytes # (Auto) 0.34 1.2-3.4 K/uL Monocytes # (Auto) 0.28 0.11-0.59 K/uL Eosinophils # (Auto) 0.00 0-0.5 K/uL Basophils # (Auto) 0.01 0-0.2 K/uL RDW Standard Deviation 64.2 36.4-46.3 fL RDW Coefficient of Variation 19.2 11.5-14.5 % Immature Granulocyte % (Auto) 0.3 % Immature Granulocyte # (Auto) 0.02 0.00-0.02 K/uL Sodium Level 137 136-145 mmol/L Potassium Level 4.4 3.5-5.1 mmol/L Chloride Level 105 98-107 mmol/L Carbon Dioxide Level 24 21-32 mmol/L Anion Gap 8.0 3-11 mmol/L Blood Urea Nitrogen 12 7-18 mg/dl Creatinine 0.71 0.60-1.40 mg/dl Est Creatinine Clear Calc Drug Dose 88.5 ml/min Estimated GFR () 104.2 Estimated GFR (Non- 89.9 BUN/Creatinine Ratio 16.7 10-20 Random Glucose 130 70-99 mg/dl Calcium Level 7.5 8.5-10.1 mg/dl Test 09/09/17 11:27 Range/Units Bedside Glucose 122 70-99 mg/dl Assessment and Plan 77 year old male with metastatic pancreatic cancer, previously under hospice care, presents to the ER with high grade bowel obstruction for symptomatic management. High grade small bowel obstruction --> On day of admission, required 1L NSS bolus for sinus tachycardia and hypotension consistent with dehydration in addition to mIVF. O2 via NC also provided for support. NG tube was clamped 09/05 , however within an hour, symptoms of nausea and abdominal pain/distension recurred. As such, low intermittent suction resumed. Re-clamp 09/06 was successful with progression to clears. Patient pulled his own NGT on 09/08. Diet being escalated as tolerated. mIVF discontinued. O2 also weaned and saturating well on RA. - Zofran and Compazine PRN nausea - Dilaudid PRN pain Urinary retention --> Verdin removed 09/08. Trial of void successful. - Tamsulosin HTN - Resume oral metoprolol, but ISMN and ARB held in view of adequate BP Coronary artery disease / Heart failure with reduced ejection fraction (LVEF 35- 40%) - Resume ASA, clopidogrel, metoprolol. Statin discontinued. - Nitro paste 0.5" PRN HTN T2DM - HbA1c 5.8 (08/16). - Diet: soft diet - Metformin discontinued. - Insulin sliding scale while in hospital Pulmonary disease - Prednisone 60mg, as per Dr. Ramirez's outpt note. Poor sleep - Benadryl qHS VTE PPx - Recommend activity as tolerated. Code: DO NOT RESUSCITATE Continued [facility] stay due to: other Discharge planning: home with Hospice Resident Tracking Resident Involvement: Resident Care Provided Care Provided: Adult Hospital Medicine
[2017-09-09] MEDS ORDERED: PROCHLORPERAZINE INJ 10 MG in SYRINGE 8 ML IV STA (08:38)
[2017-09-09] MEDS ORDERED: PROCHLORPERAZINE MALEATE 10 MG TAB PO PRN (08:45)
[2017-09-09] MEDS: INSULIN ASPART 100 UNITS/ML 3 ML PEN SC SCH ×4 (08:50→21:17)
[2017-09-09] MEDS ORDERED: PROCHLORPERAZINE INJ 10 MG in SYRINGE 8 ML IV ONE (09:00)
[2017-09-09] MEDS: ASPIRIN 81 MG ECTAB PO SCH (11:49)
[2017-09-09] MEDS: TAMSULOSIN HCL 0.4 MG CAP PO SCH (11:49)
[2017-09-09] MEDS: METOPROLOL SUCC 50MG EXT REL TAB PO SCH (11:50)
[2017-09-09] MEDS: CLOPIDOGREL BISULFATE 75 MG TAB PO SCH (11:50)
--- NOTE | 2017-09-09 14:04 | Medical Student: [facility] ---
Med Student Progress Note Date of Service Sep 09, 2017. Subjective Pt evaluation today including: conversation w/ patient, physical exam Pt woke up with n/v this morning. He notes that he is passing flatus and did have a BM yesterday. Does continue to have an appetite. Is hoping to return home as soon as possible. Denies abdominal pain, but notes some burning c/w GERD. Relieved by tums. Review of Systems Constitutional: No fever, No chills, No sweats Respiratory: No cough, No sputum, No wheezing, No shortness of breath Cardiac: No chest pain, No palpitations Abdomen: + nausea, + vomiting, No pain, No diarrhea, No constipation Male : No dysuria, No urinary frequency Skin: No rash, No itch Objective Vital Signs Date Time Temp Pulse Resp B/P (MAP) Pulse Ox O2 Delivery O2 Flow Rate FiO2 09/09/17 11:47 80 123/74 (90) 95 Room Air 09/09/17 08:52 Room Air 09/09/17 07:42 36.6 83 20 127/73 (91) 90 Room Air 09/09/17 03:54 36.3 85 16 115/73 (87) 94 Room Air 09/09/17 01:15 Room Air 09/09/17 00:13 36.7 87 18 112/77 (89) 91 Room Air 09/08/17 22:18 105/65 (78) 09/08/17 19:33 36.9 102 18 101/63 (76) 93 Room Air 09/08/17 16:00 Room Air 09/08/17 15:38 36.7 95 18 107/65 (79) 94 Room Air 09/08/17 14:29 94 Room Air Physical Exam General Appearance: no apparent distress Respiratory/Chest: lungs clear, normal breath sounds, no respiratory distress Cardiovascular: regular rate, rhythm, no edema, no murmur Abdomen: normal bowel sounds, non tender, soft, no organomegaly Extremities: normal inspection, no pedal edema, no calf tenderness Neurologic/Psychiatric: alert, normal mood/affect, oriented x 3 Skin: normal color, warm/dry Laboratory Results Last 24 Hours Test 09/08/17 17:08 09/08/17 19:47 09/09/17 05:30 09/09/17 07:50 Bedside Glucose 82 mg/dl 136 mg/dl 121 mg/dl White Blood Count 6.74 K/uL Red Blood Count 3.27 M/uL Hemoglobin 9.8 g/dL Hematocrit 30.7 % Mean Corpuscular Volume 93.9 fL Mean Corpuscular Hemoglobin 30.0 pg Mean Corpuscular Hemoglobin Concent 31.9 g/dl Platelet Count 108 K/uL Mean Platelet Volume 10.3 fL Neutrophils (%) (Auto) 90.4 % Lymphocytes (%) (Auto) 5.0 % Monocytes (%) (Auto) 4.2 % Eosinophils (%) (Auto) 0.0 % Basophils (%) (Auto) 0.1 % Neutrophils # (Auto) 6.09 K/uL Lymphocytes # (Auto) 0.34 K/uL Monocytes # (Auto) 0.28 K/uL Eosinophils # (Auto) 0.00 K/uL Basophils # (Auto) 0.01 K/uL RDW Standard Deviation 64.2 fL RDW Coefficient of Variation 19.2 % Immature Granulocyte % (Auto) 0.3 % Immature Granulocyte # (Auto) 0.02 K/uL Sodium Level 137 mmol/L Potassium Level 4.4 mmol/L Chloride Level 105 mmol/L Carbon Dioxide Level 24 mmol/L Anion Gap 8.0 mmol/L Blood Urea Nitrogen 12 mg/dl Creatinine 0.71 mg/dl Est Creatinine Clear Calc Drug Dose 88.5 ml/min Estimated GFR () 104.2 Estimated GFR (Non- 89.9 BUN/Creatinine Ratio 16.7 Random Glucose 130 mg/dl Calcium Level 7.5 mg/dl Test 09/09/17 11:27 Bedside Glucose 122 mg/dl Assessment and Plan Assessment and Plan: Pt is a 77 yo M who presented on 09/05/17 with s/s of small bowel obstruction. Pt continues to improve. Small Bowel Obstruction -Some nausea and vomitting in the morning. -Pt tolerating diet advancement to full diet. -Pain is well controlled. -Surgery rec's conservative management -Will consider repeat KUB and diet of full liquids if n/v continue. -Added Compazine and Zantac PRN -Consider starting PPI as on high dose steroids. Urinary Retention -Verdin catheter dc'd. Urinating fine. -Tamulosin 0.4 mg qAM started today. HTN -Restarted on Metoprolol 50 mg q day. -BP is well controlled at this point. May restart his home Losartan if BP increases. CAD -Resumed PO ASA, Plavis and BB -Can restart statin on d/c. Pt can consider stopping statin if having side effects. T2DM -ISS while in the hospital -Home metformin not restarted. His last a1c was 5.6. Can dc metformin all together. Difficulty Sleeping -Normally takes tylenol PM at home. Benadryl PO hs PRN added. Pulmonary Disease -Restart home 60 mg Prednisone dose as per Dr. Salas outpt note. Ambulate as tolerated Resus Status: DNR DVT ppx: Plavix Dispo: Remain on floor - anticipate DC home tmw pending home health supplies from hospice Continued [facility] stay due to: other Discharge planning: home with Hospice
--- NOTE | 2017-09-09 16:59 | Surgery Progress Note ---
Surgery Progress Note Date of Service Sep 09, 2017. Subjective Post OP Day: HD # 4 Evaluated earlier this morning "not feeling too well this morning" some nausea Had some emesis last evening tolerated regular food for dinner had some toast this morning large bowel movement after Dulcolax suppository No abdominal pain Objective Vital Signs: Date Time Temp Pulse Resp B/P (MAP) Pulse Ox O2 Delivery O2 Flow Rate FiO2 09/09/17 16:13 36.6 91 18 112/68 (83) 96 09/09/17 16:00 Room Air 09/09/17 15:43 88 119/75 (90) 09/09/17 11:47 80 123/74 (90) 95 Room Air 09/09/17 08:52 Room Air 09/09/17 07:42 36.6 83 20 127/73 (91) 90 Room Air 09/09/17 03:54 36.3 85 16 115/73 (87) 94 Room Air 09/09/17 01:15 Room Air 09/09/17 00:13 36.7 87 18 112/77 (89) 91 Room Air 09/08/17 22:18 105/65 (78) 09/08/17 19:33 36.9 102 18 101/63 (76) 93 Room Air General Appearance: WD/WN, no apparent distress Head: normocephalic, atraumatic Neck: trachea midline Respiratory/Chest: no respiratory distress, no accessory muscle use Abdomen: non tender, non distended, soft, no organomegaly, no pulsatile mass Laboratory Results: Results Past 24 Hours Test 09/08/17 17:08 09/08/17 19:47 09/09/17 05:30 09/09/17 07:50 Range/Units Bedside Glucose 82 136 121 70-99 mg/dl White Blood Count 6.74 4.8-10.8 K/uL Red Blood Count 3.27 4.7-6.1 M/uL Hemoglobin 9.8 14.0-18.0 g/dL Hematocrit 30.7 42-52 % Mean Corpuscular Volume 93.9 80-100 fL Mean Corpuscular Hemoglobin 30.0 25-34 pg Mean Corpuscular Hemoglobin Concent 31.9 32-36 g/dl Platelet Count 108 130-400 K/uL Mean Platelet Volume 10.3 7.4-10.4 fL Neutrophils (%) (Auto) 90.4 % Lymphocytes (%) (Auto) 5.0 % Monocytes (%) (Auto) 4.2 % Eosinophils (%) (Auto) 0.0 % Basophils (%) (Auto) 0.1 % Neutrophils # (Auto) 6.09 1.4-6.5 K/uL Lymphocytes # (Auto) 0.34 1.2-3.4 K/uL Monocytes # (Auto) 0.28 0.11-0.59 K/uL Eosinophils # (Auto) 0.00 0-0.5 K/uL Basophils # (Auto) 0.01 0-0.2 K/uL RDW Standard Deviation 64.2 36.4-46.3 fL RDW Coefficient of Variation 19.2 11.5-14.5 % Immature Granulocyte % (Auto) 0.3 % Immature Granulocyte # (Auto) 0.02 0.00-0.02 K/uL Sodium Level 137 136-145 mmol/L Potassium Level 4.4 3.5-5.1 mmol/L Chloride Level 105 98-107 mmol/L Carbon Dioxide Level 24 21-32 mmol/L Anion Gap 8.0 3-11 mmol/L Blood Urea Nitrogen 12 7-18 mg/dl Creatinine 0.71 0.60-1.40 mg/dl Est Creatinine Clear Calc Drug Dose 88.5 ml/min Estimated GFR () 104.2 Estimated GFR (Non- 89.9 BUN/Creatinine Ratio 16.7 10-20 Random Glucose 130 70-99 mg/dl Calcium Level 7.5 8.5-10.1 mg/dl Test 09/09/17 11:27 09/09/17 16:32 Range/Units Bedside Glucose 122 144 70-99 mg/dl Assessment & Plan SBO- resolved - vitals stable - No leukocytosis - passing flatus, + bowel movement Plan: No acute surgical intervention required, seems as SBO has resolved given positive bowel function. His residual nausea could be secondary to his current disease status (Pancreatic cancer with peritoneal mets) Continue regular diet Continue Zofran as needed for nausea Continue medical management Our services signing off, please call with any questions or concerns Dr. King has seen patient, agrees with above
[2017-09-10] VITALS (7 sets, daily range): BP systolic 119–150; BP diastolic 73–84; PULSE 79–86; TEMP 36.3–37; O2SAT 92–94
[2017-09-10] MEDS: NITROGLYCERIN OINT 2% 1GM PACKET EXT SCH ×2 (05:09→10:00)
[2017-09-10] MEDS: CLOPIDOGREL BISULFATE 75 MG TAB PO SCH (07:29)
[2017-09-10] MEDS: ASPIRIN 81 MG ECTAB PO SCH (07:29)
[2017-09-10] MEDS: METOPROLOL SUCC 50MG EXT REL TAB PO SCH (07:29)
[2017-09-10] MEDS: TAMSULOSIN HCL 0.4 MG CAP PO SCH (07:31)
[2017-09-10] MEDS: INSULIN ASPART 100 UNITS/ML 3 ML PEN SC SCH ×2 (09:02→12:59)
[2017-09-10] MEDS: CALCIUM CARBONATE 500 MG CHEWABLE PO PRN (12:13)
--- NOTE | 2017-09-10 13:41 | Medical Student: [facility] ---
Discharge Summary Admission Date: Sep 05, 2017 at 02:27 Discharge Date: Sep 10, 2017 Discharge Disposition: [facility] facility Principal Diagnosis: Small Bowel Obstruction Problems/Secondary Diagnoses: Urinary Retention, HTN, CAD, T2DM Immunizations: Have You Had Influenza Vaccine: Yes Influenza Vaccine Date: Aug 03, 2008 History of Tetanus Vaccine?: Yes History of Pneumococcal: Unknown History of Hepatitis B Vaccine: No Medications: New Medications: Ondansetron Hcl (Zofran) 4 Mg Tab 1-2 TAB PO Q8 PRN for Nausea, #30 TAB Pantoprazole (Protonix) 40 Mg Tab 40 MG PO DAILY, #30 TAB Calcium Carbonate (Tums) 500 Mg Chew 500 MG PO Q2H PRN for INDIGESTION, #20 TAB Diphenhydramine Hcl (Benadryl) 25 Mg Cap 25 MG PO HS, #30 CAP Tamsulosin HCl (Tamsulosin HCl) 0.4 Mg Cap 0.4 MG PO QAM, #30 CAP 2 Refills Continued Medications: Acetaminophen (Tylenol) 500 Mg Tab 2 TAB PO TID PRN for Pain or Fever for 2 Days, #20 TAB 3 Refills Aspirin (Aspir-81) 81 Mg Tab 1 TAB PO QAM, TAB Cilostazol (Cilostazol) 100 Mg Tab 1 TAB PO QPM, #60 Clopidogrel Bisulfate (Plavix) 75 Mg Tab 1 TAB PO 3XWK for 90 Days, #90 TAB 1 Refill TAKES MON, WED, & FRI. Epoetin Mariano (Procrit) 40,000 Units Inj 1 DOSE INJ UD, #4 Metoprolol Succ (Toprol Xl) (Toprol-Xl) 50 Mg Tabcr 50 MG PO QAM, #30 TAB Nitroglycerin (Nitrostat) 0.4 Mg/1 Tab Subl 0.4 MG SL DIRECTED PRN for Chest Pain Prednisone (Prednisone) 20 Mg Tab 60 MG PO QAM, TAB Prochlorperazine (Prochlorperazine) 25 Mg Sup 25 MG RE DIRECTED PRN for Nausea or Vomiting, #30 Tramadol Hcl (Tramadol Hcl Er) 200 Mg Tab 200 MG PO QAM, #90 Discontinued Medications: Atorvastatin (Lipitor) 80 Mg Tab 80 MG PO QPM, TAB Furosemide (Lasix) 40 Mg Tab 40 MG PO QAM, TAB Isosorbide Mononitrate Ext Rel (Imdur Ext Rel) 30 Mg Tabcr 1 TAB PO 3XWK, TAB TAKES MON, WED, & FRI. Losartan Potassium (Cozaar) 25 Mg Tab 25 MG PO QAM, TAB Metformin HCl (Metformin HCl) 500 Mg Tab 500 MG PO BIDM Potassium Ext Rel (Klor-Con) 20 Meq Tabcr 20 MEQ PO QAM, TAB Discharge Exam Review of Systems: Constitutional: + weakness, No fever, No chills, No sweats Respiratory: No cough, No sputum, No shortness of breath Cardiovascular: No chest pain, No palpitations Abdomen: + nausea, No pain, No vomiting, No diarrhea, No constipation Genitourinary - Male: No dysuria, No urinary frequency Endocrine: No excessive thirst, No excessive urination Integumentary: No rash, No itch Physical Exam: General Appearance: WD/WN, no apparent distress Eyes: EOMI, sclerae normal Neck: supple, no adenopathy, thyroid normal Respiratory/Chest: chest non-tender, lungs clear, normal breath sounds, no respiratory distress Cardiovascular: regular rate, rhythm, no murmur Abdomen / GI: normal bowel sounds, non tender, soft, no organomegaly Extremities: normal inspection, no calf tenderness, normal capillary refill , no pedal edema Neurologic/Psychiatric: alert, normal mood/affect, oriented x 3 Skin: normal color, warm/dry Hospital Course Small Bowel Obstruction - Resolved -Denies n/v -Pt tolerating diet advancement to soft diet follow bowel rest and NG tube insertion -Pain is well controlled. -Surgery rec's conservative management -Added Compazine and Zantac PRN -Started PPI as on high dose steroids. Urinary Retention - Resolved. -Verdin removed -Tamulosin 0.4 mg qAM started today. HTN -Restarted on Metoprolol 50 mg q day. -BP is well controlled at this point. May restart his home Losartan if BP increases. CAD -Resumed PO ASA, Plavis and BB -Can restart statin on d/c. Pt can consider stopping statin if having side effects. T2DM -ISS while in the hospital -Home metformin not restarted. His last a1c was 5.6. Can dc metformin all together. Difficulty Sleeping -Normally takes tylenol PM at home. Benadryl PO hs PRN added. Pulmonary Disease -Restarted home 60 mg Prednisone dose as per Dr. Waddingtons outpt note. Total Time Spent: Less than 30 minutes This includes examination of the patient, discharge planning, medication reconciliation, and communication with other providers. Discharge Instructions Please refer to the electronic Patient Visit Report (Discharge Instructions) for additional information. Follow-Up to [facility].
[2017-09-10] MEDS ORDERED: PANT40TA PO (14:16)
[2017-09-10] MEDS ORDERED: FLM4 PO (14:16)
[2017-09-10] MEDS ORDERED: TUMS PO (14:51)
[2017-09-10] MEDS ORDERED: ONDA4TAB46 PO (14:53)
--- NOTE | 2017-09-10 15:08 | Discharge Instructions ---
Discharge Instructions Date of Service Sep 10, 2017. Admission Reason for Admission: Primary Pancreatic Cancer, Small Bowel Obstruction Discharge Discharge Diagnosis / Problem: Small bowel obstruction Discharge Goals Goal(s): Decrease discomfort, Diagnostic testing, Therapeutic intervention Activity Recommendations Activity Limitations: resume your previous activity . Instructions / Follow-Up Instructions / Follow-Up 77 year old male with metastatic pancreatic cancer, previously under hospice care, presents to the ER with high grade bowel obstruction for symptomatic management. High grade small bowel obstruction --> On day of admission, required 1L NSS bolus for sinus tachycardia and hypotension consistent with dehydration in addition to mIVF. O2 via NC also provided for support. NG tube was clamped 09/05 , however within an hour, symptoms of nausea and abdominal pain/distension recurred. As such, low intermittent suction resumed. Re-clamp 09/06 was successful with progression to clears. Patient pulled his own NGT on 09/08. Diet being escalated as tolerated. mIVF discontinued. O2 also weaned and saturating well on RA. - On discharge continue Zofran and Compazine PRN nausea. He has Tramadol PRN pain Urinary retention --> Verdin removed 09/08. Trial of void successful. - On discharge continue Tamsulosin HTN - Systolic blood pressure remained 100-120 with metoprolol only, continue this on discharge - Losartan, ISMN and furosemide (+KCl), but can consider restarting if patient becomes hypertensive or fluid overloaded. Coronary artery disease / Heart failure with reduced ejection fraction (LVEF 35- 40%) - Continue ASA, clopidogrel, metoprolol. - Statin discontinued. T2DM - HbA1c 5.8 (08/16). - Insulin sliding scale while in hospital - Diet: AHA diet, mechanically soft diet. Can escalate as tolerated. - Metformin discontinued. Can consider restarting if patients sugar become too high with gradual improvement in diet Pulmonary disease - Prednisone 60mg. Pantoprazole 40mg as prophylaxis. Poor sleep - Benadryl qHS VTE PPx - Recommend activity as tolerated. Code: DO NOT RESUSCITATE Current Hospital Diet Patient's current hospital diet: Diabetes Type 2 Diet Discharge Diet Recommended Diet: AHA Diet (Heart Healthy) Diet Texture: Mechanical Soft (ground) Pending Studies Studies pending at discharge: no Laboratory Results Hemoglobin A1c Test 08/19/17 11:25 Range/Units Estimated Average Glucose 120 mg/dl Hemoglobin A1c 5.8 H 4.5-5.6 % Medical Emergencies . Who to Call and When: Medical Emergencies: If at any time you feel your situation is an emergency, please call 911 immediately. . Non-Emergent Contact Non-Emergency issues call your: Primary Care Provider . . "Provider Documentation" section prepared by Maddison Echavarria. . VTE Core Measure Inpt VTE Proph given/why not?: T.E.D. Stockings, SCD's, Contraindicated ( pending surgery decision in morning)
[2017-09-10] MEDS ORDERED: BND25 PO (15:09)
--- NOTE | 2017-09-10 15:11 | Discharge Summary ---
Discharge Summary Date of Service Sep 10, 2017. (Alka. Echavarria MD) Discharge Summary Admission Date: Sep 05, 2017 at 02:27 Discharge Date: Sep 10, 2017 Discharge Disposition: halfway facility Principal Diagnosis: small bowel obstruction Immunizations: Have You Had Influenza Vaccine: Yes Influenza Vaccine Date: Aug 03, 2008 History of Tetanus Vaccine?: Yes History of Pneumococcal: Unknown History of Hepatitis B Vaccine: No (Alka. Echavarria MD) Medication Reconciliation New Medications: Ondansetron Hcl (Zofran) 4 Mg Tab 1-2 TAB PO Q8 PRN for Nausea, #30 TAB Pantoprazole (Protonix) 40 Mg Tab 40 MG PO DAILY, #30 TAB Calcium Carbonate (Tums) 500 Mg Chew 500 MG PO Q2H PRN for INDIGESTION, #20 TAB Diphenhydramine Hcl (Benadryl) 25 Mg Cap 25 MG PO HS, #30 CAP Tamsulosin HCl (Tamsulosin HCl) 0.4 Mg Cap 0.4 MG PO QAM, #30 CAP 2 Refills Continued Medications: Acetaminophen (Tylenol) 500 Mg Tab 2 TAB PO TID PRN for Pain or Fever for 2 Days, #20 TAB 3 Refills Aspirin (Aspir-81) 81 Mg Tab 1 TAB PO QAM, TAB Cilostazol (Cilostazol) 100 Mg Tab 1 TAB PO QPM, #60 Clopidogrel Bisulfate (Plavix) 75 Mg Tab 1 TAB PO 3XWK for 90 Days, #90 TAB 1 Refill TAKES MON, WED, & FRI. Epoetin Mariano (Procrit) 40,000 Units Inj 1 DOSE INJ UD, #4 Metoprolol Succ (Toprol Xl) (Toprol-Xl) 50 Mg Tabcr 50 MG PO QAM, #30 TAB Nitroglycerin (Nitrostat) 0.4 Mg/1 Tab Subl 0.4 MG SL DIRECTED PRN for Chest Pain Prednisone (Prednisone) 20 Mg Tab 60 MG PO QAM, TAB Prochlorperazine (Prochlorperazine) 25 Mg Sup 25 MG RE DIRECTED PRN for Nausea or Vomiting, #30 Tramadol Hcl (Tramadol Hcl Er) 200 Mg Tab 200 MG PO QAM, #90 Discontinued Medications: Atorvastatin (Lipitor) 80 Mg Tab 80 MG PO QPM, TAB Furosemide (Lasix) 40 Mg Tab 40 MG PO QAM, TAB Isosorbide Mononitrate Ext Rel (Imdur Ext Rel) 30 Mg Tabcr 1 TAB PO 3XWK, TAB TAKES MON, WED, & FRI. Losartan Potassium (Cozaar) 25 Mg Tab 25 MG PO QAM, TAB Metformin HCl (Metformin HCl) 500 Mg Tab 500 MG PO BIDM Potassium Ext Rel (Klor-Con) 20 Meq Tabcr 20 MEQ PO QAM, TAB Discharge Exam Patient did well overnight, no acute events. He tolerated soft mechanical food for dinner and had no nausea or vomiting overnight. He takes improvement in abdominal pain, he is passing gas, and has had bowel movement this morning. He is ambulating in the mejia without chest pain or shortness of breath. He has been voiding without issue. He is keen for discharge. ROS unremarkable except as noted above. Physical Exam: General Appearance: WD/WN, no apparent distress Eyes: normal inspection ENT: hearing grossly normal Neck: supple Respiratory/Chest: lungs clear, normal breath sounds, no respiratory distress, no accessory muscle use Cardiovascular: regular rate, rhythm, no murmur Abdomen / GI: normal bowel sounds, non tender, soft, + distended (improved from previous) Extremities: no calf tenderness, no pedal edema Neurologic/Psychiatric: alert, normal mood/affect, oriented x 3 Skin: normal color, warm/dry, no rash (Alka. Echavarria MD) Hospital Course 77 year old male with metastatic pancreatic cancer, previously under hospice care, presents to the ER with high grade bowel obstruction for symptomatic management. High grade small bowel obstruction --> On day of admission, required 1L NSS bolus for sinus tachycardia and hypotension consistent with dehydration in addition to mIVF. O2 via NC also provided for support. NG tube was clamped 09/05 , however within an hour, symptoms of nausea and abdominal pain/distension recurred. As such, low intermittent suction resumed. Re-clamp 09/06 was successful with progression to clears. Patient pulled his own NGT on 09/08. Diet being escalated as tolerated. mIVF discontinued. O2 also weaned and saturating well on RA. - On discharge continue Zofran and Compazine PRN nausea. He has Tramadol PRN pain Urinary retention --> Verdin removed 09/08. Trial of void successful. - On discharge continue Tamsulosin HTN - Systolic blood pressure remained 100-120 with metoprolol only, continue this on discharge - Losartan, ISMN and furosemide (+KCl), but can consider restarting if patient becomes hypertensive or fluid overloaded. Coronary artery disease / Heart failure with reduced ejection fraction (LVEF 35- 40%) - Continue ASA, clopidogrel, metoprolol. - Statin discontinued. T2DM - HbA1c 5.8 (08/16). - Insulin sliding scale while in hospital - Diet: AHA diet, mechanically soft diet. Can escalate as tolerated. - Metformin discontinued. Can consider restarting if patients sugar become too high with gradual improvement in diet Pulmonary disease - Prednisone 60mg. Pantoprazole 40mg as prophylaxis. Poor sleep - Benadryl qHS VTE PPx - Recommend activity as tolerated. Code: DO NOT RESUSCITATE Total Time Spent: Less than 30 minutes This includes examination of the patient, discharge planning, medication reconciliation, and communication with other providers. (Alka. Echavarria MD) I agree with resident assessment and plan and have seen and examined pt myself VSS Pt reports no discomfort Tolerating soft diet Stable for DC to [facility] Cont protonix and antiemetics on DC (Byron Garnett D.O.) Discharge Instructions Please refer to the electronic Patient Visit Report (Discharge Instructions) for additional information. (Alka. Echavarria MD)
== END 2017-09-10 18:34 | DRG 389 ==
LOC: EDBD 21:30 → C.EDC 21:32 → C.MSICU 09-05 02:27 → ENRESERV 09-05 02:50 → C.2E 09-05 14:56 → EDBEDREQ 09-06 11:16 → EDBEDREQSVC 09-06 11:16 → EDBEDREQ 09-06 11:18 → ENRESERV 09-06 14:19 → C.4E 09-06 14:44
PROVIDERS: ADMIT Hospitalist; ATTEND Hospitalist
DX: K56.609 Unspecified intestinal obstruction, unspecified as to partial versus complete obstruction (principal); C25.9 Malignant neoplasm of pancreas, unspecified; C78.6 Secondary malignant neoplasm of retroperitoneum and peritoneum; I25.10 Atherosclerotic heart disease of native coronary artery without angina pectoris; I50.9 Heart failure, unspecified; J43.9 Emphysema, unspecified; I10 Essential (primary) hypertension; R33.9 Retention of urine, unspecified; Z87.01 Personal history of pneumonia (recurrent); Z79.82 Long term (current) use of aspirin; Z82.49 Family history of ischemic heart disease and other diseases of the circulatory system; Z82.3 Family history of stroke